=== PATIENT | female | born 1945 | race Caucasian/White ===

== ENCOUNTER → 2018-08-12 14:13 | Outpatient (CLI) | payer MEDICARE, OTHER, SELFPAY ==
--- NOTE | 2018-08-12 | DI.MG.S_ITS ---
BILATERAL DIGITAL SCREENING MAMMOGRAM 3D/2D WITH CAD POST LUMPECTOMY: 08/12/2018 Comparison is made to exams dated: 07/27/2017 mammogram, 06/26/2016 mammogram, and 04/01/2014 mammogram - [facility]. There are scattered fibroglandular elements in both breasts. Current study was also evaluated with a Computer Aided Detection (CAD) system. No significant masses, calcifications, or other findings are seen in either breast. There has been no significant interval change. IMPRESSION: NEGATIVE There is no mammographic evidence of malignancy. A 1 year screening mammogram is recommended. This exam was interpreted at Station ID: [id number]. NOTE: For mammograms, a report in lay terms will be sent to the patient. Approximately 15% of breast malignancies will not be visualized mammographically. In the management of a palpable breast mass, a negative mammogram must not discourage biopsy of a clinically suspicious lesion. Electronically Signed By: Rico bullard/kaitlyn:08/12/2018 17:37:02 letter sent: Normal Exam ACR BI-RADS Category 1: Negative 3341F
== END ==
PROVIDERS: PCP Family Medicine; Visit Provider Family Medicine
DX: Z12.31 Encounter for screening mammogram for malignant neoplasm of breast (principal)
CPT/HCPCS: 77063; 77067

== ENCOUNTER 2019-06-13 08:44 | Emergency (ER) | payer MEDICARE, OTHER, SELFPAY ==
[2019-06-13 08:59] VITALS: BP 132/78; PULSE 78; RESP 18; TEMP 36.3; O2SAT 100; BMI 30.5
--- NOTE | 2019-06-13 10:19 | ED.EAR ---
HPI - Ear Problem General Chief complaint: Ear Stated complaint: pain on right side of head Time Seen by Provider: 06/13/19 10:19 Source: patient Mode of arrival: Family Vehicle Limitations: no limitations History of Present Illness HPI Narrative: This is a 74-year-old female comes emergency department with complaint of pain in her right ear that's been intermittent since April. She states sometimes OB longer break but sometimes she'll have a but have 5 episodes during the day. She states rather intense, she states she has had trigeminal neuralgia in the past but this is much different. She states not as intense and it's only localized to deep inside the ear. She states her episode of trigeminal neuralgia was about 30 years ago. Patient has not had fevers. She has not had any drainage. She is able to pop her ears, she hasn't had any hearing changes, no muffled voice, no nasal congestion, no sinus pressure. Patient hasn't had any swelling of the face neck or ear. She states she hasn't had any outer facial pain. She denies any visual changes. No dizziness. She does not have temporal pain. No chest pain or shortness of breath. No lightheadedness or passing out. No nausea, no vomiting. Has a history significant for prior gastrointestinal tumor and burps frequently so she get regular EGD. Patient has seen the walk-in clinic, her primary care, ENT without any changes. We did discuss ENT told her to try a soft diet as well as ibuprofen and I asked if they had told her she had TMJ which she states they did not. She also had an abscessed tooth extracted last week which also has not altered her symptoms. Related Data Home Medications Medication Instructions Recorded Confirmed CHOLECALCIFEROL (VITAMIN D3) 400 iu PO Q DAY #0 07/07/11 04/28/19 (Vitamin D) Previous Rx's Medication Instructions Recorded CALCIUM CARBONATE (#CALCIUM) 600 mg PO BID #180 10/22/12 Disabled Parking Permit dev #1 03/01/16 omeprazole 20 mg tablet,delayed 20 mg PO DAILY #90 tab 01/08/19 release tolterodine 4 mg capsule,extended 4 mg PO DAILY PRN #30 cap 01/08/19 release 24 hr fluticasone propionate 1 spray NASAL DAILY #15.8 ml 06/13/19 Allergies Allergy/AdvReac Type Severity Reaction Status Date / Time No Known Allergies Allergy Uncoded 06/13/19 09:03 Review of Systems Review of Systems ROS Unobtainable: All systems reviewed & are unremarkable except as noted in HPI and below Patient History Medical History Chicken pox (Resolved ~1949) Hearing loss (Chronic) Mumps (Resolved ~1949) Osteopenia (Chronic) Surgical History Anesthesia (Resolved) Status post hysterectomy (Resolved 1990) Family History Brother Age: 73 Diabetes mellitus Father Heart disease Grandfather Cancer Grandmother Heart disease Mother Heart disease Grandmother Heart disease Sister Age: 68 Lung cancer Grandfather No problems noted. Social History Smoking Status: Never smoker Smoking Status: Never smoker alcohol intake frequency: a few times a month Substance Use Type: does not use Exam Narrative Exam Narrative: GEN: well nourished, well appearing female, alert and oriented x 3, patient appears to be in mild distress. HEENT: Atraumatic, pupils are equal round reactive to light, extraocular movements are intact, nares are clear, TMs are clear with no fluid, slightly traction on the right, there's a small white area of scar but TM is intact. No pain with movement or palpation of the pinna. No tenderness over the temporal region on either side. Throat is clear without any exudates, erythema, tonsillar enlargement or uvular deviation. No cervical lymphadenopathy or submandibular lymphadenopathy. No muffled or hoarse voice. HEART: Regular rate and rhythm without murmur, clicks, rubs. LUNGS:Lungs clear to auscultation, no wheezes, rales, crackles, chest moves symmetrically ABD:bowel sounds normal, soft, non-tender, no guarding, rebound, rigidity, no masses noted, no hepatosplenomegaly MSCL: Non-tender, no muscle atrophy, full range of motion, normal gait NEURO:CN 2-12 intact, sensation normal. SKIN: no rash, no erythmea, Initial Vital Signs Initial Vital Signs: Vital Signs Temperature 97.4 F L 06/13/19 08:59 Pulse Rate 78 06/13/19 08:59 Respiratory Rate 18 06/13/19 08:59 Blood Pressure 132/78 06/13/19 08:59 Pulse Oximetry 100 06/13/19 08:59 Course Orders Ordered: ED Orders 06/13/19 10:55 CT head/brain wo con Stat Vital Signs Vital signs: Vital Signs - 8 hr 06/13/19 11:50 Pulse Rate 73 Respiratory Rate 18 Blood Pressure 140/83 Pulse Oximetry 95 Medical Decision Making Imaging Data CT scan - head: Radiologist's Impression: [address] [address] [address] Scan Report Signed Patient: Minda Cruz [facility]#: [id number] : 4Acct:[id number] Age/Sex: 74 / FDate of Service: 06/13/19 Loc: ED Accession Number: [id number] Procedure: CT head/brain wo con Ordering Provider: Claudia Dow D.O. PROCEDURE: CT HEAD/BRAIN WO CON INDICATIONS: right ear pain/garza, intermittent, no changes TECHNIQUE: Noncontrast 4.5 mm thick angled axial sections acquired from the foramen magnum to the vertex, with coronal and sagittal reformats 1 mm thick imaging was obtained through the internal auditory canals with sagittal and coronal reconstructions.. For radiation dose reduction, the following was used: automated exposure control, adjustment of mA and/or kV according to patient size. COMPARISON: None. FINDINGS: Image quality: Excellent. CSF spaces: Basal cisterns are patent. No extra-axial fluid collections. Ventricles are normal in size and shape. Brain: No midline shift. No intracranial masses or hemorrhage. Aponte-white matter interface is normal. Skull and face: Calvarium and visualized facial bones are intact, without suspicious lesions. Sinuses: Visualized sinuses and mastoids are clear. No evidence of cholesteatoma. No mastoid opacification. No evidence of otitis media. Moderate left TMJ degenerative change. Middle ear ossicles appear intact. IMPRESSION: 1. Left TMJ degenerative arthritis. 2. No evidence of acute stroke, hemorrhage, or mass. 3. Otherwise unremarkable head CT and unremarkable thin cut imaging through the internal auditory canals. Dictated by: Jericho Verma M.D. on 06/13/2019 at 11:04 Approved by: Jeircho Verma M.D. on 06/13/2019 at 11:07 [facility] Narrative Medical decision making narrative: Patient has left TMJ changes but her complaint is for right ear pain. Discussed with patient we can try Flonase doesn't sound like she has tried this to see if there's any eustachian tube dysfunction that might be helpful. We discussed possibly having trigeminal neuralgia on the differential although she states this is not anything as strong as that. Discharge Plan Departure Patient Disposition: Home Clinical Impression: Ear pain, right Discharge Date/Time: 06/13/19 11:52 Instructions: DI for Ear Pain-Adult Activity Restrictions/Additional Instructions: Follow up with Dr. Benitez at your appointment. Continue home medications as prescribed. I would recommend continuing a soft diet as per ENT. Use flonase one spray to both nostrils daily x 2 weeks. [facility] [place]. Return to ER for fevers greater 100.4 F, rapidly worsening pain, lightheadedness, dizziness, vision changes, ataxia or altered gait, persistent vomiting, new chest pain shortness of breath, severe headaches, new swelling of the skin or face or neck or other new or concerning changes Prescriptions: New fluticasone propionate 50 mcg/actuation spray,suspension 1 spray NASAL DAILY Qty: 15.8 RF: 0 No Action CHOLECALCIFEROL (VITAMIN D3) (Vitamin D) 400 iu PO Q DAY Qty: 0 RF: 0 CALCIUM CARBONATE (#CALCIUM) 600 mg PO BID Qty: 180 RF: 3 Disabled Parking Permit Qty: 1 RF: 0 tolterodine [Detrol LA] 4 mg capsule,extended release 24hr 4 mg PO DAILY PRN (Reason: Urgency) Qty: 30 RF: 5 omeprazole 20 mg tablet,delayed release (DR/EC) 20 mg PO DAILY Qty: 90 RF: 3 Referrals: Bam Benitez MD [Primary Care Provider] -
--- NOTE | 2019-06-13 10:55 | DI.CT.S_ITS ---
PROCEDURE: CT HEAD/BRAIN WO CON INDICATIONS: right ear pain/garza, intermittent, no changes TECHNIQUE: Noncontrast 4.5 mm thick angled axial sections acquired from the foramen magnum to the vertex, with coronal and sagittal reformats 1 mm thick imaging was obtained through the internal auditory canals with sagittal and coronal reconstructions.. For radiation dose reduction, the following was used: automated exposure control, adjustment of mA and/or kV according to patient size. COMPARISON: None. FINDINGS: Image quality: Excellent. CSF spaces: Basal cisterns are patent. No extra-axial fluid collections. Ventricles are normal in size and shape. Brain: No midline shift. No intracranial masses or hemorrhage. Aponte-white matter interface is normal. Skull and face: Calvarium and visualized facial bones are intact, without suspicious lesions. Sinuses: Visualized sinuses and mastoids are clear. No evidence of cholesteatoma. No mastoid opacification. No evidence of otitis media. Moderate left TMJ degenerative change. Middle ear ossicles appear intact. IMPRESSION: 1. Left TMJ degenerative arthritis. 2. No evidence of acute stroke, hemorrhage, or mass. 3. Otherwise unremarkable head CT and unremarkable thin cut imaging through the internal auditory canals. Dictated by: Jericho Verma M.D. on 06/13/2019 at 11:04 Approved by: Jericho Verma M.D. on 06/13/2019 at 11:07
[2019-06-13 11:50] VITALS: BP 140/83; PULSE 73; RESP 18; O2SAT 95
== END 2019-06-13 11:52 | disposition home or self-care (01) ==
PROVIDERS: Emergency Provider Emergency Medicine; PCP Family Medicine
DX: H92.01 Otalgia, right ear (principal); R51 Headache
CPT/HCPCS: 70450; 99281; 99284

== ENCOUNTER → 2019-11-12 13:35 | Outpatient (CLI) | payer MEDICARE, OTHER, SELFPAY ==
--- NOTE | 2019-11-12 | DI.ECHO.S_ITS ---
[facility] +---------+ : : [address] : : : : [id number] : : : : Phone: [phone]+ Echocardiogram Report + + :Name: JUAN SOLANO Study Date: 11/12/2019 Height: 67 in : :[facility] Weight: 189 lb : : Gender: Female BSA: 2.0 m2 : :: 1945 Age: 74 yrs BP: 124/72 mmHg: :Reason For Study: Chest Pain : :Ordering Physician: Dr. Kuhn : :Emmanuel Performed By: Venus Espinoza : :Referring: BAHMAN ELAINE : + + Interpretation Summary 1) Normal left ventricular thickness, size, wall motion, and systolic function (EF 60-65%). 2) Normal right ventricular size and function. 3) No significant valvular abnormalities. 4) No prior Echo available for comparison. Procedure: A two-dimensional transthoracic echocardiogram with color flow and Doppler was performed. The study quality was technically difficult. There is no prior echocardiogram noted for this patient. The patient was in normal sinus rhythm during the exam. The heart rate ranged between 70-80 bpm during the study. Left Ventricle: The left ventricle is normal in size and wall thickness. The ejection fraction is estimated to be 60-65%. Left ventricular global longitudinal strain average is -20.4%. Diastolic parameters suggest probable normal left ventricular diastolic function and normal filling pressures. Right Ventricle: The right ventricle is normal in size and function. Atria: Both atria are normal in size. There is no Doppler evidence for an interatrial shunt. Mitral Valve: The mitral valve is normal in structure and function. There is trace mitral regurgitation. Aortic Valve: The aortic valve is grossly normal. The aortic valve is trileaflet. The aortic valve opens well. There is no aortic valve stenosis. No aortic regurgitation is present. Tricuspid Valve: The tricuspid valve is normal in structure and function. There is a trace or physiologic amount of tricuspid regurgitation. Pulmonary artery pressures cannot be estimated because of the lack of a measurable TR jet velocity but the IVC suggests a CVP of around 3 mmHg. Pulmonic Valve: The pulmonic valve is not well seen, but is grossly normal. There is mild pulmonic regurgitation. Great Vessels: The aortic root is normal size. The ascending aorta is mildly enlarged. The IVC is of normal diameter and collapses greater than 50% with a sniff. This suggests a low right atrial pressure of 3 mm Hg. Pericardium/ Pleura There is no pericardial effusion. There is no pleural effusion. MMode/2D Measurements & Calculations LVIDd: 4.0 cm LVOT diam: 2.1 cm LVIDs: 2.6 cm Ao root diam: 2.9 cm FS: 33.5 % asc Aorta Diam: 3.4 cm EPSS: 0.75 cm Ao Arch Diam (Prox Trans): 2.7 cm IVSd: 1.0 cm LVPWd: 0.93 cm LV de jesus. diameter/BSA (cm/m^2): 2.0 LV sys. diameter/BSA (cm/m^2): 1.3 LA A2 area: 17.8 cm2 RA long axis: 4.8 cm LA A4 area: 16.9 cm2 RA area: 14.5 cm2 LA length (vol): 5.1 cm RA vol: 36.9 ml LA vol: 49.9 ml RA : 18.7 ml/m2 LA vol index: 25.3 ml/m2 IVC diam: 1.6 cm RVD1 (basal): 2.7 cm TAPSE: 2.0 cm Doppler Measurements & Calculations Ao V2 max: 108.5 cm/sec LVOT Max Joshua: 91.7 cm/sec Ao V2 mean: 80.4 cm/sec LV V1 max P.4 mmHg Ao max P.7 mmHg LV V1 VTI: 21.5 cm Ao mean P.9 mmHg XENIA(I,D): 2.7 cm2 Ao V2 VTI: 27.4 cm XENIA(V,D): 2.9 cm2 sev ratio: 0.78 XENIA indexed to BSA (cm^2/m^2): 1.4 MV E max joshua: 68.2 cm/sec PA V2 max: 76.2 cm/sec MV A max joshua: 76.4 cm/sec PA V2 mean: 46.8 cm/sec MV E/A: 0.89 PA mean P.1 mmHg Med Peak E' Joshua: 7.4 cm/sec PA pr(Accel): 15.6 mmHg E/E' med: 9.2 Lat Peak E' Joshua: 9.4 cm/sec E/E' lat: 7.2 E/e' average: 8.2 MV dec time: 0.21 sec SV(LVOT): 73.6 ml Reading Physician:05:09 PM
--- NOTE | 2019-11-12 14:43 | PM.TREADMILL ---
Cardiac Stress Test Report Referral & Results Date Patient Seen: 11/12/19 Time Patient Seen: 14:30 Requesting provider: Bam Benitez Indication: chest discomfort Rest ECG: normal sinus rhythm Procedure Note: Today following both written and verbal informed consent the patient was exercised according to a standard protocol patient went for a total of 4 minutes 13 seconds achieving a maximum heart rate of 129 maximum systolic blood pressure of 158. This is approximately 7.0 METs. Exercise was terminated at this point because of fatigue. Patient was also given Cardiolite through a previously started Hep-Lock IV by the nuclear fuel processing technician approximately 1 minute prior to the cessation of exercise. Normal hemodynamic response to exercise. Normal exercise capacity ( WHITNEY 0% on the active scale). No signs or symptoms of angina. No rhythm changes. No ST deviations. Baseline artifact made exercise EKG difficult to interpret, but immediate post exercise EKG looks normal. Impression: Low probability for ischemia. Will await perfusion imaging. Please note: Actual ECG tracings can be found in the PACS system.
--- NOTE | 2019-11-13 17:24 | DI.NM.S_ITS ---
DATE OF SERVICE: 11/12/2019 PROCEDURE PERFORMED: Exercise treadmill stress and rest myocardial perfusion imaging with gating to assess ejection fraction and regional wall motion. ORDERING PROVIDER: Dr. Bam Benitez INDICATIONS: The patient is a 74-year-old female with chest discomfort. EXERCISE CARDIAC STRESS: The patient was able to exercise for a total 4 minutes 13 seconds on a standard protocol, suggesting average exercise capacity with a WHITNEY of 0%. She had a normal heart rate and blood pressure response, achieving a maximumheart rate of 129 bpm (89% of her predicted maximum). She had no chest discomfort or other anginal symptoms. Her resting ECG is normal and there are no apparent ST-segment shifts, although there is significant motion artifact during exercise, but the immediate post-stress ECGs appear normal and unchanged from the resting ECGs. At 3 minutes 10 seconds of exercise, at a heart rate of 122 bpm, 24.6 millicuries of technetium-99m Myoview was injected and the patient was imaged 15 minutes later using a gated SPECT acquisition protocol. The patient returned the following day and was reinjected with an additional 26.1 millicuries of technetium-99m Myoview and was imaged 30 minutes later, again using a gated SPECT acquisition protocol. FINDINGS: 1. Raw Data: There is fairly good myocardial tracer uptake with mild breast shadows noted. Lung/heart ratio is normal at 0.23 with a normal TID ratio of 0.80. 2. Quantitated gated SPECT: Post-stress ejection fraction is estimated at 78% without any focal wall motion abnormality. Resting ejection fraction is 73% with a normal resting end-diastolic volume of 77 mL 3. Myocardial perfusion imaging: Post-stress supine images show a normal myocardial perfusion pattern, supported by normal perfusion imaging in the prone position. The resting images show an identical perfusion pattern without any areas of improvement. CONCLUSIONS: 1. Normal myocardial perfusion study. 2. No evidence for myocardial ischemia or previous myocardial infarction. 3. Normal left ventricular systolic function without any regional wall motion abnormality. 4. Average exercise capacity without angina or ECG evidence of ischemia. Minda Cruz - DIANE/joe/marielena doc#: [id number]/job#: [id number] dd: 11/13/2019 12:41:00 dt: 11/13/2019 16:58:00 DICTATING MD/COPIES TO: Arden Saglado MD; Bam Benitez MD COPIES MNE: HUAN;
== END ==
PROVIDERS: PCP Family Medicine; Referring Provider Family Medicine; Visit Provider Family Medicine
DX: I37.1 Nonrheumatic pulmonary valve insufficiency (principal); I77.89 Other specified disorders of arteries and arterioles; R07.89 Other chest pain
CPT/HCPCS: 78452; 93016; 93017; 93018; 93306; A9502

== ENCOUNTER → 2020-01-19 09:09 | Outpatient (CLI) | payer MEDICARE, OTHER, SELFPAY ==
--- NOTE | 2020-01-19 | DI.MRI.S_ITS ---
PROCEDURE: MR HEAD/BRAIN WO/W CON INDICATIONS: Trigeminal neuralgia TECHNIQUE: Noncontrast sagittal T1 spin echo, axial T2 fast spin echo, axial FLAIR, axial gradient echo, axial diffusion and ADC through the brain. Axial/sagittal/coronal 3-D CISS, thin-slice axial T1 spin echo with fat saturation through the skull base. After the administration of contrast, axial and coronal thin-slice T1 spin echo with fat saturation through the skull base, axial T1 spin echo with fat saturation through the brain. COMPARISON: None. FINDINGS: Image quality: Excellent. Trigeminal nerves: Normal in size, and no evidence of extrinsic compression or intrinsic abnormal enhancement is found involving the cranial nerves. CSF spaces: Ventricles are normal in size and shape. No extra-axial fluid collections. Basal cisterns are patent. Brain: No intracranial bleeds or mass effects. No abnormal intracranial enhancement. Diffusion weighted images show no acute ischemic insults. Aponte-white matter interface is intact. Brainstem is normal. Normal intravascular flow voids are present. Skull and face: Calvarial marrow signal is normal. Orbits appear normal. Sinuses: Sinuses and mastoids appear clear. IMPRESSION: Normal examination, source of trigeminal neuralgia symptoms is not seen. There is no sign of inflammation of the cranial nerves, or extrinsic mass effect. Dictated by: Domenico Aldana M.D. on 01/19/2020 at 11:19 Approved by: Domenico Aldana M.D. on 01/19/2020 at 11:21
== END ==
PROVIDERS: PCP Family Medicine; Referring Provider Internal Medicine; Visit Provider Internal Medicine
DX: G50.0 Trigeminal neuralgia (principal)
CPT/HCPCS: 70553; A9579

== ENCOUNTER → 2020-01-20 10:08 | Outpatient (CLI) | payer MEDICARE, OTHER, SELFPAY ==
--- NOTE | 2020-01-20 | DI.MG.S_ITS ---
BILATERAL DIGITAL SCREENING MAMMOGRAM 3D/2D WITH CAD POST LUMPECTOMY: 01/20/2020 CLINICAL: Routine screening. Personal history of right breast cancer. Comparison is made to exams dated: 08/12/2018 mammogram, 07/27/2017 mammogram, and 06/26/2016 mammogram - [facility]. There are scattered fibroglandular elements in both breasts. Current study was also evaluated with a Computer Aided Detection (CAD) system. No significant masses, calcifications, or other findings are seen in either breast. There has been no significant interval change. IMPRESSION: NEGATIVE There is no mammographic evidence of malignancy. A 1 year screening mammogram is recommended. This exam was interpreted at Station ID: [id number]. NOTE: For mammograms, a report in lay terms will be sent to the patient. Approximately 15% of breast malignancies will not be visualized mammographically. In the management of a palpable breast mass, a negative mammogram must not discourage biopsy of a clinically suspicious lesion. Electronically Signed By: Petr Ham M.D., jr/kaitlyn:01/20/2020 10:39:52 letter sent: Normal Exam ACR BI-RADS Category 1: Negative 3341F
== END ==
PROVIDERS: PCP Family Medicine; Referring Provider Family Medicine; Visit Provider Family Medicine
DX: Z12.31 Encounter for screening mammogram for malignant neoplasm of breast (principal); Z85.3 Personal history of malignant neoplasm of breast
CPT/HCPCS: 77063; 77067

== ENCOUNTER → 2020-02-05 15:40 | Outpatient (CLI) | payer MEDICARE, OTHER, SELFPAY ==
--- NOTE | 2020-02-05 15:44 | DI.RAD.S_ITS ---
PROCEDURE: XR HIP W PEL IF DONE LT 2V INDICATIONS: fall TECHNIQUE: AP pelvis with lateral view(s) of the left hip(s). COMPARISON: [facility], CR, [id number] W PEL IF PERFORMED, 02/25/2016, 18:05. [facility], CR, [id number] W PEL IF PERFORMED, 02/24/2016, 8:07. FINDINGS: Bones: No fractures or dislocations. Pelvic ring appears intact. No suspicious bony lesions. Soft tissues: The visualized bowel gas pattern is normal. No suspicious soft tissue calcifications. IMPRESSION: Prior fracture fixation right hip, by cannulated pins. No acute trauma to the left hip or left hemipelvis found. Dictated by: Domenico Aldana M.D. on 02/05/2020 at 16:44 Approved by: Domenico Aldana M.D. on 02/05/2020 at 16:45
--- NOTE | 2020-02-05 15:44 | DI.RAD.S_ITS ---
PROCEDURE: XR RIBS LT MIN 3V W CXR1V INDICATIONS: fall TECHNIQUE: 2 views of the left ribs were acquired, along with a single view chest. COMPARISON: None. FINDINGS: Surgical changes and devices: None. Bones and chest wall: No fractures or dislocations. No suspicious bony lesions. Overlying soft tissues appear unremarkable. Lungs and pleura: No pleural effusions or pneumothorax. Lungs appear clear. Mediastinum: Mediastinal contours appear normal. Heart size is normal. IMPRESSION: No pneumothorax found, no rib fracture identified. Please note that a nondisplaced acute rib fracture may not be accurately detected initially but delayed plain films can improve visualization with callus formation, obtained several days after trauma. Dictated by: Domenico Aldana M.D. on 02/05/2020 at 16:36 Approved by: Domenico Aldana M.D. on 02/05/2020 at 16:43
== END ==
PROVIDERS: PCP Family Medicine; Referring Provider Nurse Practitioner Family; Visit Provider Nurse Practitioner Family
DX: M25.552 Pain in left hip (principal); R07.81 Pleurodynia
CPT/HCPCS: 71101; 73502

== ENCOUNTER → 2020-02-19 15:49 | Outpatient (CLI) | payer MEDICARE, OTHER, SELFPAY ==
--- NOTE | 2020-02-19 15:51 | DI.MRI.S_ITS ---
PROCEDURE: MR PELVIS WO CON INDICATIONS: Left buttock pain TECHNIQUE: Noncontrast coronal and axial T1 spin echo and STIR through the bony pelvis. COMPARISON: [facility], CR, XR HIP W PEL IF DONE LT 2V, 02/05/2020, 15:37. FINDINGS: Image quality: Suboptimal due to hardware artifact from right hip postsurgical changes. Bones and joints: Low signal intensity fracture line seen within the anterior column of the left acetabulum . There is extensive associated marrow edema. There is also marrow edema present within the left inferior pubic ramus, suspicious for nondisplaced fracture although less well visualized. Possible subtle fracture line seen on image 37/7. Adjacent edema present within the left hip abductor muscle compartment in keeping with acute or subacute strain. Sacroiliac joints are unremarkable in signal intensity. There is lower lumbar spondylosis and facet arthropathy. No pathologic hip joint effusion. No evidence of osteonecrosis. Tendons and ligaments: The gluteus medius and minimus tendons appear intact, without associated muscle atrophy. Proximal iliotibial band intact. Iliopsoas tendon intact. Origin of the hamstring tendon intact. The straight and reflected heads of the rectus femoris muscle origin appear intact Ligamentum teres appears intact where visualized. Labrum: Labrum appears intact in the absence of intra-articular contrast. The alpha angle of the femur is within normal limits at less than 55 degrees. Soft tissues: Visualized muscles demonstrate normal bulk and internal signal. Quadratus femoris muscle normal. Proximal sciatic neurovascular bundle appears normal adjacent to the hamstring tendons. No free pelvic fluid. Bladder normal. Genitourinary structures and bowel loops appear normal where visualized. IMPRESSION: Nondisplaced fractures of the anterior column of left acetabulum, and left inferior pubic ramus. Strain of the left hip adductor muscles Findings and recommendations were personally telephoned and discussed with Dr. Benitez's triage nurse (Joselyn) at 1006 hours 02/20/20. Dictated by: Griffin Perry M.D. on 02/20/2020 at 9:22 Approved by: Griffin Perry M.D. on 02/20/2020 at 10:08
== END ==
PROVIDERS: PCP Family Medicine; Referring Provider Family Medicine; Visit Provider Family Medicine
DX: M25.552 Pain in left hip (principal); S32.435A Nondisplaced fracture of anterior column [iliopubic] of left acetabulum, initial encounter for closed fracture; S32.592A Other specified fracture of left pubis, initial encounter for closed fracture; S76.012A Strain of muscle, fascia and tendon of left hip, initial encounter
CPT/HCPCS: 72195

== ENCOUNTER → 2020-03-24 08:22 | Outpatient (CLI) | payer MEDICARE, OTHER, SELFPAY ==
[2020-03-24 09:48] LABS: Add Manual Diff / Slide Review NO; Basophils Absolute Auto 0 /uL (0-100); Basophils Percent Auto 0.4 % (0-2); Eosinophils Absolute Auto 100 /uL (0-450); Eosinophils Percent Auto 1.9 % (2-4); Hemoglobin 13.8 g/dL (12.0-16.0); Lymphocytes Absolute Auto 1400 /uL (1100-4500); Lymphocytes Percent Auto 22.6 % (25-40); Mean Corpuscular HGB Conc 32.9 % (30-36); Mean Corpuscular Hemoglobin 30.6 PG (26-34); Monocytes Absolute Auto 500 /uL (0-900); Monocytes Percent Auto 7.3 % (3-14); Neutrophils Absolute Auto 4200 /uL (1500-7000); Neutrophils Percent Auto 67.8 % (50-75); Platelet Count 265 X10^3/uL (150-400); Red Blood Cell Count 4.52 X10^6/uL (4.0-5.2); Red Cell Distribution Width 13.7 % (11.6-14.8); White Blood Cell Count 6.3 X10^3/uL (4.5-11.0)
[2020-03-24 10:16] LABS: Alanine Aminotransferase 16 IU/L (<35); Albumin Globulin Ratio 1.4 (1.0-2.8); Alkaline Phosphatase 77 U/L (38-126); Aspartate Aminotransferase 24 IU/L (14-36); BUN Creatinine Ratio 27.5 (6-22); Bilirubin Total 0.7 mg/dL (0.2-1.3); Blood Urea Nitrogen 22 mg/dL (7-17); Calcium 8.9 mg/dL (8.4-10.2); Carbon Dioxide 31 mmol/L (22-32); Chloride 105 mmol/L (98-107); Cholesterol 145 mg/dL (140-199); Estimated Glomerular Filt Rate > 60.0 mL/min (>60); Globulin 2.8 g/dL (1.7-4.1); Glucose 101 mg/dL (80-110); HDL Cholesterol 61 mg/dL (40-60); HEMOLYSIS < 15 (0-50); LDL Cholesterol Calculated 66 mg/dL (<100); Potassium 4.1 mmol/L (3.4-5.1); Sodium 141 mmol/L (137-145); Total Protein 6.8 g/dL (6.3-8.2); Triglycerides 89 mg/dL (35-150)
[2020-03-24 10:45] LABS: Thyroid Stimulating Hormone 0.921 uIU/mL (0.47-4.68)
== END ==
PROVIDERS: PCP Family Medicine; Referring Provider Family Medicine; Visit Provider Family Medicine
DX: K21.00 Gastro-esophageal reflux disease with esophagitis, without bleeding (principal); E78.5 Hyperlipidemia, unspecified
CPT/HCPCS: 36415; 80053; 80061; 84443; 85025

== ENCOUNTER → 2020-08-19 10:58 | Outpatient (CLI) | payer MEDICARE, OTHER, SELFPAY ==
[2020-08-19 11:27] LABS: COVID19 -Nasal RAPID Negative (Negative)
== END ==
PROVIDERS: PCP Family Medicine; Visit Provider Specialist
DX: Z20.822 Contact with and (suspected) exposure to COVID-19 (principal)
CPT/HCPCS: 87635; 99213; C9803

== ENCOUNTER 2020-08-20 09:28 | Day surgery (SDC) | payer MEDICARE, OTHER, SELFPAY ==
[2020-08-20] VITALS (9 sets, daily range): BP systolic 96–127; BP diastolic 60–78; PULSE 63–77; RESP 10–16; TEMP 36–36.9; O2SAT 92–99; BMI 30.5
--- NOTE | 2020-08-20 | PATH_ITS ---
[facility] Accession Number: [id number] . 01 Material submitted: . PART A: gastrointestinal site - PROXIMAL STOMACH BIOPSY PART B: esophagus, E-G Junction - GE JUNCTION BIOPSY . 01 Clinical history: . SDC A: 4 SMALL STOMACH POLYP . 01 Diagnosis: A. Proximal Stomach, Polyps, Biopsies: Fragments of fundic gland polyp with mild reactive atypia and fragments of gastric hyperplastic polyp. No evidence of Helicobacter on H/E stain. Negative for intestinal metaplasia. Negative for dysplasia or malignancy. . B. Gastroesophageal Junction, Biopsy: Squamocolumnar junctional mucosa with mild chronic inflammation. Negative for specialized intestinal metaplasia on alcian blue stain. Negative for dysplasia or malignancy. [facility] 08/26/2020 1457 Local . 01 Comment: A. As part of routine quality assurance auditor, Dr. Steve has reviewed part A of this case and agrees with the diagnosis of fundic gland polyps with reactive atypia and fragments of hyperplastic polyp. . 01 Electronically signed: . Breezy Aguero MD, PhD, Pathologist NPI- [id number] . 01 Gross description: . Part A: PROXIMAL STOMACH BIOPSY: Received in formalin are 5 fragment(s) of meyers, soft tissue measuring 0.4 x 0.2 x 0.2 cm to 0.3 x 0.2 x 0.2 cm submitted entirely in 1 cassette(s) Part B: GE JUNCTION BIOPSY: Received in formalin are 4 fragment(s) of meyers, soft tissue measuring 0.4 x 0.3 x 0.1 cm to 0.2 x 0.2 x 0.1 cm submitted entirely in 1 cassette(s) /QBJ 08/21/2020 0902 Local . 01 Microscopic: . B. An AB/PAS stain is performed to evaluate for specialized intestinal metaplasia, and is negative for goblet cells. A control stain shows appropriate reactivity. . 01 Pathologist provided ICD-10: K31.7, K20.90 . 01 CPT . 106440, 269823, 388114 Performed at: 01 [facility] [address] [place] [address] [address] [facility], [place], [place] [id number] MD Rico Steve MD Phone: [phone]
[2020-08-20] MEDS: LACTATED RINGERS 1,000 ML 200 ML IV (10:15)
--- NOTE | 2020-08-20 11:44 | P.HP_ITS ---
History of Present Illness History of Present Illness Date Patient Seen: 08/19/20 Time Patient Seen: 11:45 [place] [facility] [place]: Patient seen yesterday in the office. Dictation not yet typed. She is here for surveillance. 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 Patient History Medical History Chicken pox (~1950) Hearing loss Left hip pain Mumps (~1950) Osteopenia Rib pain on left side Surgical History Anesthesia History of hip surgery Status post hysterectomy (1990) Family & Social History Family History Brother Age: 74 Diabetes mellitus Father Heart disease Grandfather Cancer Grandmother Heart disease Mother Heart disease Grandmother Heart disease Sister Age: 69 Lung cancer Grandfather No problems noted. Social History: household members spouse Tobacco & Substance use: Smoking Status Never smoker alcohol intake current alcohol intake frequency holiday/special occasion Substance Use Type does not use Meds Home Medications and Allergies Home Medications Medication Instructions Recorded Confirmed Type Disabled Parking Permit dev #1 03/01/16 08/19/20 Rx omeprazole 20 mg capsule,delayed 20 mg PO DAILY #90 cap 12/23/19 08/20/20 Rx release Allergies Allergy/AdvReac Type Severity Reaction Status Date / Time carbamazepine AdvReac Mild Dizziness Verified 08/19/20 10:20 Review of Systems Review of Systems ROS: Yes All systems reviewed with the patient and are negative except as otherwise documented Exam Vital Signs (past 8 hours): - 08/20/20 09:59 Temperature 97.8 F Pulse Rate 77 Respiratory Rate 13 Blood Pressure 127/74 Pulse Oximetry 99 Oxygen Delivery Method Room Air Oxygen Flow Rate 0 Narrative Exam Narrative: Pleasant cooperative patient no apparent distress. Lungs are clear to auscultation. No rales or rhonchi. Heart regular rate and rhythm no murmur gallop. Abdomen is soft nontender without mass. No obvious hernias. Patient is alert and oriented x3. Assessment & Plan Assessment & Plan narrative: Patient here for a surveillance EGD. I have discussed the procedure with her including risks of bleeding perforation. She appears to understand wishes to proceed.
--- NOTE | 2020-08-20 11:48 | PM.PREOP ---
Pre-operative Note COVID-19 COVID-19 status: Negative Result date/Date tested (Pos, Neg/Pending): 08/19/20 Interval Note History & Physical reviewed/Exam performed by Physician: Yes Changes to H&P: No ASA Class (for procedural sedation): I
[2020-08-20] MEDS: MIDAZOLAM 5 MG/5 ML VIAL IV (11:56)
[2020-08-20] MEDS: fentaNYL 250 MCG/5 ML INJ IV (11:56)
[2020-08-20] MEDS: LIDOCAINE 4% SOLN 50 ML 20 ML TOP (12:00)
--- NOTE | 2020-08-20 12:10 | P.OP.ENDO_ITS ---
Operative Date/Time/Diagnoses Date of procedure: 08/20/20 Time of procedure: 12:10 Pre-op diagnosis: History of gastric gist tumor Post-op diagnosis: same (Small gastric polyps which were biopsied. Small hiatal hernia. 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 She was placed in left lateral decubitus position and underwent IV sedation directed by the surgeon consisting of fentanyl and Versed. A bite block was inserted and the scope was advanced through it into the esophagus. The esophagus was unremarkable. GE junction was noted at 35 cm from the incisors. The stomach insufflated well. The mucosa was normal in color and appearance. There were some small polyps noted. The pyloric channel was patent. The duodenum was unremarkable to the 4th part. The scope was brought back into the stomach and retroflexed. The proximal stomach was remarkable for a hiatal hernia. There was 1 area in the cardia where there was inflammation. Biopsies were taken of the polyps that were seen. These were all small and probably gastric fundic polyps. . The scope was straightened and brought out through the esophagus again. The GE junction was somewhat irregular and suggestive of possible Shelley's esophagus. Biopsies were taken in this region. No other lesions were seen. The scope was removed and the patient tolerated the pr ocedure well. Scope withdrawal time: Not applicable Sedation minutes: 10 Findings: hiatal hernia (Small hiatal hernia) and polyp (Small and probably benign.) Specimen(s): other (Polyps and biopsies with the esophagus and stomach joint.) Complications: none Post-procedure Recommendations: EGD in 1 year Follow up: as needed Disposition: PACU
== END 2020-08-20 13:00 | disposition home or self-care (01) ==
PROVIDERS: PCP Family Medicine; Referring Provider Specialist; Visit Provider Specialist
PROC: 0DJ08ZZ Inspection of Upper Intestinal Tract, Via Natural or Artificial Opening Endoscopic (ICD-10-PCS; CPT 43235; principal; 2020-08-20 10:45)
DX: Z85.028 Personal history of other malignant neoplasm of stomach (principal); K44.9 Diaphragmatic hernia without obstruction or gangrene; K31.7 Polyp of stomach and duodenum; K20.90 Esophagitis, unspecified without bleeding
CPT/HCPCS: 43239; J2250; J3010

== ENCOUNTER → 2020-09-08 07:48 | Outpatient (CLI) | payer MEDICARE, OTHER, SELFPAY ==
[2020-09-08 09:23] LABS: Add Manual Diff / Slide Review NO; Basophils Absolute Auto 100 /uL (0-100); Eosinophils Absolute Auto 100 /uL (0-450); Eosinophils Percent Auto 1.2 % (2-4); Hematocrit 41.4 % (36-46); Hemoglobin 13.7 g/dL (12.0-16.0); Lymphocytes Absolute Auto 800 /uL (1100-4500); Lymphocytes Percent Auto 9.4 % (25-40); Mean Corpuscular Hemoglobin 30.4 PG (26-34); Monocytes Absolute Auto 500 /uL (0-900); Monocytes Percent Auto 6.3 % (3-14); Neutrophils Absolute Auto 6900 /uL (1500-7000); Neutrophils Percent Auto 82.1 % (50-75); Platelet Count 240 X10^3/uL (150-400); Red Blood Cell Count 4.49 X10^6/uL (4.0-5.2); Red Cell Distribution Width 13.8 % (11.6-14.8); White Blood Cell Count 8.4 X10^3/uL (4.5-11.0)
[2020-09-08 09:42] LABS: Alanine Aminotransferase 15 IU/L (<35); Albumin 4.4 g/dL (3.5-5.0); Alkaline Phosphatase 73 U/L (38-126); Aspartate Aminotransferase 22 IU/L (14-36); Bilirubin Total 0.8 mg/dL (0.2-1.3); Blood Urea Nitrogen 17 mg/dL (7-17); Calcium 9.5 mg/dL (8.4-10.2); Carbon Dioxide 27 mmol/L (22-32); Chloride 105 mmol/L (98-107); Estimated Glomerular Filt Rate > 60.0 mL/min (>60); Globulin 2.2 g/dL (1.7-4.1); Glucose 104 mg/dL (80-110); HEMOLYSIS < 15 (0-50); Potassium 4.8 mmol/L (3.4-5.1); Sodium 138 mmol/L (137-145); Total Protein 6.6 g/dL (6.3-8.2)
[2020-09-08 10:11] LABS: TSH w/ Reflex to FT4 0.64 uIU/mL (0.47-4.68)
[2020-09-08 10:27] LABS: Vitamin B12 289 pg/mL (239-931)
== END ==
PROVIDERS: PCP Internal Medicine; Referring Provider Internal Medicine; Visit Provider Internal Medicine
DX: R53.83 Other fatigue (principal)
CPT/HCPCS: 36415; 80053; 82607; 84443; 85025

== ENCOUNTER 2021-01-19 14:30 | Outpatient (RCR) | payer MEDICARE, OTHER, SELFPAY ==
--- NOTE | 2020-10-05 13:40 | PT.OIE ---
Current Diagnoses Bilateral primary osteoarthritis of knee (10/05/20) Pain in right knee (10/05/20) Pain in left knee (10/05/20) Difficulty in walking, not elsewhere classified (10/05/20) Weakness (10/05/20) History of falling (10/05/20) Past Medical History (Last Reviewed 08/20/20 @ 17:25 by Bayron Templeton MD) Chicken pox (~1950) Hearing loss Left hip pain Mumps (~1950) Osteopenia Rib pain on left side Past Surgical History (Last Reviewed 08/20/20 @ 17:25 by Bayron Templeton MD) Anesthesia History of hip surgery Status post hysterectomy (1990) Visit Care Team Role Provider Type Any Zazueta MD Attending Provider Physician Primary Care Provider Referring Provider Specialty: Internal Medicine Address: [address] [place] [address], [facility] Email: [email or web address] Physical Therapy Initial Evaluation PT-OP-A Visit Information Start: 10/04/20 14:44 Freq: Status: Active Protocol: Document 10/05/20 13:45 SAK (Rec: 10/05/20 14:24 SAK [id number]) Out-Patient Physical Therapy Visit Information Visit Information Visit Type Initial Evaluation Visit Start Time 13:45 Visit Stop Time 14:45 Total Visit Minutes 60 Visit Number 1 PT-OP-B Current Condition Start: 10/04/20 14:44 Freq: Status: Active Protocol: Document 10/05/20 13:45 SAK (Rec: 10/05/20 14:24 SAK [id number]) Current Condition History of Current Condition Onset Date 2 years Current Complaints bilateral knee pain History of Current Condition progressively worsening knee pain, has had 2 injections left knee most recently 2 months ago, one right . No use of heat or ice. Is going to start doing aquatic exercise; hasn't done since before pandemic. Hasn't been doing any exercises at home. Doesn't use assistive device stating I figure once you start that its all over. Wears knee brace at times right. Occasionally one of her knees goes out, has fallen 2x while walking on slope with soft dirt. 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 Prior Treatments and Tests x-ray: moderate arthritis Future Testing and Treatments Planned No scheduled follow-up with Dr Lorraine Mcpherson. Treatment Goals Patient/Caregiver Goals more confidence in walking, no falls, safe walking in the comunity. Prior Functional Status Baseline Function- ADL's Independent Baseline Function- Mobility Independent Baseline Function- Gait independent no device Baseline Function- Recreation/Hobbies could get down to the floor, or in or out of the bathtub, transfer sit to and from stand without use of hands Current Functional Impairments (Reported) Functional Limitations- Other can't get down to the floor or get up, unable to get down into bathtub or out , can't transfer sit to stand without use of hands PT-OP-C Subjective Start: 10/04/20 14:44 Freq: Status: Active Protocol: Document 10/05/20 13:45 SAK (Rec: 10/06/20 13:38 [facility] [id number]) OP-PT Pain Assessment Location bilateral knees Pain Location Details lateral joint line Intensity 7 Description Pressure,Tender,Throbbing,With Movement Frequency Frequent Pain Aggravating Factors Standing,Walking Pain Alleviating Factors Inactivity,Rest Pain Behaviors Pain Behaviors Facial Grimacing,Guarding, Wincing PT-OP-D Balance Start: 10/04/20 14:44 Freq: Status: Active Protocol: Document 10/05/20 13:45 SAK (Rec: 10/06/20 13:38 SAK [id number]) OP-PT Balance Assessment Sitting Balance Static Sitting Balance Ability Normal Dynamic Sitting Balance Ability Normal Tinetti Balance Assessment Sitting Balance Sitting Balance Steady, safe Arising from Chair Ability to Arise Able, uses arms to help Attempts to Arise Arises on 1st attempt Standing Balance Immediate Standing Balance Steady with support Standing Balance Steady, wide stance Nudged Response Begins to fall Standing with Eyes Closed Unsteady Turning Step Pattern Turning 360 Degrees Discontinuous steps Stability Turning 360 Degrees Unsteady, grabs/staggers Sitting Down Sitting Down Uses arms or unsteady Gait and Step Initiation of Gait Hesitancy, mult. attempts Right Foot Step Length Does not pass stance ft. Right Foot Step Height Does not clear floor Left Foot Step Length Does not pass stance foot Left Foot Step Height Does not clear floor Step Description Step Symmetry Step length appears equal Step Continuity Steps appear continuous Gait Description Path Description Marked deviation Trunk Description Marked sway or uses aide Walking Stance Heels apart Scoring and Interpretation Tinetti Composite Score (points) 9 Barragan Fall Scale Copyright Permission PT-OP-E Functional Tests Start: 10/04/20 14:44 Freq: Status: Active Protocol: Document 10/05/20 13:45 SAK (Rec: 10/06/20 13:38 SAK [id number]) Functional Tests Dynamic Gait Index (DGI) Score 7 Five Times Sit to Stand Test Score 27 Comments uses hands Timed Up and Go (TUG) Score 23 Tinetti Balance and Gait Assessment Composite Score 9 Single Leg Squat Test Score unable PT-OP-G Mobility & Gait Start: 10/04/20 14:44 Freq: Status: Active Protocol: Document 10/05/20 13:45 SAK (Rec: 10/06/20 13:38 SAK [id number]) OP Mobility Evaluation Transfers Sit to Stand requires use of UE's Floor Transfers patient reports very difficult , didn't attempt today Functional Movements Lifting and Carrying unstead Squats unable Running Assessment unable OP Gait Assessment Gait Gait Assistance Required: Independent Distance (Feet) 75 Assistive Devices Assistive Device None Orthotic/Prosthetic Devices or Brace: No Gait Deviations General Gait Pattern Antalgic,Decreased Stride Length,Decreased Feet Clearance,Lateral Trunk Lean, Wide Based Gait Factors Limiting Gait Function Factors Limiting Gait Function Pain Stair Climbing Evaluation Evaluation Level of Assist On Stairs Independent Devices Stair Climbing Assistive Devices Left Railing,Right Railing Technique/Endurance Stair Climbing Technique Step to Step PT-OP-H Neuro Start: 10/04/20 14:44 Freq: Status: Active Protocol: Document 10/05/20 13:45 SAK (Rec: 10/06/20 13:38 [facility] [id number]) Sensation Evaluation Gross Sensation Gross Sensation WNL PT-OP-J Posture/Palpation/Skin Start: 10/04/20 14:44 Freq: Status: Active Protocol: Document 10/05/20 13:45 SAK (Rec: 10/06/20 13:38 SAK [id number]) Posture Evaluation Position Standing Head/C-Spine Posture Forward Head T-Spine Posture Increased Kyphosis Shoulder Posture (L) Rounded,(R) Rounded Scapula Posture (L) Protracted,(R) Protracted Arm Posture (L) Internally Rotated,(R) Internally Rotated Pelvis Posture Anteriorly Tilted Hip Posture (L) Externally Rotated,(R) Externally Rotated Knee Posture (L) Genu Valgus,(R) Genu Valgus Ankle/Foot Posture (L) Forefoot Eversion,(R) Forefoot Eversion Palpation Assessment Location bilatral knees Palpation Location medial to patella Palpation Findings Edema bilateral knees Palpation Location lateral joint line Palpation Findings Tenderness PT-OP-K Range of Motion Start: 10/04/20 14:44 Freq: Status: Active Protocol: Document 10/05/20 13:45 SAK (Rec: 10/06/20 13:38 [facility] [id number]) Hip Goniometric Range of Motion Hip mounika Hip ROM WFL Yes Knee Goniometric Range of Motion Knee mounika Knee ROM WFL Yes Comments with significant genu valgus in extension Ankle and Foot Goniometric Range of Motion Ankle and Foot mounika Ankle/Foot ROM WFL Yes PT-OP-M Strength Start: 10/04/20 14:44 Freq: Status: Active Protocol: Document 10/05/20 13:45 SAK (Rec: 10/06/20 13:38 [facility] [id number]) Hip Strength Hip Manual Muscle Testing mounika Flexion (L2) 4 Good Extension (S1) 3- Fair- Abduction 3- Fair- Adduction 3+ Fair+ External Rotation 3+ Fair+ Internal Rotation 4- Good- Knee Strength Knee Manual Muscle Testing mounika Flexion (S2) 4- Good- Extension (L3) 4- Good- Comments pain with extension and flexion Ankle/Foot Strength Ankle and Foot Manual Muscle Testing mounika Dorsiflexion (L4) 4 Good Plantarflexion (S1) 4 Good PT-OP-Q Treatments Start: 10/04/20 14:44 Freq: Status: Active Protocol: Document 10/05/20 13:45 [facility] (Rec: 10/06/20 13:38 [facility] [id number]) Manual Therapy Treatment Taping right knee Treatment Focus pain relief Type of Tape Kinesio Tape Comments 2 Y strips: one base tibial tuberosity around patella to distal thigh 50% stretch 1 I strip lateral joint line 50-75% stretch Self-Care/Home Management Treatment Education Patient Education Home Exercise Program PT-OP-R Modalities Start: 10/04/20 14:44 Freq: Status: Active Protocol: Document 10/05/20 13:45 SAK (Rec: 10/06/20 13:38 [facility] [id number]) Hot Pack/Cold Pack Treatment Hot Pack Location bilateral knees Patient Position Supine Patient Tolerance Good Comments pillow under knees PT-OP-T Assessment and Plan Start: 10/04/20 14:44 Freq: Status: Active Protocol: Document 10/05/20 13:45 YARELIS (Rec: 10/06/20 13:38 [facility] [id number]) Physical Therapy Assessment Rehab Potential Rehabilitation Potential Good Evaluation Complexity Number of Personal Factors/Comorbidities 1-2 Number of Body Systems Impaired 3 Clinical Presentation at Evaluation Evolving Impairments Impairments Balance,Gait,Strength Goals Four Impairment patient with significant lateral sway and antalgic gait , no assistive devic Antique Clock Repairer Goal (LTG) Patient able to ambulate with least restrictive assistive device with minimal lateral sway or limp LTG Duration 01/04/21 Three Impairment Timed Up and Go test 25 sec Short Term Goal (STG) Improve TUG test to no greater than 18 sec STG Duration 11/09/20 Assisted Goal (LTG) Improve TUG test to no greater than 12 sec LTG Duration 01/04/21 Two Impairment weakness mounika LE's with 5x sit to stand time 27 sec with use of hands Short Term Goal (STG) 5 x sit to captain fishing vessel less than 20 sec with use of hands as functional measure of improved LE strength, with patient independent and compliant with HEP STG Duration 11/09/26 Antique Clock Repairer Goal (LTG) 5x sit to captain fishing vessel less than 15 sec without use of hands as functional measure of improved strength LTG Duration 01/04/21 One Impairment unsteady gait: Tinetti gait and balance assessment 03/08 ( hi fall risk) Short Term Goal (STG) improve Tinetti score to at least 17/28 as measure of decreased fall risk STG Duration 11/09/26 Antique Clock Repairer Goal (LTG) Improve Tinetti score to at least 24/28 as measure of decreased fall risk LTG Duration 01/04/21 Assessment Summary Assessment Patient presents with function -limiting LE weakness, gait and balance dysfunction. She is weak throughout her LE's and core, has moderate genu valgus which patient reports with patient reporting her doctor told her it wouldn't be helped with surgery. She would benefit from physical therapy to help her improve her strength, gait, and balance to improve her functional mobility and safety and allow her to return to prior level of function. Additionally patient plans to start aquatic exercise soon; she used to attend aquatic exercise classes but since pandemic hasn't been able to do this. Physical Therapy Plan Frequency and Duration Frequency of Treatment 2x/Week Duration of Treatment 12 weeks Plan of Care Start Date 10/05/20 Plan of Care End Date 01/04/21 Therapeutic Interventions Therapeutic Interventions Balance Training,Gait Training ,Home Exercise Program,Patient /Caregiver Education,Self-Care /Home Management,Taping, Therapeutic Activities, Therapeutic Exercises Modalities Cold Pack/Ice Massage,Electric Stimulation,Hot Packs, Infrared Therapy,Iontophoresis ,Ultrasound Next Visit Focus/Plan Next Note Type Treatment Note Next Visit Plan Review HEP, gait training with cane, walker, balance exercises with updating of HEP .
--- NOTE | 2020-10-05 13:41 | PT.OPPOC ---
Physical, Occupational & Speech Therapy At [facility] Current Diagnoses Bilateral primary osteoarthritis of knee (10/05/20) Pain in right knee (10/05/20) Pain in left knee (10/05/20) Difficulty in walking, not elsewhere classified (10/05/20) Weakness (10/05/20) History of falling (10/05/20) Visit Care Team Role Provider Type Any Zazueta MD Attending Provider Physician Primary Care Provider Referring Provider Specialty: Internal Medicine Address: [address] [place] [address] Email: [email or web address] Less[place] Plan Of Care PT-OP-T Assessment and Plan Start: 10/04/20 14:44 Freq: Status: Active Protocol: Document 10/05/20 13:45 SAK (Rec: 10/06/20 13:38 SAK [id number]) Physical Therapy Assessment Rehab Potential Rehabilitation Potential Good Evaluation Complexity Number of Personal Factors/Comorbidities 1-2 Number of Body Systems Impaired 3 Clinical Presentation at Evaluation Evolving Impairments Impairments Balance,Gait,Strength Goals Four Impairment patient with significant lateral sway and antalgic gait , no assistive devic Nursing Home Goal (LTG) Patient able to ambulate with least restrictive assistive device with minimal lateral sway or limp LTG Duration 01/04/21 Three Impairment Timed Up and Go test 25 sec Short Term Goal (STG) Improve TUG test to no greater than 18 sec STG Duration 11/09/20 Dealer Sales Manager Goal (LTG) Improve TUG test to no greater than 12 sec LTG Duration 01/04/21 Two Impairment weakness mounika LE's with 5x sit to stand time 27 sec with use of hands Short Term Goal (STG) 5 x sit to fiber product cutting machine operator less than 20 sec with use of hands as functional measure of improved LE strength, with patient independent and compliant with HEP STG Duration 11/09/26 Nursing Home Goal (LTG) 5x sit to fiber product cutting machine operator less than 15 sec without use of hands as functional measure of improved strength LTG Duration 01/04/21 One Impairment unsteady gait: Tinetti gait and balance assessment 03/08 ( hi fall risk) Short Term Goal (STG) improve Tinetti score to at least 17/28 as measure of decreased fall risk STG Duration 11/09/26 Dealer Sales Manager Goal (LTG) Improve Tinetti score to at least 24/28 as measure of decreased fall risk LTG Duration 01/04/21 Assessment Summary Assessment Patient presents with function -limiting LE weakness, gait and balance dysfunction. She is weak throughout her LE's and core, has moderate genu valgus which patient reports with patient reporting her doctor told her it wouldn't be helped with surgery. She would benefit from physical therapy to help her improve her strength, gait, and balance to improve her functional mobility and safety and allow her to return to prior level of function. Additionally patient plans to start aquatic exercise soon; she used to attend aquatic exercise classes but since pandemic hasn't been able to do this. Physical Therapy Plan Frequency and Duration Frequency of Treatment 2x/Week Duration of Treatment 12 weeks Plan of Care Start Date 10/05/20 Plan of Care End Date 01/04/21 Therapeutic Interventions Therapeutic Interventions Balance Training,Gait Training ,Home Exercise Program,Patient /Caregiver Education,Self-Care /Home Management,Taping, Therapeutic Activities, Therapeutic Exercises Modalities Cold Pack/Ice Massage,Electric Stimulation,Hot Packs, Infrared Therapy,Iontophoresis ,Ultrasound Next Visit Focus/Plan Next Note Type Treatment Note Next Visit Plan Review HEP, gait training with cane, walker, balance exercises with updating of HEP . Plan of Care Dates Plan of Care Start Date 10/05/20 Plan of Care End Date 01/04/21 Electronically Signed by: Azalia Calles, PT 10/06/20 [id number] Please Sign and Return: I have reviewed this Plan of Care and certify that the skilled therapy services above are required to meet the patient?s needs. Physician Signature Date Printed Name and Credentials Clinical Instructor Signature Printed Name and Credentials
--- NOTE | 2020-10-14 14:27 | PT.OTN ---
Current Diagnoses Bilateral primary osteoarthritis of knee (10/14/20) Pain in right knee (10/14/20) Pain in left knee (10/14/20) Difficulty in walking, not elsewhere classified (10/14/20) Weakness (10/14/20) History of falling (10/14/20) Physical Therapy Treatment Note PT-OP-A Visit Information Start: 10/04/20 14:44 Freq: Status: Active Protocol: Document 10/14/20 13:45 SAK (Rec: 10/14/20 14:27 SAK [id number]) Out-Patient Physical Therapy Visit Information Visit Information Visit Type Treatment Note Visit Start Time 13:45 Visit Stop Time 14:45 Total Visit Minutes 60 Visit Number 3 PT-OP-B Current Condition Start: 10/04/20 14:44 Freq: Status: Active Protocol: Document 10/05/20 13:45 SAK (Rec: 10/05/20 14:24 SAK [id number]) Current Condition History of Current Condition Onset Date 2 years Current Complaints bilateral knee pain History of Current Condition progressively worsening knee pain, has had 2 injections left knee most recently 2 months ago, one right . No use of heat or ice. Is going to start doing aquatic exercise; hasn't done since before pandemic. Hasn't been doing any exercises at home. Doesn't use assistive device stating I figure once you start that its all over. Wears knee brace at times right. Occasionally one of her knees goes out, has fallen 2x while walking on slope with soft dirt. 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 Prior Treatments and Tests x-ray: moderate arthritis Future Testing and Treatments Planned No scheduled follow-up with Dr Lorraine Mcpherson. Treatment Goals Patient/Caregiver Goals more confidence in walking, no falls, safe walking in the comunity. Prior Functional Status Baseline Function- ADL's Independent Baseline Function- Mobility Independent Baseline Function- Gait independent no device Baseline Function- Recreation/Hobbies could get down to the floor, or in or out of the bathtub, transfer sit to and from stand without use of hands Current Functional Impairments (Reported) Functional Limitations- Other can't get down to the floor or get up, unable to get down into bathtub or out , can't transfer sit to stand without use of hands PT-OP-C Subjective Start: 10/04/20 14:44 Freq: Status: Active Protocol: Document 10/14/20 13:45 SAK (Rec: 10/14/20 14:27 [facility] [id number]) OP-PT Subjective Patient Comments Patient Comments No new c/o, brought trekking poles to be assessed, adjusted . PT-OP-D Balance Start: 10/04/20 14:44 Freq: Status: Active Protocol: Document 10/05/20 13:45 SAK (Rec: 10/06/20 13:38 [facility] [id number]) OP-PT Balance Assessment Sitting Balance Static Sitting Balance Ability Normal Dynamic Sitting Balance Ability Normal Tinetti Balance Assessment Sitting Balance Sitting Balance Steady, safe Arising from Chair Ability to Arise Able, uses arms to help Attempts to Arise Arises on 1st attempt Standing Balance Immediate Standing Balance Steady with support Standing Balance Steady, wide stance Nudged Response Begins to fall Standing with Eyes Closed Unsteady Turning Step Pattern Turning 360 Degrees Discontinuous steps Stability Turning 360 Degrees Unsteady, grabs/staggers Sitting Down Sitting Down Uses arms or unsteady Gait and Step Initiation of Gait Hesitancy, mult. attempts Right Foot Step Length Does not pass stance ft. Right Foot Step Height Does not clear floor Left Foot Step Length Does not pass stance foot Left Foot Step Height Does not clear floor Step Description Step Symmetry Step length appears equal Step Continuity Steps appear continuous Gait Description Path Description Marked deviation Trunk Description Marked sway or uses aide Walking Stance Heels apart Scoring and Interpretation Tinetti Composite Score (points) 9 Barragan Fall Scale Copyright Permission PT-OP-E Functional Tests Start: 10/04/20 14:44 Freq: Status: Active Protocol: Document 10/05/20 13:45 [facility] (Rec: 10/06/20 13:38 [facility] [id number]) Functional Tests Dynamic Gait Index (DGI) Score 7 Five Times Sit to Stand Test Score 27 Comments uses hands Timed Up and Go (TUG) Score 23 Tinetti Balance and Gait Assessment Composite Score 9 Single Leg Squat Test Score unable PT-OP-G Mobility & Gait Start: 10/04/20 14:44 Freq: Status: Active Protocol: Document 10/05/20 13:45 SAK (Rec: 10/06/20 13:38 [facility] [id number]) OP Mobility Evaluation Transfers Sit to Stand requires use of UE's Floor Transfers patient reports very difficult , didn't attempt today Functional Movements Lifting and Carrying unstead Squats unable Running Assessment unable OP Gait Assessment Gait Gait Assistance Required: Independent Distance (Feet) 75 Assistive Devices Assistive Device None Orthotic/Prosthetic Devices or Brace: No Gait Deviations General Gait Pattern Antalgic,Decreased Stride Length,Decreased Feet Clearance,Lateral Trunk Lean, Wide Based Gait Factors Limiting Gait Function Factors Limiting Gait Function Pain Stair Climbing Evaluation Evaluation Level of Assist On Stairs Independent Devices Stair Climbing Assistive Devices Left Railing,Right Railing Technique/Endurance Stair Climbing Technique Step to Step PT-OP-H Neuro Start: 10/04/20 14:44 Freq: Status: Active Protocol: Document 10/05/20 13:45 SAK (Rec: 10/06/20 13:38 SAK [id number]) Sensation Evaluation Gross Sensation Gross Sensation WNL PT-OP-J Posture/Palpation/Skin Start: 10/04/20 14:44 Freq: Status: Active Protocol: Document 10/05/20 13:45 SAK (Rec: 10/06/20 13:38 SAK [id number]) Posture Evaluation Position Standing Head/C-Spine Posture Forward Head T-Spine Posture Increased Kyphosis Shoulder Posture (L) Rounded,(R) Rounded Scapula Posture (L) Protracted,(R) Protracted Arm Posture (L) Internally Rotated,(R) Internally Rotated Pelvis Posture Anteriorly Tilted Hip Posture (L) Externally Rotated,(R) Externally Rotated Knee Posture (L) Genu Valgus,(R) Genu Valgus Ankle/Foot Posture (L) Forefoot Eversion,(R) Forefoot Eversion Palpation Assessment Location bilatral knees Palpation Location medial to patella Palpation Findings Edema bilateral knees Palpation Location lateral joint line Palpation Findings Tenderness PT-OP-K Range of Motion Start: 10/04/20 14:44 Freq: Status: Active Protocol: Document 10/05/20 13:45 SAK (Rec: 10/06/20 13:38 SAK [id number]) Hip Goniometric Range of Motion Hip mounika Hip ROM WFL Yes Knee Goniometric Range of Motion Knee mounika Knee ROM WFL Yes Comments with significant genu valgus in extension Ankle and Foot Goniometric Range of Motion Ankle and Foot mounika Ankle/Foot ROM WFL Yes PT-OP-M Strength Start: 10/04/20 14:44 Freq: Status: Active Protocol: Document 10/05/20 13:45 [facility] (Rec: 10/06/20 13:38 [facility] [id number]) Hip Strength Hip Manual Muscle Testing mounika Flexion (L2) 4 Good Extension (S1) 3- Fair- Abduction 3- Fair- Adduction 3+ Fair+ External Rotation 3+ Fair+ Internal Rotation 4- Good- Knee Strength Knee Manual Muscle Testing mounika Flexion (S2) 4- Good- Extension (L3) 4- Good- Comments pain with extension and flexion Ankle/Foot Strength Ankle and Foot Manual Muscle Testing mounika Dorsiflexion (L4) 4 Good Plantarflexion (S1) 4 Good PT-OP-Q Treatments Start: 10/04/20 14:44 Freq: Status: Active Protocol: Document 10/14/20 13:45 [facility] (Rec: 10/14/20 14:27 [facility] [id number]) Cardio Equipment Recumbent Stepper (Sci-Fit) Duration (Minutes) 10 Resistance 1-1.5 Seat Position 12 Other cues for neutral alignment Gym Equipment Shuttle Recovery Unilateral Squats Details emphasis on neutral LE alignment Resistance 25 Shuttle Recovery Platform Stable Reps/Time 10x2 Bilateral Squats Details emphasis on neutral LE alignment Resistance 50 Shuttle Recovery Platform Stable Reps/Time 10x2 Therapeutic Exercises Sitting Exercises sit to stand Reps/Minutes 10x Comments 2 pillows in chair, UE support on bar Standing Exercises toe raises Reps/Minutes 10x heel raises Reps/Minutes 10x Gait Training Gait Activity level with Welocalizeing ShelfFlip Device Used [place] [place] Distance/Duration 50'x3 Treatment Focus correct use, sequencing, upright posture Neuro Re-Education Treatment Balance Activities tandem stand Reps/Duration 2' ea tiltboard Details fwd/bck, side balance foam stand Details EO, EC Equipment blue foam Reps/Duration 5' PT-OP-R Modalities Start: 10/04/20 14:44 Freq: Status: Active Protocol: Document 10/14/20 13:45 [facility] (Rec: 10/14/20 14:27 [facility] [id number]) Hot Pack/Cold Pack Treatment Hot Pack Location bilateral knees Patient Position Supine Patient Tolerance Good Comments pillow under knees PT-OP-T Assessment and Plan Start: 10/04/20 14:44 Freq: Status: Active Protocol: Document 10/14/20 13:45 SAK (Rec: 10/14/20 14:27 [facility] [id number]) Physical Therapy Assessment Goals Four Impairment patient with significant lateral sway and antalgic gait , no assistive devic Correction Goal (LTG) Patient able to ambulate with least restrictive assistive device with minimal lateral sway or limp LTG Duration 01/04/21 Three Impairment Timed Up and Go test 25 sec Short Term Goal (STG) Improve TUG test to no greater than 18 sec STG Duration 11/09/20 Correction Goal (LTG) Improve TUG test to no greater than 12 sec LTG Duration 01/04/21 Two Impairment weakness mounika LE's with 5x sit to stand time 27 sec with use of hands Short Term Goal (STG) 5 x sit to real estate investment analyst less than 20 sec with use of hands as functional measure of improved LE strength, with patient independent and compliant with HEP STG Duration 11/09/26 Correction Goal (LTG) 5x sit to real estate investment analyst less than 15 sec without use of hands as functional measure of improved strength LTG Duration 01/04/21 One Impairment unsteady gait: Tinetti gait and balance assessment 03/08 ( hi fall risk) Short Term Goal (STG) improve Tinetti score to at least 17/28 as measure of decreased fall risk STG Duration 11/09/26 Saxophone Player Goal (LTG) Improve Tinetti score to at least 24/28 as measure of decreased fall risk LTG Duration 01/04/21 Physical Therapy Plan Frequency and Duration Frequency of Treatment 2x/Week Duration of Treatment 12 weeks Plan of Care Start Date 10/05/20 Plan of Care End Date 01/04/21 Therapeutic Interventions Therapeutic Interventions Balance Training,Gait Training ,Home Exercise Program,Patient /Caregiver Education,Self-Care /Home Management,Taping, Therapeutic Activities, Therapeutic Exercises Modalities Cold Pack/Ice Massage,Electric Stimulation,Hot Packs, Infrared Therapy,Iontophoresis ,Ultrasound Next Visit Focus/Plan Next Note Type Treatment Note Next Visit Plan Eval response to today's session, add balance ex to HEP (written), progress ther ex as toleated.
--- NOTE | 2020-10-19 15:46 | PT.OTN ---
Current Diagnoses Bilateral primary osteoarthritis of knee (10/19/20) Pain in right knee (10/19/20) Pain in left knee (10/19/20) Difficulty in walking, not elsewhere classified (10/19/20) Weakness (10/19/20) History of falling (10/19/20) Physical Therapy Treatment Note PT-OP-A Visit Information Start: 10/04/20 14:44 Freq: Status: Active Protocol: Document 10/19/20 13:47 SAK (Rec: 10/19/20 14:30 SAK [id number]) Out-Patient Physical Therapy Visit Information Visit Information Visit Type Treatment Note Visit Start Time 13:45 Visit Stop Time 14:45 Total Visit Minutes 60 Visit Number 4 PT-OP-B Current Condition Start: 10/04/20 14:44 Freq: Status: Active Protocol: Document 10/05/20 13:45 SAK (Rec: 10/05/20 14:24 SAK [id number]) Current Condition History of Current Condition Onset Date 2 years Current Complaints bilateral knee pain History of Current Condition progressively worsening knee pain, has had 2 injections left knee most recently 2 months ago, one right . No use of heat or ice. Is going to start doing aquatic exercise; hasn't done since before pandemic. Hasn't been doing any exercises at home. Doesn't use assistive device stating I figure once you start that its all over. Wears knee brace at times right. Occasionally one of her knees goes out, has fallen 2x while walking on slope with soft dirt. 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 Prior Treatments and Tests x-ray: moderate arthritis Future Testing and Treatments Planned No scheduled follow-up with Dr Lorraine Mcpherson. Treatment Goals Patient/Caregiver Goals more confidence in walking, no falls, safe walking in the comunity. Prior Functional Status Baseline Function- ADL's Independent Baseline Function- Mobility Independent Baseline Function- Gait independent no device Baseline Function- Recreation/Hobbies could get down to the floor, or in or out of the bathtub, transfer sit to and from stand without use of hands Current Functional Impairments (Reported) Functional Limitations- Other can't get down to the floor or get up, unable to get down into bathtub or out , can't transfer sit to stand without use of hands PT-OP-C Subjective Start: 10/04/20 14:44 Freq: Status: Active Protocol: Document 10/19/20 13:47 SAK (Rec: 10/19/20 14:30 SAK [id number]) OP-PT Subjective Patient Comments Patient Comments Brought neoprene knee sleeve as recommended to try on right LE. Hasn't put it on yet. Compliant to HEP. PT-OP-D Balance Start: 10/04/20 14:44 Freq: Status: Active Protocol: Document 10/05/20 13:45 SAK (Rec: 10/06/20 13:38 [facility] [id number]) OP-PT Balance Assessment Sitting Balance Static Sitting Balance Ability Normal Dynamic Sitting Balance Ability Normal Tinetti Balance Assessment Sitting Balance Sitting Balance Steady, safe Arising from Chair Ability to Arise Able, uses arms to help Attempts to Arise Arises on 1st attempt Standing Balance Immediate Standing Balance Steady with support Standing Balance Steady, wide stance Nudged Response Begins to fall Standing with Eyes Closed Unsteady Turning Step Pattern Turning 360 Degrees Discontinuous steps Stability Turning 360 Degrees Unsteady, grabs/staggers Sitting Down Sitting Down Uses arms or unsteady Gait and Step Initiation of Gait Hesitancy, mult. attempts Right Foot Step Length Does not pass stance ft. Right Foot Step Height Does not clear floor Left Foot Step Length Does not pass stance foot Left Foot Step Height Does not clear floor Step Description Step Symmetry Step length appears equal Step Continuity Steps appear continuous Gait Description Path Description Marked deviation Trunk Description Marked sway or uses aide Walking Stance Heels apart Scoring and Interpretation Tinetti Composite Score (points) 9 Barragan Fall Scale Copyright Permission PT-OP-E Functional Tests Start: 10/04/20 14:44 Freq: Status: Active Protocol: Document 10/05/20 13:45 [facility] (Rec: 10/06/20 13:38 [facility] [id number]) Functional Tests Dynamic Gait Index (DGI) Score 7 Five Times Sit to Stand Test Score 27 Comments uses hands Timed Up and Go (TUG) Score 23 Tinetti Balance and Gait Assessment Composite Score 9 Single Leg Squat Test Score unable PT-OP-G Mobility & Gait Start: 10/04/20 14:44 Freq: Status: Active Protocol: Document 10/05/20 13:45 SAK (Rec: 10/06/20 13:38 SAK [id number]) OP Mobility Evaluation Transfers Sit to Stand requires use of UE's Floor Transfers patient reports very difficult , didn't attempt today Functional Movements Lifting and Carrying unstead Squats unable Running Assessment unable OP Gait Assessment Gait Gait Assistance Required: Independent Distance (Feet) 75 Assistive Devices Assistive Device None Orthotic/Prosthetic Devices or Brace: No Gait Deviations General Gait Pattern Antalgic,Decreased Stride Length,Decreased Feet Clearance,Lateral Trunk Lean, Wide Based Gait Factors Limiting Gait Function Factors Limiting Gait Function Pain Stair Climbing Evaluation Evaluation Level of Assist On Stairs Independent Devices Stair Climbing Assistive Devices Left Railing,Right Railing Technique/Endurance Stair Climbing Technique Step to Step PT-OP-H Neuro Start: 10/04/20 14:44 Freq: Status: Active Protocol: Document 10/05/20 13:45 SAK (Rec: 10/06/20 13:38 [facility] [id number]) Sensation Evaluation Gross Sensation Gross Sensation WNL PT-OP-J Posture/Palpation/Skin Start: 10/04/20 14:44 Freq: Status: Active Protocol: Document 10/05/20 13:45 SAK (Rec: 10/06/20 13:38 [facility] [id number]) Posture Evaluation Position Standing Head/C-Spine Posture Forward Head T-Spine Posture Increased Kyphosis Shoulder Posture (L) Rounded,(R) Rounded Scapula Posture (L) Protracted,(R) Protracted Arm Posture (L) Internally Rotated,(R) Internally Rotated Pelvis Posture Anteriorly Tilted Hip Posture (L) Externally Rotated,(R) Externally Rotated Knee Posture (L) Genu Valgus,(R) Genu Valgus Ankle/Foot Posture (L) Forefoot Eversion,(R) Forefoot Eversion Palpation Assessment Location bilatral knees Palpation Location medial to patella Palpation Findings Edema bilateral knees Palpation Location lateral joint line Palpation Findings Tenderness PT-OP-K Range of Motion Start: 10/04/20 14:44 Freq: Status: Active Protocol: Document 10/05/20 13:45 SAK (Rec: 10/06/20 13:38 [facility] [id number]) Hip Goniometric Range of Motion Hip mounika Hip ROM WFL Yes Knee Goniometric Range of Motion Knee mounika Knee ROM WFL Yes Comments with significant genu valgus in extension Ankle and Foot Goniometric Range of Motion Ankle and Foot mounika Ankle/Foot ROM WFL Yes PT-OP-M Strength Start: 10/04/20 14:44 Freq: Status: Active Protocol: Document 10/05/20 13:45 SAK (Rec: 10/06/20 13:38 SAK [id number]) Hip Strength Hip Manual Muscle Testing mounika Flexion (L2) 4 Good Extension (S1) 3- Fair- Abduction 3- Fair- Adduction 3+ Fair+ External Rotation 3+ Fair+ Internal Rotation 4- Good- Knee Strength Knee Manual Muscle Testing mounika Flexion (S2) 4- Good- Extension (L3) 4- Good- Comments pain with extension and flexion Ankle/Foot Strength Ankle and Foot Manual Muscle Testing mounika Dorsiflexion (L4) 4 Good Plantarflexion (S1) 4 Good PT-OP-Q Treatments Start: 10/04/20 14:44 Freq: Status: Active Protocol: Document 10/19/20 13:47 SAK (Rec: 10/19/20 14:30 SAK [id number]) Cardio Equipment Recumbent Stepper (Sci-Fit) Duration (Minutes) 10 Resistance 1.5 Seat Position 12 Other cues for neutral alignment, 1. 0 MILE Gym Equipment Shuttle Recovery Unilateral Squats Details emphasis on neutral LE alignment Resistance 25 Shuttle Recovery Platform Stable Reps/Time 10x2 Bilateral Squats Details emphasis on neutral LE alignment Resistance 50 Shuttle Recovery Platform Stable Reps/Time 10x2 Sport Cord green Exercise Details fwd, side Cord/Resistance green Reps/Duration 5x ea Comments cues for postural alignment, neutral LE's Therapeutic Exercises Sitting Exercises sit to stand Equipment Used chair Reps/Minutes 4x Comments cues for neutral LE's, alignment Standing Exercises sidestepping Reps/Minutes 2 min Comments mounika UE suuuport toe raises Reps/Minutes 10x Neuro Re-Education Treatment Balance Activities corner stand Details EC Surface firm Equipment chair in front Reps/Duration 30 x 2 Comments min to mod UE support mounika tandem stand Surface firm Equipment corner behind, chair in front Reps/Duration 30 x 2 Comments cues for soft knee tiltboard Details fwd/bck, side balance Comments min to mod UE support mounika foam stand Details EO, EC Equipment blue foam Reps/Duration 5' Self-Care/Home Management Treatment Education Patient Education Home Exercise Program PT-OP-R Modalities Start: 10/04/20 14:44 Freq: Status: Active Protocol: Document 10/19/20 13:47 SAK (Rec: 10/19/20 14:30 SAK [id number]) Hot Pack/Cold Pack Treatment Hot Pack Location bilateral knees Patient Position Supine Patient Tolerance Good Comments pillow under knees PT-OP-T Assessment and Plan Start: 10/04/20 14:44 Freq: Status: Active Protocol: Document 10/19/20 13:47 YARELIS (Rec: 10/19/20 14:30 SAK [id number]) Physical Therapy Assessment Goals Four Impairment patient with significant lateral sway and antalgic gait , no assistive devic Detention Goal (LTG) Patient able to ambulate with least restrictive assistive device with minimal lateral sway or limp LTG Duration 01/04/21 Three Impairment Timed Up and Go test 25 sec Short Term Goal (STG) Improve TUG test to no greater than 18 sec STG Duration 11/09/20 Manager Mechanical Goal (LTG) Improve TUG test to no greater than 12 sec LTG Duration 01/04/21 Two Impairment weakness mounika LE's with 5x sit to stand time 27 sec with use of hands Short Term Goal (STG) 5 x sit to clinical associate less than 20 sec with use of hands as functional measure of improved LE strength, with patient independent and compliant with HEP STG Duration 11/09/26 Detention Goal (LTG) 5x sit to clinical associate less than 15 sec without use of hands as functional measure of improved strength LTG Duration 01/04/21 One Impairment unsteady gait: Tinetti gait and balance assessment 03/08 ( hi fall risk) Short Term Goal (STG) improve Tinetti score to at least 17/28 as measure of decreased fall risk STG Duration 11/09/26 Manager Mechanical Goal (LTG) Improve Tinetti score to at least 24/28 as measure of decreased fall risk LTG Duration 01/04/21 Assessment Summary Assessment Complian to HEP, needs frequent cues for upright posture, neutral LE alignment, and cues to keep knees apart as possible with sit to stand; this is difficult due to severity of genu valgus. fatigued but denied increase in pain with treatment. Added tandem stand and corner stand with EC to HEP with written handouts. Physical Therapy Plan Frequency and Duration Frequency of Treatment 2x/Week Duration of Treatment 12 weeks Plan of Care Start Date 10/05/20 Plan of Care End Date 01/04/21 Therapeutic Interventions Therapeutic Interventions Balance Training,Gait Training ,Home Exercise Program,Patient /Caregiver Education,Self-Care /Home Management,Taping, Therapeutic Activities, Therapeutic Exercises Modalities Cold Pack/Ice Massage,Electric Stimulation,Hot Packs, Infrared Therapy,Iontophoresis ,Ultrasound
--- NOTE | 2020-10-26 16:47 | PT.OTN ---
Current Diagnoses Bilateral primary osteoarthritis of knee (10/26/20) Pain in right knee (10/26/20) Pain in left knee (10/26/20) Difficulty in walking, not elsewhere classified (10/26/20) Weakness (10/26/20) History of falling (10/26/20) Physical Therapy Treatment Note PT-OP-A Visit Information Start: 10/04/20 14:44 Freq: Status: Active Protocol: Document 10/26/20 13:59 SAK (Rec: 10/26/20 14:30 SAK [id number]) Out-Patient Physical Therapy Visit Information Visit Information Visit Type Treatment Note Visit Start Time 13:45 Visit Stop Time 14:45 Total Visit Minutes 60 Visit Number 5 PT-OP-B Current Condition Start: 10/04/20 14:44 Freq: Status: Active Protocol: Document 10/05/20 13:45 SAK (Rec: 10/05/20 14:24 SAK [id number]) Current Condition History of Current Condition Onset Date 2 years Current Complaints bilateral knee pain History of Current Condition progressively worsening knee pain, has had 2 injections left knee most recently 2 months ago, one right . No use of heat or ice. Is going to start doing aquatic exercise; hasn't done since before pandemic. Hasn't been doing any exercises at home. Doesn't use assistive device stating I figure once you start that its all over. Wears knee brace at times right. Occasionally one of her knees goes out, has fallen 2x while walking on slope with soft dirt. 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 Prior Treatments and Tests x-ray: moderate arthritis Future Testing and Treatments Planned No scheduled follow-up with Dr Lorraine Mcpherson. Treatment Goals Patient/Caregiver Goals more confidence in walking, no falls, safe walking in the comunity. Prior Functional Status Baseline Function- ADL's Independent Baseline Function- Mobility Independent Baseline Function- Gait independent no device Baseline Function- Recreation/Hobbies could get down to the floor, or in or out of the bathtub, transfer sit to and from stand without use of hands Current Functional Impairments (Reported) Functional Limitations- Other can't get down to the floor or get up, unable to get down into bathtub or out , can't transfer sit to stand without use of hands PT-OP-C Subjective Start: 10/04/20 14:44 Freq: Status: Active Protocol: Document 10/26/20 13:59 SAK (Rec: 10/26/20 14:30 SAK [id number]) OP-PT Subjective Patient Comments Patient Comments C/o pain right lateral hip with that exercise with the plastic bag (supine hip abduction). States my pain has been worse with these exercises. Hasn't done exercises for a few days due to having company and losing track of the handouts; as we talked she stated she thinks she knows where handouts are PT-OP-D Balance Start: 10/04/20 14:44 Freq: Status: Active Protocol: Document 10/05/20 13:45 SAK (Rec: 10/06/20 13:38 SAK [id number]) OP-PT Balance Assessment Sitting Balance Static Sitting Balance Ability Normal Dynamic Sitting Balance Ability Normal Tinetti Balance Assessment Sitting Balance Sitting Balance Steady, safe Arising from Chair Ability to Arise Able, uses arms to help Attempts to Arise Arises on 1st attempt Standing Balance Immediate Standing Balance Steady with support Standing Balance Steady, wide stance Nudged Response Begins to fall Standing with Eyes Closed Unsteady Turning Step Pattern Turning 360 Degrees Discontinuous steps Stability Turning 360 Degrees Unsteady, grabs/staggers Sitting Down Sitting Down Uses arms or unsteady Gait and Step Initiation of Gait Hesitancy, mult. attempts Right Foot Step Length Does not pass stance ft. Right Foot Step Height Does not clear floor Left Foot Step Length Does not pass stance foot Left Foot Step Height Does not clear floor Step Description Step Symmetry Step length appears equal Step Continuity Steps appear continuous Gait Description Path Description Marked deviation Trunk Description Marked sway or uses aide Walking Stance Heels apart Scoring and Interpretation Tinetti Composite Score (points) 9 Barragan Fall Scale Copyright Permission PT-OP-E Functional Tests Start: 10/04/20 14:44 Freq: Status: Active Protocol: Document 10/05/20 13:45 SAK (Rec: 10/06/20 13:38 SAK [id number]) Functional Tests Dynamic Gait Index (DGI) Score 7 Five Times Sit to Stand Test Score 27 Comments uses hands Timed Up and Go (TUG) Score 23 Tinetti Balance and Gait Assessment Composite Score 9 Single Leg Squat Test Score unable PT-OP-G Mobility & Gait Start: 10/04/20 14:44 Freq: Status: Active Protocol: Document 10/05/20 13:45 SAK (Rec: 04/28/21 13:38 [facility] [id number]) OP Mobility Evaluation Transfers Sit to Stand requires use of UE's Floor Transfers patient reports very difficult , didn't attempt today Functional Movements Lifting and Carrying unstead Squats unable Running Assessment unable OP Gait Assessment Gait Gait Assistance Required: Independent Distance (Feet) 75 Assistive Devices Assistive Device None Orthotic/Prosthetic Devices or Brace: No Gait Deviations General Gait Pattern Antalgic,Decreased Stride Length,Decreased Feet Clearance,Lateral Trunk Lean, Wide Based Gait Factors Limiting Gait Function Factors Limiting Gait Function Pain Stair Climbing Evaluation Evaluation Level of Assist On Stairs Independent Devices Stair Climbing Assistive Devices Left Railing,Right Railing Technique/Endurance Stair Climbing Technique Step to Step PT-OP-H Neuro Start: 10/04/20 14:44 Freq: Status: Active Protocol: Document 10/05/20 13:45 [facility] (Rec: 10/06/20 13:38 [facility] [id number]) Sensation Evaluation Gross Sensation Gross Sensation WNL PT-OP-J Posture/Palpation/Skin Start: 10/04/20 14:44 Freq: Status: Active Protocol: Document 10/05/20 13:45 [facility] (Rec: 10/06/20 13:38 [facility] [id number]) Posture Evaluation Position Standing Head/C-Spine Posture Forward Head T-Spine Posture Increased Kyphosis Shoulder Posture (L) Rounded,(R) Rounded Scapula Posture (L) Protracted,(R) Protracted Arm Posture (L) Internally Rotated,(R) Internally Rotated Pelvis Posture Anteriorly Tilted Hip Posture (L) Externally Rotated,(R) Externally Rotated Knee Posture (L) Genu Valgus,(R) Genu Valgus Ankle/Foot Posture (L) Forefoot Eversion,(R) Forefoot Eversion Palpation Assessment Location bilatral knees Palpation Location medial to patella Palpation Findings Edema bilateral knees Palpation Location lateral joint line Palpation Findings Tenderness PT-OP-K Range of Motion Start: 10/04/20 14:44 Freq: Status: Active Protocol: Document 10/05/20 13:45 [facility] (Rec: 10/06/20 13:38 [facility] [id number]) Hip Goniometric Range of Motion Hip mounika Hip ROM WFL Yes Knee Goniometric Range of Motion Knee mounika Knee ROM WFL Yes Comments with significant genu valgus in extension Ankle and Foot Goniometric Range of Motion Ankle and Foot mounika Ankle/Foot ROM WFL Yes PT-OP-M Strength Start: 10/04/20 14:44 Freq: Status: Active Protocol: Document 10/05/20 13:45 [facility] (Rec: 10/06/20 13:38 [facility] [id number]) Hip Strength Hip Manual Muscle Testing mounika Flexion (L2) 4 Good Extension (S1) 3- Fair- Abduction 3- Fair- Adduction 3+ Fair+ External Rotation 3+ Fair+ Internal Rotation 4- Good- Knee Strength Knee Manual Muscle Testing mounika Flexion (S2) 4- Good- Extension (L3) 4- Good- Comments pain with extension and flexion Ankle/Foot Strength Ankle and Foot Manual Muscle Testing mounika Dorsiflexion (L4) 4 Good Plantarflexion (S1) 4 Good PT-OP-Q Treatments Start: 10/04/20 14:44 Freq: Status: Active Protocol: Document 10/26/20 13:59 SAK (Rec: 10/26/20 14:30 [facility] [id number]) Cardio Equipment Recumbent Stepper (Sci-Fit) Duration (Minutes) 10 Resistance 1.5 Seat Position 12 Other cues for neutral alignment, 0. 9 MILE Therapeutic Exercises Supine Exercises SAQ Reps/Minutes 10x Comments added to HEP hip abduction Comments removed from HEP hip ab/ER Equipment Used L2 TB Reps/Minutes 10x ball squeeze Reps/Minutes 10x Sitting Exercises knee flexion Resistance L2 TB Reps/Minutes 10x sit to stand Equipment Used chair Reps/Minutes 4x Comments cues for neutral LE's, alignment Manual Therapy Treatment Taping right knee Treatment Focus pain relief Type of Tape Kinesio Tape Comments I strip space correction (75% stretch) lateral joint line left knee. Neuro Re-Education Treatment Balance Activities tiltboard Details fwd/bck, side balance, EO and EC Comments min to mod UE support mounika foam stand Details EO, EC Equipment blue foam Reps/Duration 5' Comments foam pads: parallel and stride position Self-Care/Home Management Treatment Education Patient Education Home Exercise Program,Pain Management Other Education Kinesiotape may stay on up to 5 days; if irritating skin or causing increase in symptoms may remove PT-OP-R Modalities Start: 10/04/20 14:44 Freq: Status: Active Protocol: Document 10/26/20 13:59 [facility] (Rec: 10/26/20 14:30 [facility] [id number]) Hot Pack/Cold Pack Treatment Hot Pack Location bilateral knees Patient Position Supine Patient Tolerance Good Comments 2 pillows under knees, patient reports decrease in pain PT-OP-T Assessment and Plan Start: 10/04/20 14:44 Freq: Status: Active Protocol: Document 10/26/20 13:59 [facility] (Rec: 10/26/20 14:30 [facility] [id number]) Physical Therapy Assessment Goals Four Impairment patient with significant lateral sway and antalgic gait , no assistive devic Electric Track Switch Maintainer Goal (LTG) Patient able to ambulate with least restrictive assistive device with minimal lateral sway or limp LTG Duration 01/04/21 Three Impairment Timed Up and Go test 25 sec Short Term Goal (STG) Improve TUG test to no greater than 18 sec STG Duration 11/09/20 Penitentiary Goal (LTG) Improve TUG test to no greater than 12 sec LTG Duration 01/04/21 Two Impairment weakness mounika LE's with 5x sit to stand time 27 sec with use of hands Short Term Goal (STG) 5 x sit to environmental monitoring specialist less than 20 sec with use of hands as functional measure of improved LE strength, with patient independent and compliant with HEP STG Duration 11/09/26 Penitentiary Goal (LTG) 5x sit to environmental monitoring specialist less than 15 sec without use of hands as functional measure of improved strength LTG Duration 01/04/21 One Impairment unsteady gait: Tinetti gait and balance assessment 03/08 ( hi fall risk) Short Term Goal (STG) improve Tinetti score to at least 17/28 as measure of decreased fall risk STG Duration 11/09/26 Penitentiary Goal (LTG) Improve Tinetti score to at least 24/28 as measure of decreased fall risk LTG Duration 01/04/21 Assessment Summary Assessment Patient reported less knee pain left after application of kinesiotape. Patient instructed to discontinue doing hip abduction supine , continue with hip ab/ER with theraband. Physical Therapy Plan Frequency and Duration Frequency of Treatment 2x/Week Duration of Treatment 12 weeks Plan of Care Start Date 10/05/20 Plan of Care End Date 01/04/21 Therapeutic Interventions Therapeutic Interventions Balance Training,Gait Training ,Home Exercise Program,Patient /Caregiver Education,Self-Care /Home Management,Taping, Therapeutic Activities, Therapeutic Exercises Modalities Cold Pack/Ice Massage,Electric Stimulation,Hot Packs, Infrared Therapy,Iontophoresis ,Ultrasound Next Visit Focus/Plan Next Note Type Treatment Note Next Visit Plan Patient to bring HEP handouts for review, eliminate hip abduction supine or sidelying for now, though in PT may do with assist. Continue LE strengthening, gait and balance training. Progress HEP for LE strengthening as tolerated, functional, closed chain as able.
--- NOTE | 2020-10-28 15:56 | PT.OTN ---
Current Diagnoses Bilateral primary osteoarthritis of knee (10/28/20) Pain in right knee (10/28/20) Pain in left knee (10/28/20) Difficulty in walking, not elsewhere classified (10/28/20) Weakness (10/28/20) History of falling (10/28/20) Physical Therapy Treatment Note PT-OP-A Visit Information Start: 10/04/20 14:44 Freq: Status: Active Protocol: Document 10/28/20 13:54 [facility] (Rec: 10/28/20 15:55 [facility] [id number]) Out-Patient Physical Therapy Visit Information Visit Information Visit Type Treatment Note Visit Start Time 13:52 Visit Stop Time 14:45 Total Visit Minutes 53 Visit Number 6 Number of SLITTING MACHINE FEEDER Visits 0 PT-OP-B Current Condition Start: 10/04/20 14:44 Freq: Status: Active Protocol: Document 10/05/20 13:45 [facility] (Rec: 10/05/20 14:24 [facility] [id number]) Current Condition History of Current Condition Onset Date 2 years Current Complaints bilateral knee pain History of Current Condition progressively worsening knee pain, has had 2 injections left knee most recently 2 months ago, one right . No use of heat or ice. Is going to start doing aquatic exercise; hasn't done since before pandemic. Hasn't been doing any exercises at home. Doesn't use assistive device stating I figure once you start that its all over. Wears knee brace at times right. Occasionally one of her knees goes out, has fallen 2x while walking on slope with soft dirt. 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 Prior Treatments and Tests x-ray: moderate arthritis Future Testing and Treatments Planned No scheduled follow-up with Dr Lorraine Mcpherson. Treatment Goals Patient/Caregiver Goals more confidence in walking, no falls, safe walking in the comunity. Prior Functional Status Baseline Function- ADL's Independent Baseline Function- Mobility Independent Baseline Function- Gait independent no device Baseline Function- Recreation/Hobbies could get down to the floor, or in or out of the bathtub, transfer sit to and from stand without use of hands Current Functional Impairments (Reported) Functional Limitations- Other can't get down to the floor or get up, unable to get down into bathtub or out , can't transfer sit to stand without use of hands PT-OP-C Subjective Start: 10/04/20 14:44 Freq: Status: Active Protocol: Document 10/28/20 13:54 [facility] (Rec: 10/28/20 15:55 [facility] [id number]) OP-PT Subjective Patient Comments Patient Comments Pt reports feeling good after last session. Tape did help. Notes she did the APs and knee flex/ext before standing up and that helps a ton. PT-OP-D Balance Start: 10/04/20 14:44 Freq: Status: Active Protocol: Document 10/05/20 13:45 [facility] (Rec: 10/06/20 13:38 [facility]AK [id number]) OP-PT Balance Assessment Sitting Balance Static Sitting Balance Ability Normal Dynamic Sitting Balance Ability Normal Tinetti Balance Assessment Sitting Balance Sitting Balance Steady, safe Arising from Chair Ability to Arise Able, uses arms to help Attempts to Arise Arises on 1st attempt Standing Balance Immediate Standing Balance Steady with support Standing Balance Steady, wide stance Nudged Response Begins to fall Standing with Eyes Closed Unsteady Turning Step Pattern Turning 360 Degrees Discontinuous steps Stability Turning 360 Degrees Unsteady, grabs/staggers Sitting Down Sitting Down Uses arms or unsteady Gait and Step Initiation of Gait Hesitancy, mult. attempts Right Foot Step Length Does not pass stance ft. Right Foot Step Height Does not clear floor Left Foot Step Length Does not pass stance foot Left Foot Step Height Does not clear floor Step Description Step Symmetry Step length appears equal Step Continuity Steps appear continuous Gait Description Path Description Marked deviation Trunk Description Marked sway or uses aide Walking Stance Heels apart Scoring and Interpretation Tinetti Composite Score (points) 9 Barragan Fall Scale Copyright Permission PT-OP-E Functional Tests Start: 10/04/20 14:44 Freq: Status: Active Protocol: Document 10/05/20 13:45 [facility] (Rec: 10/06/20 13:38 [facility] [id number]) Functional Tests Dynamic Gait Index (DGI) Score 7 Five Times Sit to Stand Test Score 27 Comments uses hands Timed Up and Go (TUG) Score 23 Tinetti Balance and Gait Assessment Composite Score 9 Single Leg Squat Test Score unable PT-OP-G Mobility & Gait Start: 10/04/20 14:44 Freq: Status: Active Protocol: Document 10/05/20 13:45 [facility] (Rec: 10/06/20 13:38 [facility] [id number]) OP Mobility Evaluation Transfers Sit to Stand requires use of UE's Floor Transfers patient reports very difficult , didn't attempt today Functional Movements Lifting and Carrying unstead Squats unable Running Assessment unable OP Gait Assessment Gait Gait Assistance Required: Independent Distance (Feet) 75 Assistive Devices Assistive Device None Orthotic/Prosthetic Devices or Brace: No Gait Deviations General Gait Pattern Antalgic,Decreased Stride Length,Decreased Feet Clearance,Lateral Trunk Lean, Wide Based Gait Factors Limiting Gait Function Factors Limiting Gait Function Pain Stair Climbing Evaluation Evaluation Level of Assist On Stairs Independent Devices Stair Climbing Assistive Devices Left Railing,Right Railing Technique/Endurance Stair Climbing Technique Step to Step PT-OP-H Neuro Start: 10/04/20 14:44 Freq: Status: Active Protocol: Document 10/05/20 13:45 [facility] (Rec: 10/06/20 13:38 [facility] [id number]) Sensation Evaluation Gross Sensation Gross Sensation WNL PT-OP-J Posture/Palpation/Skin Start: 10/04/20 14:44 Freq: Status: Active Protocol: Document 10/05/20 13:45 [facility] (Rec: 10/06/20 13:38 [facility] [id number]) Posture Evaluation Position Standing Head/C-Spine Posture Forward Head T-Spine Posture Increased Kyphosis Shoulder Posture (L) Rounded,(R) Rounded Scapula Posture (L) Protracted,(R) Protracted Arm Posture (L) Internally Rotated,(R) Internally Rotated Pelvis Posture Anteriorly Tilted Hip Posture (L) Externally Rotated,(R) Externally Rotated Knee Posture (L) Genu Valgus,(R) Genu Valgus Ankle/Foot Posture (L) Forefoot Eversion,(R) Forefoot Eversion Palpation Assessment Location bilatral knees Palpation Location medial to patella Palpation Findings Edema bilateral knees Palpation Location lateral joint line Palpation Findings Tenderness PT-OP-K Range of Motion Start: 10/04/20 14:44 Freq: Status: Active Protocol: Document 10/05/20 13:45 [facility] (Rec: 10/06/20 13:38 [facility] [id number]) Hip Goniometric Range of Motion Hip mounika Hip ROM WFL Yes Knee Goniometric Range of Motion Knee mounika Knee ROM WFL Yes Comments with significant genu valgus in extension Ankle and Foot Goniometric Range of Motion Ankle and Foot mounika Ankle/Foot ROM WFL Yes PT-OP-M Strength Start: 10/04/20 14:44 Freq: Status: Active Protocol: Document 10/05/20 13:45 [facility] (Rec: 10/06/20 13:38 [facility] [id number]) Hip Strength Hip Manual Muscle Testing mounika Flexion (L2) 4 Good Extension (S1) 3- Fair- Abduction 3- Fair- Adduction 3+ Fair+ External Rotation 3+ Fair+ Internal Rotation 4- Good- Knee Strength Knee Manual Muscle Testing mounika Flexion (S2) 4- Good- Extension (L3) 4- Good- Comments pain with extension and flexion Ankle/Foot Strength Ankle and Foot Manual Muscle Testing mounika Dorsiflexion (L4) 4 Good Plantarflexion (S1) 4 Good PT-OP-Q Treatments Start: 10/04/20 14:44 Freq: Status: Active Protocol: Document 10/28/20 13:54 [facility] (Rec: 10/28/20 15:55 [facility] [id number]) Cardio Equipment Recumbent Stepper (Sci-Fit) Duration (Minutes) 10 Resistance 1.5 Seat Position 12 Other cues for neutral alignment, 0. 9 MILE Therapeutic Exercises Supine Exercises stretch Side bilateral Reps/Minutes 30 sec holds SAQ Reps/Minutes 10x Comments added to HEP hip ab/ER Equipment Used L2 TB Reps/Minutes 15 Sitting Exercises knee flexion Resistance L2 TB Reps/Minutes 15 sit to stand Equipment Used chair Reps/Minutes 8x Comments cues for neutral LE's, alignment Manual Therapy Treatment Taping right knee Body Location L knee today Treatment Focus pain relief Type of Tape Kinesio Tape Comments I strip space correction (75% stretch) lateral joint line left knee. Neuro Re-Education Treatment Balance Activities tiltboard Details fwd/bck, side balance, EO Comments min to mod UE support mounika occ foam stand Details EO, EC Equipment blue foam Reps/Duration 5' Comments foam pads: parallel and stride position PT-OP-R Modalities Start: 10/04/20 14:44 Freq: Status: Active Protocol: Document 10/28/20 13:54 [facility] (Rec: 10/28/20 15:55 [facility] [id number]) Hot Pack/Cold Pack Treatment Hot Pack Location bilateral knees Patient Position Supine Treatment Duration (minutes) 15 Patient Tolerance Good Comments meyers bolster PT-OP-T Assessment and Plan Start: 10/04/20 14:44 Freq: Status: Active Protocol: Document 10/28/20 13:54 [facility] (Rec: 10/28/20 15:55 [facility] [id number]) Physical Therapy Assessment Goals Four Impairment patient with significant lateral sway and antalgic gait , no assistive devic Lacquer Spray Booth Operator Goal (LTG) Patient able to ambulate with least restrictive assistive device with minimal lateral sway or limp LTG Duration 01/04/21 Three Impairment Timed Up and Go test 25 sec Short Term Goal (STG) Improve TUG test to no greater than 18 sec STG Duration 11/09/20 Lacquer Spray Booth Operator Goal (LTG) Improve TUG test to no greater than 12 sec LTG Duration 01/04/21 Two Impairment weakness mounika LE's with 5x sit to stand time 27 sec with use of hands Short Term Goal (STG) 5 x sit to cabinet finisher less than 20 sec with use of hands as functional measure of improved LE strength, with patient independent and compliant with HEP STG Duration 11/09/26 Lacquer Spray Booth Operator Goal (LTG) 5x sit to cabinet finisher less than 15 sec without use of hands as functional measure of improved strength LTG Duration 01/04/21 One Impairment unsteady gait: Tinetti gait and balance assessment 03/08 ( hi fall risk) Short Term Goal (STG) improve Tinetti score to at least 17/28 as measure of decreased fall risk STG Duration 11/09/26 Correction Goal (LTG) Improve Tinetti score to at least 24/28 as measure of decreased fall risk LTG Duration 01/04/21 Assessment Summary Assessment Pt did well with exercises today with very min cueing needed. she did well with balancing but is signficnatly challenged by EC activities. Physical Therapy Plan Frequency and Duration Frequency of Treatment 2x/Week Duration of Treatment 12 weeks Plan of Care Start Date 10/05/20 Plan of Care End Date 01/04/21 Next Visit Focus/Plan Next Note Type Treatment Note Next Visit Plan cont to progress strength & balance and improved gait
--- NOTE | 2020-11-02 17:00 | PT.OTN ---
Current Diagnoses Bilateral primary osteoarthritis of knee (11/02/20) Pain in right knee (11/02/20) Pain in left knee (11/02/20) Difficulty in walking, not elsewhere classified (11/02/20) Weakness (11/02/20) History of falling (11/02/20) Physical Therapy Treatment Note PT-OP-A Visit Information Start: 10/04/20 14:44 Freq: Status: Active Protocol: Document 11/02/20 14:47 [facility] (Rec: 11/02/20 15:18 [facility] [id number]) Out-Patient Physical Therapy Visit Information Visit Information Visit Type Treatment Note Visit Start Time 14:30 Visit Stop Time 15:26 Total Visit Minutes 56 Visit Number 7 Number of INSULATION PROFESSIONAL Visits 0 PT-OP-B Current Condition Start: 10/04/20 14:44 Freq: Status: Active Protocol: Document 10/05/20 13:45 [facility] (Rec: 10/05/20 14:24 SAK [id number]) Current Condition History of Current Condition Onset Date 2 years Current Complaints bilateral knee pain History of Current Condition progressively worsening knee pain, has had 2 injections left knee most recently 2 months ago, one right . No use of heat or ice. Is going to start doing aquatic exercise; hasn't done since before pandemic. Hasn't been doing any exercises at home. Doesn't use assistive device stating I figure once you start that its all over. Wears knee brace at times right. Occasionally one of her knees goes out, has fallen 2x while walking on slope with soft dirt. 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 Prior Treatments and Tests x-ray: moderate arthritis Future Testing and Treatments Planned No scheduled follow-up with Dr Lorraine Mcpherson. Treatment Goals Patient/Caregiver Goals more confidence in walking, no falls, safe walking in the comunity. Prior Functional Status Baseline Function- ADL's Independent Baseline Function- Mobility Independent Baseline Function- Gait independent no device Baseline Function- Recreation/Hobbies could get down to the floor, or in or out of the bathtub, transfer sit to and from stand without use of hands Current Functional Impairments (Reported) Functional Limitations- Other can't get down to the floor or get up, unable to get down into bathtub or out , can't transfer sit to stand without use of hands PT-OP-C Subjective Start: 10/04/20 14:44 Freq: Status: Active Protocol: Document 11/02/20 14:47 [facility] (Rec: 11/02/20 15:18 [facility] [id number]) OP-PT Subjective Patient Comments Patient Comments Tape helps and doing the ankle pumps and knee range of motion before standing up. Wants to get better faster. PT-OP-D Balance Start: 10/04/20 14:44 Freq: Status: Active Protocol: Document 10/05/20 13:45 [facility] (Rec: 10/06/20 13:38 [facility] [id number]) OP-PT Balance Assessment Sitting Balance Static Sitting Balance Ability Normal Dynamic Sitting Balance Ability Normal Tinetti Balance Assessment Sitting Balance Sitting Balance Steady, safe Arising from Chair Ability to Arise Able, uses arms to help Attempts to Arise Arises on 1st attempt Standing Balance Immediate Standing Balance Steady with support Standing Balance Steady, wide stance Nudged Response Begins to fall Standing with Eyes Closed Unsteady Turning Step Pattern Turning 360 Degrees Discontinuous steps Stability Turning 360 Degrees Unsteady, grabs/staggers Sitting Down Sitting Down Uses arms or unsteady Gait and Step Initiation of Gait Hesitancy, mult. attempts Right Foot Step Length Does not pass stance ft. Right Foot Step Height Does not clear floor Left Foot Step Length Does not pass stance foot Left Foot Step Height Does not clear floor Step Description Step Symmetry Step length appears equal Step Continuity Steps appear continuous Gait Description Path Description Marked deviation Trunk Description Marked sway or uses aide Walking Stance Heels apart Scoring and Interpretation Tinetti Composite Score (points) 9 Barragan Fall Scale Copyright Permission PT-OP-E Functional Tests Start: 10/04/20 14:44 Freq: Status: Active Protocol: Document 10/05/20 13:45 [facility] (Rec: 10/06/20 13:38 [facility] [id number]) Functional Tests Dynamic Gait Index (DGI) Score 7 Five Times Sit to Stand Test Score 27 Comments uses hands Timed Up and Go (TUG) Score 23 Tinetti Balance and Gait Assessment Composite Score 9 Single Leg Squat Test Score unable PT-OP-G Mobility & Gait Start: 10/04/20 14:44 Freq: Status: Active Protocol: Document 10/05/20 13:45 [facility] (Rec: 10/06/20 13:38 [facility] [id number]) OP Mobility Evaluation Transfers Sit to Stand requires use of UE's Floor Transfers patient reports very difficult , didn't attempt today Functional Movements Lifting and Carrying unstead Squats unable Running Assessment unable OP Gait Assessment Gait Gait Assistance Required: Independent Distance (Feet) 75 Assistive Devices Assistive Device None Orthotic/Prosthetic Devices or Brace: No Gait Deviations General Gait Pattern Antalgic,Decreased Stride Length,Decreased Feet Clearance,Lateral Trunk Lean, Wide Based Gait Factors Limiting Gait Function Factors Limiting Gait Function Pain Stair Climbing Evaluation Evaluation Level of Assist On Stairs Independent Devices Stair Climbing Assistive Devices Left Railing,Right Railing Technique/Endurance Stair Climbing Technique Step to Step PT-OP-H Neuro Start: 10/04/20 14:44 Freq: Status: Active Protocol: Document 10/05/20 13:45 [facility] (Rec: 10/06/20 13:38 [facility] [id number]) Sensation Evaluation Gross Sensation Gross Sensation WNL PT-OP-J Posture/Palpation/Skin Start: 10/04/20 14:44 Freq: Status: Active Protocol: Document 10/05/20 13:45 [facility] (Rec: 10/06/20 13:38 [facility] [id number]) Posture Evaluation Position Standing Head/C-Spine Posture Forward Head T-Spine Posture Increased Kyphosis Shoulder Posture (L) Rounded,(R) Rounded Scapula Posture (L) Protracted,(R) Protracted Arm Posture (L) Internally Rotated,(R) Internally Rotated Pelvis Posture Anteriorly Tilted Hip Posture (L) Externally Rotated,(R) Externally Rotated Knee Posture (L) Genu Valgus,(R) Genu Valgus Ankle/Foot Posture (L) Forefoot Eversion,(R) Forefoot Eversion Palpation Assessment Location bilatral knees Palpation Location medial to patella Palpation Findings Edema bilateral knees Palpation Location lateral joint line Palpation Findings Tenderness PT-OP-K Range of Motion Start: 10/04/20 14:44 Freq: Status: Active Protocol: Document 10/05/20 13:45 [facility] (Rec: 10/06/20 13:38 [facility] [id number]) Hip Goniometric Range of Motion Hip mounika Hip ROM WFL Yes Knee Goniometric Range of Motion Knee mounika Knee ROM WFL Yes Comments with significant genu valgus in extension Ankle and Foot Goniometric Range of Motion Ankle and Foot mounika Ankle/Foot ROM WFL Yes PT-OP-M Strength Start: 10/04/20 14:44 Freq: Status: Active Protocol: Document 10/05/20 13:45 [facility] (Rec: 10/06/20 13:38 [facility] [id number]) Hip Strength Hip Manual Muscle Testing mounika Flexion (L2) 4 Good Extension (S1) 3- Fair- Abduction 3- Fair- Adduction 3+ Fair+ External Rotation 3+ Fair+ Internal Rotation 4- Good- Knee Strength Knee Manual Muscle Testing mounika Flexion (S2) 4- Good- Extension (L3) 4- Good- Comments pain with extension and flexion Ankle/Foot Strength Ankle and Foot Manual Muscle Testing mounika Dorsiflexion (L4) 4 Good Plantarflexion (S1) 4 Good PT-OP-Q Treatments Start: 10/04/20 14:44 Freq: Status: Active Protocol: Document 11/02/20 14:47 [facility] (Rec: 11/02/20 15:18 [facility] [id number]) Cardio Equipment Recumbent Stepper (Sci-Fit) Duration (Minutes) 10 Resistance 1.5-1.7 Seat Position 12 Other cues for neutral alignment, 0. 9 MILE Therapeutic Exercises Supine Exercises bridge Reps/Minutes 10x SAQ Resistance 1# Reps/Minutes 10x hip ab/ER Equipment Used L2 TB Reps/Minutes 15 Sitting Exercises sit to stand Sitting Exercise Name gradually lowering table toward chair height Equipment Used hi-lo table Reps/Minutes 10x Comments cues for neutral LE's, alignment, muscle activation sequencing Manual Therapy Treatment Taping right knee Body Location L knee today Treatment Focus pain relief Type of Tape Kinesio Tape Comments I strip space correction (75% stretch) lateral joint line left knee. Neuro Re-Education Treatment Balance Activities tiltboard Details fwd/bck, side balance, EO Comments min to mod UE support mounika occ foam stand Details EO, EC Equipment blue foam Reps/Duration 5' Comments foam pads: parallel and stride position PT-OP-R Modalities Start: 10/04/20 14:44 Freq: Status: Active Protocol: Document 10/28/20 13:54 [facility] (Rec: 10/28/20 15:55 [facility] [id number]) Hot Pack/Cold Pack Treatment Hot Pack Location bilateral knees Patient Position Supine Treatment Duration (minutes) 15 Patient Tolerance Good Comments luigi alvarado PT-OP-T Assessment and Plan Start: 10/04/20 14:44 Freq: Status: Active Protocol: Document 11/02/20 14:47 [facility] (Rec: 11/02/20 15:18 [facility] [id number]) Physical Therapy Assessment Goals Four Impairment patient with significant lateral sway and antalgic gait , no assistive devic Suture Winder Hand Goal (LTG) Patient able to ambulate with least restrictive assistive device with minimal lateral sway or limp LTG Duration 01/04/21 Three Impairment Timed Up and Go test 25 sec Short Term Goal (STG) Improve TUG test to no greater than 18 sec STG Duration 11/09/20 Suture Winder Hand Goal (LTG) Improve TUG test to no greater than 12 sec LTG Duration 01/04/21 Two Impairment weakness mounika LE's with 5x sit to stand time 27 sec with use of hands Short Term Goal (STG) 5 x sit to business solutions architect less than 20 sec with use of hands as functional measure of improved LE strength, with patient independent and compliant with HEP STG Duration 11/09/26 Suture Winder Hand Goal (LTG) 5x sit to business solutions architect less than 15 sec without use of hands as functional measure of improved strength LTG Duration 01/04/21 One Impairment unsteady gait: Tinetti gait and balance assessment 03/08 ( hi fall risk) Short Term Goal (STG) improve Tinetti score to at least 17/28 as measure of decreased fall risk STG Duration 11/09/26 Half-Way Goal (LTG) Improve Tinetti score to at least 24/28 as measure of decreased fall risk LTG Duration 01/04/21 Assessment Summary Assessment Patient able to transfer sit to stand without UE use until 20 inch height, then requires UE assist; demonstrated good understanding of how she can use cushion or pillow to change height of surface to practice this at home. Trekking poles continue to be best option for gait at this time. Physical Therapy Plan Frequency and Duration Frequency of Treatment 2x/Week Duration of Treatment 12 weeks Plan of Care Start Date 10/05/20 Plan of Care End Date 01/04/21 Next Visit Focus/Plan Next Note Type Treatment Note Next Visit Plan Continue progressive ther ex, gait and balance training. Try shuttle balance machine next session.
--- NOTE | 2020-11-18 15:14 | PT.OTN ---
Current Diagnoses Bilateral primary osteoarthritis of knee (11/18/20) Pain in right knee (11/18/20) Pain in left knee (11/18/20) Difficulty in walking, not elsewhere classified (11/18/20) Weakness (11/18/20) History of falling (11/18/20) Physical Therapy Treatment Note PT-OP-A Visit Information Start: 10/04/20 14:44 Freq: Status: Active Protocol: Document 11/18/20 14:27 SAK (Rec: 11/18/20 15:12 SAK [id number]) Out-Patient Physical Therapy Visit Information Visit Information Visit Type Treatment Note Visit Start Time 14:30 Visit Stop Time 15:26 Total Visit Minutes 56 Visit Number 8 Number of DAY HABILITATION SUPERVISOR Visits 0 PT-OP-B Current Condition Start: 10/04/20 14:44 Freq: Status: Active Protocol: Document 10/05/20 13:45 SAK (Rec: 10/05/20 14:24 SAK [id number]) Current Condition History of Current Condition Onset Date 2 years Current Complaints bilateral knee pain History of Current Condition progressively worsening knee pain, has had 2 injections left knee most recently 2 months ago, one right . No use of heat or ice. Is going to start doing aquatic exercise; hasn't done since before pandemic. Hasn't been doing any exercises at home. Doesn't use assistive device stating I figure once you start that its all over. Wears knee brace at times right. Occasionally one of her knees goes out, has fallen 2x while walking on slope with soft dirt. 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 Prior Treatments and Tests x-ray: moderate arthritis Future Testing and Treatments Planned No scheduled follow-up with Dr Lorraine Mcpherson. Treatment Goals Patient/Caregiver Goals more confidence in walking, no falls, safe walking in the comunity. Prior Functional Status Baseline Function- ADL's Independent Baseline Function- Mobility Independent Baseline Function- Gait independent no device Baseline Function- Recreation/Hobbies could get down to the floor, or in or out of the bathtub, transfer sit to and from stand without use of hands Current Functional Impairments (Reported) Functional Limitations- Other can't get down to the floor or get up, unable to get down into bathtub or out , can't transfer sit to stand without use of hands PT-OP-C Subjective Start: 10/04/20 14:44 Freq: Status: Active Protocol: Document 11/18/20 14:27 SAK (Rec: 11/18/20 15:12 [facility] [id number]) OP-PT Subjective Patient Comments Patient Comments Easier time getting up off bed now; sit to stand x 10 without you, previously couldn 't do 1x, feeling stronger. Doing all her exercises. Agreeable to try Shuttle balance. PT-OP-D Balance Start: 10/04/20 14:44 Freq: Status: Active Protocol: Document 10/05/20 13:45 SAK (Rec: 10/06/20 13:38 [facility] [id number]) OP-PT Balance Assessment Sitting Balance Static Sitting Balance Ability Normal Dynamic Sitting Balance Ability Normal Tinetti Balance Assessment Sitting Balance Sitting Balance Steady, safe Arising from Chair Ability to Arise Able, uses arms to help Attempts to Arise Arises on 1st attempt Standing Balance Immediate Standing Balance Steady with support Standing Balance Steady, wide stance Nudged Response Begins to fall Standing with Eyes Closed Unsteady Turning Step Pattern Turning 360 Degrees Discontinuous steps Stability Turning 360 Degrees Unsteady, grabs/staggers Sitting Down Sitting Down Uses arms or unsteady Gait and Step Initiation of Gait Hesitancy, mult. attempts Right Foot Step Length Does not pass stance ft. Right Foot Step Height Does not clear floor Left Foot Step Length Does not pass stance foot Left Foot Step Height Does not clear floor Step Description Step Symmetry Step length appears equal Step Continuity Steps appear continuous Gait Description Path Description Marked deviation Trunk Description Marked sway or uses aide Walking Stance Heels apart Scoring and Interpretation Tinetti Composite Score (points) 9 Barragan Fall Scale Copyright Permission PT-OP-E Functional Tests Start: 10/04/20 14:44 Freq: Status: Active Protocol: Document 10/05/20 13:45 [facility] (Rec: 10/06/20 13:38 [facility] [id number]) Functional Tests Dynamic Gait Index (DGI) Score 7 Five Times Sit to Stand Test Score 27 Comments uses hands Timed Up and Go (TUG) Score 23 Tinetti Balance and Gait Assessment Composite Score 9 Single Leg Squat Test Score unable PT-OP-G Mobility & Gait Start: 10/04/20 14:44 Freq: Status: Active Protocol: Document 10/05/20 13:45 SAK (Rec: 10/06/20 13:38 [facility] [id number]) OP Mobility Evaluation Transfers Sit to Stand requires use of UE's Floor Transfers patient reports very difficult , didn't attempt today Functional Movements Lifting and Carrying unstead Squats unable Running Assessment unable OP Gait Assessment Gait Gait Assistance Required: Independent Distance (Feet) 75 Assistive Devices Assistive Device None Orthotic/Prosthetic Devices or Brace: No Gait Deviations General Gait Pattern Antalgic,Decreased Stride Length,Decreased Feet Clearance,Lateral Trunk Lean, Wide Based Gait Factors Limiting Gait Function Factors Limiting Gait Function Pain Stair Climbing Evaluation Evaluation Level of Assist On Stairs Independent Devices Stair Climbing Assistive Devices Left Railing,Right Railing Technique/Endurance Stair Climbing Technique Step to Step PT-OP-H Neuro Start: 10/04/20 14:44 Freq: Status: Active Protocol: Document 10/05/20 13:45 [facility] (Rec: 10/06/20 13:38 [facility] [id number]) Sensation Evaluation Gross Sensation Gross Sensation WNL PT-OP-J Posture/Palpation/Skin Start: 10/04/20 14:44 Freq: Status: Active Protocol: Document 10/05/20 13:45 [facility] (Rec: 10/06/20 13:38 [facility] [id number]) Posture Evaluation Position Standing Head/C-Spine Posture Forward Head T-Spine Posture Increased Kyphosis Shoulder Posture (L) Rounded,(R) Rounded Scapula Posture (L) Protracted,(R) Protracted Arm Posture (L) Internally Rotated,(R) Internally Rotated Pelvis Posture Anteriorly Tilted Hip Posture (L) Externally Rotated,(R) Externally Rotated Knee Posture (L) Genu Valgus,(R) Genu Valgus Ankle/Foot Posture (L) Forefoot Eversion,(R) Forefoot Eversion Palpation Assessment Location bilatral knees Palpation Location medial to patella Palpation Findings Edema bilateral knees Palpation Location lateral joint line Palpation Findings Tenderness PT-OP-K Range of Motion Start: 10/04/20 14:44 Freq: Status: Active Protocol: Document 10/05/20 13:45 [facility] (Rec: 10/06/20 13:38 [facility] [id number]) Hip Goniometric Range of Motion Hip mounika Hip ROM WFL Yes Knee Goniometric Range of Motion Knee mounika Knee ROM WFL Yes Comments with significant genu valgus in extension Ankle and Foot Goniometric Range of Motion Ankle and Foot mounika Ankle/Foot ROM WFL Yes PT-OP-M Strength Start: 10/04/20 14:44 Freq: Status: Active Protocol: Document 10/05/20 13:45 [facility] (Rec: 10/06/20 13:38 [facility] [id number]) Hip Strength Hip Manual Muscle Testing mounika Flexion (L2) 4 Good Extension (S1) 3- Fair- Abduction 3- Fair- Adduction 3+ Fair+ External Rotation 3+ Fair+ Internal Rotation 4- Good- Knee Strength Knee Manual Muscle Testing mounika Flexion (S2) 4- Good- Extension (L3) 4- Good- Comments pain with extension and flexion Ankle/Foot Strength Ankle and Foot Manual Muscle Testing mounika Dorsiflexion (L4) 4 Good Plantarflexion (S1) 4 Good PT-OP-Q Treatments Start: 10/04/20 14:44 Freq: Status: Active Protocol: Document 11/18/20 14:27 [facility] (Rec: 11/18/20 15:12 [facility] [id number]) Cardio Equipment Recumbent Stepper (Sci-Fit) Duration (Minutes) 10 Resistance 1.5-1.7 Seat Position 12 Other cues for neutral alignment, 0. 9 MILE Gym Equipment Shuttle Recovery Unilateral Squats Details emphasis on neutral LE alignment Resistance 25 Shuttle Recovery Platform Stable Reps/Time 10x2 Bilateral Squats Details emphasis on neutral LE alignment Resistance 50 Shuttle Recovery Platform Stable Reps/Time 10x2 Shuttle Balance chains red Details bal and weight shift Reps/Duration 5 min Therapeutic Exercises Supine Exercises bridge Reps/Minutes 10x SAQ Resistance 1# Reps/Minutes 10x hip ab/ER Equipment Used L2 TB Reps/Minutes 15 Sitting Exercises knee flexion Resistance L2 TB Reps/Minutes 10x2 sit to stand Sitting Exercise Name gradually lowering table toward chair height Equipment Used hi-lo table Reps/Minutes 10x Comments cues for neutral LE's, alignment, muscle activation sequencing Standing Exercises marching Reps/Minutes 2 min Comments single UE support sidestepping Reps/Minutes 2 min Comments min UE support Manual Therapy Treatment Taping right knee Body Location L knee today Treatment Focus pain relief Type of Tape Kinesio Tape Comments I strip space correction (75% stretch) lateral joint line left knee. Neuro Re-Education Treatment Balance Activities tiltboard Details fwd/bck, side balance, EO Comments min to mod UE support mounika occ foam stand Details EO, EC Equipment blue foam Reps/Duration 5' Comments foam pads: parallel and stride position PT-OP-R Modalities Start: 10/04/20 14:44 Freq: Status: Active Protocol: Document 11/18/20 14:27 SAK (Rec: 11/18/20 15:14 SAK [id number]) Hot Pack/Cold Pack Treatment Hot Pack Location bilateral knees Patient Position Supine Treatment Duration (minutes) 15 Patient Tolerance Good Comments luigi alvarado PT-OP-T Assessment and Plan Start: 10/04/20 14:44 Freq: Status: Active Protocol: Document 11/18/20 14:27 [facility] (Rec: 11/18/20 15:12 [facility] [id number]) Physical Therapy Assessment Goals Four Impairment patient with significant lateral sway and antalgic gait , no assistive devic Halfway Goal (LTG) Patient able to ambulate with least restrictive assistive device with minimal lateral sway or limp LTG Duration 01/04/21 Three Impairment Timed Up and Go test 25 sec Short Term Goal (STG) Improve TUG test to no greater than 18 sec STG Duration 11/09/20 Halfway Goal (LTG) Improve TUG test to no greater than 12 sec LTG Duration 01/04/21 Two Impairment weakness mounika LE's with 5x sit to stand time 27 sec with use of hands Short Term Goal (STG) 5 x sit to lens finisher less than 20 sec with use of hands as functional measure of improved LE strength, with patient independent and compliant with HEP STG Duration 11/09/26 Oral Communication Instructor Goal (LTG) 5x sit to lens finisher less than 15 sec without use of hands as functional measure of improved strength LTG Duration 01/04/21 One Impairment unsteady gait: Tinetti gait and balance assessment 03/08 ( hi fall risk) Short Term Goal (STG) improve Tinetti score to at least 17/28 as measure of decreased fall risk STG Duration 11/09/26 Halfway Goal (LTG) Improve Tinetti score to at least 24/28 as measure of decreased fall risk LTG Duration 01/04/21 Progress Towards Goals Progress Towards Goals Progressing Toward Goals Assessment Summary Assessment Improving functional strength and gait. Genu varum causes patient difficulty with balance at times per her report though denies recent fall. Compliant to HEP. Physical Therapy Plan Frequency and Duration Frequency of Treatment 2x/Week Duration of Treatment 12 weeks Plan of Care Start Date 10/05/20 Plan of Care End Date 01/04/21 Next Visit Focus/Plan Next Note Type Treatment Note Next Visit Plan Progress strengthening, balance, and gait as tolerated .
--- NOTE | 2020-11-22 16:52 | PT.OTN ---
Current Diagnoses Bilateral primary osteoarthritis of knee (11/22/20) Pain in right knee (11/22/20) Pain in left knee (11/22/20) Difficulty in walking, not elsewhere classified (11/22/20) Weakness (11/22/20) History of falling (11/22/20) Physical Therapy Treatment Note PT-OP-A Visit Information Start: 10/04/20 14:44 Freq: Status: Active Protocol: Document 11/22/20 14:38 SAK (Rec: 11/22/20 15:17 SAK [id number]) Out-Patient Physical Therapy Visit Information Visit Information Visit Type Treatment Note Visit Start Time 14:30 Visit Stop Time 15:26 Total Visit Minutes 56 Visit Number 9 Number of PLATINUMSMITH Visits 0 PT-OP-B Current Condition Start: 10/04/20 14:44 Freq: Status: Active Protocol: Document 10/05/20 13:45 SAK (Rec: 10/05/20 14:24 SAK [id number]) Current Condition History of Current Condition Onset Date 2 years Current Complaints bilateral knee pain History of Current Condition progressively worsening knee pain, has had 2 injections left knee most recently 2 months ago, one right . No use of heat or ice. Is going to start doing aquatic exercise; hasn't done since before pandemic. Hasn't been doing any exercises at home. Doesn't use assistive device stating I figure once you start that its all over. Wears knee brace at times right. Occasionally one of her knees goes out, has fallen 2x while walking on slope with soft dirt. 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 Prior Treatments and Tests x-ray: moderate arthritis Future Testing and Treatments Planned No scheduled follow-up with Dr Lorraine Mcpherson. Treatment Goals Patient/Caregiver Goals more confidence in walking, no falls, safe walking in the comunity. Prior Functional Status Baseline Function- ADL's Independent Baseline Function- Mobility Independent Baseline Function- Gait independent no device Baseline Function- Recreation/Hobbies could get down to the floor, or in or out of the bathtub, transfer sit to and from stand without use of hands Current Functional Impairments (Reported) Functional Limitations- Other can't get down to the floor or get up, unable to get down into bathtub or out , can't transfer sit to stand without use of hands PT-OP-C Subjective Start: 10/04/20 14:44 Freq: Status: Active Protocol: Document 11/22/20 14:38 [facility] (Rec: 11/22/20 15:17 [facility] [id number]) OP-PT Subjective Patient Comments Patient Comments Brought CD of x-rays for PT to view. Pain unchanged, feels some stronger. PT-OP-D Balance Start: 10/04/20 14:44 Freq: Status: Active Protocol: Document 10/05/20 13:45 [facility] (Rec: 10/06/20 13:38 [facility] [id number]) OP-PT Balance Assessment Sitting Balance Static Sitting Balance Ability Normal Dynamic Sitting Balance Ability Normal Tinetti Balance Assessment Sitting Balance Sitting Balance Steady, safe Arising from Chair Ability to Arise Able, uses arms to help Attempts to Arise Arises on 1st attempt Standing Balance Immediate Standing Balance Steady with support Standing Balance Steady, wide stance Nudged Response Begins to fall Standing with Eyes Closed Unsteady Turning Step Pattern Turning 360 Degrees Discontinuous steps Stability Turning 360 Degrees Unsteady, grabs/staggers Sitting Down Sitting Down Uses arms or unsteady Gait and Step Initiation of Gait Hesitancy, mult. attempts Right Foot Step Length Does not pass stance ft. Right Foot Step Height Does not clear floor Left Foot Step Length Does not pass stance foot Left Foot Step Height Does not clear floor Step Description Step Symmetry Step length appears equal Step Continuity Steps appear continuous Gait Description Path Description Marked deviation Trunk Description Marked sway or uses aide Walking Stance Heels apart Scoring and Interpretation Tinetti Composite Score (points) 9 Barragan Fall Scale Copyright Permission PT-OP-E Functional Tests Start: 10/04/20 14:44 Freq: Status: Active Protocol: Document 10/05/20 13:45 [facility] (Rec: 10/06/20 13:38 [facility] [id number]) Functional Tests Dynamic Gait Index (DGI) Score 7 Five Times Sit to Stand Test Score 27 Comments uses hands Timed Up and Go (TUG) Score 23 Tinetti Balance and Gait Assessment Composite Score 9 Single Leg Squat Test Score unable PT-OP-G Mobility & Gait Start: 10/04/20 14:44 Freq: Status: Active Protocol: Document 10/05/20 13:45 SAK (Rec: 10/06/20 13:38 [facility] [id number]) OP Mobility Evaluation Transfers Sit to Stand requires use of UE's Floor Transfers patient reports very difficult , didn't attempt today Functional Movements Lifting and Carrying unstead Squats unable Running Assessment unable OP Gait Assessment Gait Gait Assistance Required: Independent Distance (Feet) 75 Assistive Devices Assistive Device None Orthotic/Prosthetic Devices or Brace: No Gait Deviations General Gait Pattern Antalgic,Decreased Stride Length,Decreased Feet Clearance,Lateral Trunk Lean, Wide Based Gait Factors Limiting Gait Function Factors Limiting Gait Function Pain Stair Climbing Evaluation Evaluation Level of Assist On Stairs Independent Devices Stair Climbing Assistive Devices Left Railing,Right Railing Technique/Endurance Stair Climbing Technique Step to Step PT-OP-H Neuro Start: 10/04/20 14:44 Freq: Status: Active Protocol: Document 10/05/20 13:45 SAK (Rec: 10/06/20 13:38 SAK [id number]) Sensation Evaluation Gross Sensation Gross Sensation WNL PT-OP-J Posture/Palpation/Skin Start: 10/04/20 14:44 Freq: Status: Active Protocol: Document 10/05/20 13:45 SAK (Rec: 10/06/20 13:38 SAK [id number]) Posture Evaluation Position Standing Head/C-Spine Posture Forward Head T-Spine Posture Increased Kyphosis Shoulder Posture (L) Rounded,(R) Rounded Scapula Posture (L) Protracted,(R) Protracted Arm Posture (L) Internally Rotated,(R) Internally Rotated Pelvis Posture Anteriorly Tilted Hip Posture (L) Externally Rotated,(R) Externally Rotated Knee Posture (L) Genu Valgus,(R) Genu Valgus Ankle/Foot Posture (L) Forefoot Eversion,(R) Forefoot Eversion Palpation Assessment Location bilatral knees Palpation Location medial to patella Palpation Findings Edema bilateral knees Palpation Location lateral joint line Palpation Findings Tenderness PT-OP-K Range of Motion Start: 10/04/20 14:44 Freq: Status: Active Protocol: Document 10/05/20 13:45 SAK (Rec: 10/06/20 13:38 SAK [id number]) Hip Goniometric Range of Motion Hip mounika Hip ROM WFL Yes Knee Goniometric Range of Motion Knee mounika Knee ROM WFL Yes Comments with significant genu valgus in extension Ankle and Foot Goniometric Range of Motion Ankle and Foot mounika Ankle/Foot ROM WFL Yes PT-OP-M Strength Start: 10/04/20 14:44 Freq: Status: Active Protocol: Document 10/05/20 13:45 [facility] (Rec: 10/06/20 13:38 [facility] [id number]) Hip Strength Hip Manual Muscle Testing mounika Flexion (L2) 4 Good Extension (S1) 3- Fair- Abduction 3- Fair- Adduction 3+ Fair+ External Rotation 3+ Fair+ Internal Rotation 4- Good- Knee Strength Knee Manual Muscle Testing mounika Flexion (S2) 4- Good- Extension (L3) 4- Good- Comments pain with extension and flexion Ankle/Foot Strength Ankle and Foot Manual Muscle Testing mounika Dorsiflexion (L4) 4 Good Plantarflexion (S1) 4 Good PT-OP-Q Treatments Start: 10/04/20 14:44 Freq: Status: Active Protocol: Document 11/22/20 14:38 [facility] (Rec: 11/22/20 15:17 [facility] [id number]) Cardio Equipment Recumbent Stepper (Sci-Fit) Duration (Minutes) 5 Resistance 2.0 Seat Position 12 Other cues for neutral alignment, Bicycle (Upright) Duration (Minutes) 3 Resistance 3 Seat Position 3 Gym Equipment Shuttle Recovery Unilateral Squats Details emphasis on neutral LE alignment Resistance 25 Shuttle Recovery Platform Stable Reps/Time 10x2 Bilateral Squats Details emphasis on neutral LE alignment, L2 TB around distal femurs Resistance 50 Shuttle Recovery Platform Stable Reps/Time 10x2 Therapeutic Exercises Sidelying Exercises clamshell Reps/Minutes 10x hip add Reps/Minutes 10x hip abduction Reps/Minutes 10x mounika Comments mod PT asssist Sitting Exercises knee flexion Resistance L2 TB Reps/Minutes 10x2 Gait Training Gait Activity level with [employer] Device Used [employer] Distance/Duration 50'x3 Treatment Focus upright posture Manual Therapy Treatment Soft Tissue Mobilization IT band Mobilization Type Myofascial Release Intensity/Depth Moderate Body Position Supine Self-Care/Home Management Treatment Education Patient Education Home Exercise Program Other Education updated written HEP PT-OP-R Modalities Start: 10/04/20 14:44 Freq: Status: Active Protocol: Document 11/22/20 14:38 [facility] (Rec: 11/22/20 16:52 [facility] [id number]) Hot Pack/Cold Pack Treatment Hot Pack Location bilateral knees Patient Position Supine Treatment Duration (minutes) 15 Patient Tolerance Good Comments luigi alvarado PT-OP-T Assessment and Plan Start: 10/04/20 14:44 Freq: Status: Active Protocol: Document 11/22/20 14:38 [facility] (Rec: 11/22/20 15:17 [facility] [id number]) Physical Therapy Assessment Goals Four Impairment patient with significant lateral sway and antalgic gait , no assistive devic [employer] Goal (LTG) Patient able to ambulate with least restrictive assistive device with minimal lateral sway or limp LTG Duration 01/04/21 Three Impairment Timed Up and Go test 25 sec Short Term Goal (STG) Improve TUG test to no greater than 18 sec STG Duration 11/09/20 Mcfp Goal (LTG) Improve TUG test to no greater than 12 sec LTG Duration 01/04/21 Two Impairment weakness mounika LE's with 5x sit to stand time 27 sec with use of hands Short Term Goal (STG) 5 x sit to rocket engine component mechanic less than 20 sec with use of hands as functional measure of improved LE strength, with patient independent and compliant with HEP STG Duration 11/09/26 Mcfp Goal (LTG) 5x sit to rocket engine component mechanic less than 15 sec without use of hands as functional measure of improved strength LTG Duration 01/04/21 One Impairment unsteady gait: Tinetti gait and balance assessment 03/08 ( hi fall risk) Short Term Goal (STG) improve Tinetti score to at least 17/28 as measure of decreased fall risk STG Duration 11/09/26 Mcfp Goal (LTG) Improve Tinetti score to at least 24/28 as measure of decreased fall risk LTG Duration 01/04/21 Assessment Summary Assessment Patient pain persists, patient may pursue second opinion as she reports her doctor said surgery would not be helpful for her arthritis in her knees . Still unable to perform hip abduction against gravity without assistance. Using trekking poles for support with gait. Physical Therapy Plan Frequency and Duration Frequency of Treatment 2x/Week Duration of Treatment 12 weeks Plan of Care Start Date 10/05/20 Plan of Care End Date 01/04/21 Therapeutic Interventions Therapeutic Interventions Balance Training,Gait Training ,Home Exercise Program,Patient /Caregiver Education,Self-Care /Home Management,Taping, Therapeutic Activities, Therapeutic Exercises Modalities Cold Pack/Ice Massage,Electric Stimulation,Hot Packs, Infrared Therapy,Iontophoresis ,Ultrasound Next Visit Focus/Plan Next Note Type Progress Note Next Visit Plan reassess functional tests, LE strength, continue PT for gait , balance, and strengthening per POC.
--- NOTE | 2020-11-24 16:39 | PT.OTN ---
Current Diagnoses Bilateral primary osteoarthritis of knee (11/24/20) Pain in right knee (11/24/20) Pain in left knee (11/24/20) Difficulty in walking, not elsewhere classified (11/24/20) Weakness (11/24/20) History of falling (11/24/20) Physical Therapy Treatment Note PT-OP-A Visit Information Start: 10/04/20 14:44 Freq: Status: Active Protocol: Document 11/24/20 14:29 SAK (Rec: 11/24/20 15:23 SAK [id number]) Out-Patient Physical Therapy Visit Information Visit Information Visit Type Treatment Note Visit Start Time 14:30 Visit Stop Time 15:26 Total Visit Minutes 56 Visit Number 10 Number of HVAC COMMERCIAL SALESPERSON Visits 0 PT-OP-B Current Condition Start: 10/04/20 14:44 Freq: Status: Active Protocol: Document 10/05/20 13:45 SAK (Rec: 10/05/20 14:24 SAK [id number]) Current Condition History of Current Condition Onset Date 2 years Current Complaints bilateral knee pain History of Current Condition progressively worsening knee pain, has had 2 injections left knee most recently 2 months ago, one right . No use of heat or ice. Is going to start doing aquatic exercise; hasn't done since before pandemic. Hasn't been doing any exercises at home. Doesn't use assistive device stating I figure once you start that its all over. Wears knee brace at times right. Occasionally one of her knees goes out, has fallen 2x while walking on slope with soft dirt. 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 Prior Treatments and Tests x-ray: moderate arthritis Future Testing and Treatments Planned No scheduled follow-up with Dr Lorraine Mcpherson. Treatment Goals Patient/Caregiver Goals more confidence in walking, no falls, safe walking in the comunity. Prior Functional Status Baseline Function- ADL's Independent Baseline Function- Mobility Independent Baseline Function- Gait independent no device Baseline Function- Recreation/Hobbies could get down to the floor, or in or out of the bathtub, transfer sit to and from stand without use of hands Current Functional Impairments (Reported) Functional Limitations- Other can't get down to the floor or get up, unable to get down into bathtub or out , can't transfer sit to stand without use of hands PT-OP-C Subjective Start: 10/04/20 14:44 Freq: Status: Active Protocol: Document 11/24/20 14:29 SAK (Rec: 11/24/20 15:23 SAK [id number]) OP-PT Subjective Patient Comments Patient Comments Going to see Dr. Dugan for a second opinion about her knees. Pain no better, sometimes in middle of the night or when going from sitting to standing is very painful. Today is last scheduled appointment in PT, will wait until after sees Dr. Dugan before we discharge from PT. Thinks balance a little better. PT-OP-D Balance Start: 10/04/20 14:44 Freq: Status: Active Protocol: Document 10/05/20 13:45 SAK (Rec: 10/06/20 13:38 SAK [id number]) OP-PT Balance Assessment Sitting Balance Static Sitting Balance Ability Normal Dynamic Sitting Balance Ability Normal Tinetti Balance Assessment Sitting Balance Sitting Balance Steady, safe Arising from Chair Ability to Arise Able, uses arms to help Attempts to Arise Arises on 1st attempt Standing Balance Immediate Standing Balance Steady with support Standing Balance Steady, wide stance Nudged Response Begins to fall Standing with Eyes Closed Unsteady Turning Step Pattern Turning 360 Degrees Discontinuous steps Stability Turning 360 Degrees Unsteady, grabs/staggers Sitting Down Sitting Down Uses arms or unsteady Gait and Step Initiation of Gait Hesitancy, mult. attempts Right Foot Step Length Does not pass stance ft. Right Foot Step Height Does not clear floor Left Foot Step Length Does not pass stance foot Left Foot Step Height Does not clear floor Step Description Step Symmetry Step length appears equal Step Continuity Steps appear continuous Gait Description Path Description Marked deviation Trunk Description Marked sway or uses aide Walking Stance Heels apart Scoring and Interpretation Tinetti Composite Score (points) 9 Barragan Fall Scale Copyright Permission PT-OP-E Functional Tests Start: 10/04/20 14:44 Freq: Status: Active Protocol: Document 10/05/20 13:45 SAK (Rec: 10/06/20 13:38 SAK [id number]) Functional Tests Dynamic Gait Index (DGI) Score 7 Five Times Sit to Stand Test Score 27 Comments uses hands Timed Up and Go (TUG) Score 23 Tinetti Balance and Gait Assessment Composite Score 9 Single Leg Squat Test Score unable PT-OP-G Mobility & Gait Start: 10/04/20 14:44 Freq: Status: Active Protocol: Document 10/05/20 13:45 [facility] (Rec: 10/06/20 13:38 [facility] [id number]) OP Mobility Evaluation Transfers Sit to Stand requires use of UE's Floor Transfers patient reports very difficult , didn't attempt today Functional Movements Lifting and Carrying unstead Squats unable Running Assessment unable OP Gait Assessment Gait Gait Assistance Required: Independent Distance (Feet) 75 Assistive Devices Assistive Device None Orthotic/Prosthetic Devices or Brace: No Gait Deviations General Gait Pattern Antalgic,Decreased Stride Length,Decreased Feet Clearance,Lateral Trunk Lean, Wide Based Gait Factors Limiting Gait Function Factors Limiting Gait Function Pain Stair Climbing Evaluation Evaluation Level of Assist On Stairs Independent Devices Stair Climbing Assistive Devices Left Railing,Right Railing Technique/Endurance Stair Climbing Technique Step to Step PT-OP-H Neuro Start: 10/04/20 14:44 Freq: Status: Active Protocol: Document 10/05/20 13:45 [facility] (Rec: 10/06/20 13:38 [facility] [id number]) Sensation Evaluation Gross Sensation Gross Sensation WNL PT-OP-J Posture/Palpation/Skin Start: 10/04/20 14:44 Freq: Status: Active Protocol: Document 10/05/20 13:45 [facility] (Rec: 10/06/20 13:38 [facility] [id number]) Posture Evaluation Position Standing Head/C-Spine Posture Forward Head T-Spine Posture Increased Kyphosis Shoulder Posture (L) Rounded,(R) Rounded Scapula Posture (L) Protracted,(R) Protracted Arm Posture (L) Internally Rotated,(R) Internally Rotated Pelvis Posture Anteriorly Tilted Hip Posture (L) Externally Rotated,(R) Externally Rotated Knee Posture (L) Genu Valgus,(R) Genu Valgus Ankle/Foot Posture (L) Forefoot Eversion,(R) Forefoot Eversion Palpation Assessment Location bilatral knees Palpation Location medial to patella Palpation Findings Edema bilateral knees Palpation Location lateral joint line Palpation Findings Tenderness PT-OP-K Range of Motion Start: 10/04/20 14:44 Freq: Status: Active Protocol: Document 10/05/20 13:45 SAK (Rec: 10/06/20 13:38 [facility] [id number]) Hip Goniometric Range of Motion Hip mounika Hip ROM WFL Yes Knee Goniometric Range of Motion Knee mounika Knee ROM WFL Yes Comments with significant genu valgus in extension Ankle and Foot Goniometric Range of Motion Ankle and Foot mounika Ankle/Foot ROM WFL Yes PT-OP-M Strength Start: 10/04/20 14:44 Freq: Status: Active Protocol: Document 10/05/20 13:45 [facility] (Rec: 10/06/20 13:38 [facility] [id number]) Hip Strength Hip Manual Muscle Testing mounika Flexion (L2) 4 Good Extension (S1) 3- Fair- Abduction 3- Fair- Adduction 3+ Fair+ External Rotation 3+ Fair+ Internal Rotation 4- Good- Knee Strength Knee Manual Muscle Testing mounika Flexion (S2) 4- Good- Extension (L3) 4- Good- Comments pain with extension and flexion Ankle/Foot Strength Ankle and Foot Manual Muscle Testing mounika Dorsiflexion (L4) 4 Good Plantarflexion (S1) 4 Good PT-OP-Q Treatments Start: 10/04/20 14:44 Freq: Status: Active Protocol: Document 11/24/20 14:29 [facility] (Rec: 11/24/20 15:23 [facility] [id number]) Cardio Equipment Recumbent Stepper (Sci-Fit) Duration (Minutes) 5 Resistance 2.0 Seat Position 12 Other cues for neutral alignment, Gym Equipment Shuttle Recovery Unilateral Squats Details emphasis on neutral LE alignment Resistance 25 Shuttle Recovery Platform Stable Reps/Time 10x2 Bilateral Squats Details emphasis on neutral LE alignment, L2 TB around distal femurs Resistance 50 Shuttle Recovery Platform Stable Reps/Time 10x2 Therapeutic Exercises Sitting Exercises knee flexion Resistance L2 TB Reps/Minutes 10x2 sit to stand Sitting Exercise Name gradually lowering table toward chair height Equipment Used hi-lo table Reps/Minutes 10x Comments cues for neutral LE's, alignment, muscle activation sequencing Standing Exercises sidestepping Resistance yellow TB Reps/Minutes 2 min Comments min UE support Neuro Re-Education Treatment Balance Activities hurdles Details step overs foam stand Details EO, EC, head turns Equipment blue foam Reps/Duration 5' Comments foam pads: parallel and stride position PT-OP-R Modalities Start: 10/04/20 14:44 Freq: Status: Active Protocol: Document 11/22/20 14:38 [facility] (Rec: 11/22/20 16:52 [facility] [id number]) Hot Pack/Cold Pack Treatment Hot Pack Location bilateral knees Patient Position Supine Treatment Duration (minutes) 15 Patient Tolerance Good Comments meyers bolster PT-OP-T Assessment and Plan Start: 10/04/20 14:44 Freq: Status: Active Protocol: Document 11/24/20 14:29 [facility]ARELIS (Rec: 11/24/20 15:23 SAK [id number]) Physical Therapy Assessment Goals Four Impairment patient with significant lateral sway and antalgic gait , no assistive devic Drawing Checker Goal (LTG) Patient able to ambulate with least restrictive assistive device with minimal lateral sway or limp 11/24/20: goal progress, patient ambulating with trekking poles mounika, mild limp LTG Duration 01/04/21 Three Impairment Timed Up and Go test 25 sec Short Term Goal (STG) Improve TUG test to no greater than 18 sec 11/24/20: improved at 20 sec STG Duration 11/09/20 Drawing Checker Goal (LTG) Improve TUG test to no greater than 12 sec LTG Duration 01/04/21 Two Impairment weakness mounika LE's with 5x sit to stand time 27 sec with use of hands Short Term Goal (STG) 5 x sit to criminal legal assistant less than 20 sec with use of hands as functional measure of improved LE strength, with patient independent and compliant with HEP 11/24/20: not reassessed this date. STG Duration 11/09/26 Fdc Goal (LTG) 5x sit to criminal legal assistant less than 15 sec without use of hands as functional measure of improved strength LTG Duration 01/04/21 One Impairment unsteady gait: Tinetti gait and balance assessment 03/08 ( hi fall risk) Short Term Goal (STG) improve Tinetti score to at least 17/28 as measure of decreased fall risk 11/25/20: Tinetti improved to 14/28 STG Duration 11/09/26 Fdc Goal (LTG) Improve Tinetti score to at least 24/28 as measure of decreased fall risk LTG Duration 01/04/21 Assessment Summary Assessment some improvement in strength, balance, and function, patient now ambulating on leve surfaces with trekking poles, independent with HEP. Pain persists and limits her activity level and tolerance. She has most dificulty with sit to stand and stand to sit (plops due to pain and weakness), and she c/o almost falling a few times due to her knees rubbing together and getting in the way of eachother. Sleep interrupted due to sleep. Physical Therapy Plan Frequency and Duration Frequency of Treatment 2x/Week Duration of Treatment 12 weeks Plan of Care Start Date 10/05/20 Plan of Care End Date 01/04/21 Therapeutic Interventions Therapeutic Interventions Balance Training,Gait Training ,Home Exercise Program,Patient /Caregiver Education,Self-Care /Home Management,Taping, Therapeutic Activities, Therapeutic Exercises Modalities Cold Pack/Ice Massage,Electric Stimulation,Hot Packs, Infrared Therapy,Iontophoresis ,Ultrasound Next Visit Focus/Plan Next Note Type Progress Note Next Visit Plan Hold PT until patient sees Dr. Dugan
--- NOTE | 2021-01-19 16:45 | PT.OTRE ---
Current Diagnoses Bilateral primary osteoarthritis of knee (01/19/21) Pain in right knee (01/19/21) Pain in left knee (01/19/21) Difficulty in walking, not elsewhere classified (01/19/21) Weakness (01/19/21) History of falling (01/19/21) Past Medical History (Last Reviewed 08/20/20 @ 17:25 by Bayron Templeton MD) Chicken pox (~1950) Hearing loss History of hip surgery Left hip pain Mumps (~1950) Osteopenia Rib pain on left side Surgical History (Last Reviewed 08/20/20 @ 17:25 by Bayron Templeton MD) Anesthesia History of hip surgery Status post hysterectomy (1990) Visit Care Team Role Provider Type Any Zazueta MD Attending Provider Physician Primary Care Provider Referring Provider Specialty: Internal Medicine Address: [address] [place] [address], [facility] Email: [email or web address] Physical Therapy Re-Evaluation PT-OP-A Visit Information Start: 10/04/20 14:44 Freq: Status: Active Protocol: Document 01/19/21 14:30 SAK (Rec: 01/19/21 15:17 SAK [id number]) Out-Patient Physical Therapy Visit Information Visit Information Visit Type Treatment Note Visit Start Time 14:30 Visit Stop Time 15:14 Total Visit Minutes 44 Visit Number 11 Number of EMERGENCY WORKER Visits 0 PT-OP-B Current Condition Start: 10/04/20 14:44 Freq: Status: Active Protocol: Document 10/05/20 13:45 SAK (Rec: 10/05/20 14:24 SAK [id number]) Current Condition History of Current Condition Onset Date 2 years Current Complaints bilateral knee pain History of Current Condition progressively worsening knee pain, has had 2 injections left knee most recently 2 months ago, one right . No use of heat or ice. Is going to start doing aquatic exercise; hasn't done since before pandemic. Hasn't been doing any exercises at home. Doesn't use assistive device stating I figure once you start that its all over. Wears knee brace at times right. Occasionally one of her knees goes out, has fallen 2x while walking on slope with soft dirt. 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 Prior Treatments and Tests x-ray: moderate arthritis Future Testing and Treatments Planned No scheduled follow-up with Dr Lorraine Mcpherson. Treatment Goals Patient/Caregiver Goals more confidence in walking, no falls, safe walking in the comunity. Prior Functional Status Baseline Function- ADL's Independent Baseline Function- Mobility Independent Baseline Function- Gait independent no device Baseline Function- Recreation/Hobbies could get down to the floor, or in or out of the bathtub, transfer sit to and from stand without use of hands Current Functional Impairments (Reported) Functional Limitations- Other can't get down to the floor or get up, unable to get down into bathtub or out , can't transfer sit to stand without use of hands PT-OP-C Subjective Start: 10/04/20 14:44 Freq: Status: Active Protocol: Document 01/19/21 14:30 [facility] (Rec: 01/19/21 15:17 [facility] [id number]) OP-PT Subjective Patient Comments Patient Comments Saw Dr. Dugan who recommended total knee surgery but he apparently doesn't do TKA anymore. Pain has worsened, wakes her up at night. Needs walker to use at night going to the bathroom on the middle of the night. Has been faithful with therapeutic exercises. Has appointment with Dr. Menjivar 01/25/21 to consult regarding TKA. Continues to use walking sticks for walking during the day , but after prolonged sitting pain increases and it is hard to walk for about 6 steps. Stairs very difficult. Wants to review exercises today, but then probably no more PT until after surgery. PT-OP-D Balance Start: 10/04/20 14:44 Freq: Status: Active Protocol: Document 10/05/20 13:45 [facility] (Rec: 10/06/20 13:38 [facility] [id number]) OP-PT Balance Assessment Sitting Balance Static Sitting Balance Ability Normal Dynamic Sitting Balance Ability Normal Tinetti Balance Assessment Sitting Balance Sitting Balance Steady, safe Arising from Chair Ability to Arise Able, uses arms to help Attempts to Arise Arises on 1st attempt Standing Balance Immediate Standing Balance Steady with support Standing Balance Steady, wide stance Nudged Response Begins to fall Standing with Eyes Closed Unsteady Turning Step Pattern Turning 360 Degrees Discontinuous steps Stability Turning 360 Degrees Unsteady, grabs/staggers Sitting Down Sitting Down Uses arms or unsteady Gait and Step Initiation of Gait Hesitancy, mult. attempts Right Foot Step Length Does not pass stance ft. Right Foot Step Height Does not clear floor Left Foot Step Length Does not pass stance foot Left Foot Step Height Does not clear floor Step Description Step Symmetry Step length appears equal Step Continuity Steps appear continuous Gait Description Path Description Marked deviation Trunk Description Marked sway or uses aide Walking Stance Heels apart Scoring and Interpretation Tinetti Composite Score (points) 9 Barragan Fall Scale Copyright Permission Yung JM, Yung RM, Bryan SJ. Development of a scale to identify the fall- prone patient. Can J Aging 1989;8;366-7. Jennifer Barragan (2009). Preventing patient falls. (2nd ed). [place]: Chance. PT-OP-E Functional Tests Start: 10/04/20 14:44 Freq: Status: Active Protocol: Document 10/05/20 13:45 SAK (Rec: 10/06/20 13:38 SAK [id number]) Functional Tests Dynamic Gait Index (DGI) Score 7 Five Times Sit to Stand Test Score 27 Comments uses hands Timed Up and Go (TUG) Score 23 Tinetti Balance and Gait Assessment Composite Score 9 Single Leg Squat Test Score unable PT-OP-G Mobility & Gait Start: 10/04/20 14:44 Freq: Status: Active Protocol: Document 10/05/20 13:45 SAK (Rec: 10/06/20 13:38 SAK [id number]) OP Mobility Evaluation Transfers Sit to Stand requires use of UE's Floor Transfers patient reports very difficult , didn't attempt today Functional Movements Lifting and Carrying unstead Squats unable Running Assessment unable OP Gait Assessment Gait Gait Assistance Required: Independent Distance (Feet) 75 Assistive Devices Assistive Device None Orthotic/Prosthetic Devices or Brace: No Gait Deviations General Gait Pattern Antalgic,Decreased Stride Length,Decreased Feet Clearance,Lateral Trunk Lean, Wide Based Gait Factors Limiting Gait Function Factors Limiting Gait Function Pain Stair Climbing Evaluation Evaluation Level of Assist On Stairs Independent Devices Stair Climbing Assistive Devices Left Railing,Right Railing Technique/Endurance Stair Climbing Technique Step to Step PT-OP-H Neuro Start: 10/04/20 14:44 Freq: Status: Active Protocol: Document 10/05/20 13:45 SAK (Rec: 10/06/20 13:38 SAK [id number]) Sensation Evaluation Gross Sensation Gross Sensation WNL PT-OP-J Posture/Palpation/Skin Start: 10/04/20 14:44 Freq: Status: Active Protocol: Document 10/05/20 13:45 [facility] (Rec: 10/06/20 13:38 [facility] [id number]) Posture Evaluation Position Standing Head/C-Spine Posture Forward Head T-Spine Posture Increased Kyphosis Shoulder Posture (L) Rounded,(R) Rounded Scapula Posture (L) Protracted,(R) Protracted Arm Posture (L) Internally Rotated,(R) Internally Rotated Pelvis Posture Anteriorly Tilted Hip Posture (L) Externally Rotated,(R) Externally Rotated Knee Posture (L) Genu Valgus,(R) Genu Valgus Ankle/Foot Posture (L) Forefoot Eversion,(R) Forefoot Eversion Palpation Assessment Location bilatral knees Palpation Location medial to patella Palpation Findings Edema bilateral knees Palpation Location lateral joint line Palpation Findings Tenderness PT-OP-K Range of Motion Start: 10/04/20 14:44 Freq: Status: Active Protocol: Document 10/05/20 13:45 [facility] (Rec: 10/06/20 13:38 [facility] [id number]) Hip Goniometric Range of Motion Hip Measured in Degrees mounika Hip ROM WFL Yes Knee Goniometric Range of Motion Knee Measured in Degrees mounika Knee ROM WFL Yes Comments with significant genu valgus in extension Ankle and Foot Goniometric Range of Motion Ankle and Foot Measured in Degrees mounika Ankle/Foot ROM WFL Yes PT-OP-M Strength Start: 10/04/20 14:44 Freq: Status: Active Protocol: Document 10/05/20 13:45 [facility] (Rec: 10/06/20 13:38 [facility] [id number]) Hip Strength Hip Manual Muscle Testing mounika Flexion (L2) 4 Good Extension (S1) 3- Fair- Abduction 3- Fair- Adduction 3+ Fair+ External Rotation 3+ Fair+ Internal Rotation 4- Good- Knee Strength Knee Manual Muscle Testing mounika Flexion (S2) 4- Good- Extension (L3) 4- Good- Comments pain with extension and flexion Ankle/Foot Strength Ankle and Foot Manual Muscle Testing mounika Dorsiflexion (L4) 4 Good Plantarflexion (S1) 4 Good PT-OP-Q Treatments Start: 10/04/20 14:44 Freq: Status: Active Protocol: Document 01/19/21 14:30 [facility] (Rec: 01/19/21 15:17 [facility] [id number]) Cardio Equipment Recumbent Stepper (Sci-Fit) Duration (Minutes) 5 Resistance 2.0 Seat Position 12 Other cues for neutral alignment, Therapeutic Exercises Supine Exercises bridge Reps/Minutes 10x SLR Reps/Minutes 10x Sidelying Exercises hip add Reps/Minutes 10x hip abduction Reps/Minutes 10x mounika Comments mod PT asssist Sitting Exercises knee flexion Resistance L2 TB Reps/Minutes 10x2 sit to stand Sitting Exercise Name gradually lowering table toward chair height Equipment Used hi-lo table Reps/Minutes 10x Comments cues for neutral LE's, alignment, muscle activation sequencing Standing Exercises sidestepping Resistance yellow TB Reps/Minutes 2 min Comments min UE support Therapeutic Activity Therapeutic Activity functional testing Reps/Minutes 8 min PT-OP-R Modalities Start: 10/04/20 14:44 Freq: Status: Active Protocol: Document 01/19/21 14:30 [facility] (Rec: 01/19/21 15:17 [facility] [id number]) Hot Pack/Cold Pack Treatment Hot Pack Location bilateral knees Patient Position Supine Treatment Duration (minutes) 15 Patient Tolerance Good Comments luigi alvarado PT-OP-T Assessment and Plan Start: 10/04/20 14:44 Freq: Status: Active Protocol: Document 01/19/21 14:30 [facility] (Rec: 01/19/21 15:17 [facility] [id number]) Physical Therapy Assessment Goals Four Impairment patient with significant lateral sway and antalgic gait , no assistive devic Senior Care Goal (LTG) Patient able to ambulate with least restrictive assistive device with minimal lateral sway or limp 11/24/20: goal progress, patient ambulating with trekking poles mounika, mild limp 01/19/21: goal met. Patient ambulating with trekking poles during day, walker at night. LTG Duration 01/04/21 Three Impairment Timed Up and Go test 25 sec Short Term Goal (STG) Improve TUG test to no greater than 18 sec 11/24/20: improved at 20 sec STG Duration 11/09/20 Senior Care Goal (LTG) Improve TUG test to no greater than 12 sec 01/19/21: improved to 14 sec, painful LTG Duration 01/19/21 Two Impairment weakness mounika LE's with 5x sit to stand time 27 sec with use of hands Short Term Goal (STG) 5 x sit to plumbing engineering draftsperson less than 20 sec with use of hands as functional measure of improved LE strength, with patient independent and compliant with HEP 11/24/20: not reassessed this date. STG Duration 11/09/26 Senior Care Goal (LTG) 5x sit to plumbing engineering draftsperson less than 15 sec without use of hands as functional measure of improved strength 01/19/21: 30 sec, more painful, goal not met LTG Duration 01/19/21 One Impairment unsteady gait: Tinetti gait and balance assessment 03/08 ( hi fall risk) Short Term Goal (STG) improve Tinetti score to at least 17/28 as measure of decreased fall risk 11/25/20: Tinetti improved to 14/01/19/21: goal met STG Duration 11/09/26 Senior Java Programmer Analyst Goal (LTG) Improve Tinetti score to at least 24/28 as measure of decreased fall risk 01/19/21: Tinetti score improved to 17/28 LTG Duration 01/19/21 Assessment Summary Assessment Patient TUG score improved, though 5x sit to stand score worse. REports pain has worsened and is anticipating TKA. After further review and cues today for improved performance patient demonstrates independence in HEP and plans to continue until she receives TKA, then do rehab at that time. No further PT needs at this time. This certification is for today's visit only, cancelled last scheduled appointment due to no need. Physical Therapy Plan Frequency and Duration Frequency of Treatment 1 visit Duration of Treatment 1 day Plan of Care Start Date 01/19/21 Plan of Care End Date 01/20/21 Therapeutic Interventions Therapeutic Interventions Balance Training,Gait Training ,Home Exercise Program,Patient /Caregiver Education,Self-Care /Home Management,Taping, Therapeutic Activities, Therapeutic Exercises Modalities Cold Pack/Ice Massage,Electric Stimulation,Hot Packs, Infrared Therapy,Iontophoresis ,Ultrasound Discharge Physical Therapy Discharge Comments Some goals met, but pain persists. Patient to continue with HEP and schedule TKA. Will require PT again after TKA.
--- NOTE | 2021-01-19 16:45 | PT.OPPOC ---
Physical, Occupational & Speech Therapy At [facility] Current Diagnoses Bilateral primary osteoarthritis of knee (01/19/21) Pain in right knee (01/19/21) Pain in left knee (01/19/21) Difficulty in walking, not elsewhere classified (01/19/21) Weakness (01/19/21) History of falling (01/19/21) Visit Care Team Role Provider Type Any Zazueta MD Attending Provider Physician Primary Care Provider Referring Provider Specialty: Internal Medicine Address: [address] [place] [address] Email: [email or web address] Plan Of Care PT-OP-T Assessment and Plan Start: 10/04/20 14:44 Freq: Status: Active Protocol: Document 01/19/21 14:30 SAK (Rec: 01/19/21 15:17 SAK [id number]) Physical Therapy Assessment Goals Four Impairment patient with significant lateral sway and antalgic gait , no assistive devic Circle Beveler Goal (LTG) Patient able to ambulate with least restrictive assistive device with minimal lateral sway or limp 11/24/20: goal progress, patient ambulating with trekking poles mounika, mild limp 01/19/21: goal met. Patient ambulating with trekking poles during day, walker at night. LTG Duration 01/04/21 Three Impairment Timed Up and Go test 25 sec Short Term Goal (STG) Improve TUG test to no greater than 18 sec 11/24/20: improved at 20 sec STG Duration 11/09/20 Circle Beveler Goal (LTG) Improve TUG test to no greater than 12 sec 01/19/21: improved to 14 sec, painful LTG Duration 01/19/21 Two Impairment weakness mounika LE's with 5x sit to stand time 27 sec with use of hands Short Term Goal (STG) 5 x sit to perch machine inspector less than 20 sec with use of hands as functional measure of improved LE strength, with patient independent and compliant with HEP 11/24/20: not reassessed this date. STG Duration 11/09/26 Halfway Goal (LTG) 5x sit to perch machine inspector less than 15 sec without use of hands as functional measure of improved strength 01/19/21: 30 sec, more painful, goal not met LTG Duration 01/19/21 One Impairment unsteady gait: Tinetti gait and balance assessment 03/08 ( hi fall risk) Short Term Goal (STG) improve Tinetti score to at least 17/28 as measure of decreased fall risk 11/25/20: Tinetti improved to 14/28 01/19/21: goal met STG Duration 11/09/26 Circle Beveler Goal (LTG) Improve Tinetti score to at least 24/28 as measure of decreased fall risk 01/19/21: Tinetti score improved to 17/28 LTG Duration 01/19/21 Assessment Summary Assessment Patient TUG score improved, though 5x sit to stand score worse. REports pain has worsened and is anticipating TKA. After further review and cues today for improved performance patient demonstrates independence in HEP and plans to continue until she receives TKA, then do rehab at that time. No further PT needs at this time. This certification is for today's visit only, cancelled last scheduled appointment due to no need. Physical Therapy Plan Frequency and Duration Frequency of Treatment 1 visit Duration of Treatment 1 day Plan of Care Start Date 01/19/21 Plan of Care End Date 01/20/21 Therapeutic Interventions Therapeutic Interventions Balance Training,Gait Training ,Home Exercise Program,Patient /Caregiver Education,Self-Care /Home Management,Taping, Therapeutic Activities, Therapeutic Exercises Modalities Cold Pack/Ice Massage,Electric Stimulation,Hot Packs, Infrared Therapy,Iontophoresis ,Ultrasound Discharge Physical Therapy Discharge Comments Some goals met, but pain persists. Patient to continue with HEP and schedule TKA. Will require PT again after TKA. Plan of Care Dates Plan of Care Start Date 01/19/21 Plan of Care End Date 01/20/21 Electronically Signed by: Azalia Calles, PT 01/19/21 [id number] Please Sign and Return: I have reviewed this Plan of Care and certify that the skilled therapy services above are required to meet the patient?s needs. Physician Signature Date Printed Name and Credentials Clinical Instructor Signature Printed Name and Credentials
--- NOTE | 2021-01-25 10:25 | PT.OPDS ---
Current Diagnoses Bilateral primary osteoarthritis of knee (01/19/21) Pain in right knee (01/19/21) Pain in left knee (01/19/21) Difficulty in walking, not elsewhere classified (01/19/21) Weakness (01/19/21) History of falling (01/19/21) Visit Care Team Role Provider Type Any Zazueta MD Attending Provider Physician Primary Care Provider Referring Provider Specialty: Internal Medicine Address: [address] [place] [address], [facility] Email: [email or web address] Visit Number Visit Number [id number] Discharge Summary PT-OP-B Current Condition Start: 10/04/20 14:44 Freq: Status: Active Protocol: Document 10/05/20 13:45 SAK (Rec: 10/05/20 14:24 SAK [id number]) Current Condition History of Current Condition Onset Date 2 years Current Complaints bilateral knee pain History of Current Condition progressively worsening knee pain, has had 2 injections left knee most recently 2 months ago, one right . No use of heat or ice. Is going to start doing aquatic exercise; hasn't done since before pandemic. Hasn't been doing any exercises at home. Doesn't use assistive device stating I figure once you start that its all over. Wears knee brace at times right. Occasionally one of her knees goes out, has fallen 2x while walking on slope with soft dirt. 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 Prior Treatments and Tests x-ray: moderate arthritis Future Testing and Treatments Planned No scheduled follow-up with Dr Lorraine Mcpherson. Treatment Goals Patient/Caregiver Goals more confidence in walking, no falls, safe walking in the comunity. Prior Functional Status Baseline Function- ADL's Independent Baseline Function- Mobility Independent Baseline Function- Gait independent no device Baseline Function- Recreation/Hobbies could get down to the floor, or in or out of the bathtub, transfer sit to and from stand without use of hands Current Functional Impairments (Reported) Functional Limitations- Other can't get down to the floor or get up, unable to get down into bathtub or out , can't transfer sit to stand without use of hands PT-OP-C Subjective Start: 10/04/20 14:44 Freq: Status: Active Protocol: Document 01/19/21 14:30 SAK (Rec: 01/19/21 15:17 SAK [id number]) OP-PT Subjective Patient Comments Patient Comments Saw Dr. Dugan who recommended total knee surgery but he apparently doesn't do TKA anymore. Pain has worsened, wakes her up at night. Needs walker to use at night going to the bathroom on the middle of the night. Has been faithful with therapeutic exercises. Has appointment with Dr. Menjivar 01/25/21 to consult regarding TKA. Continues to use walking sticks for walking during the day , but after prolonged sitting pain increases and it is hard to walk for about 6 steps. Stairs very difficult. Wants to review exercises today, but then probably no more PT until after surgery. PT-OP-D Balance Start: 10/04/20 14:44 Freq: Status: Active Protocol: Document 10/05/20 13:45 SAK (Rec: 10/06/20 13:38 SAK [id number]) OP-PT Balance Assessment Sitting Balance Static Sitting Balance Ability Normal Dynamic Sitting Balance Ability Normal Tinetti Balance Assessment Sitting Balance Sitting Balance Steady, safe Arising from Chair Ability to Arise Able, uses arms to help Attempts to Arise Arises on 1st attempt Standing Balance Immediate Standing Balance Steady with support Standing Balance Steady, wide stance Nudged Response Begins to fall Standing with Eyes Closed Unsteady Turning Step Pattern Turning 360 Degrees Discontinuous steps Stability Turning 360 Degrees Unsteady, grabs/staggers Sitting Down Sitting Down Uses arms or unsteady Gait and Step Initiation of Gait Hesitancy, mult. attempts Right Foot Step Length Does not pass stance ft. Right Foot Step Height Does not clear floor Left Foot Step Length Does not pass stance foot Left Foot Step Height Does not clear floor Step Description Step Symmetry Step length appears equal Step Continuity Steps appear continuous Gait Description Path Description Marked deviation Trunk Description Marked sway or uses aide Walking Stance Heels apart Scoring and Interpretation Tinetti Composite Score (points) 9 Barragan Fall Scale Copyright Permission PT-OP-E Functional Tests Start: 10/04/20 14:44 Freq: Status: Active Protocol: Document 10/05/20 13:45 SAK (Rec: 10/06/20 13:38 SAK [id number]) Functional Tests Dynamic Gait Index (DGI) Score 7 Five Times Sit to Stand Test Score 27 Comments uses hands Timed Up and Go (TUG) Score 23 Tinetti Balance and Gait Assessment Composite Score 9 Single Leg Squat Test Score unable PT-OP-G Mobility & Gait Start: 10/04/20 14:44 Freq: Status: Active Protocol: Document 10/05/20 13:45 SAK (Rec: 10/06/20 13:38 [facility] [id number]) OP Mobility Evaluation Transfers Sit to Stand requires use of UE's Floor Transfers patient reports very difficult , didn't attempt today Functional Movements Lifting and Carrying unstead Squats unable Running Assessment unable OP Gait Assessment Gait Gait Assistance Required: Independent Distance (Feet) 75 Assistive Devices Assistive Device None Orthotic/Prosthetic Devices or Brace: No Gait Deviations General Gait Pattern Antalgic,Decreased Stride Length,Decreased Feet Clearance,Lateral Trunk Lean, Wide Based Gait Factors Limiting Gait Function Factors Limiting Gait Function Pain Stair Climbing Evaluation Evaluation Level of Assist On Stairs Independent Devices Stair Climbing Assistive Devices Left Railing,Right Railing Technique/Endurance Stair Climbing Technique Step to Step PT-OP-H Neuro Start: 10/04/20 14:44 Freq: Status: Active Protocol: Document 10/05/20 13:45 SAK (Rec: 10/06/20 13:38 [facility] [id number]) Sensation Evaluation Gross Sensation Gross Sensation WNL PT-OP-J Posture/Palpation/Skin Start: 10/04/20 14:44 Freq: Status: Active Protocol: Document 10/05/20 13:45 SAK (Rec: 10/06/20 13:38 [facility] [id number]) Posture Evaluation Position Standing Head/C-Spine Posture Forward Head T-Spine Posture Increased Kyphosis Shoulder Posture (L) Rounded,(R) Rounded Scapula Posture (L) Protracted,(R) Protracted Arm Posture (L) Internally Rotated,(R) Internally Rotated Pelvis Posture Anteriorly Tilted Hip Posture (L) Externally Rotated,(R) Externally Rotated Knee Posture (L) Genu Valgus,(R) Genu Valgus Ankle/Foot Posture (L) Forefoot Eversion,(R) Forefoot Eversion Palpation Assessment Location bilatral knees Palpation Location medial to patella Palpation Findings Edema bilateral knees Palpation Location lateral joint line Palpation Findings Tenderness PT-OP-K Range of Motion Start: 10/04/20 14:44 Freq: Status: Active Protocol: Document 10/05/20 13:45 SAK (Rec: 10/06/20 13:38 [facility] [id number]) Hip Goniometric Range of Motion Hip mounika Hip ROM WFL Yes Knee Goniometric Range of Motion Knee mounika Knee ROM WFL Yes Comments with significant genu valgus in extension Ankle and Foot Goniometric Range of Motion Ankle and Foot mounika Ankle/Foot ROM WFL Yes PT-OP-M Strength Start: 10/04/20 14:44 Freq: Status: Active Protocol: Document 10/05/20 13:45 [facility] (Rec: 10/06/20 13:38 [facility] [id number]) Hip Strength Hip Manual Muscle Testing mounika Flexion (L2) 4 Good Extension (S1) 3- Fair- Abduction 3- Fair- Adduction 3+ Fair+ External Rotation 3+ Fair+ Internal Rotation 4- Good- Knee Strength Knee Manual Muscle Testing mounika Flexion (S2) 4- Good- Extension (L3) 4- Good- Comments pain with extension and flexion Ankle/Foot Strength Ankle and Foot Manual Muscle Testing mounika Dorsiflexion (L4) 4 Good Plantarflexion (S1) 4 Good PT-OP-T Assessment and Plan Start: 10/04/20 14:44 Freq: Status: Active Protocol: Document 01/19/21 14:30 [facility] (Rec: 01/19/21 15:17 [facility] [id number]) Physical Therapy Assessment Goals Four Impairment patient with significant lateral sway and antalgic gait , no assistive devic Skilled Nursing Goal (LTG) Patient able to ambulate with least restrictive assistive device with minimal lateral sway or limp 11/24/20: goal progress, patient ambulating with trekking poles mounika, mild limp 01/19/21: goal met. Patient ambulating with trekking poles during day, walker at night. LTG Duration 01/04/21 Three Impairment Timed Up and Go test 25 sec Short Term Goal (STG) Improve TUG test to no greater than 18 sec 11/24/20: improved at 20 sec STG Duration 11/09/20 Skilled Nursing Goal (LTG) Improve TUG test to no greater than 12 sec 01/19/21: improved to 14 sec, painful LTG Duration 01/19/21 Two Impairment weakness mounika LE's with 5x sit to stand time 27 sec with use of hands Short Term Goal (STG) 5 x sit to maint mechanic less than 20 sec with use of hands as functional measure of improved LE strength, with patient independent and compliant with HEP 11/24/20: not reassessed this date. STG Duration 11/09/26 [employer] Goal (LTG) 5x sit to maint mechanic less than 15 sec without use of hands as functional measure of improved strength 01/19/21: 30 sec, more painful, goal not met LTG Duration 01/19/21 One Impairment unsteady gait: Tinetti gait and balance assessment 03/08 ( hi fall risk) Short Term Goal (STG) improve Tinetti score to at least 17/28 as measure of decreased fall risk 11/25/20: Tinetti improved to 1401/19/21: goal met STG Duration 11/09/26 [employer] Goal (LTG) Improve Tinetti score to at least 24/28 as measure of decreased fall risk 01/19/21: Tinetti score improved to 17/28 LTG Duration 01/19/21 Assessment Summary Assessment Patient TUG score improved, though 5x sit to stand score worse. REports pain has worsened and is anticipating TKA. After further review and cues today for improved performance patient demonstrates independence in HEP and plans to continue until she receives TKA, then do rehab at that time. No further PT needs at this time. This certification is for today's visit only, cancelled last scheduled appointment due to no need. Physical Therapy Plan Frequency and Duration Frequency of Treatment 1 visit Duration of Treatment 1 day Plan of Care Start Date 01/19/21 Plan of Care End Date 01/20/21 Therapeutic Interventions Therapeutic Interventions Balance Training,Gait Training ,Home Exercise Program,Patient /Caregiver Education,Self-Care /Home Management,Taping, Therapeutic Activities, Therapeutic Exercises Modalities Cold Pack/Ice Massage,Electric Stimulation,Hot Packs, Infrared Therapy,Iontophoresis ,Ultrasound Discharge Physical Therapy Discharge Comments Some goals met, but pain persists. Patient to continue with HEP and schedule TKA. Will require PT again after TKA.
== END 2021-03-29 08:58 ==
LOC: PHYS 14:30
PROVIDERS: PCP Internal Medicine; Referring Provider Internal Medicine; Visit Provider Internal Medicine
DX: M17.0 Bilateral primary osteoarthritis of knee (principal); Z91.81 History of falling; R26.2 Difficulty in walking, not elsewhere classified; R53.1 Weakness; M25.561 Pain in right knee; M25.562 Pain in left knee
CPT/HCPCS: 97010; 97110; 97112; 97140; 97162; 97530; 97535

== ENCOUNTER → 2021-02-16 16:40 | Outpatient (CLI) | payer MEDICARE, OTHER, SELFPAY ==
--- NOTE | 2021-02-16 16:43 | DI.MG.S_ITS ---
BILATERAL DIGITAL SCREENING MAMMOGRAM 3D/2D WITH CAD: 02/16/2021 CLINICAL: Routine screening. Family history of breast cancer. Comparison is made to exams dated: 01/20/2020 mammogram, 08/12/2018 mammogram, and 07/27/2017 mammogram - [facility]. There are scattered fibroglandular elements in both breasts. Current study was also evaluated with a Computer Aided Detection (CAD) system. No significant masses, calcifications, or other findings are seen in either breast. There has been no significant interval change. IMPRESSION: NEGATIVE There is no mammographic evidence of malignancy. A 1 year screening mammogram is recommended. This exam was interpreted at Station ID: [id number]. NOTE: For mammograms, a report in lay terms will be sent to the patient. Approximately 15% of breast malignancies will not be visualized mammographically. In the management of a palpable breast mass, a negative mammogram must not discourage biopsy of a clinically suspicious lesion. Electronically Signed By: Rico bullard/kaitlyn:02/17/2021 07:57:54 letter sent: Normal Exam ACR BI-RADS Category 1: Negative [id number]
== END ==
PROVIDERS: PCP Internal Medicine; Referring Provider Internal Medicine; Visit Provider Internal Medicine
DX: Z12.31 Encounter for screening mammogram for malignant neoplasm of breast (principal); Z80.3 Family history of malignant neoplasm of breast
CPT/HCPCS: 77063; 77067

== ENCOUNTER → 2021-04-09 09:39 | Outpatient (CLI) | payer MEDICARE, OTHER, SELFPAY ==
[2021-04-09 10:36] LABS: Add Manual Diff / Slide Review NO; Basophils Absolute Auto 0 /uL (0-100); Basophils Percent Auto 0.3 % (0-2); Eosinophils Absolute Auto 100 /uL (0-450); Eosinophils Percent Auto 0.6 % (2-4); Hemoglobin 13.5 g/dL (12.0-16.0); Lymphocytes Absolute Auto 1400 /uL (1100-4500); Lymphocytes Percent Auto 10.8 % (25-40); Mean Corpuscular HGB Conc 32.8 % (30-36); Mean Corpuscular Hemoglobin 30.4 PG (26-34); Mean Corpuscular Volume 92.6 fL (80-100); Monocytes Absolute Auto 1000 /uL (0-900); Neutrophils Absolute Auto 10200 /uL (1500-7000); Neutrophils Percent Auto 80.3 % (50-75); Platelet Count 256 X10^3/uL (150-400); Red Blood Cell Count 4.43 X10^6/uL (4.0-5.2); Red Cell Distribution Width 14.3 % (11.6-14.8); White Blood Cell Count 12.7 X10^3/uL (4.5-11.0)
[2021-04-09 10:40] LABS: Hemoglobin A1C% w Est Avg Glu 5.8 % (4.0-6.0)
[2021-04-09 10:55] LABS: BUN Creatinine Ratio 31.5 (6-22); Blood Urea Nitrogen 23 mg/dL (7-17); Calcium 9.4 mg/dL (8.4-10.2); Carbon Dioxide 22 mmol/L (22-32); Chloride 106 mmol/L (98-107); Estimated Glomerular Filt Rate > 60.0 mL/min (>60); Glucose 147 mg/dL (80-110); HEMOLYSIS 32 (0-50); Potassium 4.3 mmol/L (3.4-5.1); Sodium 138 mmol/L (137-145)
== END ==
PROVIDERS: Family Provider Internal Medicine; PCP Internal Medicine; Referring Provider Orthopaedic Surgery; Visit Provider Orthopaedic Surgery
DX: Z01.818 Encounter for other preprocedural examination (principal); R73.9 Hyperglycemia, unspecified; Z01.812 Encounter for preprocedural laboratory examination
CPT/HCPCS: 36415; 80048; 83036; 85025; 93005

== ENCOUNTER → 2021-04-19 12:26 | Outpatient (CLI) | payer MEDICARE, OTHER, SELFPAY | PROVIDERS: Family Provider Internal Medicine; PCP Internal Medicine; Referring Provider Internal Medicine; Visit Provider Internal Medicine | DX: M81.0 Age-related osteoporosis without current pathological fracture (principal); M85.89 Other specified disorders of bone density and structure, multiple sites | CPT/HCPCS: 77080 ==

== ENCOUNTER → 2021-05-01 11:25 | Outpatient (CLI) | payer MEDICARE, OTHER, SELFPAY ==
[2021-05-01 16:11] LABS: COVID19 -Nasal RAPID Negative (Negative)
== END ==
PROVIDERS: Family Provider Internal Medicine; PCP Internal Medicine; Referring Provider Physician Assistant; Visit Provider Physician Assistant
DX: Z20.822 Contact with and (suspected) exposure to COVID-19 (principal)
CPT/HCPCS: 87635

== ENCOUNTER 2021-05-03 10:17 | Observation (INO) | payer MEDICARE, OTHER, SELFPAY ==
[2021-04-25 09:32] VITALS: BMI 31.1
[2021-05-02] VITALS (14 sets, daily range): BP systolic 101–151; BP diastolic 58–84; PULSE 72–104; RESP 12–93; TEMP 36.1–37.2; O2SAT 14–98; BMI 30.5
[2021-05-02] MEDS: CELECOXIB 200 MG CAPSULE PO (11:14)
[2021-05-02] MEDS: ACETAMINOPHEN 325 MG TABLET 975 MG PO (11:14)
[2021-05-02] MEDS: PREGABALIN 75 MG CAPSULE PO (11:14)
[2021-05-02] MEDS: LACTATED RINGERS 1,000 ML 42 ML IV ×2 (11:15→14:17)
--- NOTE | 2021-05-02 12:03 | PM.PREOP ---
Pre-operative Note COVID-19 COVID-19 status: Negative Result date/Date tested (Pos, Neg/Pending): 05/01/21 Interval Note History & Physical reviewed/Exam performed by Physician: Yes Changes to H&P: No
--- NOTE | 2021-05-02 12:15 | DI.RAD.S_ITS ---
PROCEDURE: XR KNEE RT 1TO2V INDICATIONS: postop prosthesis placement TECHNIQUE: 2 views of the knee were acquired. COMPARISON: None. FINDINGS: Bones: Expected post operative alignment of right total knee arthroplasty. Hardware appears intact. Soft tissues: Postsurgical sequela IMPRESSION: Expected post operative alignment Dictated by: Griffin Perry M.D. on 05/02/2021 at 16:47 Approved by: Griffin Perry M.D. on 05/02/2021 at 16:48
--- NOTE | 2021-05-02 13:02 | SUR.OPER ---
Supine on padded OR bed. Pillow under head, arms secured on padded armboards <90 degree abduction. Safety belt across torso. Non-operative leg secured with tape over blanket over lower leg. Operative leg secured in [employer] positioner.
--- NOTE | 2021-05-02 13:03 | P.OP_ITS ---
Operative Date/Time/Diagnoses Date of procedure: 05/02/21 Time of procedure: 14:59 Pre-op diagnosis: Right knee osteoarthritis Post-op diagnosis: same Procedure & Clinicians Procedure: Right total knee replacement Same procedure as scheduled: Yes Indications: The patient has had progressively worsening right knee pain with radiographic changes consistent with arthritis. Non-operative management has failed and the patient has requested total knee replacement. The risks, benefits and alternatives to surgery were discussed with the patient prior to proceeding. Risks discussed included, but were not limited to, failure to relieve pain, stiffness, infection, nerve damage, deep venous thrombosis, pulmonary embolism, stroke, coma, heart attack, permanent paralysis and , as well as the potential need for eventual revision of the prosthetic. Surgeon: Isacc Figueroa [employer] Advisor: Kofi Pimentel Click Yes if Unassisted: No Anesthesia Type: General, Spinal and Local Operative Notes Findings: Severe tricompartmental osteoarthritis, worst in the lateral compartment. Closure Type: primary Specimen(s): none sent Prosthetic devices, grafts, tissues, transplants, or devices: Implants used in this procedure were manufactured by the [employer] and [employer] and included the BCS II Journey total knee replacement with a size 6 cobalt chromium femoral component, size 5 right non porous tibial base plate, a 10 mm cross-linked polyethylene tibial insert and a 35 mm oval Kaylee II patella. Applied: implant(s) Estimated Blood Loss (mL): 25 Blood products transfused: none Tourniquet time (min): 47 Procedure in detail: The patient was seen in the pre-operative area, where the patient identified the right knee as the operative site and this was marked with my initials. The patient received pre-operative antibiotics, and was taken to the operating room and placed on the operative table in the supine position. After satisfactory anesthesia, a daytime babysitter out was performed. The right leg was encircled with a tourniquet about the proximal thigh, and the leg was prepared from the toes to the tourniquet with ChloroPrep in the usual fashion and draped through sterile drapes. The leg was elevated and exsanguinated with Eschmark bandage and the tourniquet inflated to 250 mmHg pressure. The knee was approached through an approximately 18 cm incision centered over the patella and carried into the knee through a medial parapatellar arthrotomy. The anterior osteophytes and soft tissues were removed. The rotational landmarks of [place]'s line and the transepicondylar axis were marked on the femur with electrocautery, and intramedullary guide holes for the femur and tibia were created. The distal femoral cut was made in 6 degrees of valgus using the intramedullary guide at the primary cut setting. The proximal tibial cut was then made using the intramedullary guide, taking 7 mm of bone off the less involved medial side. The extension gap was checked and the rotation of the femoral component confirmed with the gap balancing system. The anterior, posterior and chamfer cuts were then made. The posterior osteophytes and soft tissues were then removed. The posterior capsule was injected with part of a mixture of 60 ml 0.25% Marcaine mixed with 20 ml Exparel and 4 mg of morphine for post-operative pain control. The remainder of this mixture was injected into the capsule and subcutaneous tissues during cement curing. The tibia was prepared with the rotation set by an extra medullary guide. Trial tibial and femoral components were then placed and the intercondylar notch cut through the femoral trial. Range of motion was 0-135 degrees, with good stability throughout the range. The patella was then cut to accommodate the patellar prosthetic. There was no need for a lateral release. The trials were then removed, and the femoral hole plugged with a bone plug. The bone was prepared with pulsatile lavage, and dried with a sponge. Cement was applied and the final prosthetics placed. Excess cement was removed during and after cement curing. After confirming there was no extruded cement posteriorly, the final tibial insert was placed. The knee was copiously irrigated and the tourniquet deflated. Hemostasis was obtained. The capsule was closed with interrupted # 2 polyester suture. The subcutaneous layer was closed with 3-0 Vicryl, and the skin with a running 3-0 V-Lock suture and Dermabond. An Aquacel Ag dressing was applied and the patient was taken to recovery having tolerated the procedure well. Complications: none Post-operative Condition: stable Disposition: PACU Plan for aftercare: The patient will be maintained on a standard total knee replacement protocol with weight bearing as tolerated. The patient will receive aspirin and sequential compression devices for DVT prophylaxis. The patient will be discharged home when safe for the home environment.
[2021-05-02] MEDS: CEFAZOLIN 1 GM VIAL 2 GM IV (13:17)
[2021-05-02] MEDS: TRANEXAMIC ACID 1,000 MG in SODIUM CHLORIDE 0.9% 100 ML 200 ML IV ×2 (13:18→14:15)
--- NOTE | 2021-05-02 13:37 | PM.PROC.1 ---
Procedures Date/Time Date of procedure: 05/02/21 Time of procedure: 13:06 Nerve Block Time out performed: Yes Local anesthetic used: bupivacaine 0.25% Location of anesthetic used: RIGHT Amount of anesthesia used (mL): 20 Nerve blocks: femoral (adductor canal) Procedure successful: Yes Patient tolerated procedure: well and no complications Complications: none Additional comments: Adductor canal nerve block performed for post-op pain control at surgeon request. Patient was positioned with IV, O2, monitors and rescue meds available. Prepped and timeout performed. Target identified with continuous ultrasound guidance. 20mL of bupivicaine 0.25% was injected perineurally with intermittent aspiration and injection. No blood, no paresthesias, no acute complications. Ultrasound pic attained.
[2021-05-02] MEDS: BUPIVACAINE 0.25% (PF) 60 ML, EPINEPHrine 0.3 MG INJ (13:41)
[2021-05-02] MEDS: MORPHINE 4 MG/ML INJ INJ (13:41)
[2021-05-02] MEDS: BUPIVACAINE LIPOSOME 266 MG/20 ML VIAL INJ (13:41)
[2021-05-02] MEDS: HYDROMORPHONE 2 MG INJ IV ×3 (14:47→15:02)
[2021-05-02] MEDS: OXYCODONE IR 5 MG TABLET PO (15:34)
--- NOTE | 2021-05-02 16:08 | SUR.PHASEI ---
1605 hrs: Pt transported in stable condition to Room 222. Bedside report to KALLI Jonas.
[2021-05-02] MEDS: LACTATED RINGERS 1,000 ML 100 ML IV (16:37)
[2021-05-02] MEDS: ACETAMINOPHEN 325 MG TABLET 650 MG PO ×2 (16:39→20:55)
[2021-05-02] MEDS: ASPIRIN EC 81 MG TABLET PO (20:55)
[2021-05-02] MEDS: DOCUSATE 100 MG CAPSULE PO (20:55)
--- NOTE | 2021-05-03 00:28 | PC.NURSE ---
Patient is alert and oriented. Breath sounds CTA with RA sat of 93%. HRR. Denied nausea but did have some reflux which resolved with saltines. BT present but denied passing flatus as yet. Voided at shift change using bedpan; no dysuria. Aquacel dressing to right knee covered with david wrap is CDI. CMS intact except unable to lift leg off bed. Does have some tingling in left great toe; unknown significance. Able to move self in bed. Gait not assessed this shift. Is wearing bilateral calf SCD's. Denied pain and declined scheduled Ibuprofen due to symptoms of GERD. Fall risk score is moderate and bed alarm is activated.
[2021-05-03 00:34] VITALS: BP 102/51; PULSE 67; RESP 17; TEMP 36.8; O2SAT 95
[2021-05-03] MEDS: LACTATED RINGERS 1,000 ML 100 ML IV ×2 (02:09→11:52)
[2021-05-03 04:00] VITALS: BP 103/50; PULSE 61; RESP 19; TEMP 36.2; O2SAT 100
[2021-05-03] MEDS: PANTOPRAZOLE DR 40 MG TABLET PO (05:56)
[2021-05-03] MEDS: ACETAMINOPHEN 325 MG TABLET 650 MG PO ×3 (07:00→21:41)
[2021-05-03 07:30] LABS: Hematocrit 33.5 % (36-46)
[2021-05-03 08:00] VITALS: BP 109/52; PULSE 71; RESP 18; TEMP 36.9; O2SAT 97
[2021-05-03] MEDS: DOCUSATE 100 MG CAPSULE PO ×2 (09:01→21:40)
[2021-05-03] MEDS: MELOXICAM 7.5 MG TABLET PO (09:01)
[2021-05-03] MEDS: ASPIRIN EC 81 MG TABLET PO ×2 (09:01→21:32)
[2021-05-03] MEDS: OXYCODONE IR 10 MG TABLET PO ×3 (09:04→21:31)
--- NOTE | 2021-05-03 10:34 | PT.IIE ---
Current Diagnoses Unilateral primary osteoarthritis, right knee (05/02/21) Surgery Performed Operation Date: 05/02/21 12:15 Actual Procedures p Total Knee Arthroplasty(Right) - Isacc Figueroa MD Surgical History (Last Updated 04/25/21 @ 10:19 by Diandra Arias, RN) Anesthesia Status post hysterectomy (1990) Medical History (Last Updated 04/25/21 @ 10:20 by Diandra Arias, RN) Chicken pox (~1950) Hearing loss Left hip pain Mumps (~1950) BIA (obstructive sleep apnea) Osteopenia Popliteal artery embolism, right Rib pain on left side Stomach cancer Physical Therapy Inpatient Evaluation/Re-Eval M1 PT/OT-IP Prior Functional Status Start: 05/03/21 08:30 Freq: NEEDED Status: Active Protocol: Document 05/03/21 09:55 (Rec: 05/03/21 09:31 [id number]) Medical Review Prior Functional Status Medical History Reviewed Yes Diet/Fluid Consistency Regular Communication no limitations Mobility and Gait pt stated she was doing household distance walking only with a 3 wheeled walker. She is mostly homebound d/t COVID. She does use [employer] poles for community walking. Activities of Daily Living and IADL's IND for ADLs and IADLs. Able to drive and grocery shop. She also assists providing some care for her who is cognitively declining. Social History Household Members spouse Living Arrangements House Number of Floors (Floors) Two Floors Number of Stairs To Enter/Railing? no LYNN have access to kitchen, bathroom and [facility] Home Environment High Toilet,Walk in Shower Home Equipment Four Wheel Walker,Straight Cane,Bedside Commode,Tub Transfer Bench,Grab Bars Near Toilet,Grab Bars In Shower Employment Status Retired Additional Social History Comment pt lives with her who has limited cognition as she stated. She will have her daughter and son in law to provide care at home until , then granddtr from to sunday. M2 PT-IP Current Condition Start: 05/03/21 08:30 Freq: NEEDED Status: Active Protocol: Document 05/03/21 09:55 (Rec: 05/03/21 10:34 [email or web address]) Physical Therapy Current Condition Current Condition Evaluation Date 05/03/21 Treatment Diagnosis R TKA, difficulty in walking Onset Date 05/02/21 M3 PT-IP Subjective Start: 05/03/21 08:30 Freq: NEEDED Status: Active Protocol: Document 05/03/21 09:55 (Rec: 05/03/21 10:34 [email or web address]) Subjective Physical Therapy Visit Type Type Initial Evaluation Visit Start Time 09:50 Visit Stop Time 10:15 Total Visit Minutes 25 Number of ASSEMBLER FLEXIBLE LEADS Visits 0 Physical Therapy Visit Comments Patient Comments it hurts a lot Therapy Pain Assessment Pain When Pain Assessed During Mobility Pain Present Pain Present Pain Reported Location Right Knee Intensity 4 Scale Used Numeric (0 - 10) Description Acute Pain Behaviors Facial Grimacing Pain Management Techniques Apply Cold,Timing of Activity with Medications M4 PT-IP Mobility and Gait Start: 05/03/21 08:30 Freq: NEEDED Status: Active Protocol: Document 05/03/21 09:55 (Rec: 05/03/21 10:34 [email or web address]) PT-Bed Mobility Assessment Supine to Sit Supine to Sit Contact Guard Assistance,Head of Bed Elevated,Bedrails Scooting Scooting to Edge of Bed Contact Guard Assistance PT-Transfer Assessment Sit to and From Stand Sit to and from Stand Minimal Assistance,1 Person Assistance,Use of Upper Extremities Equipment Transfer Assistive Device Gait Belt,Front Wheeled Walker Orthotic/Prosthetic Devices or Brace: No Transfers Transfer Destination Bed,Chair Transfer Technique Stand Step Pivot Transfer Ability Level of Assist Minimal Assistance,1 Person Assistance,Use of Upper Extremities Comments Mobility Comments Pt was up in bed upon PT arrival. She received oxycontin 30 mins ago prior to this session. Pain at 4/10 at rest. She initially got to L EOB by getting up from elevated HOB and use of L bed rail. She approx took 2 mins to complete supine to sit slowly. She also used gait belt to assist lifting her R leg to EOB. Pt then completed heel slide x10 but with significant pain. She then stood up with stagger stance and FWW min A x 1. She was wobbly while standing by bedside d/t WB pain on R knee. Instructed 3 point step to pattern to walk to the sink counter. She needed mod A with WC follow d/t her knee weakness, along with a towel on the floor to assist her propelling her RLE. She walked approx 8 feet and requested to sit down with stagger stance position. Wheeled her back to bedside and call light placed within reach. Ice was provided as well. Pt reports pain 4/10. Instructed her to perform TKE, heel slide and ankle pump Gait Assessment Gait Gait Assistance Required: Moderate Assistance,1 Person Assist Distance (Feet) 8 Able to Maintain Weight Bearing Status Yes During Gait Assistive Devices Assistive Device Gait Belt,Front Wheeled Walker Orthotic/Prosthetic Devices or Brace: No Gait Deviations General Gait Pattern Antalgic,Decreased Stride Length,Decreased Feet Clearance,Flexed Trunk,Lateral Trunk Lean,Step-to Gait Factors Limiting Gait Function Factors Limiting Gait Function Decreased Activity Tolerance, Decreased Strength,Limited Range of Motion,Pain,Poor Balance,Poor Safety Awareness Comments Gait Comments see mobility comments. Pt's R knee showed poor strength in WB position Stair Climbing Assessment Comments Stair Climbing Comments unable PT-Balance Assessment Sitting Balance and Reactions Static Sitting Balance Ability Good Dynamic Sitting Balance Ability Good Standing Balance and Reactions Static Standing Balance Ability Poor Dynamic Standing Balance Ability Poor Device Used fWW M5 PT-IP Objective Assessments Start: 05/03/21 08:30 Freq: NEEDED Status: Active Protocol: Document 05/03/21 09:55 (Rec: 05/03/21 10:34 [email or web address]) Orientation Orientation/Cognition Level of Alertness Alert Orientation Name,Age,Birthday,Month,Date, Year,Day of Week,Place, Situation Language Function Ability No Deficits Noted Safety Awareness Understands Safety Issues Memory Description No Deficits Noted Gross Range of Motion Upper Extremity ROM Assessment Within Functional Limits Lower Extremity ROM Assessment Right Impaired Impairments 10-60 degrees AROM Strength Upper Extremity Strength Assessment Within Functional Limits Lower Extremity Strength Assessment Right Impaired Hip 4/5 Knee 3-/5 Coordination Assessment Gross Coordination Gross Coordination WNL Sensation Assessment Sensation Gross Sensation WNL M6 PT-IP Treatment Start: 05/03/21 08:30 Freq: NEEDED Status: Active Protocol: Document 05/03/21 09:55 (Rec: 05/03/21 10:34 [email or web address]) Physical Therapy Treatment Exercises Exercises Ankle Pumps,Gluteal Sets,Quad Sets,Heel Slides Education Education Provided Precautions,Weight Bearing Status,Post-Op Packet,Safety M7 PT-IP Assessment and Plan Start: 05/03/21 08:30 Freq: NEEDED Status: Active Protocol: Document 05/03/21 09:55 (Rec: 05/03/21 10:34 [email or web address]) PT Summary Assessment and Plan Potential Rehabilitation Potential Good Status of Condition at Evaluation Evolving Summary Impairments Pain,ROM,Strength,Balance,Bed Mobility,Transfers,Gait, Activity Tolerance Assessment Summary Minda is a 76yo female s/p POD1 R TKA. PLOF= used 3 wheeled walker at home and hiking sticks for community walking. She lives with her who is cognitively declined. Upon assessment, pt is far from baseline at this point d/t significant pain in WB position. Her R knee was very weak during transfers and ambulation with FWW and needed min to mod A. pt is not ready to be DC home safely at this point d/t her very limited mobility even though she has her family set up to provide care. Will continue to monitor her progress Goals Bed Mobility Goal Standby Assistance Transfer Goal Standby Assistance,Front Wheeled Walker Gait Goal Standby Assistance,Front Wheel Walker Gait Distance 50 Other Goals BSC/ chair transfer Days to Meet Goals 5 Frequency of Treatment Frequency Of Treatment Twice a Day Treatment Plan Physical Therapy Treatment Plan Bed Mobility Training,Transfer Training,Gait Training, Therapeutic Exercise,Balance Retraining,Post Op Education, Discharge Planning,Hot or Cold Pack,Neuromuscular Re-ed, Manual Therapy Other Recommendations and Next Treatment mobility as [place] Focus tarnsfer Weight Bearing Status Weight Bearing Status Weight Bear as Tolerated Recommendations To Nursing Amount of Assist Needed 2 Person Assist Discharge Recommendations PT Discharge Recommendations Home with Assistance, Outpatient PT Transportation Needs at Discharge Private Vehicle
[2021-05-03 12:00] VITALS: BP 104/55; PULSE 72; RESP 18; TEMP 36.3; O2SAT 98
--- NOTE | 2021-05-03 14:04 | PT.IPTN ---
Current Diagnoses Unilateral primary osteoarthritis, right knee (05/03/21) Surgery Performed Operation Date: 05/02/21 12:15 Actual Procedures p Total Knee Arthroplasty(Right) - Isacc Figueroa MD Physical Therapy Treatment Note M2 PT-IP Current Condition Start: 05/03/21 08:30 Freq: NEEDED Status: Active Protocol: Document 05/03/21 09:55 HH (Rec: 05/03/21 10:34 HH [email or web address]) Physical Therapy Current Condition Current Condition Evaluation Date 05/03/21 Treatment Diagnosis R TKA, difficulty in walking Onset Date 05/02/21 M3 PT-IP Subjective Start: 05/03/21 08:30 Freq: NEEDED Status: Active Protocol: Document 05/03/21 13:47 KS (Rec: 05/03/21 14:46 KS [id number]) Subjective Physical Therapy Visit Type Type Treatment Note Visit Start Time 13:47 Visit Stop Time 14:04 Total Visit Minutes 17 Number of RUFFLER Visits 1 Physical Therapy Visit Comments Patient Comments Pt agreeable to therapy and wanting to use BSC. M4 PT-IP Mobility and Gait Start: 05/03/21 08:30 Freq: NEEDED Status: Active Protocol: Document 05/03/21 13:47 KS (Rec: 05/03/21 14:46 KS [id number]) PT-Bed Mobility Assessment Sit to Supine Sit to Supine Contact Guard Assistance,1 Person Assistance Scooting Scooting to Edge of Bed Contact Guard Assistance PT-Transfer Assessment Sit to and From Stand Sit to and from Stand Minimal Assistance,1 Person Assistance,Use of Upper Extremities Equipment Transfer Assistive Device Gait Belt,Front Wheeled Walker Orthotic/Prosthetic Devices or Brace: No Transfers Transfer Destination Bed,Bedside Commode Transfer Technique Pt ambulated w/ FWW Transfer Ability Level of Assist Minimal Assistance,1 Person Assistance,Use of Upper Extremities Comments Mobility Comments Pt in chair upon arrival from therapy and requesting to use BSC. CGa for scooting to EOB, Min A for sit<>Stand w/ FWW and CGA for stand step pivot to BSC. After voiding, pt ambulated ~6 ft to bed and sit <> sup CGA w/ use of gait belt to self asssit RLE into bed. Pt then performed 1x10 ankle pumps, quad sets, and glute sets and 1x5 heel slides. Encouraged pt to perform exs in bed. Gait Assessment Gait Gait Assistance Required: Contact Guard Assist,1 Person Assist Distance (Feet) 6 Able to Maintain Weight Bearing Status Yes During Gait Assistive Devices Assistive Device Gait Belt,Front Wheeled Walker Orthotic/Prosthetic Devices or Brace: No Gait Deviations General Gait Pattern Antalgic,Decreased Stride Length,Decreased Feet Clearance,Flexed Trunk,Lateral Trunk Lean,Step-to Gait Factors Limiting Gait Function Factors Limiting Gait Function Decreased Activity Tolerance, Decreased Strength,Limited Range of Motion,Pain,Poor Balance,Poor Safety Awareness Comments Gait Comments Only tolerated ~6ft ambulation to bed w/ FWW CGA due to pain . Stair Climbing Assessment Comments Stair Climbing Comments Not assessed. PT-Balance Assessment Sitting Balance and Reactions Static Sitting Balance Ability Good Dynamic Sitting Balance Ability Good Standing Balance and Reactions Static Standing Balance Ability Poor Dynamic Standing Balance Ability Poor Device Used fWW M5 PT-IP Objective Assessments Start: 05/03/21 08:30 Freq: NEEDED Status: Active Protocol: Document 05/03/21 09:55 HH (Rec: 05/03/21 10:34 HH [email or web address]) Orientation Orientation/Cognition Level of Alertness Alert Orientation Name,Age,Birthday,Month,Date, Year,Day of Week,Place, Situation Language Function Ability No Deficits Noted Safety Awareness Understands Safety Issues Memory Description No Deficits Noted Gross Range of Motion Upper Extremity ROM Assessment Within Functional Limits Lower Extremity ROM Assessment Right Impaired Impairments 10-60 degrees AROM Strength Upper Extremity Strength Assessment Within Functional Limits Lower Extremity Strength Assessment Right Impaired Hip 4/5 Knee 3-/5 Coordination Assessment Gross Coordination Gross Coordination WNL Sensation Assessment Sensation Gross Sensation WNL M6 PT-IP Treatment Start: 05/03/21 08:30 Freq: NEEDED Status: Active Protocol: Document 05/03/21 13:47 KS (Rec: 05/03/21 14:46 KS [id number]) Physical Therapy Treatment Exercises Exercises Ankle Pumps,Gluteal Sets,Quad Sets,Heel Slides Education Education Provided Precautions,Weight Bearing Status,Post-Op Packet,Safety M7 PT-IP Assessment and Plan Start: 05/03/21 08:30 Freq: NEEDED Status: Active Protocol: Document 05/03/21 13:47 KS (Rec: 05/03/21 14:46 KS [id number]) PT Summary Assessment and Plan Potential Rehabilitation Potential Good Status of Condition at Evaluation Evolving Summary Impairments Pain,ROM,Strength,Balance,Bed Mobility,Transfers,Gait, Activity Tolerance Assessment Summary Pt required CGA to Min A throughout treatment today. Min A and cues for sit<>stand w/ FWW. Only able to tolerate `6 ft ambulation from BSC to bed due to high reported pain. CGA for sit<>sup and able to use gaitbelt to self assist RLE into bed. Good tolerance for LE exercises however verbalized increased pain during heel slides. Pt far from baseline and would benefit from continued skilled therapy to improve functional mobility and tolerance for activity. Goals Bed Mobility Goal Standby Assistance Transfer Goal Standby Assistance,Front Wheeled Walker Gait Goal Standby Assistance,Front Wheel Walker Gait Distance 50 Other Goals BSC/ chair transfer Days to Meet Goals 5 Frequency of Treatment Frequency Of Treatment Twice a Day Treatment Plan Physical Therapy Treatment Plan Bed Mobility Training,Transfer Training,Gait Training, Therapeutic Exercise,Balance Retraining,Post Op Education, Discharge Planning,Hot or Cold Pack,Neuromuscular Re-ed, Manual Therapy Other Recommendations and Next Treatment mobility as [place] Focus tarnsfer Weight Bearing Status Weight Bearing Status Weight Bear as Tolerated Recommendations To Nursing Amount of Assist Needed 2 Person Assist Discharge Recommendations PT Discharge Recommendations Home with Assistance, Outpatient PT Transportation Needs at Discharge Private Vehicle
--- NOTE | 2021-05-03 16:05 | CM.DANOTE ---
DCP Assessment: patient is a 76 yr old female who was admitted following R TKA. patient struggled with PT and pain today. CM met with patient at the bedside and explained role. Patient was alert and oriented x4 during CM visit. Patient currently lives in [place] in a two story home with her Jalen. 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 Patient states she is independent at baseline with all ADLs and Drives. Patient stated her daughter and son-in-law are here until Sunday morning and her granddaughter will be here until sunday to help the patient at DC. Patient has a walker at home, elevated toilet seat and wants to go home at DC Patient has a two story home but stated she doesn't need to go upstairs since her kitchen , bedrooms and bathroom are all on the main floor. PT and OT stated she is 2 person assist with ambulation and is a home with assistance. I: medicare and P: DC home with family when medically stable- no identified DC planning needs identified at this time. CM department will continue to follow to assist with any new DC planning needs that may arise. Any Santos RN Case Mangvida. Discharge Planning/Care Management CM Discharge Assessment Start: 05/03/21 15:57 Freq: Status: Active Protocol: Document 05/03/21 15:57 (Rec: 05/03/21 16:05 [id number]) Discharge Planning Assessment Assigned Publication Specialist Any Santos RN Case Mangvida Advance Directives? Yes Advance Directives on File No History Provided By Patient,Medical Record Prior Living Arrangements House Household Members spouse Comment Lives with spouse but he is declining cognitively - patients daughter and son- in- law here until sunday and granddaughter here until sunday to help at DC Type of transporation used prior to Drives own vehicle admit Independent with ADL's Yes Is patient alert and oriented? Yes Caregiver for Another Yes: Helps her DME Already Rented / Owned Elevated Toilet Seat,FWW / Walker,Cane Patient/Family Preference OP PT Therapy Barriers to Discharge No Discharge Plan Home Transportation Arrangement Patients daughter will provide transportation at DC Referrals Initiated None needed Whiteboard Updated in Patient Room with Yes name and ext. # of Publication Specialist Review Status In Process Next Review Type Continued Stay Review Pre-Anesthesia Assessment Start: 04/25/21 09:32 Freq: Status: Complete Protocol: Document 04/25/21 09:32 CAB (Rec: 04/25/21 10:42 CAB [id number]) Pre-Anesthesia Assessment Preferred Name Minda Patient Information Reviewed Via Phone Assessment Assessment Completed With Patient Diagnostic Results BMP/CMP,CBC,EKG Comment Labs/EKG @ 04/09/21, COVID screen @ [facility] 05/01/21 Primary Care Provider Any Zazueta Seen Specialist in Last 12 Months Yes Specialist Seen General surgeon,Chemical Production Machine Operator, Oncologist,Orthopedist Primary Language Hungarian Preferred Language Hungarian Principal Associate Required No Height 170.18 cm Weight 90.265 kg Body Mass Index (BMI) 31.1 Hearing Ability Hard of Hearing,Use of Hearing Aid Visual Assist Magnifying Glass Dentition Type Teeth, Natural Present,Dental Implants Barriers to Learning None Hx Anesthesia Reactions No: BIA-untreated Hx Family Anesthesia Reaction No Hx Malignant Hyperthermia No Hx Blood Transfusions No Hx Blood Transfusion Reaction No Anesthesia Review Requested No 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 No Does patient have RENNER/SOB No Hx Sleep Apnea Yes CPAP/BIPAP use prescribed not used Currently Taking a Beta Scott No Hx Chest Pain Yes Hx SOB No Hx Syncope or Dizziness No Anti-Coagulant Therapy No Has a College [employer] Education Dean No Cardiac Testing No Hx Pacemaker/ICD No Pacemaker Rep Required? No Cardiac Clearance Received Not Applicable Diet Type At Home Regular dysphagia No Gastrointestinal Symptoms Reflux Urinary Catheter Present No Hx Urinary Self Catheterization No Diabetes No Patient No Lactating No Hx Drug Resistant Organism No Presence of External or Internal Medical Yes: titanium to right hip Devices Have you had any close contact with No someone diagnosed with COVID-19? Received a COVID vaccine? Yes Received all doses? 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 Are you currently considering suicide? No: I'm not thinking about anything until June Do you have a plan to hurt yourself or No Plan others? If Yes, Provider Notified No Do You Have Any Spiritual Beliefs That No May Affect Your HC Choices? Do You Have Any Cultural Practices That No May Affect Your HC Choices? Comment Mateo Who Can We Speak to About Patient's Care Family, friends Identifying Code for Release of Patient Declines to issue Information Health Care Proxy/Next of Kin Alessia Roldan (good friend) Health Care Proxy Emergency Contact Name Sherlyn (neighbor) Emergency Contact Advance Directives? Yes Power of Casing Crew Pusher Yes Power of Casing Crew Pusher Name Jalen Cruz Power of Casing Crew Pusher PAC Instructions Durable medical equipment, Medications to take/avoid, Nasal antibiotic,No ETOH/ petroleum product on skin DOS, NPO,Post-op transportation,Pre -surgical wash,Sturdy shoes/ comfortable clothes,Do not bring valuables and remove jewelry
[2021-05-03 16:10] VITALS: BP 112/64; PULSE 99; RESP 20; TEMP 37.1; O2SAT 95
[2021-05-03 20:00] VITALS: BP 138/52; PULSE 83; RESP 17; TEMP 37.7; O2SAT 98
[2021-05-04 01:46] VITALS: BP 151/67; PULSE 109; RESP 16; TEMP 36.5; O2SAT 96
[2021-05-04] MEDS: OXYCODONE IR 10 MG TABLET PO ×2 (03:45→09:28)
[2021-05-04] MEDS: PANTOPRAZOLE DR 40 MG TABLET PO (05:23)
[2021-05-04 05:35] VITALS: BP 137/58; PULSE 85; RESP 16; TEMP 36.9; O2SAT 99
--- NOTE | 2021-05-04 07:21 | P.DS_ITS ---
History of Present Illness History of Present Illness Date Patient Seen: 05/04/21 Time Patient Seen: 07:21 Chief complaint: Right Total Knee Arthroplasty Narrative: The history and physical is contained in the chart previously completed note. Please refer to that note for this information. Discharge Providers Provider Date of admission: 05/03/21 10:17 Discharge Date: 05/04/21 Primary care physician: Any Zazueta MD Consults: 05/02/21 15:56 Consult to Discharge Planning Routine Comment: Consult to Physical Therapy Evaluate & Treat Comment: Physician Instructions: postop TKA protocol Discharge provider: Isacc Figueroa MD Summary Hospital Course Discharge Diagnosis: 1. Right knee osteoarthritis 2. Post hemorrhagic anemia Hospital Course: The patient was admitted to the hospital and taken directly to the operating room on May 02, 2021 where she underwent a right total knee replacement without complications. She had a mild post hemorrhagic anemia that did not require specific treatment. Initial plans were made for discharge on postoperative day 1 but she did not make sufficient progress with physical therapy to allow this. Pain control as appearing to be better on postoperative day 2 and she desires to go home today. Status at Discharge Cognitive/behavioral status at discharge: at baseline, oriented Functional status at discharge: uses cane/walker Overall status at discharge: patient is progressing back to baseline Time Spent with Patient Time spent: Less than 30 minutes Exam Vital Signs (past 8 hours): - 05/04/21 01:46 05/04/21 05:35 Temperature 97.7 F 98.4 F Pulse Rate 109 H 85 Respiratory Rate 16 16 Blood Pressure 151/67 H 137/58 L Pulse Oximetry 96 99 Oxygen Delivery Method Room Air Oxygen Flow Rate 0 Narrative Exam Narrative: Right knee wound is dressed with no drainage on the bandage. Calf is soft. Light touch and motion are intact in the right lower extremity. Objective Labs Result Diagrams: 05/03/21 06:53 Labs: Laboratory Results - last 24 hr 05/03/21 06:53 Hgb 11.0 L Hct 33.5 L PFSH Medical History (Updated 04/25/21 @ 10:20 by Diandra Arias RN) Chicken pox (~1950) Hearing loss Left hip pain Mumps (~1950) BIA (obstructive sleep apnea) Osteopenia Popliteal artery embolism, right Rib pain on left side Stomach cancer Surgical History (Updated 04/25/21 @ 10:19 by Diandra Arias RN) Anesthesia History of hip surgery History of surgery Status post hysterectomy (1990) Family History Brother Age: 74 Diabetes mellitus Father Heart disease Grandfather Cancer Grandmother Heart disease Mother Heart disease Grandmother Heart disease Sister Age: 69 Lung cancer Grandfather No problems noted. Social History marital status: household members: spouse occupational status: previously employed Smoking Status: Never smoker alcohol intake: current substance use type: does not use Discharge Assessment & Plan Assessment and Plan Assessment: Stable postoperative day 2 status post right total knee replacement. She appears to be improving and is anxious to go home today. She has a mild post hemorrhagic anemia. Plan of Treatment: Physical therapy this morning. Discharge today if safe and appropriate. Follow-up in my office in 2 weeks. Discharge prescriptions have been provided for oxycodone, and meloxicam. She has been instructed in the use of aspirin for DVT prophylaxis. Discharge Plan Discharge Plan Patient Disposition: Home Discharge orders & Medications Prescriptions: New acetaminophen 500 mg capsule 500 mg PO Q4H MDD Max 3000 mg per day PRN (Reason: fever or pain) Qty: 90 0RF aspirin 81 mg Tablet,Delayed Release (Dr/Ec) 81 mg PO BID 42 Days Qty: 84 0RF Rx Instructions: Prevent blood clots docusate sodium 100 mg Capsule 100 mg PO BID PRN (Reason: Constipation from narcotic pain meds) Qty: 20 0RF meloxicam [Mobic] 7.5 mg Tablet 7.5 mg PO DAILY PRN (Reason: With breakfast for pain/inflammation) Qty: 45 0RF oxycodone 5 mg Tablet 5 mg PO Q3HR PRN (Reason: Pain, Moderate (4-6)) Qty: 42 0RF Continued Disabled Parking Permit Qty: 1 0RF omeprazole 20 mg capsule,delayed release(DR/EC) 40 mg PO DAILY 0RF Discontinued acetaminophen [Acetaminophen Extra Strength] 500 mg Tablet 1,000 mg PO QD-BID PRN (Reason: pain) 0RF ibuprofen 200 mg Tablet 200 - 400 mg PO DAILY PRN (Reason: Pain) 0RF Follow up/Referrals: Isacc Figueroa MD [Physician] - (10-14 days for postoperative visit) Any Zazueta MD [Primary Care Provider] - Diet/Activity/Treatments Diet: Diet as Tolerated and Regular Other treatments: Medications: -Aspirin 81mg twice daily x6 weeks to prevent blood clots. -OTC Tylenol 500 mg 1 tablet every 4 hours as needed for pain/fever. Max 6 tablets per day. -meloxicam 7.5 mg 1 tablet daily with breakfast as needed for pain/inflammation. -Oxycodone 5 mg take 1 tablet every 4 hours as needed for moderate-severe pain (narcotic pain medication). -As needed medications: -Ducolax and /or MiraLax as needed for constipation from narcotic pain medications. -Pepcid AC as needed for stomach upset (usually from aspirin or ibuprofen). Dressing/Wound care: -Remove the Sandoval wrap 48 hours after surgery. -Keep Aquacell dressing in place until postoperative follow-up office visit. -Okay to shower. Keep wound out of direct water stream. No soaking or submerging until all the scabs fall off (approximately 6 weeks). -Please call the office if dressing becomes wet, soiled, or saturated. Activities: -Weight-bearing as tolerated. Use front wheeled walker, and progress to cane w hen safe. -Continue with home exercises as directed by your physical therapist. -Elevate ?toes above the nose if you have significant swelling in your lower leg. (A wedge pillow is easiest.) -Ice your incision as needed for pain/inflammation/swelling. Protect your skin with a folded pillowcase. Follow-up: -Follow-up with your surgeon or PA in the office in 10-14 days after surgery. -Follow-up with your surgeon 6 weeks postoperatively. Call the office if you have chest pain, shortness of breath, significant swelling that will not resolve with elevating, fever over 101?, significantly worsening pain. [facility]: [phone] Skin/Wound/Dressing Care Report to your healthcare provider any signs of infection, such as:: chills, fever, night sweats, unusual drainage and unusual redness Visit Report/Discharge Packet Instructions: DI for Knee Replacement Stand Alone Forms: Surgery Discharge Discharge Data Primary Care Provider: Any Zazueta Attending Provider: Isacc Figueroa
[2021-05-04 07:30] VITALS: BP 169/78; PULSE 105; RESP 18; TEMP 37.1; O2SAT 98
[2021-05-04] MEDS: DOCUSATE 100 MG CAPSULE PO (09:27)
[2021-05-04] MEDS: ACETAMINOPHEN 325 MG TABLET 650 MG PO (09:29)
[2021-05-04] MEDS: ASPIRIN EC 81 MG TABLET PO (09:29)
[2021-05-04] MEDS: MELOXICAM 7.5 MG TABLET PO (09:33)
--- NOTE | 2021-05-04 10:37 | PC.NURSE ---
Addendum entered by Minna Torre R.N. 05/04/21 13:03: Pt D/C instructions given & HL discontinued intact. Pt escorted via w/c by staff to waiting vehicle D/C in stable post op course. Original Note: Pt states she is going home today if she can fire her daughter Pt appears agitated at this time. Lungs clear, Spo2 96% RA Sandoval/aquacell Dsg to right knee CDI Med for discomfort around 0900 w/good relief. Satisfactory post op course/
--- NOTE | 2021-05-04 10:43 | PT.IPTN ---
Current Diagnoses Unilateral primary osteoarthritis, right knee (05/03/21) Surgery Performed Operation Date: 05/02/21 12:15 Actual Procedures p Total Knee Arthroplasty(Right) - Isacc Figueroa MD Physical Therapy Treatment Note M2 PT-IP Current Condition Start: 05/03/21 08:30 Freq: NEEDED Status: Discharge Protocol: Document 05/04/21 10:05 SP (Rec: 05/04/21 18:49 SP [id number]) Physical Therapy Current Condition Current Condition Evaluation Date 05/03/21 Treatment Diagnosis R TKA, difficulty in walking Onset Date 05/02/21 M3 PT-IP Subjective Start: 05/03/21 08:30 Freq: NEEDED Status: Discharge Protocol: Document 05/04/21 10:05 SP (Rec: 05/04/21 18:49 SP [id number]) Subjective Physical Therapy Visit Type Type Treatment Note Visit Start Time 10:05 Visit Stop Time 10:43 Total Visit Minutes 38 Notes and friend arrived in room shortly after REMELT WORKER started tx. assisted pt with sit<> stand as low Min> CGA with cuing how to help her, pt stated has dementia but able to support with 1 step directioning. Number of REMELT WORKER Visits 2 Physical Therapy Visit Comments Patient Comments Pt agreeable to therapy and wanting to use BSC. Therapy Pain Assessment Pain When Pain Assessed During Mobility Pain Present Pain Present Pain Reported Location Right Knee Intensity 3 Scale Used Numeric (0 - 10) Description With Movement Pain Behaviors Facial Grimacing Pain Management Techniques Apply Cold,Distraction,Re- positioning,Timing of Activity with Medications M4 PT-IP Mobility and Gait Start: 05/03/21 08:30 Freq: NEEDED Status: Discharge Protocol: Document 05/04/21 10:05 SP (Rec: 05/04/21 18:49 SP [id number]) PT-Bed Mobility Assessment Supine to Sit Supine to Sit Standby Assistance,Head of Bed Elevated,Bedrails Scooting Scooting to Edge of Bed Standby Assistance PT-Transfer Assessment Sit to and From Stand Sit to and from Stand Contact Guard Assistance, Minimal Assistance,1 Person Assistance,Use of Upper Extremities Equipment Transfer Assistive Device Gait Belt,Front Wheeled Walker Orthotic/Prosthetic Devices or Brace: No Transfers Transfer Destination Bed,Bedside Commode Transfer Technique Pt ambulated w/ FWW Transfer Ability Level of Assist Contact Guard Assistance,1 Person Assistance,Use of Upper Extremities Comments Mobility Comments Pt inclined in bed when arrived. Reviewed post op ex R knee: AP, quad set, heel slide w/ strap on foot placed self with instruction. Elevated supine>sit sBA with UE support to RLE as needed. Pt states has an adjustable bed at home. Pt donned gait belt for with good demonstration, Sit>stand initially Min A improved to CGA on 2nd trial from EOB. Pt ambulated around room, cues for quad facilitation and heel toe with improvement in extension, moderate BUE WB on fWW, stable balance. Pt reported got little lightheaded during gait but no signification decrease in BP noted. Pt complete 2 laps around room approx 60 ft improved receiprocal stepping and increase WB onto RLE. Pt returned to chair, with good FWW positioning and HP on chair arms, CGA sit provided by . REMELT WORKER suggested short distances in gait for safety but hourly for circulation. Pt had all needs in reach and friend in room when left. REMELT WORKER notified nurse lightheadedness during gait. Gait Assessment Gait Gait Assistance Required: Contact Guard Assist,1 Person Assist Distance (Feet) 60 Able to Maintain Weight Bearing Status Yes During Gait Assistive Devices Assistive Device Gait Belt,Front Wheeled Walker Orthotic/Prosthetic Devices or Brace: No Gait Deviations General Gait Pattern Antalgic,Decreased Stride Length,Decreased Feet Clearance,Lateral Trunk Lean, Step-to Gait Factors Limiting Gait Function Factors Limiting Gait Function Decreased Activity Tolerance, Decreased Strength,Limited Range of Motion,Pain Comments Gait Comments see mobility comments Stair Climbing Assessment Comments Stair Climbing Comments no stairs at home to assess. PT-Balance Assessment Sitting Balance and Reactions Static Sitting Balance Ability Good Dynamic Sitting Balance Ability Good Standing Balance and Reactions Static Standing Balance Ability Good Dynamic Standing Balance Ability Fair Device Used fWW M5 PT-IP Objective Assessments Start: 05/03/21 08:30 Freq: NEEDED Status: Discharge Protocol: Document 05/03/21 09:55 HH (Rec: 05/03/21 10:34 HH [id number]) Orientation Orientation/Cognition Level of Alertness Alert Orientation Name,Age,Birthday,Month,Date, Year,Day of Week,Place, Situation Language Function Ability No Deficits Noted Safety Awareness Understands Safety Issues Memory Description No Deficits Noted Gross Range of Motion Upper Extremity ROM Assessment Within Functional Limits Lower Extremity ROM Assessment Right Impaired Impairments 10-60 degrees AROM Strength Upper Extremity Strength Assessment Within Functional Limits Lower Extremity Strength Assessment Right Impaired Hip 4/5 Knee 3-/5 Coordination Assessment Gross Coordination Gross Coordination WNL Sensation Assessment Sensation Gross Sensation WNL M6 PT-IP Treatment Start: 05/03/21 08:30 Freq: NEEDED Status: Discharge Protocol: Document 05/04/21 10:05 SP (Rec: 05/04/21 18:49 SP [id number]) Physical Therapy Treatment Exercises Exercises Ankle Pumps,Gluteal Sets,Quad Sets,Heel Slides,Seated Knee Flexion/Extension Knee ROM Measurement 3- 70 deg R knee AAROM using strap on foot Education Education Provided Precautions,Weight Bearing Status,Post-Op Packet,Safety M7 PT-IP Assessment and Plan Start: 05/03/21 08:30 Freq: NEEDED Status: Discharge Protocol: Document 05/04/21 10:05 SP (Rec: 05/04/21 18:49 SP [id number]) PT Summary Assessment and Plan Potential Rehabilitation Potential Good Status of Condition at Evaluation Evolving Summary Impairments Pain,ROM,Strength,Balance,Bed Mobility,Transfers,Gait, Activity Tolerance Progress Towards Goals Progressing Toward Goals,Slow Progress due to Activity Tolerance Assessment Summary SBA bed mob, Min> CGA sit> stand>sit CGA. Gait CGA using FWW. Pt is ok to return home with and family to assist her as needed. Pt is slow moving, tires quickly, recommending HHPT to improve strength and functional independence. Goals Bed Mobility Goal Standby Assistance Transfer Goal Standby Assistance,Front Wheeled Walker Gait Goal Standby Assistance,Front Wheel Walker Gait Distance 50 Other Goals BSC/ chair transfer Days to Meet Goals 5 Frequency of Treatment Frequency Of Treatment Twice a Day Treatment Plan Physical Therapy Treatment Plan Bed Mobility Training,Transfer Training,Gait Training, Therapeutic Exercise,Balance Retraining,Post Op Education, Discharge Planning,Hot or Cold Pack,Neuromuscular Re-ed, Manual Therapy Other Recommendations and Next Treatment ROM, LE ex, gait further Focus distance w/ FWW. Weight Bearing Status Weight Bearing Status Weight Bear as Tolerated Recommendations To Nursing Amount of Assist Needed 1 Person Assist Discharge Recommendations PT Discharge Recommendations Home with Assistance,Home Health Transportation Needs at Discharge Private Vehicle
--- NOTE | 2021-05-04 11:30 | CM.DPC ---
DCP Cont: Patient is supposed to discharge home today. P.T. just worked with patient and stated, she would benefit with home health, it will be hard for her to get out to outpatient due to her mobility. Patient is interested in home health. Met with patient in the room, friend and spouse are in the room. Confirmed with patient she wants home with home health, no preferences upon agencies. [place] is on calendar, between them and , they can't see patients until Sun or Sunday. Updated patient. Updated Nahomy at [facility] about referral. Faxed over face sheet, face to sheet, orders, H&P, DC summary, and P.T. notes to [facility]. Nurse, K[place], is updated. Patient's friend is transporting patient. Ordered nursing, P.T, and O.T. P: Patient is discharging home with [facility]. Sasha Gabriel RN/Cert Pharmacy Tech
== END 2021-05-04 12:20 | disposition home or self-care (01) ==
LOC: OR 10:54 → AC 10:54
PROVIDERS: Admitting Provider Orthopaedic Surgery; Family Provider Internal Medicine; PCP Internal Medicine; Referring Provider Orthopaedic Surgery; Visit Provider Orthopaedic Surgery
PROC: 0SRC0JZ Replacement of Right Knee Joint with Synthetic Substitute, Open Approach (ICD-10-PCS; CPT 27447; principal; 2021-05-02 12:15)
DX: M17.11 Unilateral primary osteoarthritis, right knee (principal); G47.33 Obstructive sleep apnea (adult) (pediatric); K21.9 Gastro-esophageal reflux disease without esophagitis; Z86.718 Personal history of other venous thrombosis and embolism; Z79.01 Long term (current) use of anticoagulants
CPT/HCPCS: 27447; 36415; 73560; 85014; 85018; 97110; 97116; 97161; 97530; C1776; G0378; C9290; J0171; J0690; J1100; J1170; J2270; J2405; J2704; J3010

== ENCOUNTER 2021-09-01 09:45 | Outpatient (RCR) | payer MEDICARE, OTHER, SELFPAY ==
[2021-05-02 16:17] VITALS: BMI 30.5
--- NOTE | 2021-06-29 14:24 | PT.OIE ---
Current Diagnoses Unilateral primary osteoarthritis, right knee (06/29/21) Presence of right artificial knee joint (06/29/21) Past Medical History (Last Updated 04/25/21 @ 10:20 by Diandra Arias RN) Chicken pox (~1950) Hearing loss History of hip surgery History of surgery Left hip pain Mumps (~1950) BIA (obstructive sleep apnea) Osteopenia Popliteal artery embolism, right Rib pain on left side Stomach cancer Past Surgical History (Last Updated 04/25/21 @ 10:19 by Diandra Arias RN) Anesthesia History of hip surgery History of surgery Status post hysterectomy (1990) Visit Care Team Role Provider Type Any Zazueat MD Family Provider Physician Primary Care Provider Specialty: Internal Medicine Address: [address] [place] [address], [id number] Email: [email or web address] Figueroa MD Attending Provider Physician Referring Provider Specialty: Orthopedic Surgery Address: [address] [place] [address], [id number] Email: [email or web address] Physical Therapy Initial Evaluation PT-OP-A Visit Information Start: 06/29/21 08:37 Freq: Status: Active Protocol: Document 06/29/21 09:01 [facility] (Rec: 06/29/21 09:44 [facility] [id number]) Out-Patient Physical Therapy Visit Information Visit Information Visit Type Initial Evaluation Visit Start Time 09:01 Visit Stop Time 09:58 Total Visit Minutes 57 Visit Number 1 Evaluation Information Evaluation Date 06/29/21 PT-OP-B Current Condition Start: 06/29/21 08:37 Freq: Status: Active Protocol: Document 06/29/21 09:01 [facility] (Rec: 06/29/21 09:44 [facility]AK [id number]) Current Condition History of Current Condition Onset Date 05/02/21 Current Complaints Pain, limited ROM and strength right knee, History of Current Condition Right TKA 05/02/21, just finished Home Health PT can't remember max ROM. If doesn't get ROM where doctor wants it by 07/25/21 will do surgery to remove scar tissue. Using exercise bike 1-2x/day, does HEP 1-2x/day. Using 4WW, hasn 't tried cane yet. Was using trekking poles prior to surgery. Prior Treatments and Tests Injections in knees Treatment Goals Patient/Caregiver Goals return to more active and pain -free lifestyle Prior Functional Status Baseline Function- ADL's Modified Independent Baseline Function- Mobility Modified Independent Baseline Function- Gait used trekking poles outside, furniture surfed indoors primarily Current Functional Impairments (Reported) Functional Limitations- ADL's assist with donning and doffing socks Functional Limitations- Mobility/Gait uses 4WW for gait support PT-OP-C Subjective Start: 06/29/21 08:37 Freq: Status: Active Protocol: Document 06/29/21 09:01 [facility] (Rec: 06/30/21 14:22 [facility] [id number]) Patient Questionnaires Lower Extremity Functional Scale LEFS Score 29 OP-PT Pain Assessment Pain Assessment Grid Paper Pain Assessment Grid Completed Yes Location Right Knee Pain Location Details 1 PT-OP-D Balance Start: 06/29/21 08:37 Freq: Status: Active Protocol: Document 06/29/21 09:01 [facility] (Rec: 06/30/21 14:22 [facility] [id number]) OP-PT Balance Assessment Sitting Balance Static Sitting Balance Ability Normal Dynamic Sitting Balance Ability Normal Barragan Fall Scale Copyright Permission PT-OP-F Manual Assessment Start: 06/29/21 08:37 Freq: Status: Active Protocol: Document 06/29/21 09:01 [facility] (Rec: 06/30/21 14:22 [facility] [id number]) Manual Assessments Soft Tissue Assessment Soft Tissue Mobility Assessment good incisional healing evident, palpabe tightness left distal quads and scar PT-OP-G Mobility & Gait Start: 06/29/21 08:37 Freq: Status: Active Protocol: Document 06/29/21 09:01 [facility] (Rec: 06/30/21 14:22 [facility] [id number]) OP Gait Assessment Gait Gait Assistance Required: Independent Distance (Feet) 100 Assistive Devices Assistive Device 4 Wheeled Walker Gait Deviations General Gait Pattern Antalgic Factors Limiting Gait Function Factors Limiting Gait Function Limited Range of Motion Stair Climbing Evaluation Evaluation Level of Assist On Stairs Standby Assistance Devices Stair Climbing Assistive Devices Left Railing,Right Railing Technique/Endurance Stair Climbing Technique Step to Step PT-OP-H Neuro Start: 06/29/21 08:37 Freq: Status: Active Protocol: Document 06/29/21 09:01 [facility] (Rec: 06/30/21 14:22 [facility] [id number]) Sensation Evaluation Gross Sensation Gross Sensation Left LE Impaired PT-OP-J Posture/Palpation/Skin Start: 06/29/21 08:37 Freq: Status: Active Protocol: Document 06/29/21 09:01 [facility] (Rec: 06/30/21 14:22 [facility] [id number]) Posture Evaluation Position Standing Knee Posture (L) Excess Flexion Palpation Assessment Location left knee Palpation Findings Edema,Soft Tissue Tightness Palpation Details well-healed TKA incision, decreased mobility especially mid and distal scar left knee Skin Assessment Incisional Assessment Incision Appearance/Comments well-healed PT-OP-K Range of Motion Start: 06/29/21 08:37 Freq: Status: Active Protocol: Document 06/29/21 09:01 [facility] (Rec: 06/30/21 14:22 [facility] [id number]) Knee Goniometric Range of Motion Knee Left Patient Position Sitting Flexion Active (degrees) 94 Flexion Passive (degrees) 100 Extension Active (degrees) 14 Extension Passive (degrees) 10 Right Patient Position Sitting Flexion Active (degrees) 124 Extension Active (degrees) 0 Knee ROM Limitations Knee ROM Limitations Soft Tissue Tightness,Pain, Swelling PT-OP-M Strength Start: 06/29/21 08:37 Freq: Status: Active Protocol: Document 06/29/21 09:01 [facility] (Rec: 06/30/21 14:22 [facility] [id number]) Knee Strength Knee Manual Muscle Testing Left Flexion (S2) 3- Fair- Extension (L3) 3- Fair- Right Flexion (S2) 4+ Good+ Extension (L3) 4+ Good+ PT-OP-Q Treatments Start: 06/29/21 08:37 Freq: Status: Active Protocol: Document 06/29/21 09:01 [facility] (Rec: 06/30/21 14:22 [facility] [id number]) Cardio Equipment Recumbent Bicycle Duration (Minutes) 5 Seat Position 7 Therapeutic Exercises Supine Exercises gravity assisted knee flex Side left Reps/Minutes 3x10 SAQ Side bilateral Reps/Minutes 10x Comments comparing sides quad set Side bilateral Reps/Minutes 10x Sitting Exercises LAQ Side bilateral Reps/Minutes 10x Comments comparing sides Standing Exercises stair lunge Side left Reps/Minutes 8x Gait Training Gait Activity 1 Description level Device Used 4WW Level of Assistance SBA, cues Surface firm carpet, linoleum Distance/Duration 100' Treatment Focus relaxed knee, heelstrike Manual Therapy Treatment Soft Tissue Mobilization scar mobilization Body Location surgical scar Mobilization Type Myofascial Release Intensity/Depth Moderate Body Position Hooklying Comments 3 min Self-Care/Home Management Treatment Education Patient Education Home Exercise Program,Pain Management Other Education Importance of doing whole TKA ex program and performing more than 1x/day not just focusing on flexion, but importance of achieving full extension. Educated in importance of scar mobilization, instucted to use vitamin E oil on scar. Encouraged to take pain medication prior to PT. PT-OP-R Modalities Start: 06/29/21 08:37 Freq: Status: Active Protocol: Document 06/29/21 09:01 [facility] (Rec: 06/30/21 14:22 [facility] [id number]) Electric Stimulation Electric Stimulation Interferential Current (IFC) Body Location left knee Duration (Minutes) 10 Intensity 12 Target/Sweep Sweep Patient Position Hooklying Combined With Heat/Cold Cold Pack PT-OP-T Assessment and Plan Start: 06/29/21 08:37 Freq: Status: Active Protocol: Document 06/29/21 09:01 [facility] (Rec: 06/30/21 14:22 [facility] [id number]) Physical Therapy Assessment Rehab Potential Rehabilitation Potential Good Evaluation Complexity Number of Personal Factors/Comorbidities 1-2 Number of Body Systems Impaired 3 Clinical Presentation at Evaluation Evolving Impairments Impairments Edema,Gait,ROM,Soft Tissue Mobility,Strength Goals Three Impairment activity intolerance Impairment Lower extremity functional scale score 29% Short Term Goal (STG) Improve LEFS to at least 42% STG Duration 07/30/21 Truckload Owner Operator Goal (LTG) Improve LEFS to at least 60% as measure of improved function left LE LTG Duration 08/27/21 Two Impairment gait dysfunction Impairment patient uses 4WW for gait with antalgic pattern, step-to on stairs Truckload Owner Operator Goal (LTG) Patient will be able to ambulate with least restrictive device without limp and ascend and descend standar heigh stairs with alternating pattern without difficulty. LTG Duration 08/27/21 One Impairment ROM and strength deficits left knee Impairment AROM 14-94 PROM 10-100 Short Term Goal (STG) Patient to perform full HEP program 2-3x/wk independently STG Duration 07/30/21 Truckload Owner Operator Goal (LTG) Patient to demonstrate AROM left knee 0-120, and strength left knee at least 4/5 LTG Duration 08/27/21 Assessment Summary Assessment Patient presents s/p left TKA 05/02/21. Finished Home Health PT Sunday, herre to continue rehab with outpatient PT. Patient reports only doing 2 exercises at home with focus on knee flexion, has been riding recumbant ex bike a little as well. She presents with deficits in left knee ROM and strength and it was stressed to her that she needs to perform entire HEP program 2-3x/day and is lacking full knee extension so needs focus on both flexion and extension. Besides HEP review, scar mobilization provided and encouraged patient to obtain vitamin E oil to massage into scar. She demonstrated good understanding of above and agreed with POC. Treatment ended with IFES with ice pack to her left knee. Physical Therapy Plan Frequency and Duration Frequency of Treatment 2x/Week Duration of Treatment 8 weeks Plan of Care Start Date 06/29/21 Plan of Care End Date 08/27/21 Therapeutic Interventions Therapeutic Interventions Aquatic Therapy,Home Exercise Program,Manual Therapy, Neuromuscular Re-education, Patient/Caregiver Education, Self-Care/Home Management,Soft Tissue Mobilization, Therapeutic Activities, Therapeutic Exercises Modalities Cold Pack/Ice Massage,Electric Stimulation Next Visit Focus/Plan Next Note Type Treatment Note Next Visit Plan Start with ex bike for ROM, continue progression of TKA ex program, scar mobilization, gait training. Add supine gravity assisted knee flexion to HEP if tolerated.
--- NOTE | 2021-06-29 14:24 | PT.OPPOC ---
Physical, Occupational & Speech Therapy At [facility] Current Diagnoses Unilateral primary osteoarthritis, right knee (06/29/21) Presence of right artificial knee joint (06/29/21) Visit Care Team Role Provider Type Any Zazueta MD Family Provider Physician Primary Care Provider Specialty: Internal Medicine Address: [address] [place] [address], [address] Email: [email or web address] Isacc Figueroa MD Attending Provider Physician Referring Provider Specialty: Orthopedic Surgery Address: [address] [place] [address], [address] Email: [email or web address] Plan Of Care PT-OP-T Assessment and Plan Start: 06/29/21 08:37 Freq: Status: Active Protocol: Document 06/29/21 09:01 [facility] (Rec: 06/30/21 14:22 [facility] [id number]) Physical Therapy Assessment Rehab Potential Rehabilitation Potential Good Evaluation Complexity Number of Personal Factors/Comorbidities 1-2 Number of Body Systems Impaired 3 Clinical Presentation at Evaluation Evolving Impairments Impairments Edema,Gait,ROM,Soft Tissue Mobility,Strength Goals Three Impairment activity intolerance Impairment Lower extremity functional scale score 29% Short Term Goal (STG) Improve LEFS to at least 42% STG Duration 07/30/21 Home Health Clinical Supervisor Goal (LTG) Improve LEFS to at least 60% as measure of improved function left LE LTG Duration 08/27/21 Two Impairment gait dysfunction Impairment patient uses 4WW for gait with antalgic pattern, step-to on stairs [facility] Goal (LTG) Patient will be able to ambulate with least restrictive device without limp and ascend and descend standar heigh stairs with alternating pattern without difficulty. LTG Duration 08/27/21 One Impairment ROM and strength deficits left knee Impairment AROM 14-94 PROM 10-100 Short Term Goal (STG) Patient to perform full HEP program 2-3x/wk independently STG Duration 07/30/21 Home Health Clinical Supervisor Goal (LTG) Patient to demonstrate AROM left knee 0-120, and strength left knee at least 4/5 LTG Duration 08/27/21 Assessment Summary Assessment Patient presents s/p left TKA 05/02/21. Finished Home Health PT Sunday, herre to continue rehab with outpatient PT. Patient reports only doing 2 exercises at home with focus on knee flexion, has been riding recumbant ex bike a little as well. She presents with deficits in left knee ROM and strength and it was stressed to her that she needs to perform entire HEP program 2-3x/day and is lacking full knee extension so needs focus on both flexion and extension. Besides HEP review, scar mobilization provided and encouraged patient to obtain vitamin E oil to massage into scar. She demonstrated good understanding of above and agreed with POC. Treatment ended with IFES with ice pack to her left knee. Physical Therapy Plan Frequency and Duration Frequency of Treatment 2x/Week Duration of Treatment 8 weeks Plan of Care Start Date 06/29/21 Plan of Care End Date 08/27/21 Therapeutic Interventions Therapeutic Interventions Aquatic Therapy,Home Exercise Program,Manual Therapy, Neuromuscular Re-education, Patient/Caregiver Education, Self-Care/Home Management,Soft Tissue Mobilization, Therapeutic Activities, Therapeutic Exercises Modalities Cold Pack/Ice Massage,Electric Stimulation Next Visit Focus/Plan Next Note Type Treatment Note Next Visit Plan Start with ex bike for ROM, continue progression of TKA ex program, scar mobilization, gait training. Add supine gravity assisted knee flexion to HEP if tolerated. Plan of Care Dates Plan of Care Start Date 06/29/21 Plan of Care End Date 08/27/21 Electronically Signed by: Azalia Calles, PT 06/30/21 1524 Please Sign and Return: I have reviewed this Plan of Care and certify that the skilled therapy services above are required to meet the patient?s needs. Physician Signature Date Printed Name and Credentials Clinical Instructor Signature Printed Name and Credentials
--- NOTE | 2021-07-01 09:52 | PT.OTN ---
Current Diagnoses Unilateral primary osteoarthritis, right knee (07/01/21) Presence of right artificial knee joint (07/01/21) Physical Therapy Treatment Note PT-OP-A Visit Information Start: 06/29/21 08:37 Freq: Status: Active Protocol: Document 07/01/21 08:52 MA (Rec: 07/01/21 09:48 MA [id number]) Out-Patient Physical Therapy Visit Information Visit Information Visit Type Treatment Note Visit Start Time 08:53 Visit Stop Time 09:47 Total Visit Minutes 54 Visit Number 2 Number of CENTRIFUGAL SPINNER Visits 1 PT-OP-B Current Condition Start: 06/29/21 08:37 Freq: Status: Active Protocol: Document 06/29/21 09:01 [facility] (Rec: 06/29/21 09:44 [facility] [id number]) Current Condition History of Current Condition Onset Date 05/02/21 Current Complaints Pain, limited ROM and strength right knee, History of Current Condition Right TKA 05/02/21, just finished Home Health PT can't remember max ROM. If doesn't get ROM where doctor wants it by 07/25/21 will do surgery to remove scar tissue. Using exercise bike 1-2x/day, does HEP 1-2x/day. Using 4WW, hasn 't tried cane yet. Was using trekking poles prior to surgery. Prior Treatments and Tests Injections in knees Treatment Goals Patient/Caregiver Goals return to more active and pain -free lifestyle Prior Functional Status Baseline Function- ADL's Modified Independent Baseline Function- Mobility Modified Independent Baseline Function- Gait used trekking poles outside, furniture surfed indoors primarily Current Functional Impairments (Reported) Functional Limitations- ADL's assist with donning and doffing socks Functional Limitations- Mobility/Gait uses 4WW for gait support PT-OP-C Subjective Start: 06/29/21 08:37 Freq: Status: Active Protocol: Document 07/01/21 08:52 MA (Rec: 07/01/21 09:48 MA [id number]) OP-PT Subjective Patient Comments Patient Comments Pt states that home health never taught her to straighten her leg and she was very pleased by Azalia on Sunday and how kind she was when she called on Sunday night to check on her. PT-OP-D Balance Start: 06/29/21 08:37 Freq: Status: Active Protocol: Document 06/29/21 09:01 [facility] (Rec: 06/30/21 14:22 [facility] [id number]) OP-PT Balance Assessment Sitting Balance Static Sitting Balance Ability Normal Dynamic Sitting Balance Ability Normal Barragan Fall Scale Copyright Permission PT-OP-F Manual Assessment Start: 06/29/21 08:37 Freq: Status: Active Protocol: Document 06/29/21 09:01 [facility] (Rec: 06/30/21 14:22 [facility] [id number]) Manual Assessments Soft Tissue Assessment Soft Tissue Mobility Assessment good incisional healing evident, palpabe tightness left distal quads and scar PT-OP-G Mobility & Gait Start: 06/29/21 08:37 Freq: Status: Active Protocol: Document 06/29/21 09:01 [facility] (Rec: 06/30/21 14:22 [facility] [id number]) OP Gait Assessment Gait Gait Assistance Required: Independent Distance (Feet) 100 Assistive Devices Assistive Device 4 Wheeled Walker Gait Deviations General Gait Pattern Antalgic Factors Limiting Gait Function Factors Limiting Gait Function Limited Range of Motion Stair Climbing Evaluation Evaluation Level of Assist On Stairs Standby Assistance Devices Stair Climbing Assistive Devices Left Railing,Right Railing Technique/Endurance Stair Climbing Technique Step to Step PT-OP-H Neuro Start: 06/29/21 08:37 Freq: Status: Active Protocol: Document 06/29/21 09:01 [facility] (Rec: 06/30/21 14:22 [facility] [id number]) Sensation Evaluation Gross Sensation Gross Sensation Left LE Impaired PT-OP-J Posture/Palpation/Skin Start: 06/29/21 08:37 Freq: Status: Active Protocol: Document 06/29/21 09:01 [facility] (Rec: 06/30/21 14:22 [facility] [id number]) Posture Evaluation Position Standing Knee Posture (L) Excess Flexion Palpation Assessment Location left knee Palpation Findings Edema,Soft Tissue Tightness Palpation Details well-healed TKA incision, decreased mobility especially mid and distal scar left knee Skin Assessment Incisional Assessment Incision Appearance/Comments well-healed PT-OP-K Range of Motion Start: 06/29/21 08:37 Freq: Status: Active Protocol: Document 06/29/21 09:01 [facility] (Rec: 06/30/21 14:22 [facility] [id number]) Knee Goniometric Range of Motion Knee Left Patient Position Sitting Flexion Active (degrees) 94 Flexion Passive (degrees) 100 Extension Active (degrees) 14 Extension Passive (degrees) 10 Right Patient Position Sitting Flexion Active (degrees) 124 Extension Active (degrees) 0 Knee ROM Limitations Knee ROM Limitations Soft Tissue Tightness,Pain, Swelling PT-OP-M Strength Start: 06/29/21 08:37 Freq: Status: Active Protocol: Document 06/29/21 09:01 [facility] (Rec: 06/30/21 14:22 [facility] [id number]) Knee Strength Knee Manual Muscle Testing Left Flexion (S2) 3- Fair- Extension (L3) 3- Fair- Right Flexion (S2) 4+ Good+ Extension (L3) 4+ Good+ PT-OP-Q Treatments Start: 06/29/21 08:37 Freq: Status: Active Protocol: Document 07/01/21 08:52 MA (Rec: 07/01/21 09:48 MA [id number]) Cardio Equipment Recumbent Bicycle Duration (Minutes) 5 Seat Position 6 Therapeutic Exercises Supine Exercises SAQ Side bilateral Reps/Minutes 10x Comments comparing sides quad set Side bilateral Reps/Minutes 10x Gait Training Gait Activity 1 Description level Device Used 4WW Level of Assistance SBA, cues Surface firm carpet, linoleum Distance/Duration 100' Treatment Focus relaxed knee, heelstrike, raised walker Comments Raised walker ~2 for proper height Manual Therapy Treatment Soft Tissue Mobilization STM Body Location R Distal quad, HS Mobilization Type Myofascial Release,Sustained Pressure,Trigger Point Release Intensity/Depth Moderate Body Position Hooklying Comments pt tolerates superficial to moderate pressure scar mobilization Body Location surgical scar Mobilization Type Myofascial Release Intensity/Depth Moderate Body Position Hooklying Comments 3 min PT-OP-R Modalities Start: 06/29/21 08:37 Freq: Status: Active Protocol: Document 07/01/21 08:52 MA (Rec: 07/01/21 09:48 MA [id number]) Electric Stimulation Electric Stimulation Interferential Current (IFC) Body Location left knee Duration (Minutes) 10 Intensity 12 Target/Sweep Sweep Patient Position Hooklying Combined With Heat/Cold Cold Pack PT-OP-T Assessment and Plan Start: 06/29/21 08:37 Freq: Status: Active Protocol: Document 07/01/21 08:52 MA (Rec: 07/01/21 09:48 MA [id number]) Physical Therapy Assessment Goals Three Impairment activity intolerance Impairment Lower extremity functional scale score 29% Short Term Goal (STG) Improve LEFS to at least 42% STG Duration 07/30/21 Fpc Goal (LTG) Improve LEFS to at least 60% as measure of improved function left LE LTG Duration 08/27/21 Two Impairment gait dysfunction Impairment patient uses 4WW for gait with antalgic pattern, step-to on stairs Binding Dyer Goal (LTG) Patient will be able to ambulate with least restrictive device without limp and ascend and descend standar heigh stairs with alternating pattern without difficulty. LTG Duration 08/27/21 One Impairment ROM and strength deficits left knee Impairment AROM 14-94 PROM 10-100 Short Term Goal (STG) Patient to perform full HEP program 2-3x/wk independently STG Duration 07/30/21 Binding Dyer Goal (LTG) Patient to demonstrate AROM left knee 0-120, and strength left knee at least 4/5 LTG Duration 08/27/21 Assessment Summary Assessment Pt's knee AROM is 8-96 degrees , PROM 7-102 degrees. When she arrives, CENTRIFUGAL SPINNER notices walker height is not properly adjusted for pt's height. Adjusted walker and worked on heel strike during gait with pt stating that the height feels much better after adjustment. Pt has been having pain around superior knee mostly along medial HS and lateral quad. PT was initially able to tolerate only superficial pressure but was able to move to moderate pressure after a few minutes. Allowed pt to use belt during SAQ due to pt pulling on her pants to help bend knee. Encouraged pt to bend as far as tolerated to help improve knee flexion. Added in self- STM along scar and quads, as well as gravity assisted knee flexion to HEP. Physical Therapy Plan Frequency and Duration Frequency of Treatment 2x/Week Duration of Treatment 8 weeks Plan of Care Start Date 06/29/21 Plan of Care End Date 08/27/21 Therapeutic Interventions Therapeutic Interventions Aquatic Therapy,Home Exercise Program,Manual Therapy, Neuromuscular Re-education, Patient/Caregiver Education, Self-Care/Home Management,Soft Tissue Mobilization, Therapeutic Activities, Therapeutic Exercises Modalities Cold Pack/Ice Massage,Electric Stimulation Next Visit Focus/Plan Next Note Type Treatment Note Next Visit Plan Start with ex bike for ROM, continue progression of TKA ex program, scar mobilization, gait training.
--- NOTE | 2021-07-04 09:01 | PT.OTN ---
Current Diagnoses Unilateral primary osteoarthritis, right knee (07/04/21) Presence of right artificial knee joint (07/04/21) Physical Therapy Treatment Note PT-OP-A Visit Information Start: 06/29/21 08:37 Freq: Status: Active Protocol: Document 07/04/21 08:14 SAK (Rec: 07/04/21 09:01 SAK [id number]) Out-Patient Physical Therapy Visit Information Visit Information Visit Type Treatment Note Visit Start Time 08:15 Visit Stop Time 09:11 Total Visit Minutes 56 Visit Number 3 Number of MANAGER PROPOSAL Visits 0 PT-OP-B Current Condition Start: 06/29/21 08:37 Freq: Status: Active Protocol: Document 06/29/21 09:01 SAK (Rec: 06/29/21 09:44 SAK [id number]) Current Condition History of Current Condition Onset Date 05/02/21 Current Complaints Pain, limited ROM and strength right knee, History of Current Condition Right TKA 05/02/21, just finished Home Health PT can't remember max ROM. If doesn't get ROM where doctor wants it by 07/25/21 will do surgery to remove scar tissue. Using exercise bike 1-2x/day, does HEP 1-2x/day. Using 4WW, hasn 't tried cane yet. Was using trekking poles prior to surgery. Prior Treatments and Tests Injections in knees Treatment Goals Patient/Caregiver Goals return to more active and pain -free lifestyle Prior Functional Status Baseline Function- ADL's Modified Independent Baseline Function- Mobility Modified Independent Baseline Function- Gait used trekking poles outside, furniture surfed indoors primarily Current Functional Impairments (Reported) Functional Limitations- ADL's assist with donning and doffing socks Functional Limitations- Mobility/Gait uses 4WW for gait support PT-OP-C Subjective Start: 06/29/21 08:37 Freq: Status: Active Protocol: Document 07/04/21 08:14 SAK (Rec: 07/04/21 09:01 SAK [id number]) OP-PT Subjective Patient Comments Patient Comments States she is very sore as she did a lot of exercises at home over the weekend. REalized she was doing one of her exercises wrong. Took pain medication at 5:30 this am. PT-OP-D Balance Start: 06/29/21 08:37 Freq: Status: Active Protocol: Document 06/29/21 09:01 SAK (Rec: 06/30/21 14:22 [facility] [id number]) OP-PT Balance Assessment Sitting Balance Static Sitting Balance Ability Normal Dynamic Sitting Balance Ability Normal Barragan Fall Scale Copyright Permission PT-OP-F Manual Assessment Start: 06/29/21 08:37 Freq: Status: Active Protocol: Document 06/29/21 09:01 [facility] (Rec: 06/30/21 14:22 [facility] [id number]) Manual Assessments Soft Tissue Assessment Soft Tissue Mobility Assessment good incisional healing evident, palpabe tightness left distal quads and scar PT-OP-G Mobility & Gait Start: 06/29/21 08:37 Freq: Status: Active Protocol: Document 06/29/21 09:01 [facility] (Rec: 06/30/21 14:22 [facility] [id number]) OP Gait Assessment Gait Gait Assistance Required: Independent Distance (Feet) 100 Assistive Devices Assistive Device 4 Wheeled Walker Gait Deviations General Gait Pattern Antalgic Factors Limiting Gait Function Factors Limiting Gait Function Limited Range of Motion Stair Climbing Evaluation Evaluation Level of Assist On Stairs Standby Assistance Devices Stair Climbing Assistive Devices Left Railing,Right Railing Technique/Endurance Stair Climbing Technique Step to Step PT-OP-H Neuro Start: 06/29/21 08:37 Freq: Status: Active Protocol: Document 06/29/21 09:01 [facility] (Rec: 06/30/21 14:22 [facility] [id number]) Sensation Evaluation Gross Sensation Gross Sensation Left LE Impaired PT-OP-J Posture/Palpation/Skin Start: 06/29/21 08:37 Freq: Status: Active Protocol: Document 06/29/21 09:01 [facility] (Rec: 06/30/21 14:22 [facility] [id number]) Posture Evaluation Position Standing Knee Posture (L) Excess Flexion Palpation Assessment Location left knee Palpation Findings Edema,Soft Tissue Tightness Palpation Details well-healed TKA incision, decreased mobility especially mid and distal scar left knee Skin Assessment Incisional Assessment Incision Appearance/Comments well-healed PT-OP-K Range of Motion Start: 06/29/21 08:37 Freq: Status: Active Protocol: Document 06/29/21 09:01 [facility] (Rec: 06/30/21 14:22 [facility] [id number]) Knee Goniometric Range of Motion Knee Left Patient Position Sitting Flexion Active (degrees) 94 Flexion Passive (degrees) 100 Extension Active (degrees) 14 Extension Passive (degrees) 10 Right Patient Position Sitting Flexion Active (degrees) 124 Extension Active (degrees) 0 Knee ROM Limitations Knee ROM Limitations Soft Tissue Tightness,Pain, Swelling PT-OP-M Strength Start: 06/29/21 08:37 Freq: Status: Active Protocol: Document 06/29/21 09:01 [facility] (Rec: 06/30/21 14:22 [facility] [id number]) Knee Strength Knee Manual Muscle Testing Left Flexion (S2) 3- Fair- Extension (L3) 3- Fair- Right Flexion (S2) 4+ Good+ Extension (L3) 4+ Good+ PT-OP-Q Treatments Start: 06/29/21 08:37 Freq: Status: Active Protocol: Document 07/04/21 08:14 [facility] (Rec: 07/04/21 09:01 [facility] [id number]) Cardio Equipment Recumbent Bicycle Duration (Minutes) 5 Seat Position 6 Gym Equipment Shuttle Recovery Unilateral Squats Details emphasis on neutral LE alignment Resistance 25 Shuttle Recovery Platform Stable Reps/Time 10x2 Bilateral Squats Details emphasis on neutral LE alignment, L2 TB around distal femurs Resistance 50 Shuttle Recovery Platform Stable Reps/Time 10x2 Therapeutic Exercises Supine Exercises gravity assisted knee flex Side right Reps/Minutes 3x10 SAQ Side bilateral Reps/Minutes 10x Comments comparing sides quad set Side bilateral Reps/Minutes 10x Comments heel on stool Standing Exercises HC stretch Equipment Used TOM Reps/Minutes 2x30 stair lunge Side left Reps/Minutes 8x Manual Therapy Treatment Soft Tissue Mobilization STM Body Location R Distal quad, HS Mobilization Type Myofascial Release,Sustained Pressure,Trigger Point Release Intensity/Depth Moderate Body Position Hooklying Comments pt tolerates superficial to moderate pressure scar mobilization Body Location surgical scar Mobilization Type Instrument Assisted,Myofascial Release Intensity/Depth Moderate Body Position Hooklying Comments 6 min suction tool PT-OP-R Modalities Start: 06/29/21 08:37 Freq: Status: Active Protocol: Document 07/04/21 08:14 [facility] (Rec: 07/04/21 09:01 [facility] [id number]) Electric Stimulation Electric Stimulation Interferential Current (IFC) Body Location right knee Duration (Minutes) 10 Intensity 12 Target/Sweep Sweep Patient Position Hooklying Combined With Heat/Cold Cold Pack PT-OP-T Assessment and Plan Start: 06/29/21 08:37 Freq: Status: Active Protocol: Document 07/04/21 08:14 [facility] (Rec: 07/04/21 09:01 [facility] [id number]) Physical Therapy Assessment Goals Three Impairment activity intolerance Impairment Lower extremity functional scale score 29% Short Term Goal (STG) Improve LEFS to at least 42% STG Duration 07/30/21 Ocean Lifeguard Specialist Goal (LTG) Improve LEFS to at least 60% as measure of improved function left LE LTG Duration 08/27/21 Two Impairment gait dysfunction Impairment patient uses 4WW for gait with antalgic pattern, step-to on stairs Ocean Lifeguard Specialist Goal (LTG) Patient will be able to ambulate with least restrictive device without limp and ascend and descend standar heigh stairs with alternating pattern without difficulty. LTG Duration 08/27/21 One Impairment ROM and strength deficits left knee Impairment AROM 14-94 PROM 10-100 Short Term Goal (STG) Patient to perform full HEP program 2-3x/wk independently STG Duration 07/30/21 Ocean Lifeguard Specialist Goal (LTG) Patient to demonstrate AROM left knee 0-120, and strength left knee at least 4/5 LTG Duration 08/27/21 Physical Therapy Plan Frequency and Duration Frequency of Treatment 2x/Week Duration of Treatment 8 weeks Plan of Care Start Date 06/29/21 Plan of Care End Date 08/27/21 Next Visit Focus/Plan Next Note Type Treatment Note Next Visit Plan Continue TKA rehab.
--- NOTE | 2021-07-06 17:24 | PT.OTN ---
Current Diagnoses Unilateral primary osteoarthritis, right knee (07/06/21) Presence of right artificial knee joint (07/06/21) Physical Therapy Treatment Note PT-OP-A Visit Information Start: 06/29/21 08:37 Freq: Status: Active Protocol: Document 07/06/21 08:18 SAK (Rec: 07/06/21 09:00 SAK [id number]) Out-Patient Physical Therapy Visit Information Visit Information Visit Type Treatment Note Visit Start Time 08:15 Visit Stop Time 09:11 Total Visit Minutes 56 Visit Number 4 Number of FLOUR INSPECTOR Visits 0 PT-OP-B Current Condition Start: 06/29/21 08:37 Freq: Status: Active Protocol: Document 06/29/21 09:01 SAK (Rec: 06/29/21 09:44 SAK [id number]) Current Condition History of Current Condition Onset Date 05/02/21 Current Complaints Pain, limited ROM and strength right knee, History of Current Condition Right TKA 05/02/21, just finished Home Health PT can't remember max ROM. If doesn't get ROM where doctor wants it by 07/25/21 will do surgery to remove scar tissue. Using exercise bike 1-2x/day, does HEP 1-2x/day. Using 4WW, hasn 't tried cane yet. Was using trekking poles prior to surgery. Prior Treatments and Tests Injections in knees Treatment Goals Patient/Caregiver Goals return to more active and pain -free lifestyle Prior Functional Status Baseline Function- ADL's Modified Independent Baseline Function- Mobility Modified Independent Baseline Function- Gait used trekking poles outside, furniture surfed indoors primarily Current Functional Impairments (Reported) Functional Limitations- ADL's assist with donning and doffing socks Functional Limitations- Mobility/Gait uses 4WW for gait support PT-OP-C Subjective Start: 06/29/21 08:37 Freq: Status: Active Protocol: Document 07/06/21 08:18 SAK (Rec: 07/06/21 09:00 SAK [id number]) OP-PT Subjective Patient Comments Patient Comments Had infusion yesterday for bone development. Very fatigued today, almost cancelled PT. States 62 days since her surgery, feeling discouraged. PT-OP-D Balance Start: 06/29/21 08:37 Freq: Status: Active Protocol: Document 06/29/21 09:01 SAK (Rec: 06/30/21 14:22 [facility] [id number]) OP-PT Balance Assessment Sitting Balance Static Sitting Balance Ability Normal Dynamic Sitting Balance Ability Normal Barragan Fall Scale Copyright Permission PT-OP-F Manual Assessment Start: 06/29/21 08:37 Freq: Status: Active Protocol: Document 06/29/21 09:01 [facility] (Rec: 06/30/21 14:22 [facility] [id number]) Manual Assessments Soft Tissue Assessment Soft Tissue Mobility Assessment good incisional healing evident, palpabe tightness left distal quads and scar PT-OP-G Mobility & Gait Start: 06/29/21 08:37 Freq: Status: Active Protocol: Document 06/29/21 09:01 [facility] (Rec: 06/30/21 14:22 [facility] [id number]) OP Gait Assessment Gait Gait Assistance Required: Independent Distance (Feet) 100 Assistive Devices Assistive Device 4 Wheeled Walker Gait Deviations General Gait Pattern Antalgic Factors Limiting Gait Function Factors Limiting Gait Function Limited Range of Motion Stair Climbing Evaluation Evaluation Level of Assist On Stairs Standby Assistance Devices Stair Climbing Assistive Devices Left Railing,Right Railing Technique/Endurance Stair Climbing Technique Step to Step PT-OP-H Neuro Start: 06/29/21 08:37 Freq: Status: Active Protocol: Document 06/29/21 09:01 [facility] (Rec: 06/30/21 14:22 [facility] [id number]) Sensation Evaluation Gross Sensation Gross Sensation Left LE Impaired PT-OP-J Posture/Palpation/Skin Start: 06/29/21 08:37 Freq: Status: Active Protocol: Document 06/29/21 09:01 [facility] (Rec: 06/30/21 14:22 [facility] [id number]) Posture Evaluation Position Standing Knee Posture (L) Excess Flexion Palpation Assessment Location left knee Palpation Findings Edema,Soft Tissue Tightness Palpation Details well-healed TKA incision, decreased mobility especially mid and distal scar left knee Skin Assessment Incisional Assessment Incision Appearance/Comments well-healed PT-OP-K Range of Motion Start: 06/29/21 08:37 Freq: Status: Active Protocol: Document 06/29/21 09:01 [facility] (Rec: 06/30/21 14:22 [facility] [id number]) Knee Goniometric Range of Motion Knee Left Patient Position Sitting Flexion Active (degrees) 94 Flexion Passive (degrees) 100 Extension Active (degrees) 14 Extension Passive (degrees) 10 Right Patient Position Sitting Flexion Active (degrees) 124 Extension Active (degrees) 0 Knee ROM Limitations Knee ROM Limitations Soft Tissue Tightness,Pain, Swelling PT-OP-M Strength Start: 06/29/21 08:37 Freq: Status: Active Protocol: Document 06/29/21 09:01 [facility] (Rec: 06/30/21 14:22 [facility] [id number]) Knee Strength Knee Manual Muscle Testing Left Flexion (S2) 3- Fair- Extension (L3) 3- Fair- Right Flexion (S2) 4+ Good+ Extension (L3) 4+ Good+ PT-OP-Q Treatments Start: 06/29/21 08:37 Freq: Status: Active Protocol: Document 07/06/21 08:18 [facility] (Rec: 07/06/21 09:00 [facility] [id number]) Cardio Equipment Recumbent Bicycle Duration (Minutes) 7 Seat Position 7 to 6 Gym Equipment Shuttle Recovery Unilateral Squats Details emphasis on neutral LE alignment Resistance 25 Shuttle Recovery Platform Stable Reps/Time 10x2 Bilateral Squats Details emphasis on neutral LE alignment, L2 TB around distal femurs Resistance 50 Shuttle Recovery Platform Stable Reps/Time 10x2 Therapeutic Exercises Supine Exercises gravity assisted knee flex Side right Equipment Used pillow case Reps/Minutes 3x10 Comments on shuttle leg press SAQ Side bilateral Reps/Minutes 10x Comments comparing sides quad set Side bilateral Reps/Minutes 10x Comments heel on 1/2 roll Sitting Exercises LAQ Side bilateral Reps/Minutes 10x Comments comparing sides Standing Exercises HC stretch Equipment Used TOM Reps/Minutes 2x30 stair lunge Side left Reps/Minutes 8x Gait Training Gait Activity parallel bars Description left UE only in prep for cane trial Level of Assistance SBA, cues Distance/Duration 3 laps parallel bars Treatment Focus increased weight shift to right, upright posture. Manual Therapy Treatment Soft Tissue Mobilization STM Body Location R Distal quad, HS Mobilization Type Myofascial Release,Sustained Pressure,Trigger Point Release Intensity/Depth Moderate Body Position Hooklying Comments pt tolerates superficial to moderate pressure scar mobilization Body Location surgical scar Mobilization Type Instrument Assisted,Myofascial Release Intensity/Depth Moderate Body Position Hooklying Comments 6 min suction tool Self-Care/Home Management Treatment Education Patient Education Home Exercise Program,Pain Management PT-OP-R Modalities Start: 06/29/21 08:37 Freq: Status: Active Protocol: Document 07/06/21 08:18 [facility] (Rec: 07/06/21 09:00 [facility] [id number]) Electric Stimulation Electric Stimulation Interferential Current (IFC) Body Location right knee Duration (Minutes) 10 Intensity 12 Target/Sweep Sweep Patient Position Hooklying Combined With Heat/Cold Cold Pack PT-OP-T Assessment and Plan Start: 06/29/21 08:37 Freq: Status: Active Protocol: Document 07/06/21 08:18 [facility] (Rec: 07/06/21 09:00 [facility] [id number]) Physical Therapy Assessment Goals Three Impairment activity intolerance Impairment Lower extremity functional scale score 29% Short Term Goal (STG) Improve LEFS to at least 42% STG Duration 07/30/21 Casting House Worker Goal (LTG) Improve LEFS to at least 60% as measure of improved function right LE LTG Duration 08/27/21 Two Impairment gait dysfunction Impairment patient uses 4WW for gait with antalgic pattern, step-to on stairs Alf Goal (LTG) Patient will be able to ambulate with least restrictive device without limp and ascend and descend standar heigh stairs with alternating pattern without difficulty. LTG Duration 08/27/21 One Impairment ROM and strength deficits right knee Impairment AROM 14-94 PROM 10-100 Short Term Goal (STG) Patient to perform full HEP program 2-3x/wk independently STG Duration 07/30/21 Casting House Worker Goal (LTG) Patient to demonstrate AROM right knee 0-120, and strength right knee at least 4/5 LTG Duration 08/27/21 Assessment Summary Assessment Patient continues to progress with right knee ROM and functional strength though was very fatigued today after infusion treatment yesterday. AROM 6-100, PROM 5-118. Physical Therapy Plan Frequency and Duration Frequency of Treatment 2x/Week Duration of Treatment 8 weeks Plan of Care Start Date 06/29/21 Plan of Care End Date 08/27/21 Therapeutic Interventions Therapeutic Interventions Aquatic Therapy,Home Exercise Program,Manual Therapy, Neuromuscular Re-education, Patient/Caregiver Education, Self-Care/Home Management,Soft Tissue Mobilization, Therapeutic Activities, Therapeutic Exercises Modalities Cold Pack/Ice Massage,Electric Stimulation Next Visit Focus/Plan Next Note Type Treatment Note Next Visit Plan Gait training with cane as able, possible prep in parallel bars as done today. Continue TKA rehab.
--- NOTE | 2021-07-11 14:33 | PT.OTN ---
Current Diagnoses Unilateral primary osteoarthritis, right knee (07/11/21) Presence of right artificial knee joint (07/11/21) Physical Therapy Treatment Note PT-OP-A Visit Information Start: 06/29/21 08:37 Freq: Status: Active Protocol: Document 07/11/21 13:50 SP (Rec: 07/11/21 14:58 SP [id number]) Out-Patient Physical Therapy Visit Information Visit Information Visit Type Treatment Note Visit Start Time 13:50 Visit Stop Time 14:33 Total Visit Minutes 43 Visit Number 5 Number of ROOF SLATER Visits 1 Evaluation Information Evaluation Date 06/29/21 PT-OP-B Current Condition Start: 06/29/21 08:37 Freq: Status: Active Protocol: Document 06/29/21 09:01 SAK (Rec: 06/29/21 09:44 SAK [id number]) Current Condition History of Current Condition Onset Date 05/02/21 Current Complaints Pain, limited ROM and strength right knee, History of Current Condition Right TKA 05/02/21, just finished Home Health PT can't remember max ROM. If doesn't get ROM where doctor wants it by 07/25/21 will do surgery to remove scar tissue. Using exercise bike 1-2x/day, does HEP 1-2x/day. Using 4WW, hasn 't tried cane yet. Was using trekking poles prior to surgery. Prior Treatments and Tests Injections in knees Treatment Goals Patient/Caregiver Goals return to more active and pain -free lifestyle Prior Functional Status Baseline Function- ADL's Modified Independent Baseline Function- Mobility Modified Independent Baseline Function- Gait used trekking poles outside, furniture surfed indoors primarily Current Functional Impairments (Reported) Functional Limitations- ADL's assist with donning and doffing socks Functional Limitations- Mobility/Gait uses 4WW for gait support PT-OP-C Subjective Start: 06/29/21 08:37 Freq: Status: Active Protocol: Document 07/11/21 13:50 SP (Rec: 07/11/21 14:58 SP [id number]) OP-PT Subjective Patient Comments Patient Comments Pt stated wants to assess gait without 4WW but has trek poles used before surgery. She states only 1 more appt scheduled and see Dr tomorrow for follow up and if need more appts will ask for approval to continue PT. PT-OP-D Balance Start: 06/29/21 08:37 Freq: Status: Active Protocol: Document 06/29/21 09:01 [facility] (Rec: 06/30/21 14:22 [facility] [id number]) OP-PT Balance Assessment Sitting Balance Static Sitting Balance Ability Normal Dynamic Sitting Balance Ability Normal Barragan Fall Scale Copyright Permission PT-OP-F Manual Assessment Start: 06/29/21 08:37 Freq: Status: Active Protocol: Document 06/29/21 09:01 [facility] (Rec: 06/30/21 14:22 [facility] [id number]) Manual Assessments Soft Tissue Assessment Soft Tissue Mobility Assessment good incisional healing evident, palpabe tightness left distal quads and scar PT-OP-G Mobility & Gait Start: 06/29/21 08:37 Freq: Status: Active Protocol: Document 06/29/21 09:01 [facility] (Rec: 06/30/21 14:22 [facility] [id number]) OP Gait Assessment Gait Gait Assistance Required: Independent Distance (Feet) 100 Assistive Devices Assistive Device 4 Wheeled Walker Gait Deviations General Gait Pattern Antalgic Factors Limiting Gait Function Factors Limiting Gait Function Limited Range of Motion Stair Climbing Evaluation Evaluation Level of Assist On Stairs Standby Assistance Devices Stair Climbing Assistive Devices Left Railing,Right Railing Technique/Endurance Stair Climbing Technique Step to Step PT-OP-H Neuro Start: 06/29/21 08:37 Freq: Status: Active Protocol: Document 06/29/21 09:01 [facility] (Rec: 06/30/21 14:22 [facility] [id number]) Sensation Evaluation Gross Sensation Gross Sensation Left LE Impaired PT-OP-J Posture/Palpation/Skin Start: 06/29/21 08:37 Freq: Status: Active Protocol: Document 06/29/21 09:01 [facility] (Rec: 06/30/21 14:22 [facility] [id number]) Posture Evaluation Position Standing Knee Posture (L) Excess Flexion Palpation Assessment Location left knee Palpation Findings Edema,Soft Tissue Tightness Palpation Details well-healed TKA incision, decreased mobility especially mid and distal scar left knee Skin Assessment Incisional Assessment Incision Appearance/Comments well-healed PT-OP-K Range of Motion Start: 06/29/21 08:37 Freq: Status: Active Protocol: Document 07/11/21 13:50 SP (Rec: 07/11/21 14:58 SP [id number]) Knee Goniometric Range of Motion Knee Right Knee ROM WFL No Flexion Active (degrees) 120 Flexion Passive (degrees) 122 Extension Active (degrees) 3 Comments relaxed 5 deg extension, 3 deg during quad set ankle over 1/ 2 roller. PT-OP-M Strength Start: 06/29/21 08:37 Freq: Status: Active Protocol: Document 06/29/21 09:01 SAK (Rec: 06/30/21 14:22 SAK [id number]) Knee Strength Knee Manual Muscle Testing Left Flexion (S2) 3- Fair- Extension (L3) 3- Fair- Right Flexion (S2) 4+ Good+ Extension (L3) 4+ Good+ PT-OP-Q Treatments Start: 06/29/21 08:37 Freq: Status: Active Protocol: Document 07/11/21 13:50 SP (Rec: 07/11/21 14:58 SP [id number]) Therapeutic Exercises Supine Exercises gravity assisted knee flex Supine Exercise Name on table today- reviewed Side right Equipment Used pillow case, strap Reps/Minutes 3x10 Comments ed self use of strap 120- 122deg SAQ Supine Exercise Name reviewed HEP Side bilateral Reps/Minutes 10x 5 sec holds Comments comparing sides quad set Supine Exercise Name reviewed HEP Side bilateral Equipment Used heel on 1/2 roll Reps/Minutes 10x 5 sec hold Comments no pain- 3 deg extension Sitting Exercises knee extension hang Sitting Exercise Name discussed not performed quad set Side right Reps/Minutes 5 x 5s hold Comments verbalized understanding. HS curl Sitting Exercise Name added to HEP Side right Resistance TB #1 Equipment Used 2 chairs Reps/Minutes x10 reps Comments ed loop under 1 chair, sit on, she sit in another- good effort LAQ Side bilateral Reps/Minutes 10x Comments comparing sides Gait Training Gait Activity parallel bars Description left UE glide hallway rail, prep for cane trial Device Used hallway rail Level of Assistance SBA, cues Surface firm Distance/Duration 20 ft x2 laps Treatment Focus increased weight shift to right, upright posture. Comments cued level shld/ pelvis, cued wt shift into R. Pt tends to SB during gait. level with trekking poles Device Used trekking poles Level of Assistance distant SBA Surface firm Distance/Duration 170 ft lap around clinic Treatment Focus 2>4 pt gait, foot clearance and sequencing for safety wean off 4WW Comments good upright posture no SB noted. ROOF SLATER suggested use of trek poles in home short distances ok, stable. 4WW for longer distances. PT-OP-R Modalities Start: 06/29/21 08:37 Freq: Status: Active Protocol: Document 07/06/21 08:18 SAK (Rec: 07/06/21 09:00 SAK [id number]) Electric Stimulation Electric Stimulation Interferential Current (IFC) Body Location right knee Duration (Minutes) 10 Intensity 12 Target/Sweep Sweep Patient Position Hooklying Combined With Heat/Cold Cold Pack PT-OP-T Assessment and Plan Start: 06/29/21 08:37 Freq: Status: Active Protocol: Document 07/11/21 13:50 SP (Rec: 07/11/21 14:58 SP [id number]) Physical Therapy Assessment Goals Three Impairment activity intolerance Impairment Lower extremity functional scale score 29% Short Term Goal (STG) Improve LEFS to at least 42% STG Duration 07/30/21 Industrial Methods Consultant Goal (LTG) Improve LEFS to at least 60% as measure of improved function right LE LTG Duration 08/27/21 Two Impairment gait dysfunction Impairment patient uses 4WW for gait with antalgic pattern, step-to on stairs Shelter Goal (LTG) Patient will be able to ambulate with least restrictive device without limp and ascend and descend standar heigh stairs with alternating pattern without difficulty. LTG Duration 08/27/21 One Impairment ROM and strength deficits right knee Impairment AROM 14-94 PROM 10-100 Short Term Goal (STG) Patient to perform full HEP program 2-3x/wk independently STG Duration 07/30/21 Industrial Methods Consultant Goal (LTG) Patient to demonstrate AROM right knee 0-120, and strength right knee at least 4/5 LTG Duration 08/27/21 Assessment Summary Assessment AROM 5-120, AAROM 3-122 deg R knee. Pt making progress in ROM. Improved postural alignment during 4 pt gait using trek poles this tx around clinic, no SB noted. Pt unable to walk further than 4 ft before requires need to UE for support during hallway gait assessment. Pt making gains, recommend continue therapy for progress ROM and strengthening toward personal goal of walking without AD. Physical Therapy Plan Frequency and Duration Frequency of Treatment 2x/Week Duration of Treatment 8 weeks Plan of Care Start Date 06/29/21 Plan of Care End Date 03/19/22 Therapeutic Interventions Therapeutic Interventions Aquatic Therapy,Home Exercise Program,Manual Therapy, Neuromuscular Re-education, Patient/Caregiver Education, Self-Care/Home Management,Soft Tissue Mobilization, Therapeutic Activities, Therapeutic Exercises Modalities Cold Pack/Ice Massage,Electric Stimulation Next Visit Focus/Plan Next Note Type Treatment Note Next Visit Plan Reassess gait with trek poles then use of SPC. Recheck HS curls TB seated, supine hip abd. POC: Gait training with cane as able, possible prep in parallel bars as done today. Continue TKA rehab.
--- NOTE | 2021-07-15 09:10 | PT.OTN ---
Current Diagnoses Unilateral primary osteoarthritis, right knee (07/15/21) Presence of right artificial knee joint (07/15/21) Physical Therapy Treatment Note PT-OP-A Visit Information Start: 06/29/21 08:37 Freq: Status: Active Protocol: Document 07/15/21 08:12 SP (Rec: 07/15/21 09:04 SP [id number]) Out-Patient Physical Therapy Visit Information Visit Information Visit Type Treatment Note Visit Start Time 08:12 Visit Stop Time 09:10 Total Visit Minutes 58 Visit Number 6 Number of CORPORATE STRATEGY ASSOCIATE Visits 2 Evaluation Information Evaluation Date 06/29/21 PT-OP-B Current Condition Start: 06/29/21 08:37 Freq: Status: Active Protocol: Document 06/29/21 09:01 SAK (Rec: 06/29/21 09:44 SAK [id number]) Current Condition History of Current Condition Onset Date 05/02/21 Current Complaints Pain, limited ROM and strength right knee, History of Current Condition Right TKA 05/02/21, just finished Home Health PT can't remember max ROM. If doesn't get ROM where doctor wants it by 07/25/21 will do surgery to remove scar tissue. Using exercise bike 1-2x/day, does HEP 1-2x/day. Using 4WW, hasn 't tried cane yet. Was using trekking poles prior to surgery. Prior Treatments and Tests Injections in knees Treatment Goals Patient/Caregiver Goals return to more active and pain -free lifestyle Prior Functional Status Baseline Function- ADL's Modified Independent Baseline Function- Mobility Modified Independent Baseline Function- Gait used trekking poles outside, furniture surfed indoors primarily Current Functional Impairments (Reported) Functional Limitations- ADL's assist with donning and doffing socks Functional Limitations- Mobility/Gait uses 4WW for gait support PT-OP-C Subjective Start: 06/29/21 08:37 Freq: Status: Active Protocol: Document 07/15/21 08:12 SP (Rec: 07/15/21 09:04 SP [id number]) OP-PT Subjective Patient Comments Patient Comments Pt stated stated has been just using 4WW for contact balance , forgot about using trek poles for gait in home suggested last tx, and trying to walk without anything in house with compression sock on RLE and knee sleeve on L knee . She states wears a knee brace at night to help pull knee straight, makes knee sore but found helpful. Does once in a while gets strike of pain at medial R knee that is reminder still not back to normal. Pt reports see her physican for follow up next Wed. PT-OP-D Balance Start: 06/29/21 08:37 Freq: Status: Active Protocol: Document 06/29/21 09:01 [facility] (Rec: 06/30/21 14:22 [facility] [id number]) OP-PT Balance Assessment Sitting Balance Static Sitting Balance Ability Normal Dynamic Sitting Balance Ability Normal Barragan Fall Scale Copyright Permission PT-OP-F Manual Assessment Start: 06/29/21 08:37 Freq: Status: Active Protocol: Document 06/29/21 09:01 [facility] (Rec: 06/30/21 14:22 [facility] [id number]) Manual Assessments Soft Tissue Assessment Soft Tissue Mobility Assessment good incisional healing evident, palpabe tightness left distal quads and scar PT-OP-G Mobility & Gait Start: 06/29/21 08:37 Freq: Status: Active Protocol: Document 06/29/21 09:01 [facility] (Rec: 06/30/21 14:22 [facility] [id number]) OP Gait Assessment Gait Gait Assistance Required: Independent Distance (Feet) 100 Assistive Devices Assistive Device 4 Wheeled Walker Gait Deviations General Gait Pattern Antalgic Factors Limiting Gait Function Factors Limiting Gait Function Limited Range of Motion Stair Climbing Evaluation Evaluation Level of Assist On Stairs Standby Assistance Devices Stair Climbing Assistive Devices Left Railing,Right Railing Technique/Endurance Stair Climbing Technique Step to Step PT-OP-H Neuro Start: 06/29/21 08:37 Freq: Status: Active Protocol: Document 06/29/21 09:01 [facility] (Rec: 06/30/21 14:22 [facility] [id number]) Sensation Evaluation Gross Sensation Gross Sensation Left LE Impaired PT-OP-J Posture/Palpation/Skin Start: 06/29/21 08:37 Freq: Status: Active Protocol: Document 06/29/21 09:01 [facility] (Rec: 06/30/21 14:22 [facility] [id number]) Posture Evaluation Position Standing Knee Posture (L) Excess Flexion Palpation Assessment Location left knee Palpation Findings Edema,Soft Tissue Tightness Palpation Details well-healed TKA incision, decreased mobility especially mid and distal scar left knee Skin Assessment Incisional Assessment Incision Appearance/Comments well-healed PT-OP-K Range of Motion Start: 06/29/21 08:37 Freq: Status: Active Protocol: Document 07/15/21 08:12 SP (Rec: 07/15/21 09:04 SP [id number]) Knee Goniometric Range of Motion Knee Right Knee ROM WFL No Flexion Active (degrees) 118 Flexion Passive (degrees) 124 Extension Active (degrees) 3 Comments relaxed 5 deg extension, 3 deg during quad set ankle over 1/ 2 roller, 124 deg AAROM PT-OP-M Strength Start: 06/29/21 08:37 Freq: Status: Active Protocol: Document 06/29/21 09:01 SAK (Rec: 06/30/21 14:22 SAK [id number]) Knee Strength Knee Manual Muscle Testing Left Flexion (S2) 3- Fair- Extension (L3) 3- Fair- Right Flexion (S2) 4+ Good+ Extension (L3) 4+ Good+ PT-OP-Q Treatments Start: 06/29/21 08:37 Freq: Status: Active Protocol: Document 07/15/21 08:12 SP (Rec: 07/15/21 09:04 SP [id number]) Cardio Equipment Recumbent Bicycle Duration (Minutes) 7 Resistance 3 Seat Position 6>5 Gym Equipment Shuttle Recovery Unilateral Squats Details emphasis on neutral LE alignment see insole Resistance 25 Shuttle Recovery Platform Stable Reps/Time 10x2 alternate LEs Bilateral Squats Details cued knees with toes see insole of shoes- good self corrections Resistance 50 Shuttle Recovery Platform Stable Reps/Time 10x2 w/ Y TB loop around knees , painfree Therapeutic Exercises Supine Exercises gravity assisted knee flex Supine Exercise Name on table today- reviewed Side right Equipment Used pillow case, strap Reps/Minutes 3x10 Comments ed self use of strap 122deg, 124 deg AAROM SAQ Supine Exercise Name reviewed HEP Side bilateral Reps/Minutes 10 x10 sec holds Comments comparing sides Standing Exercises stair lunge Side bilateral Reps/Minutes [id number] Gait Training Gait Activity stairs Description receiprocal LE patterning Device Used B HR Level of Assistance SBA Distance/Duration 4 stairs x2 sets Treatment Focus concentric/ eccentric knee flexion Comments heavy on BUE but ableto complete, painfree but states R knee weak. gait SPC Description 3pt gait Device Used SPC Level of Assistance CGA Surface firm Distance/Duration 49 ft Treatment Focus sequencing SPC 2>3pt gait, normal stride, L knee flexion with foot clear Comments cued tall posture, trunk alignment, difficult 2 pt gait , demonstrated safe 3pt gait. cued quad facilitation during heelstrike into midstance for knee stability on L, smaller stride for improved core and hip abd fac. level with trekking poles Device Used trekking poles Level of Assistance distant SBA Surface firm Distance/Duration 96 ft black table, around gym equipment (limited on time) Treatment Focus 2>4 pt gait, foot clearance and sequencing for safety wean off 4WW Comments good upright posture no SB noted. CORPORATE STRATEGY ASSOCIATE reviewed suggested use of trek poles in home short distances ok, stable. 4WW for longer distances. PT-OP-R Modalities Start: 06/29/21 08:37 Freq: Status: Active Protocol: Document 07/15/21 08:12 SP (Rec: 07/15/21 09:04 SP [id number]) Electric Stimulation Electric Stimulation Interferential Current (IFC) Body Location right knee Duration (Minutes) 10 Intensity 12 Target/Sweep Sweep Patient Position Hooklying Combined With Heat/Cold Cold Pack Comments good response, cold always helps, no pain when leaving. PT-OP-T Assessment and Plan Start: 06/29/21 08:37 Freq: Status: Active Protocol: Document 07/15/21 08:12 SP (Rec: 07/15/21 09:04 SP [id number]) Physical Therapy Assessment Goals Three Impairment activity intolerance Impairment Lower extremity functional scale score 29% Short Term Goal (STG) Improve LEFS to at least 42% STG Duration 07/30/21 Repair Service Dispatcher Goal (LTG) Improve LEFS to at least 60% as measure of improved function right LE LTG Duration 08/27/21 Two Impairment gait dysfunction Impairment patient uses 4WW for gait with antalgic pattern, step-to on stairs Intermediate Goal (LTG) Patient will be able to ambulate with least restrictive device without limp and ascend and descend standar heigh stairs with alternating pattern without difficulty. LTG Duration 08/27/21 One Impairment ROM and strength deficits right knee Impairment AROM 14-94 PROM 10-100 Short Term Goal (STG) Patient to perform full HEP program 2-3x/wk independently STG Duration 07/30/21 Intermediate Goal (LTG) Patient to demonstrate AROM right knee 0-120, and strength right knee at least 4/5 LTG Duration 08/27/21 Assessment Summary Assessment Pt nervous of use SPC at this time that R knee not stable, improves confidence short distance w/ cues quad facilitation and shorter stride. Pt good stability gait with trek poles, encouraged to use at home during short distances. Pt able to ascend/ descend 8 stairs receiprocal gait with heavy BUE WB on B HR cues for slow descend, stable . She states get nervous descending facing stairs, CORPORATE STRATEGY ASSOCIATE stated can go backward til stronger, will continue towork on in PT for strength and confidence. Pt requested stim and CP end tx for knee comfort and swelling control. Physical Therapy Plan Frequency and Duration Frequency of Treatment 2x/Week Duration of Treatment 8 weeks Plan of Care Start Date 06/29/21 Plan of Care End Date 08/27/21 Therapeutic Interventions Therapeutic Interventions Aquatic Therapy,Home Exercise Program,Manual Therapy, Neuromuscular Re-education, Patient/Caregiver Education, Self-Care/Home Management,Soft Tissue Mobilization, Therapeutic Activities, Therapeutic Exercises Modalities Cold Pack/Ice Massage,Electric Stimulation Next Visit Focus/Plan Next Note Type Treatment Note Next Visit Plan SPC. Recheck HS curls TB seated, supine hip abd. Gait w / SPC, stair mgt. POC: Gait training with cane Continue TKA rehab.
--- NOTE | 2021-07-18 13:20 | PT-OP ANOTE ---
Minda Cruz NS her 1300 appt today due to misunderstanding of time 1300 meant 4pm but educated her when called 1300 is 1pm. BULLET LUBRICATING MACHINE OPERATOR offered 1430 opening today and gladly accepted. It was discussed when called that may be a no show fee. She understood but told her will speak with TAYLOR.
--- NOTE | 2021-07-18 15:18 | PT.OTN ---
Current Diagnoses Unilateral primary osteoarthritis, right knee (07/18/21) Presence of right artificial knee joint (07/18/21) Physical Therapy Treatment Note PT-OP-A Visit Information Start: 06/29/21 08:37 Freq: Status: Active Protocol: Document 07/18/21 14:32 SP (Rec: 07/18/21 15:50 SP [id number]) Out-Patient Physical Therapy Visit Information Visit Information Visit Type Treatment Note Visit Note arrives with pt. Assists with resisted HS curl exercise seated on opposite facing chair. Visit Start Time 14:32 Visit Stop Time 15:18 Total Visit Minutes 46 Visit Number 7 Number of HEALTH AND SAFETY TECH Visits 3 Evaluation Information Evaluation Date 06/29/21 PT-OP-B Current Condition Start: 06/29/21 08:37 Freq: Status: Active Protocol: Document 06/29/21 09:01 SAK (Rec: 06/29/21 09:44 SAK [id number]) Current Condition History of Current Condition Onset Date 05/02/21 Current Complaints Pain, limited ROM and strength right knee, History of Current Condition Right TKA 05/02/21, just finished Home Health PT can't remember max ROM. If doesn't get ROM where doctor wants it by 07/25/21 will do surgery to remove scar tissue. Using exercise bike 1-2x/day, does HEP 1-2x/day. Using 4WW, hasn 't tried cane yet. Was using trekking poles prior to surgery. Prior Treatments and Tests Injections in knees Treatment Goals Patient/Caregiver Goals return to more active and pain -free lifestyle Prior Functional Status Baseline Function- ADL's Modified Independent Baseline Function- Mobility Modified Independent Baseline Function- Gait used trekking poles outside, furniture surfed indoors primarily Current Functional Impairments (Reported) Functional Limitations- ADL's assist with donning and doffing socks Functional Limitations- Mobility/Gait uses 4WW for gait support PT-OP-C Subjective Start: 06/29/21 08:37 Freq: Status: Active Protocol: Document 07/18/21 14:32 SP (Rec: 07/18/21 15:50 SP [id number]) OP-PT Subjective Patient Comments Patient Comments Pt reports misunderstood time for 1300 today, thought meant 4pm so missed 1 appt. Pt reports has been walking around house without AD contacting furniture to get better at her gait and stronger so not rely on 4WW, tried her SPC but states not safe, very unstable. Pt states has a follow up next week with orthopedic and discuss if having surgery to take out scar tissue. PT-OP-D Balance Start: 06/29/21 08:37 Freq: Status: Active Protocol: Document 06/29/21 09:01 [facility] (Rec: 06/30/21 14:22 [facility] [id number]) OP-PT Balance Assessment Sitting Balance Static Sitting Balance Ability Normal Dynamic Sitting Balance Ability Normal Barragan Fall Scale Copyright Permission PT-OP-F Manual Assessment Start: 06/29/21 08:37 Freq: Status: Active Protocol: Document 06/29/21 09:01 [facility] (Rec: 06/30/21 14:22 [facility] [id number]) Manual Assessments Soft Tissue Assessment Soft Tissue Mobility Assessment good incisional healing evident, palpabe tightness left distal quads and scar PT-OP-G Mobility & Gait Start: 06/29/21 08:37 Freq: Status: Active Protocol: Document 06/29/21 09:01 [facility] (Rec: 06/30/21 14:22 [facility] [id number]) OP Gait Assessment Gait Gait Assistance Required: Independent Distance (Feet) 100 Assistive Devices Assistive Device 4 Wheeled Walker Gait Deviations General Gait Pattern Antalgic Factors Limiting Gait Function Factors Limiting Gait Function Limited Range of Motion Stair Climbing Evaluation Evaluation Level of Assist On Stairs Standby Assistance Devices Stair Climbing Assistive Devices Left Railing,Right Railing Technique/Endurance Stair Climbing Technique Step to Step PT-OP-H Neuro Start: 06/29/21 08:37 Freq: Status: Active Protocol: Document 06/29/21 09:01 [facility] (Rec: 06/30/21 14:22 [facility] [id number]) Sensation Evaluation Gross Sensation Gross Sensation Left LE Impaired PT-OP-J Posture/Palpation/Skin Start: 06/29/21 08:37 Freq: Status: Active Protocol: Document 06/29/21 09:01 [facility] (Rec: 06/30/21 14:22 [facility] [id number]) Posture Evaluation Position Standing Knee Posture (L) Excess Flexion Palpation Assessment Location left knee Palpation Findings Edema,Soft Tissue Tightness Palpation Details well-healed TKA incision, decreased mobility especially mid and distal scar left knee Skin Assessment Incisional Assessment Incision Appearance/Comments well-healed PT-OP-K Range of Motion Start: 06/29/21 08:37 Freq: Status: Active Protocol: Document 07/15/21 08:12 SP (Rec: 07/15/21 09:04 SP [id number]) Knee Goniometric Range of Motion Knee Right Knee ROM WFL No Flexion Active (degrees) 118 Flexion Passive (degrees) 124 Extension Active (degrees) 3 Comments relaxed 5 deg extension, 3 deg during quad set ankle over 1/ 2 roller, 124 deg AAROM PT-OP-M Strength Start: 06/29/21 08:37 Freq: Status: Active Protocol: Document 06/29/21 09:01 SAK (Rec: 06/30/21 14:22 SAK [id number]) Knee Strength Knee Manual Muscle Testing Left Flexion (S2) 3- Fair- Extension (L3) 3- Fair- Right Flexion (S2) 4+ Good+ Extension (L3) 4+ Good+ PT-OP-Q Treatments Start: 06/29/21 08:37 Freq: Status: Active Protocol: Document 07/18/21 14:32 SP (Rec: 07/18/21 15:50 SP [id number]) Cardio Equipment Recumbent Bicycle Duration (Minutes) 7 Resistance 3 Seat Position 6>5 Therapeutic Exercises Sitting Exercises HS curl Sitting Exercise Name REviewed HEP Side bilateral Resistance TB #1 Equipment Used 2 chairs, anchors band under his chair, pt puts loop on her LE Reps/Minutes 2 x10 reps Comments ed loop under 1 chair, sit on, she sit in another- good effort LAQ Side bilateral Resistance AROM 2 x10, #2 leg wt x10 Equipment Used cushioned chair near lockers. Reps/Minutes 2 sec hold each rep Comments good quad facilitation Standing Exercises lateral stepping Standing Exercise Name reviewed HEP Side bilateral Resistance AROM, assessed YTB unable to perform Equipment Used 1 UE contact rail Reps/Minutes 3x 20 ft laps Comments cued tall posture, no side bend, 1 UE contact, trailing LE foot clear Gait Training Gait Activity stairs Description receiprocal LE patterning Device Used B HR Level of Assistance SBA Distance/Duration 4 stairs x2 sets Treatment Focus concentric/ eccentric knee flexion Comments heavy on BUE but able to complete receiprocal gait patterning, painfree but states R knee weak. gait SPC Description 3pt gait Device Used SPC Level of Assistance CGA Surface firm Distance/Duration 20 ft Treatment Focus sequencing SPC 2>3pt gait, normal stride, L knee flexion with foot clear Comments antalgic cued tall posture, trunk alignment, difficult 2 pt gait, demonstrated safe 3pt gait. cued quad facilitation during heelstrike into midstance for knee stability on L, smaller stride for improved core and hip abd fac. level with trekking poles Device Used trekking poles Level of Assistance distant SBA Surface firm Distance/Duration 340 ft (2 laps around clinic) Treatment Focus 4 pt> 2pt gait, foot clearance and sequencing for safety wean off 4WW Comments good upright posture 3/4 distance this tx. HEALTH AND SAFETY TECH reviewed suggested use of trek poles in home short distances, more stable and better quality gait than furniture walking. Continue 4WW for longer distances at this time. PT-OP-R Modalities Start: 06/29/21 08:37 Freq: Status: Active Protocol: Document 07/15/21 08:12 SP (Rec: 07/15/21 09:04 SP [id number]) Electric Stimulation Electric Stimulation Interferential Current (IFC) Body Location right knee Duration (Minutes) 10 Intensity 12 Target/Sweep Sweep Patient Position Hooklying Combined With Heat/Cold Cold Pack Comments good response, cold always helps, no pain when leaving. PT-OP-T Assessment and Plan Start: 06/29/21 08:37 Freq: Status: Active Protocol: Document 07/18/21 14:32 SP (Rec: 07/18/21 15:50 SP [id number]) Physical Therapy Assessment Goals Three Impairment activity intolerance Impairment Lower extremity functional scale score 29% Short Term Goal (STG) Improve LEFS to at least 42% STG Duration 07/30/21 Museum Director Goal (LTG) Improve LEFS to at least 60% as measure of improved function right LE LTG Duration 08/27/21 Two Impairment gait dysfunction Impairment patient uses 4WW for gait with antalgic pattern, step-to on stairs Chcf Goal (LTG) Patient will be able to ambulate with least restrictive device without limp and ascend and descend standar heigh stairs with alternating pattern without difficulty. 07/18/21: pt able to complete 340 ft (2laps around clinic w/ B trek poles), noted little forward posture antalgic gait last 50 ft. Pt able ascend/ descend 8 stairs heavy BUE on B HR receiprocal patterning, discomfort eccentric knee flexion on L>RLE. LTG Duration 08/27/21 One Impairment ROM and strength deficits right knee Impairment AROM 14-94 PROM 10-100 Short Term Goal (STG) Patient to perform full HEP program 2-3x/wk independently STG Duration 07/30/21 Museum Director Goal (LTG) Patient to demonstrate AROM right knee 0-120, and strength right knee at least 4/5 07/15/21: progerssing 3-118 R knee AROM, PROM 124. LTG Duration 08/27/21 Progress Towards Goals Progress Towards Goals Progressing Toward Goals Progress Comments Pt able walk 340 ft w/ B trekpoles Assessment Summary Assessment Pt improved distance gait w/ B trek poles this tx 340 ft, little forward posture and antalgic lateral wt shift last 80 ft. Pt improves understanding HEP and how set up for carryover at home. Initiated seated resisted unilateral R hip abd to increase hip abd strengthening . Pt reported did experience hip flexor recruitment but was ok. Physical Therapy Plan Frequency and Duration Frequency of Treatment 2x/Week Duration of Treatment 8 weeks Plan of Care Start Date 06/29/21 Plan of Care End Date 08/27/21 Therapeutic Interventions Therapeutic Interventions Aquatic Therapy,Home Exercise Program,Manual Therapy, Neuromuscular Re-education, Patient/Caregiver Education, Self-Care/Home Management,Soft Tissue Mobilization, Therapeutic Activities, Therapeutic Exercises Modalities Cold Pack/Ice Massage,Electric Stimulation Next Visit Focus/Plan Next Note Type Treatment Note Next Visit Plan Recheck: HEP: seated LAQ, resisted HS curls TB, hip abd and supine hip abd. Shuttle recovery. Progress Gait w/ B trek poles for endurance, add head turns, stand wt shift foam pad increase SLS WB hip abd stabilization. POC: Gait training with cane. Continue TKA rehab.
--- NOTE | 2021-07-20 16:55 | PT.OTN ---
Current Diagnoses Unilateral primary osteoarthritis, right knee (07/20/21) Presence of right artificial knee joint (07/20/21) Physical Therapy Treatment Note PT-OP-A Visit Information Start: 06/29/21 08:37 Freq: Status: Active Protocol: Document 07/20/21 09:08 [facility] (Rec: 07/20/21 09:55 [facility] [id number]) Out-Patient Physical Therapy Visit Information Visit Information Visit Type Treatment Note Visit Start Time 09:05 Visit Stop Time 10:00 Total Visit Minutes 55 Visit Number 8 Number of TOOL CLERK Visits 0 Evaluation Information Evaluation Date 06/29/21 PT-OP-B Current Condition Start: 06/29/21 08:37 Freq: Status: Active Protocol: Document 06/29/21 09:01 SAK (Rec: 06/29/21 09:44 SAK [id number]) Current Condition History of Current Condition Onset Date 05/02/21 Current Complaints Pain, limited ROM and strength right knee, History of Current Condition Right TKA 05/02/21, just finished Home Health PT can't remember max ROM. If doesn't get ROM where doctor wants it by 07/25/21 will do surgery to remove scar tissue. Using exercise bike 1-2x/day, does HEP 1-2x/day. Using 4WW, hasn 't tried cane yet. Was using trekking poles prior to surgery. Prior Treatments and Tests Injections in knees Treatment Goals Patient/Caregiver Goals return to more active and pain -free lifestyle Prior Functional Status Baseline Function- ADL's Modified Independent Baseline Function- Mobility Modified Independent Baseline Function- Gait used trekking poles outside, furniture surfed indoors primarily Current Functional Impairments (Reported) Functional Limitations- ADL's assist with donning and doffing socks Functional Limitations- Mobility/Gait uses 4WW for gait support PT-OP-C Subjective Start: 06/29/21 08:37 Freq: Status: Active Protocol: Document 07/20/21 09:08 SAK (Rec: 07/20/21 09:55 [facility] [id number]) OP-PT Subjective Patient Comments Patient Comments Reports she sees doctor next week. Put the walker in the garage, graduated to trekking poles, doesn't feel comfortable without use of cane or poles. Feels comfortable with new exercises ; able to help as shown last session Patient Reported Progress Improving PT-OP-D Balance Start: 06/29/21 08:37 Freq: Status: Active Protocol: Document 06/29/21 09:01 [facility] (Rec: 06/30/21 14:22 [facility] [id number]) OP-PT Balance Assessment Sitting Balance Static Sitting Balance Ability Normal Dynamic Sitting Balance Ability Normal Barragan Fall Scale Copyright Permission PT-OP-F Manual Assessment Start: 06/29/21 08:37 Freq: Status: Active Protocol: Document 06/29/21 09:01 [facility] (Rec: 06/30/21 14:22 [facility] [id number]) Manual Assessments Soft Tissue Assessment Soft Tissue Mobility Assessment good incisional healing evident, palpabe tightness left distal quads and scar PT-OP-G Mobility & Gait Start: 06/29/21 08:37 Freq: Status: Active Protocol: Document 06/29/21 09:01 [facility] (Rec: 06/30/21 14:22 [facility] [id number]) OP Gait Assessment Gait Gait Assistance Required: Independent Distance (Feet) 100 Assistive Devices Assistive Device 4 Wheeled Walker Gait Deviations General Gait Pattern Antalgic Factors Limiting Gait Function Factors Limiting Gait Function Limited Range of Motion Stair Climbing Evaluation Evaluation Level of Assist On Stairs Standby Assistance Devices Stair Climbing Assistive Devices Left Railing,Right Railing Technique/Endurance Stair Climbing Technique Step to Step PT-OP-H Neuro Start: 06/29/21 08:37 Freq: Status: Active Protocol: Document 06/29/21 09:01 [facility] (Rec: 06/30/21 14:22 [facility] [id number]) Sensation Evaluation Gross Sensation Gross Sensation Left LE Impaired PT-OP-J Posture/Palpation/Skin Start: 06/29/21 08:37 Freq: Status: Active Protocol: Document 06/29/21 09:01 [facility] (Rec: 06/30/21 14:22 [facility] [id number]) Posture Evaluation Position Standing Knee Posture (L) Excess Flexion Palpation Assessment Location left knee Palpation Findings Edema,Soft Tissue Tightness Palpation Details well-healed TKA incision, decreased mobility especially mid and distal scar left knee Skin Assessment Incisional Assessment Incision Appearance/Comments well-healed PT-OP-K Range of Motion Start: 06/29/21 08:37 Freq: Status: Active Protocol: Document 07/15/21 08:12 SP (Rec: 07/15/21 09:04 SP [id number]) Knee Goniometric Range of Motion Knee Right Knee ROM WFL No Flexion Active (degrees) 118 Flexion Passive (degrees) 124 Extension Active (degrees) 3 Comments relaxed 5 deg extension, 3 deg during quad set ankle over 1/ 2 roller, 124 deg AAROM PT-OP-M Strength Start: 06/29/21 08:37 Freq: Status: Active Protocol: Document 06/29/21 09:01 [facility] (Rec: 06/30/21 14:22 [facility] [id number]) Knee Strength Knee Manual Muscle Testing Left Flexion (S2) 3- Fair- Extension (L3) 3- Fair- Right Flexion (S2) 4+ Good+ Extension (L3) 4+ Good+ PT-OP-Q Treatments Start: 06/29/21 08:37 Freq: Status: Active Protocol: Document 07/20/21 09:08 [facility] (Rec: 07/20/21 09:55 [facility] [id number]) Cardio Equipment Recumbent Bicycle Duration (Minutes) 8 Resistance 3 Seat Position 5 Other cues for circular motion Gym Equipment Shuttle Recovery Unilateral Squats Details emphasis on neutral LE alignment see insole Resistance 25 Shuttle Recovery Platform Stable Reps/Time 10x2 alternate LEs Bilateral Squats Details cued knees with toes see insole of shoes- good self corrections Resistance 50 Shuttle Recovery Platform Stable Reps/Time 10x2 w/ Y TB loop around knees , painfree Therapeutic Exercises Supine Exercises gravity assisted knee flex Supine Exercise Name on table today Side right Equipment Used pillow case, strap Reps/Minutes 3x10 Comments ed self use of strap 122deg, 124 deg AAROM Sitting Exercises HS curl Sitting Exercise Name REviewed HEP Side bilateral Resistance TB #1 Equipment Used 2 chairs, anchors band under his chair, pt puts loop on her LE Reps/Minutes 2 x10 reps Comments ed loop under 1 chair, sit on, she sit in another- good effort LAQ Side bilateral Resistance AROM 2 x10, #2 leg wt x10 Equipment Used mat table Reps/Minutes 2 sec hold each rep Comments good quad facilitation Standing Exercises lateral stepping Standing Exercise Name reviewed HEP Side bilateral Resistance AROM, assessed YTB unable to perform Equipment Used 1 UE contact rail Reps/Minutes 3x 20 ft laps Comments cued tall posture, no side bend, 1 UE contact, trailing LE foot clear Gait Training Gait Activity stairs Description receiprocal LE patterning Device Used B HR Level of Assistance SBA Surface 6 stairs with 1 trekking pole , 1 rail. 4 stairs with 2 trekking poles Distance/Duration 4 stairs x2 sets Treatment Focus concentric/ eccentric knee flexion Comments patient uncomfortable with using trekking poles only; going to friend's house today and is going to check and see if there is an alternative entrance for her as states front stairs have no railing. gait SPC Description 2pt gait Device Used trekking poles Level of Assistance CGA Surface firm Distance/Duration 250 ft Treatment Focus sequencing trekking poles, correct use Comments cued tall posture, trunk alignment, demonstrated good 2 pt gait today. cued quad facilitation during heelstrike into midstance for knee stability on L, smaller stride for improved core and hip abd fac. Manual Therapy Treatment Soft Tissue Mobilization surgical scar Mobilization Type Instrument Assisted,Myofascial Release Comments use of small and medium suction tool to improve STM Self-Care/Home Management Treatment Education Other Education self-massage of surgical scar PT-OP-R Modalities Start: 06/29/21 08:37 Freq: Status: Active Protocol: Document 07/20/21 09:08 [facility] (Rec: 07/20/21 09:55 [facility] [id number]) Electric Stimulation Electric Stimulation Interferential Current (IFC) Body Location right knee Duration (Minutes) 10 Intensity 12 Target/Sweep Sweep Patient Position Hooklying Combined With Heat/Cold Cold Pack Comments good response, cold always helps, no pain when leaving. PT-OP-T Assessment and Plan Start: 06/29/21 08:37 Freq: Status: Active Protocol: Document 07/20/21 09:08 [facility] (Rec: 07/20/21 09:55 [facility] [id number]) Physical Therapy Assessment Goals Three Impairment activity intolerance Impairment Lower extremity functional scale score 29% Short Term Goal (STG) Improve LEFS to at least 42% STG Duration 07/30/21 Usp Goal (LTG) Improve LEFS to at least 60% as measure of improved function right LE LTG Duration 08/27/21 Two Impairment gait dysfunction Impairment patient uses 4WW for gait with antalgic pattern, step-to on stairs Case Management Coordinator Goal (LTG) Patient will be able to ambulate with least restrictive device without limp and ascend and descend standar heigh stairs with alternating pattern without difficulty. 07/18/21: pt able to complete 340 ft (2laps around clinic w/ B trek poles), noted little forward posture antalgic gait last 50 ft. Pt able ascend/ descend 8 stairs heavy BUE on B HR receiprocal patterning, discomfort eccentric knee flexion on L>RLE. LTG Duration 08/27/21 One Impairment ROM and strength deficits right knee Impairment AROM 14-94 PROM 10-100 Short Term Goal (STG) Patient to perform full HEP program 2-3x/wk independently STG Duration 07/30/21 Usp Goal (LTG) Patient to demonstrate AROM right knee 0-120, and strength right knee at least 4/5 07/15/21: progerssing 3-118 R knee AROM, PROM 124. LTG Duration 08/27/21 Progress Towards Goals Progress Towards Goals Progressing Toward Goals Assessment Summary Assessment Improving confidence with use of trekking poles, better posture with gait. Not safe doing stairs without railing on at least one side. Compliant to HEP. Continues to express concern about doctor doing surgery to remove scar tissue but she is progressing well at this time and I don't anticipate that will be necessary. Reviewed self-massage with use of vitamin E oil; patient demonstrated good understanding. Patient refused gait training with cane; states doesn't feel safe as other knee weak and painful and needs surgery as well, wants to stay with trekking poles right now. Physical Therapy Plan Frequency and Duration Frequency of Treatment 2x/Week Duration of Treatment 8 weeks Plan of Care Start Date 06/29/21 Plan of Care End Date 08/27/21 Therapeutic Interventions Therapeutic Interventions Aquatic Therapy,Home Exercise Program,Manual Therapy, Neuromuscular Re-education, Patient/Caregiver Education, Self-Care/Home Management,Soft Tissue Mobilization, Therapeutic Activities, Therapeutic Exercises Modalities Cold Pack/Ice Massage,Electric Stimulation Next Visit Focus/Plan Next Note Type Treatment Note Next Visit Plan Progress hip abduction, knee flex and ext strengthening for stability and safety with gait. Balance on tiltboard and foam. Progress gait on level and uneven ground with trekking poles with review of correct use of handles/straps for improved support.
--- NOTE | 2021-07-25 16:17 | PT.OTN ---
Current Diagnoses Unilateral primary osteoarthritis, right knee (07/25/21) Presence of right artificial knee joint (07/25/21) Physical Therapy Treatment Note PT-OP-A Visit Information Start: 06/29/21 08:37 Freq: Status: Active Protocol: Document 07/25/21 15:18 SAK (Rec: 07/25/21 16:16 SAK [id number]) Out-Patient Physical Therapy Visit Information Visit Information Visit Type Treatment Note Visit Start Time 15:15 Visit Stop Time 16:10 Total Visit Minutes 55 Visit Number 9 Number of COMMERCIAL DRIVER'S LICENSE DRIVER Visits 0 Evaluation Information Evaluation Date 06/29/21 PT-OP-B Current Condition Start: 06/29/21 08:37 Freq: Status: Active Protocol: Document 06/29/21 09:01 SAK (Rec: 06/29/21 09:44 SAK [id number]) Current Condition History of Current Condition Onset Date 05/02/21 Current Complaints Pain, limited ROM and strength right knee, History of Current Condition Right TKA 05/02/21, just finished Home Health PT can't remember max ROM. If doesn't get ROM where doctor wants it by 07/25/21 will do surgery to remove scar tissue. Using exercise bike 1-2x/day, does HEP 1-2x/day. Using 4WW, hasn 't tried cane yet. Was using trekking poles prior to surgery. Prior Treatments and Tests Injections in knees Treatment Goals Patient/Caregiver Goals return to more active and pain -free lifestyle Prior Functional Status Baseline Function- ADL's Modified Independent Baseline Function- Mobility Modified Independent Baseline Function- Gait used trekking poles outside, furniture surfed indoors primarily Current Functional Impairments (Reported) Functional Limitations- ADL's assist with donning and doffing socks Functional Limitations- Mobility/Gait uses 4WW for gait support PT-OP-C Subjective Start: 06/29/21 08:37 Freq: Status: Active Protocol: Document 07/25/21 15:18 SAK (Rec: 07/25/21 16:16 SAK [id number]) OP-PT Subjective Patient Comments Patient Comments Saw surgeon today and reports he was pleased with her progress. Follow-up with him in either 6 months or 1 year. No need for surgery to remove scar tissue. Patient Reported Progress Improving PT-OP-D Balance Start: 06/29/21 08:37 Freq: Status: Active Protocol: Document 06/29/21 09:01 [facility] (Rec: 06/30/21 14:22 [facility] [id number]) OP-PT Balance Assessment Sitting Balance Static Sitting Balance Ability Normal Dynamic Sitting Balance Ability Normal Barragan Fall Scale Copyright Permission PT-OP-F Manual Assessment Start: 06/29/21 08:37 Freq: Status: Active Protocol: Document 06/29/21 09:01 [facility] (Rec: 06/30/21 14:22 [facility] [id number]) Manual Assessments Soft Tissue Assessment Soft Tissue Mobility Assessment good incisional healing evident, palpabe tightness left distal quads and scar PT-OP-G Mobility & Gait Start: 06/29/21 08:37 Freq: Status: Active Protocol: Document 06/29/21 09:01 [facility] (Rec: 06/30/21 14:22 [facility] [id number]) OP Gait Assessment Gait Gait Assistance Required: Independent Distance (Feet) 100 Assistive Devices Assistive Device 4 Wheeled Walker Gait Deviations General Gait Pattern Antalgic Factors Limiting Gait Function Factors Limiting Gait Function Limited Range of Motion Stair Climbing Evaluation Evaluation Level of Assist On Stairs Standby Assistance Devices Stair Climbing Assistive Devices Left Railing,Right Railing Technique/Endurance Stair Climbing Technique Step to Step PT-OP-H Neuro Start: 06/29/21 08:37 Freq: Status: Active Protocol: Document 06/29/21 09:01 [facility] (Rec: 06/30/21 14:22 [facility] [id number]) Sensation Evaluation Gross Sensation Gross Sensation Left LE Impaired PT-OP-J Posture/Palpation/Skin Start: 06/29/21 08:37 Freq: Status: Active Protocol: Document 06/29/21 09:01 [facility] (Rec: 06/30/21 14:22 [facility] [id number]) Posture Evaluation Position Standing Knee Posture (L) Excess Flexion Palpation Assessment Location left knee Palpation Findings Edema,Soft Tissue Tightness Palpation Details well-healed TKA incision, decreased mobility especially mid and distal scar left knee Skin Assessment Incisional Assessment Incision Appearance/Comments well-healed PT-OP-K Range of Motion Start: 06/29/21 08:37 Freq: Status: Active Protocol: Document 07/15/21 08:12 SP (Rec: 07/15/21 09:04 SP [id number]) Knee Goniometric Range of Motion Knee Right Knee ROM WFL No Flexion Active (degrees) 118 Flexion Passive (degrees) 124 Extension Active (degrees) 3 Comments relaxed 5 deg extension, 3 deg during quad set ankle over 1/ 2 roller, 124 deg AAROM PT-OP-M Strength Start: 06/29/21 08:37 Freq: Status: Active Protocol: Document 06/29/21 09:01 [facility] (Rec: 06/30/21 14:22 [facility] [id number]) Knee Strength Knee Manual Muscle Testing Left Flexion (S2) 3- Fair- Extension (L3) 3- Fair- Right Flexion (S2) 4+ Good+ Extension (L3) 4+ Good+ PT-OP-Q Treatments Start: 06/29/21 08:37 Freq: Status: Active Protocol: Document 07/25/21 15:18 [facility] (Rec: 07/25/21 16:16 [facility] [id number]) Cardio Equipment Recumbent Bicycle Duration (Minutes) 8 Resistance 3 Seat Position 5 Other cues for circular motion Gym Equipment Shuttle Recovery Unilateral Squats Details emphasis on neutral LE alignment see insole Resistance 25 Shuttle Recovery Platform Stable Reps/Time 10x2 alternate LEs Therapeutic Exercises Supine Exercises gravity assisted knee flex Supine Exercise Name on table today Side right Equipment Used pillow case, strap Reps/Minutes 3x10 Comments ed self use of strap 122deg, 124 deg AAROM Sitting Exercises HS curl Sitting Exercise Name REviewed HEP Side bilateral Resistance TB #1 Equipment Used 2 chairs, anchors band under his chair, pt puts loop on her LE Reps/Minutes 2 x10 reps Comments ed loop under 1 chair, sit on, she sit in another- good effort LAQ Side bilateral Resistance AROM 2 x10, #2 leg wt x10 Equipment Used mat table Reps/Minutes 2 sec hold each rep Comments good quad facilitation Standing Exercises lateral stepping Standing Exercise Name reviewed HEP Side bilateral Resistance AROM Equipment Used 1 UE contact rail Reps/Minutes 3x 20 ft laps Comments cued tall posture, no side bend, 1 UE contact, trailing LE foot clear Gait Training Gait Activity stairs Description receiprocal LE patterning Device Used B HR Level of Assistance SBA Surface 6 stairs with 1 trekking pole , 1 rail. 4 stairs with 2 trekking poles Distance/Duration 4 stairs x2 sets Treatment Focus concentric/ eccentric knee flexion Comments patient uncomfortable with using trekking poles only; going to friend's house today and is going to check and see if there is an alternative entrance for her as states front stairs have no railing. parallel bars Device Used none, light use of parallel bars Level of Assistance SBA, cues Surface firm Distance/Duration 20 ft x2 laps Treatment Focus increased weight shift to right, upright posture. Comments cued no limp, decreased lateral sidebend Manual Therapy Treatment Soft Tissue Mobilization surgical scar Mobilization Type Instrument Assisted,Myofascial Release Comments use of small and medium suction tool to improve STM Neuro Re-Education Treatment Balance Activities tiltboard Details fwd/bck, side balance and weight shift, EO Comments min to mod UE support mounika occ foam stand Details EO, EC, head turns Equipment blue and green foam Reps/Duration 3 min Comments blue and green foam pads PT-OP-R Modalities Start: 06/29/21 08:37 Freq: Status: Active Protocol: Document 07/25/21 15:18 [facility] (Rec: 07/25/21 16:16 [facility] [id number]) Electric Stimulation Electric Stimulation Interferential Current (IFC) Body Location right knee Duration (Minutes) 10 Intensity 12 Target/Sweep Sweep Patient Position Hooklying Combined With Heat/Cold Cold Pack Comments good response, cold always helps, no pain when leaving. PT-OP-T Assessment and Plan Start: 06/29/21 08:37 Freq: Status: Active Protocol: Document 07/25/21 15:18 [facility] (Rec: 07/25/21 16:16 [facility] [id number]) Physical Therapy Assessment Goals Three Impairment activity intolerance Impairment Lower extremity functional scale score 29% Short Term Goal (STG) Improve LEFS to at least 42% STG Duration 07/30/21 Roll Examiner Goal (LTG) Improve LEFS to at least 60% as measure of improved function right LE LTG Duration 08/27/21 Two Impairment gait dysfunction Impairment patient uses 4WW for gait with antalgic pattern, step-to on stairs Long-Term Goal (LTG) Patient will be able to ambulate with least restrictive device without limp and ascend and descend standar heigh stairs with alternating pattern without difficulty. 07/18/21: pt able to complete 340 ft (2laps around clinic w/ B trek poles), noted little forward posture antalgic gait last 50 ft. Pt able ascend/ descend 8 stairs heavy BUE on B HR receiprocal patterning, discomfort eccentric knee flexion on L>RLE. LTG Duration 08/27/21 One Impairment ROM and strength deficits right knee Impairment AROM 14-94 PROM 10-100 Short Term Goal (STG) Patient to perform full HEP program 2-3x/wk independently STG Duration 07/30/21 Long-Term Goal (LTG) Patient to demonstrate AROM right knee 0-120, and strength right knee at least 4/5 07/15/21: progerssing 3-118 R knee AROM, PROM 124. LTG Duration 08/27/21 Progress Towards Goals Progress Towards Goals Progressing Toward Goals Assessment Summary Assessment Instructed to use trekking poles if not able to ambulate without limping or sidebending as she continues to exhibit today, better with mirror for visual feedback. No need for further surgery on right knee per physician. Scar continues to soften and patient doing self-massage. Physical Therapy Plan Frequency and Duration Frequency of Treatment 2x/Week Duration of Treatment 8 weeks Plan of Care Start Date 06/29/21 Plan of Care End Date 08/27/21 Therapeutic Interventions Therapeutic Interventions Aquatic Therapy,Home Exercise Program,Manual Therapy, Neuromuscular Re-education, Patient/Caregiver Education, Self-Care/Home Management,Soft Tissue Mobilization, Therapeutic Activities, Therapeutic Exercises Modalities Cold Pack/Ice Massage,Electric Stimulation Next Visit Focus/Plan Next Note Type Treatment Note Next Visit Plan Continue TKA rehab, assure independence and safety with HEP. Possible discharge after next visit.
--- NOTE | 2021-08-01 12:48 | PT.OTN ---
Current Diagnoses Unilateral primary osteoarthritis, right knee (08/01/21) Presence of right artificial knee joint (08/01/21) Physical Therapy Treatment Note PT-OP-A Visit Information Start: 06/29/21 08:37 Freq: Status: Active Protocol: Document 08/01/21 12:57 SP (Rec: 08/01/21 13:53 SP [id number]) Out-Patient Physical Therapy Visit Information Visit Information Visit Type Treatment Note Visit Start Time 12:57 Visit Stop Time 12:48 Total Visit Minutes 51 Visit Number 10 Number of LAG SCREWER Visits 1 Evaluation Information Evaluation Date 06/29/21 PT-OP-B Current Condition Start: 06/29/21 08:37 Freq: Status: Active Protocol: Document 06/29/21 09:01 SAK (Rec: 06/29/21 09:44 SAK [id number]) Current Condition History of Current Condition Onset Date 05/02/21 Current Complaints Pain, limited ROM and strength right knee, History of Current Condition Right TKA 05/02/21, just finished Home Health PT can't remember max ROM. If doesn't get ROM where doctor wants it by 07/25/21 will do surgery to remove scar tissue. Using exercise bike 1-2x/day, does HEP 1-2x/day. Using 4WW, hasn 't tried cane yet. Was using trekking poles prior to surgery. Prior Treatments and Tests Injections in knees Treatment Goals Patient/Caregiver Goals return to more active and pain -free lifestyle Prior Functional Status Baseline Function- ADL's Modified Independent Baseline Function- Mobility Modified Independent Baseline Function- Gait used trekking poles outside, furniture surfed indoors primarily Current Functional Impairments (Reported) Functional Limitations- ADL's assist with donning and doffing socks Functional Limitations- Mobility/Gait uses 4WW for gait support PT-OP-C Subjective Start: 06/29/21 08:37 Freq: Status: Active Protocol: Document 08/01/21 12:57 SP (Rec: 08/01/21 13:53 SP [id number]) OP-PT Subjective Patient Comments Patient Comments Pt states didn't wear her L knee brace today. Arrived with B walking sticks, using at home. Patient Reported Progress Improving PT-OP-D Balance Start: 06/29/21 08:37 Freq: Status: Active Protocol: Document 06/29/21 09:01 SAK (Rec: 06/30/21 14:[address] [facility] [id number]) OP-PT Balance Assessment Sitting Balance Static Sitting Balance Ability Normal Dynamic Sitting Balance Ability Normal Barragan Fall Scale Copyright Permission PT-OP-F Manual Assessment Start: 06/29/21 08:37 Freq: Status: Active Protocol: Document 06/29/21 09:[address] [facility] (Rec: 06/30/21 14:[address] [facility] [id number]) Manual Assessments Soft Tissue Assessment Soft Tissue Mobility Assessment good incisional healing evident, palpabe tightness left distal quads and scar PT-OP-G Mobility & Gait Start: 06/29/21 08:37 Freq: Status: Active Protocol: Document 06/29/21 09:[address] [facility] (Rec: 06/30/21 14:[address] [facility] [id number]) OP Gait Assessment Gait Gait Assistance Required: Independent Distance (Feet) 100 Assistive Devices Assistive Device 4 Wheeled Walker Gait Deviations General Gait Pattern Antalgic Factors Limiting Gait Function Factors Limiting Gait Function Limited Range of Motion Stair Climbing Evaluation Evaluation Level of Assist On Stairs Standby Assistance Devices Stair Climbing Assistive Devices Left Railing,Right Railing Technique/Endurance Stair Climbing Technique Step to Step PT-OP-H Neuro Start: 06/29/21 08:37 Freq: Status: Active Protocol: Document 06/29/21 09:[address] [facility] (Rec: 06/30/21 14:[address] [facility] [id number]) Sensation Evaluation Gross Sensation Gross Sensation Left LE Impaired PT-OP-J Posture/Palpation/Skin Start: 06/29/21 08:37 Freq: Status: Active Protocol: Document 06/29/21 09:[address] [facility] (Rec: 06/30/21 14:[address] [facility] [id number]) Posture Evaluation Position Standing Knee Posture (L) Excess Flexion Palpation Assessment Location left knee Palpation Findings Edema,Soft Tissue Tightness Palpation Details well-healed TKA incision, decreased mobility especially mid and distal scar left knee Skin Assessment Incisional Assessment Incision Appearance/Comments well-healed PT-OP-K Range of Motion Start: 06/29/21 08:37 Freq: Status: Active Protocol: Document 07/15/21 08:12 SP (Rec: 07/15/21 09:04 SP [id number]) Knee Goniometric Range of Motion Knee Right Knee ROM WFL No Flexion Active (degrees) 118 Flexion Passive (degrees) 124 Extension Active (degrees) 3 Comments relaxed 5 deg extension, 3 deg during quad set ankle over 1/ 2 roller, 124 deg AAROM PT-OP-M Strength Start: 06/29/21 08:37 Freq: Status: Active Protocol: Document 06/29/21 09:01 SAK (Rec: 06/30/21 14:22 SAK [id number]) Knee Strength Knee Manual Muscle Testing Left Flexion (S2) 3- Fair- Extension (L3) 3- Fair- Right Flexion (S2) 4+ Good+ Extension (L3) 4+ Good+ PT-OP-Q Treatments Start: 06/29/21 08:37 Freq: Status: Active Protocol: Document 08/01/21 12:57 SP (Rec: 08/01/21 13:53 SP [id number]) Cardio Equipment Recumbent Bicycle Duration (Minutes) 8 Resistance 4 Seat Position 5 Other full ROM, 202 miles Gym Equipment Shuttle Recovery Unilateral Squats Details emphasis on neutral LE alignment see insole Resistance 37# Shuttle Recovery Platform Stable Reps/Time x10 today, ran out of time for another set Therapeutic Exercises Sitting Exercises clamshell Sitting Exercise Name added to HEP Resistance R TB PT (L#3 [place] HEP) Reps/Minutes 2x10 Comments cued slow eccentric control HS curl Sitting Exercise Name REviewed HEP Side bilateral Resistance TB #1 Equipment Used 18 chair Reps/Minutes 2 x10 reps Comments good effort, states not ready for increase resistance Standing Exercises calf stretch w/TOM Side bilateral Equipment Used contact rail Reps/Minutes 5 s hold x5, x2 each LE Comments good form lateral stepping Standing Exercise Name reviewed HEP Side bilateral Resistance AROM Equipment Used 1 UE contact rail Reps/Minutes 3x 20 ft laps Comments cued tall posture, no side bend, 1 UE contact, trailing LE foot clear stair lunge Side bilateral Reps/Minutes x20 each Comments pt stated doesn't have 2 HR to told onto at home so doesn't do at home. Gait Training Gait Activity level with trekking poles Device Used B trekking poles Level of Assistance distant SBA Surface firm Distance/Duration 350 ft Treatment Focus 2pt gait, improved more consistant foot clearance Comments good upright posture this tx. LAG SCREWER reviewed suggested use of trek poles in home short distances discouraged furniture, better quality gait . Neuro Re-Education Treatment Balance Activities hurdles Details step to, step over step Comments 2 laps each w/ HR PT-OP-R Modalities Start: 06/29/21 08:37 Freq: Status: Active Protocol: Document 07/25/21 15:18 SAK (Rec: 07/25/21 16:16 SAK [id number]) Electric Stimulation Electric Stimulation Interferential Current (IFC) Body Location right knee Duration (Minutes) 10 Intensity 12 Target/Sweep Sweep Patient Position Hooklying Combined With Heat/Cold Cold Pack Comments good response, cold always helps, no pain when leaving. PT-OP-T Assessment and Plan Start: 06/29/21 08:37 Freq: Status: Active Protocol: Document 08/01/21 12:57 SP (Rec: 08/01/21 13:53 SP [id number]) Physical Therapy Assessment Goals Three Impairment activity intolerance Impairment Lower extremity functional scale score 29% Short Term Goal (STG) Improve LEFS to at least 42% STG Duration 07/30/21 Transit Mechanic Goal (LTG) Improve LEFS to at least 60% as measure of improved function right LE LTG Duration 08/27/21 Two Impairment gait dysfunction Impairment patient uses 4WW for gait with antalgic pattern, step-to on stairs [facility]iary Goal (LTG) Patient will be able to ambulate with least restrictive device without limp and ascend and descend standar heigh stairs with alternating pattern without difficulty. 07/18/21: pt able to complete 340 ft (2laps around clinic w/ B trek poles), noted little forward posture antalgic gait last 50 ft. Pt able ascend/ descend 8 stairs heavy BUE on B HR receiprocal patterning, discomfort eccentric knee flexion on L>RLE. LTG Duration 08/27/21 One Impairment ROM and strength deficits right knee Impairment AROM 14-94 PROM 10-100 Short Term Goal (STG) Patient to perform full HEP program 2-3x/wk independently STG Duration 07/30/21 Penitentiary Goal (LTG) Patient to demonstrate AROM right knee 0-120, and strength right knee at least 4/5 07/15/21: progerssing 3-118 R knee AROM, PROM 124. LTG Duration 08/27/21 Assessment Summary Assessment Pt worked hard, improved distance gait with foot clearance, was able to increase shuttle recovery BLE. Challenged with RLE stance leg during LLE forward/ side carlos manuel stepping, improved post cues knee/hip flexion, completed 3 laps each direction today. Physical Therapy Plan Frequency and Duration Frequency of Treatment 2x/Week Duration of Treatment 8 weeks Plan of Care Start Date 06/29/21 Plan of Care End Date 08/27/21 Therapeutic Interventions Therapeutic Interventions Aquatic Therapy,Home Exercise Program,Manual Therapy, Neuromuscular Re-education, Patient/Caregiver Education, Self-Care/Home Management,Soft Tissue Mobilization, Therapeutic Activities, Therapeutic Exercises Modalities Cold Pack/Ice Massage,Electric Stimulation Next Visit Focus/Plan Next Note Type Treatment Note Next Visit Plan Next tx in PT: continue carlos manuel stepping, balance, functional strength, shuttle recovery. POC: Continue TKA rehab, assure independence and safety with HEP.
--- NOTE | 2021-08-01 13:48 | PT.OTN ---
Current Diagnoses Unilateral primary osteoarthritis, right knee (08/01/21) Presence of right artificial knee joint (08/01/21) Physical Therapy Treatment Note PT-OP-A Visit Information Start: 06/29/21 08:37 Freq: Status: Active Protocol: Document 08/01/21 12:57 SP (Rec: 08/01/21 13:53 SP [id number]) Out-Patient Physical Therapy Visit Information Visit Information Visit Type Treatment Note Visit Start Time 12:57 Visit Stop Time 13:48 Total Visit Minutes 51 Visit Number 10 Number of FORENSIC ECONOMIST Visits 1 Evaluation Information Evaluation Date 06/29/21 PT-OP-B Current Condition Start: 06/29/21 08:37 Freq: Status: Active Protocol: Document 06/29/21 09:01 SAK (Rec: 06/29/21 09:44 SAK [id number]) Current Condition History of Current Condition Onset Date 05/02/21 Current Complaints Pain, limited ROM and strength right knee, History of Current Condition Right TKA 05/02/21, just finished Home Health PT can't remember max ROM. If doesn't get ROM where doctor wants it by 07/25/21 will do surgery to remove scar tissue. Using exercise bike 1-2x/day, does HEP 1-2x/day. Using 4WW, hasn 't tried cane yet. Was using trekking poles prior to surgery. Prior Treatments and Tests Injections in knees Treatment Goals Patient/Caregiver Goals return to more active and pain -free lifestyle Prior Functional Status Baseline Function- ADL's Modified Independent Baseline Function- Mobility Modified Independent Baseline Function- Gait used trekking poles outside, furniture surfed indoors primarily Current Functional Impairments (Reported) Functional Limitations- ADL's assist with donning and doffing socks Functional Limitations- Mobility/Gait uses 4WW for gait support PT-OP-C Subjective Start: 06/29/21 08:37 Freq: Status: Active Protocol: Document 08/01/21 12:57 SP (Rec: 08/01/21 13:53 SP [id number]) OP-PT Subjective Patient Comments Patient Comments Pt states didn't wear her L knee brace today. Arrived with B walking sticks, using at home. Patient Reported Progress Improving PT-OP-D Balance Start: 06/29/21 08:37 Freq: Status: Active Protocol: Document 06/29/21 09:01 SAK (Rec: 06/30/21 14:22 [facility] [id number]) OP-PT Balance Assessment Sitting Balance Static Sitting Balance Ability Normal Dynamic Sitting Balance Ability Normal Barragan Fall Scale Copyright Permission PT-OP-F Manual Assessment Start: 06/29/21 08:37 Freq: Status: Active Protocol: Document 06/29/21 09:01 [facility] (Rec: 06/30/21 14:22 [facility] [id number]) Manual Assessments Soft Tissue Assessment Soft Tissue Mobility Assessment good incisional healing evident, palpabe tightness left distal quads and scar PT-OP-G Mobility & Gait Start: 06/29/21 08:37 Freq: Status: Active Protocol: Document 06/29/21 09:01 [facility] (Rec: 06/30/21 14:22 [facility] [id number]) OP Gait Assessment Gait Gait Assistance Required: Independent Distance (Feet) 100 Assistive Devices Assistive Device 4 Wheeled Walker Gait Deviations General Gait Pattern Antalgic Factors Limiting Gait Function Factors Limiting Gait Function Limited Range of Motion Stair Climbing Evaluation Evaluation Level of Assist On Stairs Standby Assistance Devices Stair Climbing Assistive Devices Left Railing,Right Railing Technique/Endurance Stair Climbing Technique Step to Step PT-OP-H Neuro Start: 06/29/21 08:37 Freq: Status: Active Protocol: Document 06/29/21 09:01 [facility] (Rec: 06/30/21 14:22 [facility] [id number]) Sensation Evaluation Gross Sensation Gross Sensation Left LE Impaired PT-OP-J Posture/Palpation/Skin Start: 06/29/21 08:37 Freq: Status: Active Protocol: Document 06/29/21 09:01 [facility] (Rec: 06/30/21 14:22 [facility] [id number]) Posture Evaluation Position Standing Knee Posture (L) Excess Flexion Palpation Assessment Location left knee Palpation Findings Edema,Soft Tissue Tightness Palpation Details well-healed TKA incision, decreased mobility especially mid and distal scar left knee Skin Assessment Incisional Assessment Incision Appearance/Comments well-healed PT-OP-K Range of Motion Start: 06/29/21 08:37 Freq: Status: Active Protocol: Document 07/15/21 08:12 SP (Rec: 07/15/21 09:04 SP [id number]) Knee Goniometric Range of Motion Knee Right Knee ROM WFL No Flexion Active (degrees) 118 Flexion Passive (degrees) 124 Extension Active (degrees) 3 Comments relaxed 5 deg extension, 3 deg during quad set ankle over 1/ 2 roller, 124 deg AAROM PT-OP-M Strength Start: 06/29/21 08:37 Freq: Status: Active Protocol: Document 06/29/21 09:01 SAK (Rec: 06/30/21 14:22 SAK [id number]) Knee Strength Knee Manual Muscle Testing Left Flexion (S2) 3- Fair- Extension (L3) 3- Fair- Right Flexion (S2) 4+ Good+ Extension (L3) 4+ Good+ PT-OP-Q Treatments Start: 06/29/21 08:37 Freq: Status: Active Protocol: Document 08/01/21 12:57 SP (Rec: 08/01/21 13:53 SP [id number]) Cardio Equipment Recumbent Bicycle Duration (Minutes) 8 Resistance 4 Seat Position 5 Other full ROM, 202 miles Gym Equipment Shuttle Recovery Unilateral Squats Details emphasis on neutral LE alignment see insole Resistance 37# Shuttle Recovery Platform Stable Reps/Time x10 today, ran out of time for another set Therapeutic Exercises Sitting Exercises clamshell Sitting Exercise Name added to HEP Resistance R TB PT (L#3 [place] HEP) Reps/Minutes 2x10 Comments cued slow eccentric control HS curl Sitting Exercise Name REviewed HEP Side bilateral Resistance TB #1 Equipment Used 18 chair Reps/Minutes 2 x10 reps Comments good effort, states not ready for increase resistance Standing Exercises calf stretch w/TOM Side bilateral Equipment Used contact rail Reps/Minutes 5 s hold x5, x2 each LE Comments good form lateral stepping Standing Exercise Name reviewed HEP Side bilateral Resistance AROM Equipment Used 1 UE contact rail Reps/Minutes 3x 20 ft laps Comments cued tall posture, no side bend, 1 UE contact, trailing LE foot clear stair lunge Side bilateral Reps/Minutes x20 each Comments pt stated doesn't have 2 HR to told onto at home so doesn't do at home. Gait Training Gait Activity level with trekking poles Device Used B trekking poles Level of Assistance distant SBA Surface firm Distance/Duration 350 ft Treatment Focus 2pt gait, improved more consistant foot clearance Comments good upright posture this tx. FORENSIC ECONOMIST reviewed suggested use of trek poles in home short distances discouraged furniture, better quality gait . Neuro Re-Education Treatment Balance Activities hurdles Details step to, step over step Comments 2 laps each w/ HR PT-OP-R Modalities Start: 06/29/21 08:37 Freq: Status: Active Protocol: Document 07/25/21 15:18 SAK (Rec: 07/25/21 16:16 SAK [id number]) Electric Stimulation Electric Stimulation Interferential Current (IFC) Body Location right knee Duration (Minutes) 10 Intensity 12 Target/Sweep Sweep Patient Position Hooklying Combined With Heat/Cold Cold Pack Comments good response, cold always helps, no pain when leaving. PT-OP-T Assessment and Plan Start: 06/29/21 08:37 Freq: Status: Active Protocol: Document 08/01/21 12:57 SP (Rec: 08/01/21 13:53 SP [id number]) Physical Therapy Assessment Goals Three Impairment activity intolerance Impairment Lower extremity functional scale score 29% Short Term Goal (STG) Improve LEFS to at least 42% STG Duration 07/30/21 [employer] Making Machine Operator Goal (LTG) Improve LEFS to at least 60% as measure of improved function right LE LTG Duration 08/27/21 Two Impairment gait dysfunction Impairment patient uses 4WW for gait with antalgic pattern, step-to on stairs Senior Care Goal (LTG) Patient will be able to ambulate with least restrictive device without limp and ascend and descend standar heigh stairs with alternating pattern without difficulty. 07/18/21: pt able to complete 340 ft (2laps around clinic w/ B trek poles), noted little forward posture antalgic gait last 50 ft. Pt able ascend/ descend 8 stairs heavy BUE on B HR receiprocal patterning, discomfort eccentric knee flexion on L>RLE. LTG Duration 08/27/21 One Impairment ROM and strength deficits right knee Impairment AROM 14-94 PROM 10-100 Short Term Goal (STG) Patient to perform full HEP program 2-3x/wk independently STG Duration 07/30/21 Senior Care Goal (LTG) Patient to demonstrate AROM right knee 0-120, and strength right knee at least 4/5 07/15/21: progerssing 3-118 R knee AROM, PROM 124. LTG Duration 08/27/21 Assessment Summary Assessment Pt worked hard, improved distance gait with foot clearance, was able to increase shuttle recovery BLE. Challenged with RLE stance leg during LLE forward/ side carlos manuel stepping, improved post cues knee/hip flexion, completed 3 laps each direction today. Physical Therapy Plan Frequency and Duration Frequency of Treatment 2x/Week Duration of Treatment 8 weeks Plan of Care Start Date 06/29/21 Plan of Care End Date 08/27/21 Therapeutic Interventions Therapeutic Interventions Aquatic Therapy,Home Exercise Program,Manual Therapy, Neuromuscular Re-education, Patient/Caregiver Education, Self-Care/Home Management,Soft Tissue Mobilization, Therapeutic Activities, Therapeutic Exercises Modalities Cold Pack/Ice Massage,Electric Stimulation Next Visit Focus/Plan Next Note Type Treatment Note Next Visit Plan Next tx in PT: continue carlos manuel stepping, balance, functional strength, shuttle recovery. POC: Continue TKA rehab, assure independence and safety with HEP.
--- NOTE | 2021-08-05 14:40 | PT.OTN ---
Current Diagnoses Unilateral primary osteoarthritis, right knee (08/05/21) Presence of right artificial knee joint (08/05/21) Physical Therapy Treatment Note PT-OP-A Visit Information Start: 06/29/21 08:37 Freq: Status: Active Protocol: Document 08/05/21 13:56 SP (Rec: 08/05/21 14:49 SP [id number]) Out-Patient Physical Therapy Visit Information Visit Information Visit Type Treatment Note Visit Start Time 13:55 Visit Stop Time 14:40 Total Visit Minutes 45 Visit Number 11 Number of HORSE BUYER Visits 2 Evaluation Information Evaluation Date 06/29/21 PT-OP-B Current Condition Start: 06/29/21 08:37 Freq: Status: Active Protocol: Document 06/29/21 09:01 SAK (Rec: 06/29/21 09:44 SAK [id number]) Current Condition History of Current Condition Onset Date 05/02/21 Current Complaints Pain, limited ROM and strength right knee, History of Current Condition Right TKA 05/02/21, just finished Home Health PT can't remember max ROM. If doesn't get ROM where doctor wants it by 07/25/21 will do surgery to remove scar tissue. Using exercise bike 1-2x/day, does HEP 1-2x/day. Using 4WW, hasn 't tried cane yet. Was using trekking poles prior to surgery. Prior Treatments and Tests Injections in knees Treatment Goals Patient/Caregiver Goals return to more active and pain -free lifestyle Prior Functional Status Baseline Function- ADL's Modified Independent Baseline Function- Mobility Modified Independent Baseline Function- Gait used trekking poles outside, furniture surfed indoors primarily Current Functional Impairments (Reported) Functional Limitations- ADL's assist with donning and doffing socks Functional Limitations- Mobility/Gait uses 4WW for gait support PT-OP-C Subjective Start: 06/29/21 08:37 Freq: Status: Active Protocol: Document 08/05/21 13:56 SP (Rec: 08/05/21 14:49 SP [id number]) OP-PT Subjective Patient Comments Patient Comments Pt stated found B SPCs in garage and arrived using. PT-OP-D Balance Start: 06/29/21 08:37 Freq: Status: Active Protocol: Document 06/29/21 09:01 SAK (Rec: 06/30/21 14:22 SAK [id number]) OP-PT Balance Assessment Sitting Balance Static Sitting Balance Ability Normal Dynamic Sitting Balance Ability Normal Barragan Fall Scale Copyright Permission PT-OP-F Manual Assessment Start: 06/29/21 08:37 Freq: Status: Active Protocol: Document 06/29/21 09:01 [facility] (Rec: 06/30/21 14:22 [facility] [id number]) Manual Assessments Soft Tissue Assessment Soft Tissue Mobility Assessment good incisional healing evident, palpabe tightness left distal quads and scar PT-OP-G Mobility & Gait Start: 06/29/21 08:37 Freq: Status: Active Protocol: Document 06/29/21 09:01 [facility] (Rec: 06/30/21 14:22 [facility] [id number]) OP Gait Assessment Gait Gait Assistance Required: Independent Distance (Feet) 100 Assistive Devices Assistive Device 4 Wheeled Walker Gait Deviations General Gait Pattern Antalgic Factors Limiting Gait Function Factors Limiting Gait Function Limited Range of Motion Stair Climbing Evaluation Evaluation Level of Assist On Stairs Standby Assistance Devices Stair Climbing Assistive Devices Left Railing,Right Railing Technique/Endurance Stair Climbing Technique Step to Step PT-OP-H Neuro Start: 06/29/21 08:37 Freq: Status: Active Protocol: Document 06/29/21 09:01 [facility] (Rec: 06/30/21 14:22 [facility] [id number]) Sensation Evaluation Gross Sensation Gross Sensation Left LE Impaired PT-OP-J Posture/Palpation/Skin Start: 06/29/21 08:37 Freq: Status: Active Protocol: Document 06/29/21 09:01 [facility] (Rec: 06/30/21 14:22 [facility] [id number]) Posture Evaluation Position Standing Knee Posture (L) Excess Flexion Palpation Assessment Location left knee Palpation Findings Edema,Soft Tissue Tightness Palpation Details well-healed TKA incision, decreased mobility especially mid and distal scar left knee Skin Assessment Incisional Assessment Incision Appearance/Comments well-healed PT-OP-K Range of Motion Start: 06/29/21 08:37 Freq: Status: Active Protocol: Document 07/15/21 08:12 SP (Rec: 07/15/21 09:04 SP [id number]) Knee Goniometric Range of Motion Knee Right Knee ROM WFL No Flexion Active (degrees) 118 Flexion Passive (degrees) 124 Extension Active (degrees) 3 Comments relaxed 5 deg extension, 3 deg during quad set ankle over 1/ 2 roller, 124 deg AAROM PT-OP-M Strength Start: 06/29/21 08:37 Freq: Status: Active Protocol: Document 06/29/21 09:01 SAK (Rec: 06/30/21 14:22 SAK [id number]) Knee Strength Knee Manual Muscle Testing Left Flexion (S2) 3- Fair- Extension (L3) 3- Fair- Right Flexion (S2) 4+ Good+ Extension (L3) 4+ Good+ PT-OP-Q Treatments Start: 06/29/21 08:37 Freq: Status: Active Protocol: Document 08/05/21 13:56 SP (Rec: 08/05/21 14:49 SP [id number]) Cardio Equipment Recumbent Bicycle Duration (Minutes) 8 Resistance 7>>4 last min (good feedback muscle effort) Seat Position 6>5>4 last min Other full ROM, 1.87 miles, 44 RPM Therapeutic Exercises Sitting Exercises HS curl Sitting Exercise Name REviewed HEP- don/ doff band on chair leg w/ - scanned pic Side bilateral Resistance TB #2 Equipment Used 18 chair Reps/Minutes 20 reps Comments good effort with increased resistance Standing Exercises calf stretch w/TOM Side bilateral Equipment Used contact rail Reps/Minutes 30 hold Comments good form and stretch Gait Training Gait Activity gait SPC Description 2pt gait Device Used B SPCs Level of Assistance S Surface firm Distance/Duration 100 ft x2 Treatment Focus BLE equal stepping, quad fac, foot clearance and LE alignment Comments cued tall trunk alignment, 2 pt gait cued quad facilitation during heelstrike into midstance for knee stability on L, smaller stride for improved core and hip abd fac. Neuro Re-Education Treatment Balance Activities hurdles Details step to, step over step Equipment 6 hurdles Comments -step to x2 laps and step over step 1 lap before rest 2 laps -step over step: w/ SPC 1 UE x2 laps PT-OP-R Modalities Start: 06/29/21 08:37 Freq: Status: Active Protocol: Document 07/25/21 15:18 SAK (Rec: 07/25/21 16:16 [facility] [id number]) Electric Stimulation Electric Stimulation Interferential Current (IFC) Body Location right knee Duration (Minutes) 10 Intensity 12 Target/Sweep Sweep Patient Position Hooklying Combined With Heat/Cold Cold Pack Comments good response, cold always helps, no pain when leaving. PT-OP-T Assessment and Plan Start: 06/29/21 08:37 Freq: Status: Active Protocol: Document 08/05/21 13:56 SP (Rec: 08/05/21 14:49 SP [id number]) Physical Therapy Assessment Goals Three Impairment activity intolerance Impairment Lower extremity functional scale score 29% Short Term Goal (STG) Improve LEFS to at least 42% STG Duration 07/30/21 Senior Care Goal (LTG) Improve LEFS to at least 60% as measure of improved function right LE LTG Duration 08/27/21 Two Impairment gait dysfunction Impairment patient uses 4WW for gait with antalgic pattern, step-to on stairs Medicare Biller Goal (LTG) Patient will be able to ambulate with least restrictive device without limp and ascend and descend standar heigh stairs with alternating pattern without difficulty. 07/18/21: pt able to complete 340 ft (2laps around clinic w/ B trek poles), noted little forward posture antalgic gait last 50 ft. Pt able ascend/ descend 8 stairs heavy BUE on B HR receiprocal patterning, discomfort eccentric knee flexion on L>RLE. LTG Duration 08/27/21 One Impairment ROM and strength deficits right knee Impairment AROM 14-94 PROM 10-100 Short Term Goal (STG) Patient to perform full HEP program 2-3x/wk independently STG Duration 07/30/21 Medicare Biller Goal (LTG) Patient to demonstrate AROM right knee 0-120, and strength right knee at least 4/5 07/15/21: progerssing 3-118 R knee AROM, PROM 124. LTG Duration 08/27/21 Assessment Summary Assessment Extra time spent performance of resisted HS curls with in opposite chair, kevan to do, provided pic taken for home carryover. Pt worked hard carlos manuel stepping 1 UE on rail progressed use SPC, challenged SLS time RLE to allow LLE clearance, weak hip abd on R vs LLE knee/hip flexion clearance. Physical Therapy Plan Frequency and Duration Frequency of Treatment 2x/Week Duration of Treatment 8 weeks Plan of Care Start Date 06/29/21 Plan of Care End Date 08/27/21 Therapeutic Interventions Therapeutic Interventions Aquatic Therapy,Home Exercise Program,Manual Therapy, Neuromuscular Re-education, Patient/Caregiver Education, Self-Care/Home Management,Soft Tissue Mobilization, Therapeutic Activities, Therapeutic Exercises Modalities Cold Pack/Ice Massage,Electric Stimulation Next Visit Focus/Plan Next Note Type Treatment Note Next Visit Plan Next tx in PT: continue carlos manuel stepping and balance for functional strength, shuttle recovery. POC: Continue TKA rehab, assure independence and safety with HEP.
--- NOTE | 2021-08-11 15:11 | PT.OTN ---
Current Diagnoses Unilateral primary osteoarthritis, right knee (08/11/21) Presence of right artificial knee joint (08/11/21) Physical Therapy Treatment Note PT-OP-A Visit Information Start: 06/29/21 08:37 Freq: Status: Active Protocol: Document 08/11/21 14:32 SAK (Rec: 08/11/21 15:11 [facility] [id number]) Out-Patient Physical Therapy Visit Information Visit Information Visit Type Treatment Note Visit Start Time 14:30 Visit Stop Time 15:25 Total Visit Minutes 45 Visit Number 12 Number of PARCEL CONTRACTOR Visits 0 Evaluation Information Evaluation Date 06/29/21 PT-OP-B Current Condition Start: 06/29/21 08:37 Freq: Status: Active Protocol: Document 06/29/21 09:01 SAK (Rec: 06/29/21 09:44 [facility] [id number]) Current Condition History of Current Condition Onset Date 05/02/21 Current Complaints Pain, limited ROM and strength right knee, History of Current Condition Right TKA 05/02/21, just finished Home Health PT can't remember max ROM. If doesn't get ROM where doctor wants it by 07/25/21 will do surgery to remove scar tissue. Using exercise bike 1-2x/day, does HEP 1-2x/day. Using 4WW, hasn 't tried cane yet. Was using trekking poles prior to surgery. Prior Treatments and Tests Injections in knees Treatment Goals Patient/Caregiver Goals return to more active and pain -free lifestyle Prior Functional Status Baseline Function- ADL's Modified Independent Baseline Function- Mobility Modified Independent Baseline Function- Gait used trekking poles outside, furniture surfed indoors primarily Current Functional Impairments (Reported) Functional Limitations- ADL's assist with donning and doffing socks Functional Limitations- Mobility/Gait uses 4WW for gait support PT-OP-C Subjective Start: 06/29/21 08:37 Freq: Status: Active Protocol: Document 08/11/21 14:32 SAK (Rec: 08/11/21 15:11 [facility] [id number]) OP-PT Subjective Patient Comments Patient Comments Has started trying to use only 1 cane, confidence is a factor. Patient Reported Progress Improving PT-OP-D Balance Start: 06/29/21 08:37 Freq: Status: Active Protocol: Document 06/29/21 09:01 SAK (Rec: 06/30/21 14:22 [facility] [id number]) OP-PT Balance Assessment Sitting Balance Static Sitting Balance Ability Normal Dynamic Sitting Balance Ability Normal Barragan Fall Scale Copyright Permission PT-OP-F Manual Assessment Start: 06/29/21 08:37 Freq: Status: Active Protocol: Document 06/29/21 09:01 [facility] (Rec: 06/30/21 14:22 [facility] [id number]) Manual Assessments Soft Tissue Assessment Soft Tissue Mobility Assessment good incisional healing evident, palpabe tightness left distal quads and scar PT-OP-G Mobility & Gait Start: 06/29/21 08:37 Freq: Status: Active Protocol: Document 06/29/21 09:01 [facility] (Rec: 06/30/21 14:22 [facility] [id number]) OP Gait Assessment Gait Gait Assistance Required: Independent Distance (Feet) 100 Assistive Devices Assistive Device 4 Wheeled Walker Gait Deviations General Gait Pattern Antalgic Factors Limiting Gait Function Factors Limiting Gait Function Limited Range of Motion Stair Climbing Evaluation Evaluation Level of Assist On Stairs Standby Assistance Devices Stair Climbing Assistive Devices Left Railing,Right Railing Technique/Endurance Stair Climbing Technique Step to Step PT-OP-H Neuro Start: 06/29/21 08:37 Freq: Status: Active Protocol: Document 06/29/21 09:01 [facility] (Rec: 06/30/21 14:22 [facility] [id number]) Sensation Evaluation Gross Sensation Gross Sensation Left LE Impaired PT-OP-J Posture/Palpation/Skin Start: 06/29/21 08:37 Freq: Status: Active Protocol: Document 06/29/21 09:01 [facility] (Rec: 06/30/21 14:22 [facility] [id number]) Posture Evaluation Position Standing Knee Posture (L) Excess Flexion Palpation Assessment Location left knee Palpation Findings Edema,Soft Tissue Tightness Palpation Details well-healed TKA incision, decreased mobility especially mid and distal scar left knee Skin Assessment Incisional Assessment Incision Appearance/Comments well-healed PT-OP-K Range of Motion Start: 06/29/21 08:37 Freq: Status: Active Protocol: Document 07/15/21 08:12 SP (Rec: 07/15/21 09:04 SP [id number]) Knee Goniometric Range of Motion Knee Right Knee ROM WFL No Flexion Active (degrees) 118 Flexion Passive (degrees) 124 Extension Active (degrees) 3 Comments relaxed 5 deg extension, 3 deg during quad set ankle over 1/ 2 roller, 124 deg AAROM PT-OP-M Strength Start: 06/29/21 08:37 Freq: Status: Active Protocol: Document 06/29/21 09:01 [facility] (Rec: 06/30/21 14:22 [facility] [id number]) Knee Strength Knee Manual Muscle Testing Left Flexion (S2) 3- Fair- Extension (L3) 3- Fair- Right Flexion (S2) 4+ Good+ Extension (L3) 4+ Good+ PT-OP-Q Treatments Start: 06/29/21 08:37 Freq: Status: Active Protocol: Document 08/11/21 14:32 [facility] (Rec: 08/11/21 15:11 [facility] [id number]) Cardio Equipment Recumbent Bicycle Duration (Minutes) 10 Resistance 7>>4 last min (good feedback muscle effort) Seat Position 6>5>4 last min Other full ROM, 1.87 miles, 44 RPM Gym Equipment Shuttle Recovery Unilateral Squats Details emphasis on neutral LE alignment see insole Resistance 37# Shuttle Recovery Platform Stable Reps/Time 10x2 Bilateral Squats Details cued knees with toes see insole of shoes- good self corrections Resistance 62 Shuttle Recovery Platform Stable Reps/Time 10x2 w/ Y TB loop around knees , painfree Shuttle Balance chains red Details bal and weight shift fwd and back Reps/Duration 5 min Therapeutic Exercises Standing Exercises calf stretch w/TOM Side bilateral Equipment Used contact rail Reps/Minutes 30 hold Comments good form and stretch Gait Training Gait Activity gait SPC Description 2pt gait Device Used single SPC Level of Assistance S Surface firm Distance/Duration 100 ft x2 Treatment Focus BLE equal stepping, quad fac, foot clearance and LE alignment Comments cued tall trunk alignment, 2 pt gait cued quad facilitation during heelstrike into midstance for knee stability on L, smaller stride for improved core and hip abd fac. Neuro Re-Education Treatment Balance Activities hurdles Details step to, step over step, sideways Equipment 6 hurdles Comments -step to x2 laps and step over step 1 lap before rest 2 laps -step over step:single hand support parallel bars, sideways 2 UE support PT-OP-R Modalities Start: 06/29/21 08:37 Freq: Status: Active Protocol: Document 07/25/21 15:18 [facility] (Rec: 07/25/21 16:16 [facility] [id number]) Electric Stimulation Electric Stimulation Interferential Current (IFC) Body Location right knee Duration (Minutes) 10 Intensity 12 Target/Sweep Sweep Patient Position Hooklying Combined With Heat/Cold Cold Pack Comments good response, cold always helps, no pain when leaving. PT-OP-T Assessment and Plan Start: 06/29/21 08:37 Freq: Status: Active Protocol: Document 08/11/21 14:32 [facility] (Rec: 08/11/21 15:11 [facility] [id number]) Physical Therapy Assessment Goals Three Impairment activity intolerance Impairment Lower extremity functional scale score 29% Short Term Goal (STG) Improve LEFS to at least 42% STG Duration 07/30/21 Systems Support Officer Goal (LTG) Improve LEFS to at least 60% as measure of improved function right LE LTG Duration 08/27/21 Two Impairment gait dysfunction Impairment patient uses 4WW for gait with antalgic pattern, step-to on stairs Systems Support Officer Goal (LTG) Patient will be able to ambulate with least restrictive device without limp and ascend and descend standar heigh stairs with alternating pattern without difficulty. 07/18/21: pt able to complete 340 ft (2laps around clinic w/ B trek poles), noted little forward posture antalgic gait last 50 ft. Pt able ascend/ descend 8 stairs heavy BUE on B HR receiprocal patterning, discomfort eccentric knee flexion on L>RLE. LTG Duration 08/27/21 One Impairment ROM and strength deficits right knee Impairment AROM 14-94 PROM 10-100 Short Term Goal (STG) Patient to perform full HEP program 2-3x/wk independently STG Duration 07/30/21 Custodial Goal (LTG) Patient to demonstrate AROM right knee 0-120, and strength right knee at least 4/5 07/15/21: progerssing 3-118 R knee AROM, PROM 124. LTG Duration 08/27/21 Assessment Summary Assessment Progressing with gait, balance , and functional strengthening . Progressing to use of 1 cane, no LOB or limping noted. Physical Therapy Plan Frequency and Duration Frequency of Treatment 2x/Week Duration of Treatment 8 weeks Plan of Care Start Date 06/29/21 Plan of Care End Date 08/27/21 Therapeutic Interventions Therapeutic Interventions Aquatic Therapy,Home Exercise Program,Manual Therapy, Neuromuscular Re-education, Patient/Caregiver Education, Self-Care/Home Management,Soft Tissue Mobilization, Therapeutic Activities, Therapeutic Exercises Modalities Cold Pack/Ice Massage,Electric Stimulation Next Visit Focus/Plan Next Note Type Treatment Note Next Visit Plan Next tx in PT: Continue progression of balance, gait, carlos manuel training, functional strengthening. POC: Continue TKA rehab, assure independence and safety with HEP.
--- NOTE | 2021-08-15 09:45 | PT.OTN ---
Current Diagnoses Unilateral primary osteoarthritis, right knee (08/15/21) Presence of right artificial knee joint (08/15/21) Physical Therapy Treatment Note PT-OP-A Visit Information Start: 06/29/21 08:37 Freq: Status: Active Protocol: Document 08/15/21 09:02 SP (Rec: 08/15/21 09:49 SP [id number]) Out-Patient Physical Therapy Visit Information Visit Information Visit Type Treatment Note Visit Note Update POC/PN on 08/25 appt. POC expires on 08/27. Visit Start Time 09:02 Visit Stop Time 09:45 Total Visit Minutes 43 Visit Number 13 Number of EPIC CADENCE ANALYST Visits 1 Evaluation Information Evaluation Date 06/29/21 PT-OP-B Current Condition Start: 06/29/21 08:37 Freq: Status: Active Protocol: Document 06/29/21 09:01 SAK (Rec: 06/29/21 09:44 SAK [id number]) Current Condition History of Current Condition Onset Date 05/02/21 Current Complaints Pain, limited ROM and strength right knee, History of Current Condition Right TKA 05/02/21, just finished Home Health PT can't remember max ROM. If doesn't get ROM where doctor wants it by 07/25/21 will do surgery to remove scar tissue. Using exercise bike 1-2x/day, does HEP 1-2x/day. Using 4WW, hasn 't tried cane yet. Was using trekking poles prior to surgery. Prior Treatments and Tests Injections in knees Treatment Goals Patient/Caregiver Goals return to more active and pain -free lifestyle Prior Functional Status Baseline Function- ADL's Modified Independent Baseline Function- Mobility Modified Independent Baseline Function- Gait used trekking poles outside, furniture surfed indoors primarily Current Functional Impairments (Reported) Functional Limitations- ADL's assist with donning and doffing socks Functional Limitations- Mobility/Gait uses 4WW for gait support PT-OP-C Subjective Start: 06/29/21 08:37 Freq: Status: Active Protocol: Document 08/15/21 09:02 SP (Rec: 08/15/21 09:49 SP [id number]) OP-PT Subjective Patient Comments Patient Comments Pt reported did 1 loop around [place] on Sunday. She used the 4WW but only used for contact balance. Pt states wants to walk to bathroom during the night but nervous doesn't have good balance and a fall risk so uses BSC without the canes though for the transfer, wants feedback on what can do to safely go to the bathroom and get away from using the BSC. Patient Reported Progress Improving PT-OP-D Balance Start: 06/29/21 08:37 Freq: Status: Active Protocol: Document 06/29/21 09:01 [facility] (Rec: 06/30/21 14:22 [facility] [id number]) OP-PT Balance Assessment Sitting Balance Static Sitting Balance Ability Normal Dynamic Sitting Balance Ability Normal Barragan Fall Scale Copyright Permission PT-OP-F Manual Assessment Start: 06/29/21 08:37 Freq: Status: Active Protocol: Document 06/29/21 09:01 [facility] (Rec: 06/30/21 14:22 [facility] [id number]) Manual Assessments Soft Tissue Assessment Soft Tissue Mobility Assessment good incisional healing evident, palpabe tightness left distal quads and scar PT-OP-G Mobility & Gait Start: 06/29/21 08:37 Freq: Status: Active Protocol: Document 06/29/21 09:01 [facility] (Rec: 06/30/21 14:22 [facility] [id number]) OP Gait Assessment Gait Gait Assistance Required: Independent Distance (Feet) 100 Assistive Devices Assistive Device 4 Wheeled Walker Gait Deviations General Gait Pattern Antalgic Factors Limiting Gait Function Factors Limiting Gait Function Limited Range of Motion Stair Climbing Evaluation Evaluation Level of Assist On Stairs Standby Assistance Devices Stair Climbing Assistive Devices Left Railing,Right Railing Technique/Endurance Stair Climbing Technique Step to Step PT-OP-H Neuro Start: 06/29/21 08:37 Freq: Status: Active Protocol: Document 06/29/21 09:01 [facility] (Rec: 06/30/21 14:22 [facility] [id number]) Sensation Evaluation Gross Sensation Gross Sensation Left LE Impaired PT-OP-J Posture/Palpation/Skin Start: 06/29/21 08:37 Freq: Status: Active Protocol: Document 06/29/21 09:01 [facility] (Rec: 06/30/21 14:22 [facility] [id number]) Posture Evaluation Position Standing Knee Posture (L) Excess Flexion Palpation Assessment Location left knee Palpation Findings Edema,Soft Tissue Tightness Palpation Details well-healed TKA incision, decreased mobility especially mid and distal scar left knee Skin Assessment Incisional Assessment Incision Appearance/Comments well-healed PT-OP-K Range of Motion Start: 06/29/21 08:37 Freq: Status: Active Protocol: Document 07/15/21 08:12 SP (Rec: 07/15/21 09:04 SP [id number]) Knee Goniometric Range of Motion Knee Right Knee ROM WFL No Flexion Active (degrees) 118 Flexion Passive (degrees) 124 Extension Active (degrees) 3 Comments relaxed 5 deg extension, 3 deg during quad set ankle over 1/ 2 roller, 124 deg AAROM PT-OP-M Strength Start: 06/29/21 08:37 Freq: Status: Active Protocol: Document 06/29/21 09:01 SAK (Rec: 06/30/21 14:22 SAK [id number]) Knee Strength Knee Manual Muscle Testing Left Flexion (S2) 3- Fair- Extension (L3) 3- Fair- Right Flexion (S2) 4+ Good+ Extension (L3) 4+ Good+ PT-OP-Q Treatments Start: 06/29/21 08:37 Freq: Status: Active Protocol: Document 08/15/21 09:02 SP (Rec: 08/15/21 09:49 SP [id number]) Cardio Equipment Recumbent Bicycle Duration (Minutes) 10 Resistance 4 Seat Position see 6>4 Other 43 RPMs, 2.25miles Gym Equipment Shuttle Balance chains red Details bal and weight shift fwd and back Reps/Duration 5 min Comments blue chains- head turns/EC up to 10 sec. Therapeutic Exercises Supine Exercises gravity assisted knee flex Supine Exercise Name on table today Side right Equipment Used strap Reps/Minutes 5 reps x10s hold Comments ed self use of strap 120deg quad set Supine Exercise Name reviewed HEP Side right Equipment Used heel on 1/2 roll Reps/Minutes 10x 5 sec hold Comments Extra time spent for isolated quad fac: 1 deg extension Sitting Exercises STS Sitting Exercise Name pre gait during nigh for assessment stability/ quad fac Equipment Used SPCs for safety Comments good form, stable LAQ Sitting Exercise Name pre gait during night Side bilateral Resistance AROM Equipment Used mat table Reps/Minutes 2 sec hold each rep x2-3 reps Comments good quad facilitation Standing Exercises stair lunge Standing Exercise Name knee ROM and calf stretch Side bilateral Reps/Minutes x20 each Comments pt stated doesn't have 2 HR to told onto at home so doesn't do at home. Gait Training Gait Activity gait SPC Description 2pt gait Device Used single SPC Level of Assistance S Surface firm Distance/Duration B SPC 170 ft, 120 ft 1 SPC Treatment Focus BLE equal stepping, quad fac, foot clearance and LE alignment Comments cued tall trunk alignment, 2 pt gait cued quad facilitation during heelstrike into midstance for knee stability on L, smaller stride for improved core and hip abd fac. PT-OP-R Modalities Start: 06/29/21 08:37 Freq: Status: Active Protocol: Document 07/25/21 15:18 SAK (Rec: 07/25/21 16:16 [facility] [id number]) Electric Stimulation Electric Stimulation Interferential Current (IFC) Body Location right knee Duration (Minutes) 10 Intensity 12 Target/Sweep Sweep Patient Position Hooklying Combined With Heat/Cold Cold Pack Comments good response, cold always helps, no pain when leaving. PT-OP-T Assessment and Plan Start: 06/29/21 08:37 Freq: Status: Active Protocol: Document 08/15/21 09:02 SP (Rec: 08/15/21 09:49 SP [id number]) Physical Therapy Assessment Goals Three Impairment activity intolerance Impairment Lower extremity functional scale score 29% Short Term Goal (STG) Improve LEFS to at least 42% STG Duration 07/30/21 Care Home Goal (LTG) Improve LEFS to at least 60% as measure of improved function right LE LTG Duration 08/27/21 Two Impairment gait dysfunction Impairment patient uses 4WW for gait with antalgic pattern, step-to on stairs Digital Marketer Goal (LTG) Patient will be able to ambulate with least restrictive device without limp and ascend and descend standar heigh stairs with alternating pattern without difficulty. 07/18/21: pt able to complete 340 ft (2laps around clinic w/ B trek poles), noted little forward posture antalgic gait last 50 ft. Pt able ascend/ descend 8 stairs heavy BUE on B HR receiprocal patterning, discomfort eccentric knee flexion on L>RLE. LTG Duration 08/27/21 One Impairment ROM and strength deficits right knee Impairment AROM 14-94 PROM 10-100 Short Term Goal (STG) Patient to perform full HEP program 2-3x/wk independently STG Duration 07/30/21 Care Home Goal (LTG) Patient to demonstrate AROM right knee 0-120, and strength right knee at least 4/5 07/15/21: progerssing 3-118 R knee AROM, PROM 124. LTG Duration 08/27/21 Assessment Summary Assessment Time spent instruction self AROM R knee with cues for proper quad fac into ext foot propped up and use of strap for increased AAROM knee flexion. Reviewed past AROM BLE before get out of bed, STS and stationary stand awareness with use of SPC/ walking sticks and if feel stable proceed to bathroom, if not use BSC for decreased risk for falls with good understanding. Pt improved gait with SPC 1 lap with very minimal trunk SB, improve with occasional cues for tall posture. EPIC CADENCE ANALYST encouraged to use 1 SPC in home vs furniture walkng 1 UE for self quality gait while progressing in strength with verbalized understanding. Physical Therapy Plan Frequency and Duration Frequency of Treatment 2x/Week Duration of Treatment 8 weeks Plan of Care Start Date 06/29/21 Plan of Care End Date 08/27/21 Therapeutic Interventions Therapeutic Interventions Aquatic Therapy,Home Exercise Program,Manual Therapy, Neuromuscular Re-education, Patient/Caregiver Education, Self-Care/Home Management,Soft Tissue Mobilization, Therapeutic Activities, Therapeutic Exercises Modalities Cold Pack/Ice Massage,Electric Stimulation Next Visit Focus/Plan Next Note Type Treatment Note Next Visit Plan Next tx in PT: Continue progression of balance, gait, carlos manuel training, functional strengthening. POC: Continue TKA rehab, assure independence and safety with HEP.
--- NOTE | 2021-08-18 15:17 | PT.OTN ---
Current Diagnoses Unilateral primary osteoarthritis, right knee (08/18/21) Presence of right artificial knee joint (08/18/21) Physical Therapy Treatment Note PT-OP-A Visit Information Start: 06/29/21 08:37 Freq: Status: Active Protocol: Document 08/18/21 14:30 SP (Rec: 08/18/21 15:38 SP [id number]) Out-Patient Physical Therapy Visit Information Visit Information Visit Type Treatment Note Visit Note Update POC/PN on 08/25 appt. POC expires on 08/27. Visit Start Time 14:30 Visit Stop Time 15:17 Total Visit Minutes 47 Visit Number 14 Number of UI ENGINEER Visits 2 Evaluation Information Evaluation Date 06/29/21 PT-OP-B Current Condition Start: 06/29/21 08:37 Freq: Status: Active Protocol: Document 06/29/21 09:01 SAK (Rec: 06/29/21 09:44 SAK [id number]) Current Condition History of Current Condition Onset Date 05/02/21 Current Complaints Pain, limited ROM and strength right knee, History of Current Condition Right TKA 05/02/21, just finished Home Health PT can't remember max ROM. If doesn't get ROM where doctor wants it by 07/25/21 will do surgery to remove scar tissue. Using exercise bike 1-2x/day, does HEP 1-2x/day. Using 4WW, hasn 't tried cane yet. Was using trekking poles prior to surgery. Prior Treatments and Tests Injections in knees Treatment Goals Patient/Caregiver Goals return to more active and pain -free lifestyle Prior Functional Status Baseline Function- ADL's Modified Independent Baseline Function- Mobility Modified Independent Baseline Function- Gait used trekking poles outside, furniture surfed indoors primarily Current Functional Impairments (Reported) Functional Limitations- ADL's assist with donning and doffing socks Functional Limitations- Mobility/Gait uses 4WW for gait support PT-OP-C Subjective Start: 06/29/21 08:37 Freq: Status: Active Protocol: Document 08/18/21 14:30 SP (Rec: 08/18/21 15:38 SP [id number]) OP-PT Subjective Patient Comments Patient Comments Pt stated walked in [place] with SPC trialing use in RUE vs LUE and didn't feel difference. States doesn't use SPC in house. Patient Reported Progress Improving PT-OP-D Balance Start: 06/29/21 08:37 Freq: Status: Active Protocol: Document 06/29/21 09:01 [facility] (Rec: 06/30/21 14:22 [facility] [id number]) OP-PT Balance Assessment Sitting Balance Static Sitting Balance Ability Normal Dynamic Sitting Balance Ability Normal Barragan Fall Scale Copyright Permission PT-OP-F Manual Assessment Start: 06/29/21 08:37 Freq: Status: Active Protocol: Document 06/29/21 09:01 [facility] (Rec: 06/30/21 14:22 [facility] [id number]) Manual Assessments Soft Tissue Assessment Soft Tissue Mobility Assessment good incisional healing evident, palpabe tightness left distal quads and scar PT-OP-G Mobility & Gait Start: 06/29/21 08:37 Freq: Status: Active Protocol: Document 06/29/21 09:01 [facility] (Rec: 06/30/21 14:22 [facility] [id number]) OP Gait Assessment Gait Gait Assistance Required: Independent Distance (Feet) 100 Assistive Devices Assistive Device 4 Wheeled Walker Gait Deviations General Gait Pattern Antalgic Factors Limiting Gait Function Factors Limiting Gait Function Limited Range of Motion Stair Climbing Evaluation Evaluation Level of Assist On Stairs Standby Assistance Devices Stair Climbing Assistive Devices Left Railing,Right Railing Technique/Endurance Stair Climbing Technique Step to Step PT-OP-H Neuro Start: 06/29/21 08:37 Freq: Status: Active Protocol: Document 06/29/21 09:01 [facility] (Rec: 06/30/21 14:22 [facility] [id number]) Sensation Evaluation Gross Sensation Gross Sensation Left LE Impaired PT-OP-J Posture/Palpation/Skin Start: 06/29/21 08:37 Freq: Status: Active Protocol: Document 06/29/21 09:01 SAK (Rec: 06/30/21 14:22 [facility] [id number]) Posture Evaluation Position Standing Knee Posture (L) Excess Flexion Palpation Assessment Location left knee Palpation Findings Edema,Soft Tissue Tightness Palpation Details well-healed TKA incision, decreased mobility especially mid and distal scar left knee Skin Assessment Incisional Assessment Incision Appearance/Comments well-healed PT-OP-K Range of Motion Start: 06/29/21 08:37 Freq: Status: Active Protocol: Document 07/15/21 08:12 SP (Rec: 07/15/21 09:04 SP [id number]) Knee Goniometric Range of Motion Knee Right Knee ROM WFL No Flexion Active (degrees) 118 Flexion Passive (degrees) 124 Extension Active (degrees) 3 Comments relaxed 5 deg extension, 3 deg during quad set ankle over 1/ 2 roller, 124 deg AAROM PT-OP-M Strength Start: 06/29/21 08:37 Freq: Status: Active Protocol: Document 06/29/21 09:01 SAK (Rec: 06/30/21 14:22 SAK [id number]) Knee Strength Knee Manual Muscle Testing Left Flexion (S2) 3- Fair- Extension (L3) 3- Fair- Right Flexion (S2) 4+ Good+ Extension (L3) 4+ Good+ PT-OP-Q Treatments Start: 06/29/21 08:37 Freq: Status: Active Protocol: Document 08/18/21 14:30 SP (Rec: 08/18/21 15:38 SP [id number]) Gym Equipment Shuttle Recovery Unilateral Squats Details emphasis on neutral LE alignment see insole Resistance 37# Shuttle Recovery Platform Stable Reps/Time 10x2 Bilateral Squats Details cued knees with toes see insole of shoes- good self corrections Resistance 62 Shuttle Recovery Platform Stable Reps/Time 10x2 w/ Y TB loop around knees , painfree Therapeutic Exercises Supine Exercises quad set Supine Exercise Name reviewed HEP Side right Equipment Used towel roll under knee 10 reps then removed supine weak cont, better longsit Reps/Minutes 10x 5 sec hold Comments Extra time spent for isolated quad fac: 1 deg extension Sitting Exercises STS Sitting Exercise Name A. pre gait during [facility] for assessment stability/ quad fac - best SPC in LUE Resistance B. able complete STS from 18 mat table 2 reps without UE support Equipment Used A. UE support and SPCs for safety Comments good form, stable Gait Training Gait Activity gait SPC Description 3pt gait Device Used single SPC best alignment in LUE Level of Assistance S Surface firm Distance/Duration Front mirror 20 ft x4 laps SPC better LUE vs RLUE, SPC 190 ft x2. Treatment Focus BLE equal stepping, quad fac, foot clearance and LE and trunk alignment Comments cued tall trunk alignment, 3pt gait cued L>R quad facilitation during heelstrike into midstance and soft knee stability, smaller stride for improved core and hip abd fac. ( work toward 2pt gait) Neuro Re-Education Treatment Balance Activities hurdles Details step to, step over step Equipment 5 hurdles Comments -step to x2 laps each lead each LE -step over step * with use of SPC inLUE, LLE foot caught x2 trailing LE, improved with cues taller posture and increase L knee flexion. More challenging step over step but improved with slow pacing wt shift over stance LE,cued L knee alignment more lateral. PT-OP-R Modalities Start: 06/29/21 08:37 Freq: Status: Active Protocol: Document 07/25/21 15:18 SAK (Rec: 07/25/21 16:16 SAK [id number]) Electric Stimulation Electric Stimulation Interferential Current (IFC) Body Location right knee Duration (Minutes) 10 Intensity 12 Target/Sweep Sweep Patient Position Hooklying Combined With Heat/Cold Cold Pack Comments good response, cold always helps, no pain when leaving. PT-OP-T Assessment and Plan Start: 06/29/21 08:37 Freq: Status: Active Protocol: Document 08/18/21 14:30 SP (Rec: 08/18/21 15:38 SP [id number]) Physical Therapy Assessment Goals Three Impairment activity intolerance Impairment Lower extremity functional scale score 29% Short Term Goal (STG) Improve LEFS to at least 42% STG Duration 07/30/21 [employer] Confinement System Manager Goal (LTG) Improve LEFS to at least 60% as measure of improved function right LE LTG Duration 08/27/21 Two Impairment gait dysfunction Impairment patient uses 4WW for gait with antalgic pattern, step-to on stairs Alf Goal (LTG) Patient will be able to ambulate with least restrictive device without limp and ascend and descend standar heigh stairs with alternating pattern without difficulty. 07/18/21: pt able to complete 340 ft (2laps around clinic w/ B trek poles), noted little forward posture antalgic gait last 50 ft. Pt able ascend/ descend 8 stairs heavy BUE on B HR receiprocal patterning, discomfort eccentric knee flexion on L>RLE. LTG Duration 08/27/21 One Impairment ROM and strength deficits right knee Impairment AROM 14-94 PROM 10-100 Short Term Goal (STG) Patient to perform full HEP program 2-3x/wk independently STG Duration 07/30/21 Alf Goal (LTG) Patient to demonstrate AROM right knee 0-120, and strength right knee at least 4/5 07/15/21: progerssing 3-118 R knee AROM, PROM 124. LTG Duration 08/27/21 Assessment Summary Assessment Pt improved R quad set quick flicks vs contract hold, initially towel roll under for feedback then removed, better sense contraction long sitting. Pt has improved trunk alignment, L knee soft knee heel strike into midstance during gait. Pt able to complete hurdles using SPC in LUE step over step better LLE foot clearance. Physical Therapy Plan Frequency and Duration Frequency of Treatment 2x/Week Duration of Treatment 8 weeks Plan of Care Start Date 06/29/21 Plan of Care End Date 08/27/21 Therapeutic Interventions Therapeutic Interventions Aquatic Therapy,Home Exercise Program,Manual Therapy, Neuromuscular Re-education, Patient/Caregiver Education, Self-Care/Home Management,Soft Tissue Mobilization, Therapeutic Activities, Therapeutic Exercises Modalities Cold Pack/Ice Massage,Electric Stimulation Next Visit Focus/Plan Next Note Type Treatment Note Next Visit Plan Next tx in PT: Continue progression of balance, gait SPC 3pt> 2pt, carlos manuel training , functional strengthening. POC: Continue TKA rehab, assure independence and safety with HEP.
--- NOTE | 2021-08-22 11:15 | PT.OTN ---
Current Diagnoses Unilateral primary osteoarthritis, right knee (08/22/21) Presence of right artificial knee joint (08/22/21) Physical Therapy Treatment Note PT-OP-A Visit Information Start: 06/29/21 08:37 Freq: Status: Active Protocol: Document 08/22/21 10:34 SP (Rec: 08/22/21 11:33 SP [id number]) Out-Patient Physical Therapy Visit Information Visit Information Visit Type Treatment Note Visit Note Update POC/PN on 08/25 appt. POC expires on 08/27. Visit Start Time 10:34 Visit Stop Time 11:15 Total Visit Minutes 41 Visit Number 15 Number of GRANITE SETTER Visits 3 Evaluation Information Evaluation Date 06/29/21 PT-OP-B Current Condition Start: 06/29/21 08:37 Freq: Status: Active Protocol: Document 06/29/21 09:01 SAK (Rec: 06/29/21 09:44 SAK [id number]) Current Condition History of Current Condition Onset Date 05/02/21 Current Complaints Pain, limited ROM and strength right knee, History of Current Condition Right TKA 05/02/21, just finished Home Health PT can't remember max ROM. If doesn't get ROM where doctor wants it by 07/25/21 will do surgery to remove scar tissue. Using exercise bike 1-2x/day, does HEP 1-2x/day. Using 4WW, hasn 't tried cane yet. Was using trekking poles prior to surgery. Prior Treatments and Tests Injections in knees Treatment Goals Patient/Caregiver Goals return to more active and pain -free lifestyle Prior Functional Status Baseline Function- ADL's Modified Independent Baseline Function- Mobility Modified Independent Baseline Function- Gait used trekking poles outside, furniture surfed indoors primarily Current Functional Impairments (Reported) Functional Limitations- ADL's assist with donning and doffing socks Functional Limitations- Mobility/Gait uses 4WW for gait support PT-OP-C Subjective Start: 06/29/21 08:37 Freq: Status: Active Protocol: Document 08/22/21 10:34 SP (Rec: 08/22/21 11:33 SP [id number]) OP-PT Subjective Patient Comments Patient Comments Pt reports was able to get up and get to bathroom without any AD, at 6 am had to use walking stick keeps at side bed for support. Pt asked when does R knee tightness muscle and skin get better and gone. Pt states wants to work on stairs, hasn't been using stacking washer/ dryer upstairs. Wants to be able to do stairs to get to basement to use regular washer/ dryer. Pt stated walked down sideways before surgery, gets nervous looking down going forward. Patient Reported Progress Improving PT-OP-D Balance Start: 06/29/21 08:37 Freq: Status: Active Protocol: Document 06/29/21 09:01 [facility] (Rec: 06/30/21 14:22 [facility] [id number]) OP-PT Balance Assessment Sitting Balance Static Sitting Balance Ability Normal Dynamic Sitting Balance Ability Normal Barragan Fall Scale Copyright Permission PT-OP-F Manual Assessment Start: 06/29/21 08:37 Freq: Status: Active Protocol: Document 06/29/21 09:01 [facility] (Rec: 06/30/21 14:22 [facility] [id number]) Manual Assessments Soft Tissue Assessment Soft Tissue Mobility Assessment good incisional healing evident, palpabe tightness left distal quads and scar PT-OP-G Mobility & Gait Start: 06/29/21 08:37 Freq: Status: Active Protocol: Document 06/29/21 09:01 [facility] (Rec: 06/30/21 14:22 [facility] [id number]) OP Gait Assessment Gait Gait Assistance Required: Independent Distance (Feet) 100 Assistive Devices Assistive Device 4 Wheeled Walker Gait Deviations General Gait Pattern Antalgic Factors Limiting Gait Function Factors Limiting Gait Function Limited Range of Motion Stair Climbing Evaluation Evaluation Level of Assist On Stairs Standby Assistance Devices Stair Climbing Assistive Devices Left Railing,Right Railing Technique/Endurance Stair Climbing Technique Step to Step PT-OP-H Neuro Start: 06/29/21 08:37 Freq: Status: Active Protocol: Document 06/29/21 09:01 [facility] (Rec: 06/30/21 14:22 [facility] [id number]) Sensation Evaluation Gross Sensation Gross Sensation Left LE Impaired PT-OP-J Posture/Palpation/Skin Start: 06/29/21 08:37 Freq: Status: Active Protocol: Document 06/29/21 09:01 [facility] (Rec: 06/30/21 14:22 [facility] [id number]) Posture Evaluation Position Standing Knee Posture (L) Excess Flexion Palpation Assessment Location left knee Palpation Findings Edema,Soft Tissue Tightness Palpation Details well-healed TKA incision, decreased mobility especially mid and distal scar left knee Skin Assessment Incisional Assessment Incision Appearance/Comments well-healed PT-OP-K Range of Motion Start: 06/29/21 08:37 Freq: Status: Active Protocol: Document 07/15/21 08:12 SP (Rec: 07/15/21 09:04 SP [id number]) Knee Goniometric Range of Motion Knee Right Knee ROM WFL No Flexion Active (degrees) 118 Flexion Passive (degrees) 124 Extension Active (degrees) 3 Comments relaxed 5 deg extension, 3 deg during quad set ankle over 1/ 2 roller, 124 deg AAROM PT-OP-M Strength Start: 06/29/21 08:37 Freq: Status: Active Protocol: Document 06/29/21 09:01 SAK (Rec: 06/30/21 14:22 SAK [id number]) Knee Strength Knee Manual Muscle Testing Left Flexion (S2) 3- Fair- Extension (L3) 3- Fair- Right Flexion (S2) 4+ Good+ Extension (L3) 4+ Good+ PT-OP-Q Treatments Start: 06/29/21 08:37 Freq: Status: Active Protocol: Document 08/22/21 10:34 SP (Rec: 08/22/21 11:33 SP [id number]) Gait Training Gait Activity 6MWT Device Used SPC in LUE Level of Assistance S-Mod I Surface firm Distance/Duration 622 ft in 6 min Treatment Focus even tamiko and LE stance time, progress gait no AD Comments pt antalgic gait with no AD with decrease stance time RLE, significantly improved with SPC in LUE, almost even tamiko does demonstrate LUE WB into SPC so takes time to transition advancement w/ RLE. stairs Description receiprocal LE patterning Device Used B HR Level of Assistance SBA Surface 6 stairs Distance/Duration 4 stairs x3 sets Treatment Focus concentric/ eccentric knee flexion Comments patient able to ascend/ descend receiprocal stepping, decrease stance time LLE during RLE descending: BHR step over step good demonstration, L HR no UE ascend receiprocal, able to do but not as stable, L HR and SPC in RUE (assimulate closed wooden laundry basket uses for basement stairs laundry transport)- receiprocal patterning advanced SPC each step. 1 Comments aised walker ~2 for proper height Manual Therapy Treatment Soft Tissue Mobilization STM Body Location L distal superior and inferior patella Mobilization Type Myofascial Release Intensity/Depth Moderate Body Position Sitting Comments 90 deg knee flexion- modified pressure for toerance. Myofacial inferior>superior emphasis with instruction on self application, hope assist fluid return and decrease tightness. No significant change in noted. scar mobilization Body Location surgical scar R anterior knee Mobilization Type Instrument Assisted,Myofascial Release Intensity/Depth Moderate Body Position Hooklying Comments good mobility PT-OP-R Modalities Start: 06/29/21 08:37 Freq: Status: Active Protocol: Document 07/25/21 15:18 SAK (Rec: 07/25/21 16:16 SAK [id number]) Electric Stimulation Electric Stimulation Interferential Current (IFC) Body Location right knee Duration (Minutes) 10 Intensity 12 Target/Sweep Sweep Patient Position Hooklying Combined With Heat/Cold Cold Pack Comments good response, cold always helps, no pain when leaving. PT-OP-T Assessment and Plan Start: 06/29/21 08:37 Freq: Status: Active Protocol: Document 08/22/21 10:34 SP (Rec: 08/22/21 11:33 SP [id number]) Physical Therapy Assessment Goals Three Impairment activity intolerance Impairment Lower extremity functional scale score 29% Short Term Goal (STG) Improve LEFS to at least 42% STG Duration 07/30/21 Senior Living Goal (LTG) Improve LEFS to at least 60% as measure of improved function right LE LTG Duration 08/27/21 Two Impairment gait dysfunction Impairment patient uses 4WW for gait with antalgic pattern, step-to on stairs Warehouse Operations Manager Goal (LTG) Patient will be able to ambulate with least restrictive device without limp and ascend and descend standar heigh stairs with alternating pattern without difficulty. 07/18/21: pt able to complete 340 ft (2laps around clinic w/ B trek poles), noted little forward posture antalgic gait last 50 ft. Pt able ascend/ descend 8 stairs heavy BUE on B HR receiprocal patterning, discomfort eccentric knee flexion on L>RLE. 08/22/21: pt using SPC in LUE for gait, little antagic wt shift when walks. See 08/22/21 feedback stairs: Ascend/ descend 4 consecutive stairs L HR and SPC in RUE to assimulate closer laundry basket respositioning each step, stable. 6MWT: 622 ft in 6 min SPC in LUE. LTG Duration 08/27/21 (08/22/21: progressing) One Impairment ROM and strength deficits right knee Impairment AROM 14-94 PROM 10-100 Short Term Goal (STG) Patient to perform full HEP program 2-3x/wk independently 08/22/21: GOAL MET: exercises 2 -3 days/wk, bike 1x/wk- suggested 3x/wk opp days HEP: not alot resistance for ROM and when meet normal ROM for her then proper seat distance work on work effort for strengthening, good understanding. STG Duration GOAL MET 08/22/21 Warehouse Operations Manager Goal (LTG) Patient to demonstrate AROM right knee 0-120, and strength right knee at least 4/5 07/15/21: progerssing 3-118 R knee AROM, PROM 124. 08/22/21: progressin-122 deg AROM R knee. Relaxed knee extension 3 deg. LTG Duration 08/27/21 (08/22/21: progressing) Progress Towards Goals Progress Towards Goals Progressing Toward Goals Progress Comments Pt progressin MWT 622 ft in w/ SPC in LUR, pt able to almost double distance gait since 1 month ago. MET STG #1: HEP 3x/wk. PRogressing LTG #1: lackin 1 deg extension AROM. Assessment Summary Assessment Pt making gains in R knee flexion AROM, lacking 1 deg extension. Continues to have swelling and tightness in R knee, better understanidng MFR to distal quad for body reabsorption and being active importance. Pt continues to be challenged with balance and confidence for stairs to basement for laundry. COntinue PT to help meet these personal goals ideally without AD. Physical Therapy Plan Frequency and Duration Frequency of Treatment 2x/Week Duration of Treatment 8 weeks Plan of Care Start Date 06/29/21 Plan of Care End Date 08/27/21 Therapeutic Interventions Therapeutic Interventions Aquatic Therapy,Home Exercise Program,Manual Therapy, Neuromuscular Re-education, Patient/Caregiver Education, Self-Care/Home Management,Soft Tissue Mobilization, Therapeutic Activities, Therapeutic Exercises Modalities Cold Pack/Ice Massage,Electric Stimulation Next Visit Focus/Plan Next Note Type Treatment Note Next Visit Plan Next tx in PT: PN update POC, assess strength and LEFS. POC: Continue progression of balance, gait SPC 3pt> 2pt, carlos manuel training, functional strengthening. POC: Continue TKA rehab, assure independence and safety with HEP.
--- NOTE | 2021-08-29 16:15 | PT.OPPOC ---
Physical, Occupational & Speech Therapy At [facility] Current Diagnoses Unilateral primary osteoarthritis, right knee (08/29/21) Presence of right artificial knee joint (08/29/21) Visit Care Team Role Provider Type Any Zazueta MD Family Provider Physician Primary Care Provider Specialty: Internal Medicine Address: [address] [place] [address], [address] Email: [email or web address] Isacc Figueroa MD Attending Provider Physician Referring Provider Specialty: Orthopedics Orthopedic Surgery Address: [address] [place] [address], [address] Email: [email or web address] Plan Of Care PT-OP-T Assessment and Plan Start: 06/29/21 08:37 Freq: Status: Active Protocol: Document 08/29/21 15:15 [facility] (Rec: 08/29/21 16:12 [facility] [id number]) Physical Therapy Assessment Goals Three Impairment activity intolerance Impairment Lower extremity functional scale score 29% Short Term Goal (STG) Improve LEFS to at least 42% STG Duration 07/30/21 Die Keeper Goal (LTG) Improve LEFS to at least 60% as measure of improved function right LE LTG Duration 08/27/21 Two Impairment gait dysfunction Impairment patient uses 4WW for gait with antalgic pattern, step-to on stairs Retirement Goal (LTG) Patient will be able to ambulate with least restrictive device without limp and ascend and descend standar heigh stairs with alternating pattern without difficulty. 07/18/21: pt able to complete 340 ft (2laps around clinic w/ B trek poles), noted little forward posture antalgic gait last 50 ft. Pt able ascend/ descend 8 stairs heavy BUE on B HR receiprocal patterning, discomfort eccentric knee flexion on L>RLE. 08/22/21: pt using SPC in LUE for gait, little antagic wt shift when walks. See 08/22/21 feedback stairs: Ascend/ descend 4 consecutive stairs L HR and SPC in RUE to assimulate closer laundry basket respositioning each step, stable. 6MWT: 622 ft in 6 min SPC in LUE. LTG Duration 09/05/21 (08/22/21: progressing) One Impairment ROM and strength deficits right knee Impairment AROM 14-94 PROM 10-100 Short Term Goal (STG) Patient to perform full HEP program 2-3x/wk independently 08/22/21: GOAL MET: exercises 2 -3 days/wk, bike 1x/wk- suggested 3x/wk opp days HEP: not alot resistance for ROM and when meet normal ROM for her then proper seat distance work on work effort for strengthening, good understanding. STG Duration GOAL MET 08/22/21 Die Keeper Goal (LTG) Patient to demonstrate AROM right knee 0-120, and strength right knee at least 4/5 07/15/21: progerssing 3-118 R knee AROM, PROM 124. 08/22/21: progressin-122 deg AROM R knee. Relaxed knee extension 3 deg. LTG Duration 09/05/21 (08/22/21: progressing) Progress Towards Goals Progress Towards Goals Progressing Toward Goals Assessment Summary Assessment right knee ROM 1-122. Continues to make steady progress with gait quality. Able to ascend stairs with alternating pattern, 75% of time can descend with alternating pattern. Good progress with all goals. Anticipate discharge after 1 further PT treatment. Physical Therapy Plan Frequency and Duration Frequency of Treatment 2x/Week Duration of Treatment 8 weeks Plan of Care Start Date 08/27/21 Plan of Care End Date 09/05/21 Therapeutic Interventions Therapeutic Interventions Home Exercise Program,Manual Therapy,Neuromuscular Re- education,Patient/Caregiver Education,Self-Care/Home Management,Soft Tissue Mobilization,Therapeutic Activities,Therapeutic Exercises Modalities Cold Pack/Ice Massage,Electric Stimulation Next Visit Focus/Plan Next Note Type Treatment Note Next Visit Plan Plan discharge after next treatment. Review HEP, further gait training on uneven ground. Plan of Care Dates Plan of Care Start Date 08/27/21 Plan of Care End Date 09/05/21 Electronically Signed by: Azalia Calles, PT 08/29/21 [id number] Please Sign and Return: I have reviewed this Plan of Care and certify that the skilled therapy services above are required to meet the patient?s needs. Physician Signature Date Printed Name and Credentials Clinical Instructor Signature Printed Name and Credentials
--- NOTE | 2021-08-29 16:15 | PT.OTRE ---
Current Diagnoses Unilateral primary osteoarthritis, right knee (08/29/21) Presence of right artificial knee joint (08/29/21) Past Medical History (Last Updated 04/25/21 @ 10:20 by Diandra Arias RN) Chicken pox (~1950) Hearing loss History of hip surgery History of surgery Left hip pain Mumps (~1950) BIA (obstructive sleep apnea) Osteopenia Popliteal artery embolism, right Rib pain on left side Stomach cancer Surgical History (Last Updated 04/25/21 @ 10:19 by Diandra Arias RN) Anesthesia History of hip surgery History of surgery Status post hysterectomy (1990) Visit Care Team Role Provider Type Any Zazueta MD Family Provider Physician Primary Care Provider Specialty: Internal Medicine Address: [address] [place] [address], [address] Email: [email or web address] Figueroa MD Attending Provider Physician Referring Provider Specialty: Orthopedics Orthopedic Surgery Address: [address] [place] [address], [address] Email: [email or web address] Physical Therapy Re-Evaluation PT-OP-A Visit Information Start: 06/29/21 08:37 Freq: Status: Active Protocol: Document 08/29/21 15:15 [facility] (Rec: 08/29/21 16:12 [facility] [id number]) Out-Patient Physical Therapy Visit Information Visit Information Visit Type Treatment Note Visit Start Time 15:15 Visit Stop Time 16:00 Total Visit Minutes 45 Visit Number 16 Number of CANCER PROGRAM CONSULTANT Visits 0 Evaluation Information Evaluation Date 06/29/21 PT-OP-B Current Condition Start: 06/29/21 08:37 Freq: Status: Active Protocol: Document 06/29/21 09:01 [facility] (Rec: 06/29/21 09:44 [facility] [id number]) Current Condition History of Current Condition Onset Date 05/02/21 Current Complaints Pain, limited ROM and strength right knee, History of Current Condition Right TKA 05/02/21, just finished Home Health PT can't remember max ROM. If doesn't get ROM where doctor wants it by 07/25/21 will do surgery to remove scar tissue. Using exercise bike 1-2x/day, does HEP 1-2x/day. Using 4WW, hasn 't tried cane yet. Was using trekking poles prior to surgery. Prior Treatments and Tests Injections in knees Treatment Goals Patient/Caregiver Goals return to more active and pain -free lifestyle Prior Functional Status Baseline Function- ADL's Modified Independent Baseline Function- Mobility Modified Independent Baseline Function- Gait used trekking poles outside, furniture surfed indoors primarily Current Functional Impairments (Reported) Functional Limitations- ADL's assist with donning and doffing socks Functional Limitations- Mobility/Gait uses 4WW for gait support PT-OP-C Subjective Start: 06/29/21 08:37 Freq: Status: Active Protocol: Document 08/29/21 15:15 [facility] (Rec: 08/29/21 16:12 [facility] [id number]) OP-PT Subjective Patient Comments Patient Comments No new c/o. Left knee hurting more than her right. PT-OP-D Balance Start: 06/29/21 08:37 Freq: Status: Active Protocol: Document 06/29/21 09:01 [facility] (Rec: 06/30/21 14:22 [facility] [id number]) OP-PT Balance Assessment Sitting Balance Static Sitting Balance Ability Normal Dynamic Sitting Balance Ability Normal Barragan Fall Scale Copyright Permission Yung BLUE, Yung RM, [place]. Development of a scale to identify the fall- prone patient. Can J Aging 1989;8;366-7. Jennifer Barragan (2009). Preventing patient falls. (2nd ed). [place]: Chance. PT-OP-F Manual Assessment Start: 06/29/21 08:37 Freq: Status: Active Protocol: Document 06/29/21 09:01 [facility] (Rec: 06/30/21 14:22 [facility] [id number]) Manual Assessments Soft Tissue Assessment Soft Tissue Mobility Assessment good incisional healing evident, palpabe tightness left distal quads and scar PT-OP-G Mobility & Gait Start: 06/29/21 08:37 Freq: Status: Active Protocol: Document 06/29/21 09:01 [facility] (Rec: 06/30/21 14:22 [facility] [id number]) OP Gait Assessment Gait Gait Assistance Required: Independent Distance (Feet) 100 Assistive Devices Assistive Device 4 Wheeled Walker Gait Deviations General Gait Pattern Antalgic Factors Limiting Gait Function Factors Limiting Gait Function Limited Range of Motion Stair Climbing Evaluation Evaluation Level of Assist On Stairs Standby Assistance Devices Stair Climbing Assistive Devices Left Railing,Right Railing Technique/Endurance Stair Climbing Technique Step to Step PT-OP-H Neuro Start: 06/29/21 08:37 Freq: Status: Active Protocol: Document 06/29/21 09:01 [facility] (Rec: 06/30/21 14:22 [facility] [id number]) Sensation Evaluation Gross Sensation Gross Sensation Left LE Impaired PT-OP-J Posture/Palpation/Skin Start: 06/29/21 08:37 Freq: Status: Active Protocol: Document 06/29/21 09:01 [facility] (Rec: 06/30/21 14:22 [facility] [id number]) Posture Evaluation Position Standing Knee Posture (L) Excess Flexion Palpation Assessment Location left knee Palpation Findings Edema,Soft Tissue Tightness Palpation Details well-healed TKA incision, decreased mobility especially mid and distal scar left knee Skin Assessment Incisional Assessment Incision Appearance/Comments well-healed PT-OP-K Range of Motion Start: 06/29/21 08:37 Freq: Status: Active Protocol: Document 07/15/21 08:12 [facility] (Rec: 07/15/21 09:04 [facility] [id number]) Knee Goniometric Range of Motion Knee Measured in Degrees Right Knee ROM WFL No Flexion Active (degrees) 118 Flexion Passive (degrees) 124 Extension Active (degrees) 3 Comments relaxed 5 deg extension, 3 deg during quad set ankle over 1/ 2 roller, 124 deg AAROM PT-OP-M Strength Start: 06/29/21 08:37 Freq: Status: Active Protocol: Document 06/29/21 09:01 [facility] (Rec: 06/30/21 14:22 [facility] [id number]) Knee Strength Knee Manual Muscle Testing Left Flexion (S2) 3- Fair- Extension (L3) 3- Fair- Right Flexion (S2) 4+ Good+ Extension (L3) 4+ Good+ PT-OP-Q Treatments Start: 06/29/21 08:37 Freq: Status: Active Protocol: Document 08/29/21 15:15 [facility] (Rec: 08/29/21 16:12 [facility] [id number]) Cardio Equipment Recumbent Bicycle Duration (Minutes) 10 Resistance 3 Seat Position 4 Other discontinued due to left knee pain Gym Equipment Shuttle Recovery Unilateral Squats Details emphasis on neutral LE alignment see insole Resistance 37# Shuttle Recovery Platform Stable Reps/Time 10x2 Bilateral Squats Details cued knees with toes see insole of shoes- good self corrections Resistance 62 Shuttle Recovery Platform Stable Reps/Time 10x2 w/ Y TB loop around knees , painfree Gait Training Gait Activity gait SPC Description 3pt gait Device Used single SPC best alignment in LUE Level of Assistance S Surface firm Distance/Duration Front mirror 20 ft x4 laps SPC better LUE vs RLUE, SPC 190 ft x2. Treatment Focus BLE equal stepping, quad fac, foot clearance and LE and trunk alignment Comments cued tall trunk alignment, 3pt gait cued L>R quad facilitation during heelstrike into midstance and soft knee stability, smaller stride for improved core and hip abd fac. ( work toward 2pt gait) Manual Therapy Treatment Soft Tissue Mobilization STM Body Location L distal superior and inferior patella Mobilization Type Myofascial Release Intensity/Depth Moderate Body Position Sitting Comments 90 deg knee flexion- modified pressure for toerance. Myofacial inferior>superior emphasis with instruction on self application, hope assist fluid return and decrease tightness. No significant change in noted. scar mobilization Body Location surgical scar R anterior knee Mobilization Type Instrument Assisted,Myofascial Release Intensity/Depth Moderate Body Position Hooklying Comments good mobility Neuro Re-Education Treatment Balance Activities hurdles Details step to, step over step Equipment 5 hurdles Comments -step to x2 laps each lead each LE -step over step * with use of SPC inLUE, LLE foot caught x2 trailing LE, improved with cues taller posture and increase L knee flexion. More challenging step over step but improved with slow pacing wt shift over stance LE,cued L knee alignment more lateral. PT-OP-R Modalities Start: 06/29/21 08:37 Freq: Status: Active Protocol: Document 08/29/21 15:15 [facility] (Rec: 08/29/21 16:13 [facility] [id number]) Hot Pack/Cold Pack Treatment Cold Pack Location mounika knees Patient Position Hooklying Treatment Duration (minutes) 10 Patient Tolerance Good PT-OP-T Assessment and Plan Start: 06/29/21 08:37 Freq: Status: Active Protocol: Document 08/29/21 15:15 [facility] (Rec: 08/29/21 16:12 [facility] [id number]) Physical Therapy Assessment Goals Three Impairment activity intolerance Impairment Lower extremity functional scale score 29% Short Term Goal (STG) Improve LEFS to at least 42% STG Duration 07/30/21 Senior Living Goal (LTG) Improve LEFS to at least 60% as measure of improved function right LE LTG Duration 08/27/21 Two Impairment gait dysfunction Impairment patient uses 4WW for gait with antalgic pattern, step-to on stairs Cigarette Tipper Goal (LTG) Patient will be able to ambulate with least restrictive device without limp and ascend and descend standar heigh stairs with alternating pattern without difficulty. 07/18/21: pt able to complete 340 ft (2laps around clinic w/ B trek poles), noted little forward posture antalgic gait last 50 ft. Pt able ascend/ descend 8 stairs heavy BUE on B HR receiprocal patterning, discomfort eccentric knee flexion on L>RLE. 08/22/21: pt using SPC in LUE for gait, little antagic wt shift when walks. See 08/22/21 feedback stairs: Ascend/ descend 4 consecutive stairs L HR and SPC in RUE to assimulate closer laundry basket respositioning each step, stable. 6MWT: 622 ft in 6 min SPC in LUE. LTG Duration 09/05/21 (08/22/21: progressing) One Impairment ROM and strength deficits right knee Impairment AROM 14-94 PROM 10-100 Short Term Goal (STG) Patient to perform full HEP program 2-3x/wk independently 08/22/21: GOAL MET: exercises 2 -3 days/wk, bike 1x/wk- suggested 3x/wk opp days HEP: not alot resistance for ROM and when meet normal ROM for her then proper seat distance work on work effort for strengthening, good understanding. STG Duration GOAL MET 08/22/21 Cigarette Tipper Goal (LTG) Patient to demonstrate AROM right knee 0-120, and strength right knee at least 4/5 07/15/21: progerssing 3-118 R knee AROM, PROM 124. 08/22/21: progressin-122 deg AROM R knee. Relaxed knee extension 3 deg. LTG Duration 09/05/21 (08/22/21: progressing) Progress Towards Goals Progress Towards Goals Progressing Toward Goals Assessment Summary Assessment right knee ROM 1-122. Continues to make steady progress with gait quality. Able to ascend stairs with alternating pattern, 75% of time can descend with alternating pattern. Good progress with all goals. Anticipate discharge after 1 further PT treatment. Physical Therapy Plan Frequency and Duration Frequency of Treatment 2x/Week Duration of Treatment 8 weeks Plan of Care Start Date 08/27/21 Plan of Care End Date 09/05/21 Therapeutic Interventions Therapeutic Interventions Home Exercise Program,Manual Therapy,Neuromuscular Re- education,Patient/Caregiver Education,Self-Care/Home Management,Soft Tissue Mobilization,Therapeutic Activities,Therapeutic Exercises Modalities Cold Pack/Ice Massage,Electric Stimulation Next Visit Focus/Plan Next Note Type Treatment Note Next Visit Plan Plan discharge after next treatment. Review HEP, further gait training on uneven ground.
--- NOTE | 2021-09-01 10:46 | PT.OTN ---
Current Diagnoses Unilateral primary osteoarthritis, right knee (09/01/21) Presence of right artificial knee joint (09/01/21) Physical Therapy Treatment Note PT-OP-A Visit Information Start: 06/29/21 08:37 Freq: Status: Active Protocol: Document 09/01/21 09:49 SAK (Rec: 09/01/21 10:26 SAK [id number]) Out-Patient Physical Therapy Visit Information Visit Information Visit Type Treatment Note Visit Start Time 09:45 Visit Stop Time 10:30 Total Visit Minutes 45 Visit Number 16 Number of SHIPPING WEIGHER Visits 0 Evaluation Information Evaluation Date 06/29/21 PT-OP-B Current Condition Start: 06/29/21 08:37 Freq: Status: Active Protocol: Document 06/29/21 09:01 SAK (Rec: 06/29/21 09:44 SAK [id number]) Current Condition History of Current Condition Onset Date 05/02/21 Current Complaints Pain, limited ROM and strength right knee, History of Current Condition Right TKA 05/02/21, just finished Home Health PT can't remember max ROM. If doesn't get ROM where doctor wants it by 07/25/21 will do surgery to remove scar tissue. Using exercise bike 1-2x/day, does HEP 1-2x/day. Using 4WW, hasn 't tried cane yet. Was using trekking poles prior to surgery. Prior Treatments and Tests Injections in knees Treatment Goals Patient/Caregiver Goals return to more active and pain -free lifestyle Prior Functional Status Baseline Function- ADL's Modified Independent Baseline Function- Mobility Modified Independent Baseline Function- Gait used trekking poles outside, furniture surfed indoors primarily Current Functional Impairments (Reported) Functional Limitations- ADL's assist with donning and doffing socks Functional Limitations- Mobility/Gait uses 4WW for gait support PT-OP-C Subjective Start: 06/29/21 08:37 Freq: Status: Active Protocol: Document 09/01/21 09:49 SAK (Rec: 09/01/21 10:26 SAK [id number]) OP-PT Subjective Patient Comments Patient Comments Feels ready for today to be last day of PT. Brought HEP and wants to know which exercises are the most important. Swelling decreasing. Using rolling pin on her thigh. Can walk in house without device, but not comfortable carrying something PT-OP-D Balance Start: 06/29/21 08:37 Freq: Status: Active Protocol: Document 06/29/21 09:01 [facility] (Rec: 06/30/21 14:22 [facility] [id number]) OP-PT Balance Assessment Sitting Balance Static Sitting Balance Ability Normal Dynamic Sitting Balance Ability Normal Barragan Fall Scale Copyright Permission PT-OP-F Manual Assessment Start: 06/29/21 08:37 Freq: Status: Active Protocol: Document 06/29/21 09:01 [facility] (Rec: 06/30/21 14:22 [facility] [id number]) Manual Assessments Soft Tissue Assessment Soft Tissue Mobility Assessment good incisional healing evident, palpabe tightness left distal quads and scar PT-OP-G Mobility & Gait Start: 06/29/21 08:37 Freq: Status: Active Protocol: Document 06/29/21 09:01 [facility] (Rec: 06/30/21 14:22 [facility] [id number]) OP Gait Assessment Gait Gait Assistance Required: Independent Distance (Feet) 100 Assistive Devices Assistive Device 4 Wheeled Walker Gait Deviations General Gait Pattern Antalgic Factors Limiting Gait Function Factors Limiting Gait Function Limited Range of Motion Stair Climbing Evaluation Evaluation Level of Assist On Stairs Standby Assistance Devices Stair Climbing Assistive Devices Left Railing,Right Railing Technique/Endurance Stair Climbing Technique Step to Step PT-OP-H Neuro Start: 06/29/21 08:37 Freq: Status: Active Protocol: Document 06/29/21 09:01 [facility] (Rec: 06/30/21 14:22 [facility] [id number]) Sensation Evaluation Gross Sensation Gross Sensation Left LE Impaired PT-OP-J Posture/Palpation/Skin Start: 06/29/21 08:37 Freq: Status: Active Protocol: Document 06/29/21 09:01 [facility] (Rec: 06/30/21 14:22 [facility] [id number]) Posture Evaluation Position Standing Knee Posture (L) Excess Flexion Palpation Assessment Location left knee Palpation Findings Edema,Soft Tissue Tightness Palpation Details well-healed TKA incision, decreased mobility especially mid and distal scar left knee Skin Assessment Incisional Assessment Incision Appearance/Comments well-healed PT-OP-K Range of Motion Start: 06/29/21 08:37 Freq: Status: Active Protocol: Document 07/15/21 08:12 SP (Rec: 07/15/21 09:04 SP [id number]) Knee Goniometric Range of Motion Knee Right Knee ROM WFL No Flexion Active (degrees) 118 Flexion Passive (degrees) 124 Extension Active (degrees) 3 Comments relaxed 5 deg extension, 3 deg during quad set ankle over 1/ 2 roller, 124 deg AAROM PT-OP-M Strength Start: 06/29/21 08:37 Freq: Status: Active Protocol: Document 06/29/21 09:01 [facility] (Rec: 06/30/21 14:22 [facility] [id number]) Knee Strength Knee Manual Muscle Testing Left Flexion (S2) 3- Fair- Extension (L3) 3- Fair- Right Flexion (S2) 4+ Good+ Extension (L3) 4+ Good+ PT-OP-Q Treatments Start: 06/29/21 08:37 Freq: Status: Active Protocol: Document 09/01/21 09:49 [facility] (Rec: 09/01/21 10:26 [facility] [id number]) Cardio Equipment Recumbent Bicycle Duration (Minutes) 10 Resistance 3 Seat Position 4 Other discontinued due to left knee pain Gym Equipment Shuttle Recovery Unilateral Squats Details emphasis on neutral LE alignment see insole Resistance 37# Shuttle Recovery Platform Stable Reps/Time 10x2 Bilateral Squats Details cued knees with toes see insole of shoes- good self corrections Resistance 62 Shuttle Recovery Platform Stable Reps/Time 10x2 w/ Y TB loop around knees , painfree Therapeutic Exercises Supine Exercises bridge Reps/Minutes 10x Sidelying Exercises hip abduction Reps/Minutes 10x Comments difficult on right, unable to do full ROM Gait Training Gait Activity gait without device Distance/Duration 400' Treatment Focus gluteal activation Comments verbal and tactile cues Neuro Re-Education Treatment Balance Activities hurdles Details step to, step over step Equipment 5 hurdles Comments -step to x2 laps each lead each LE -step over step * with use of SPC inLUE, LLE foot caught x2 trailing LE, improved with cues taller posture and increase L knee flexion. More challenging step over step but improved with slow pacing wt shift over stance LE,cued L knee alignment more lateral. PT-OP-R Modalities Start: 06/29/21 08:37 Freq: Status: Active Protocol: Document 09/01/21 09:49 [facility] (Rec: 09/01/21 10:26 [facility] [id number]) Hot Pack/Cold Pack Treatment Cold Pack Location mounika knees Patient Position Hooklying Treatment Duration (minutes) 10 Patient Tolerance Good PT-OP-T Assessment and Plan Start: 06/29/21 08:37 Freq: Status: Active Protocol: Document 09/01/21 09:49 YARELIS (Rec: 09/01/21 10:26 [facility] [id number]) Physical Therapy Assessment Goals Three Impairment activity intolerance Impairment Lower extremity functional scale score 29% Short Term Goal (STG) Improve LEFS to at least 42% STG Duration goal met Penitentiary Goal (LTG) Improve LEFS to at least 60% as measure of improved function right LE LTG Duration goal met Two Impairment gait dysfunction Impairment patient uses 4WW for gait with antalgic pattern, step-to on stairs Geological Manager Goal (LTG) Patient will be able to ambulate with least restrictive device without limp and ascend and descend standar heigh stairs with alternating pattern without difficulty. 07/18/21: pt able to complete 340 ft (2laps around clinic w/ B trek poles), noted little forward posture antalgic gait last 50 ft. Pt able ascend/ descend 8 stairs heavy BUE on B HR receiprocal patterning, discomfort eccentric knee flexion on L>RLE. 08/22/21: progressing 09/01/21: goal mostly met, still descends sideways at times 08/22/21: pt using SPC in LUE for gait, little antagic wt shift when walks. See 08/22/21 feedback stairs: Ascend/ descend 4 consecutive stairs L HR and SPC in RUE to assimulate closer laundry basket respositioning each step, stable. 6MWT: 622 ft in 6 min SPC in LUE. LTG Duration 09/05/21 One Impairment ROM and strength deficits right knee Impairment AROM 14-94 PROM 10-100 Short Term Goal (STG) Patient to perform full HEP program 2-3x/wk independently 08/22/21: GOAL MET: exercises 2 -3 days/wk, bike 1x/wk- suggested 3x/wk opp days HEP: not alot resistance for ROM and when meet normal ROM for her then proper seat distance work on work effort for strengthening, good understanding. STG Duration GOAL MET 08/22/21 [facility]iary Goal (LTG) Patient to demonstrate AROM right knee 0-120, and strength right knee at least 4/5 07/15/21: progerssing 3-118 R knee AROM, PROM 124. 08/22/21: progressin-122 deg AROM R knee. Relaxed knee extension 3 deg. 09/01/21: 1-125 LTG Duration 09/05/21 mostly met Assessment Summary Assessment Goals met as above. Ready for discharge from PT. Physical Therapy Plan Frequency and Duration Frequency of Treatment 2x/Week Duration of Treatment 8 weeks Plan of Care Start Date 08/27/21 Plan of Care End Date 09/05/21 Therapeutic Interventions Therapeutic Interventions Home Exercise Program,Manual Therapy,Neuromuscular Re- education,Patient/Caregiver Education,Self-Care/Home Management,Soft Tissue Mobilization,Therapeutic Activities,Therapeutic Exercises Modalities Cold Pack/Ice Massage,Electric Stimulation Discharge Physical Therapy Discharge Reasons Goals Met
== END 2021-09-02 13:20 ==
LOC: PHYS 09:45
PROVIDERS: Family Provider Internal Medicine; PCP Internal Medicine; Referring Provider Orthopaedic Surgery; Visit Provider Orthopaedic Surgery
DX: M17.11 Unilateral primary osteoarthritis, right knee (principal); Z96.651 Presence of right artificial knee joint
CPT/HCPCS: 97014; 97110; 97112; 97116; 97140; 97161; 97535; G0283

== ENCOUNTER → 2021-10-24 12:24 | Outpatient (CLI) | payer MEDICARE, OTHER, SELFPAY ==
[2021-05-02 16:17] VITALS: BMI 30.5
[2021-10-24 14:33] LABS: Hematocrit 39.9 % (36-46); Hemoglobin 13.3 g/dL (12.0-16.0); Mean Corpuscular HGB Conc 33.5 % (30-36); Mean Corpuscular Hemoglobin 30.3 PG (26-34); Mean Corpuscular Volume 90.5 fL (80-100); Platelet Count 266 X10^3/uL (150-400); Red Cell Distribution Width 15.4 % (11.6-14.8); White Blood Cell Count 7.5 X10^3/uL (4.5-11.0)
[2021-10-24 15:00] LABS: Alanine Aminotransferase 24 IU/L (<35); Albumin 4.2 g/dL (3.5-5.0); Albumin Globulin Ratio 1.8 (1.0-2.8); Alkaline Phosphatase 62 U/L (38-126); Aspartate Aminotransferase 26 IU/L (14-36); BUN Creatinine Ratio 22.5 (6-22); Bilirubin Total 0.3 mg/dL (0.2-1.3); Blood Urea Nitrogen 20 mg/dL (7-17); Calcium 9.1 mg/dL (8.4-10.2); Carbon Dioxide 28 mmol/L (22-32); Chloride 106 mmol/L (98-107); Cholesterol 150 mg/dL (140-199); Estimated Glomerular Filt Rate > 60 mL/min (>60); Globulin 2.4 g/dL (1.7-4.1); Glucose 108 mg/dL (80-110); HDL Cholesterol 55 mg/dL (40-60); HEMOLYSIS < 15 (0-50); LDL Cholesterol Calculated 54 mg/dL (<100); Sodium 139 mmol/L (137-145); Total Protein 6.6 g/dL (6.3-8.2); Triglycerides 207 mg/dL (35-150)
[2021-10-24 15:19] LABS: Vitamin D 25 Hydroxy (D3) 45.7 ng/mL (30.0-100.0)
[2021-10-24 15:22] LABS: TSH w/ Reflex to FT4 0.53 uIU/mL (0.47-4.68)
[2021-10-24 15:42] LABS: Vitamin B12 > 1000 pg/mL (239-931)
== END ==
PROVIDERS: Family Provider Internal Medicine; PCP Internal Medicine; Referring Provider Internal Medicine; Visit Provider Internal Medicine
DX: C49.A0 Gastrointestinal stromal tumor, unspecified site (principal); E78.2 Mixed hyperlipidemia; M81.0 Age-related osteoporosis without current pathological fracture
CPT/HCPCS: 36415; 80053; 80061; 82306; 82607; 84443; 85027

== ENCOUNTER → 2021-10-26 10:34 | Outpatient (CLI) | payer MEDICARE, OTHER, SELFPAY ==
[2021-05-02 16:17] VITALS: BMI 30.5
[2021-10-26 12:26] LABS: COVID19 -Nasal RAPID Negative (Negative)
== END ==
PROVIDERS: Family Provider Internal Medicine; PCP Internal Medicine; Visit Provider Surgery
DX: Z20.822 Contact with and (suspected) exposure to COVID-19 (principal); Z01.812 Encounter for preprocedural laboratory examination
CPT/HCPCS: 87635; C9803

== ENCOUNTER 2021-10-27 13:48 | Day surgery (SDC) | payer MEDICARE, OTHER, SELFPAY ==
[2021-05-02 16:17] VITALS: BMI 30.5
--- NOTE | 2021-10-27 | PATH_ITS ---
[facility] Accession Number: [id number] No. of containers..01 Tissue . 01 Material submitted: . esophagus, E-G Junction - GE JUNCTION . 01 Diagnosis: Gastroesophageal Junction, Biopsy: Ulcerated squamocolumnar junctional mucosa. Negative for fungal organisms by PAS stain. Negative for HSV1/2 antigens by immunohistochemistry. Negative for intestinal metaplasia. Negative for dysplasia and malignancy. [facility] 11/02/2021 1605 Local . 01 Electronically signed: . Viviane Talley MD, Pathologist NPI- [id number] . 01 Gross description: . GE JUNCTION: Received in formalin are 3 fragment(s) of meyers, soft tissue measuring 0.4 x 0.3 x 0.1 cm to 0.2 x 0.1 x 0.1 cm submitted entirely in 1 cassette(s) /CPE 10/28/2021 0531 Local . 01 Microscopic: . An AB/PAS stain was performed to evaluate for fungal organism and is negative. The control stain showed appropriate reactivity. . An HSV1/2 immunohistochemical stain was performed to evaluate for HSV antigen and is negative. The control stain showed appropriate reactivity. . * This test was developed and its performance characteristics determined by [facility]. It has not been cleared or approved by the U.S. Food and Drug Administration. The FDA has determined that such clearance or approval is not necessary. This test is used for clinical purposes. It should not be regarded as investigational or for research. . 01 Pathologist provided ICD-10: Z85.028 . 01 CPT . 722318, 236831, V57882 Specimen Comment: A courtesy copy of this report has been sent to [phone] Performed at: [address] [place] [address] Cytology [address], [place], [place] [id number] MD Rico Steve MD Phone: [phone]
[2021-10-27 14:06] VITALS: BP 120/74; PULSE 73; RESP 18; TEMP 36.4; O2SAT 95; BMI 29.9
[2021-10-27] MEDS: LACTATED RINGERS 1,000 ML 42 ML IV (14:21)
--- NOTE | 2021-10-27 16:47 | PM.HP.1 ---
History of Present Illness History of Present Illness Date Patient Seen: 10/27/21 Time Patient Seen: 16:47 Chief complaint: SDC Narrative: Minda is a 76-year-old woman who reports that she had surgery to treat a stomach tumor about [address] Templeton performed a laparoscopic resection of a gist tumor from the incisura. She has been having EGDs of a year since then Patient History Medical History (Updated 10/27/21 @ 16:50 by Benedict Bradley MD) Age-related osteoporosis without current pathological fracture B12 deficiency Chicken pox (~1949) Hearing loss History of Shelley's esophagus Mumps (~1949) BIA (obstructive sleep apnea) Osteopenia Popliteal artery embolism, right Stomach cancer Urinary incontinence Surgical History Anesthesia History of hip surgery History of surgery Status post hysterectomy (1990) Family & Social History Family History Brother Age: 76 Diabetes mellitus Father Heart disease Grandfather Cancer Grandmother Heart disease Mother Heart disease Grandmother Heart disease Sister Age: 71 Lung cancer Grandfather No problems noted. Social History: household members spouse Tobacco & Substance use: Smoking Status Never smoker alcohol intake never alcohol intake frequency holiday/special occasion Substance Use Type does not use Meds Home Medications and Allergies Home Medications Medication Instructions Recorded Confirmed Type Disabled Parking Permit dev #1 03/01/16 10/24/21 Rx acetaminophen 500 mg capsule 500 mg PO BID PRN cap 10/24/21 10/27/21 History oxybutynin chloride 5 mg 2.5 mg PO DAILY #90 tab 10/24/21 10/27/21 Rx tablet,extended release 24 hr Allergies Allergy/AdvReac Type Severity Reaction Status Date / Time carbamazepine AdvReac Mild Dizziness Verified 05/02/21 11:07 Exam Vital Signs (past 8 hours): - 10/27/21 14:06 Temperature 97.6 F Pulse Rate 73 Respiratory Rate 18 Blood Pressure 120/74 Pulse Oximetry 95 Oxygen Delivery Method Room Air Const General: No acute distress Resp Effort & Inspection: normal respiratory effort GI Palpation: soft Assessment & Plan Assessment and plan (1) History of gastrointestinal stromal tumor (GIST): Status: Acute Plan Plan for surveillance EGD today. She understands the risks and benefits and would like to proceed. COVID-19 COVID-19 status: Negative Result date/Date tested (Pos, Neg/Pending): 10/26/21 Time Spent With Patient Critical Care time: I spent a total of [] minutes of critical care time on this patient's care today; this time is exclusive of procedural time.
[2021-10-27] MEDS: LIDOCAINE 4% SOLN 50 ML 20 ML TOP (16:55)
[2021-10-27] MEDS: fentaNYL 250 MCG/5 ML INJ 75 MCG IV (17:00)
[2021-10-27] MEDS: MIDAZOLAM 5 MG/5 ML VIAL 4 MG IV (17:00)
--- NOTE | 2021-10-27 17:12 | PM.OP.EGD ---
Operative Date/Time/Diagnoses Date of procedure: 10/27/21 Time of procedure: 17:12 Pre-op diagnosis: History of gastrointestinal stromal tumor Post-op diagnosis: same Procedure & Clinicians Study performed: Esophagogastroduodenoscopy Same procedure as scheduled: Yes Surgeon: Benedict Bradley Procedure Notes Procedure in detail: A timeout was performed. A bite blocked was placed. The patient was positioned in the left lateral decubitus position. The endoscope was inserted through the bite block and passed through the esophagus and stomach and into the duodenum. The duodenal mucosa appeared normal. The scope was withdrawn into the duodenal bulb and no abnormalities were noted. The scope was withdrawn into the stomach. No abnormalities were noted. There were no signs of prior surgery or any sort of new malignancies. There were no polyps. There are no ulcers. The rest of the stomach was normal. The scope was retroflexed and small hiatal hernia was observed. The scope was withdrawn into the esophagus and biopsies were taken from the GE junction which was about 3 cm above the diaphragm. There is some mild inflammation and hypertrophied tissue around the gastric side of the GE junction. The remainder of the esophagus was normal. The scope was withdrawn. The patient was awakened and brought to recovery. Sedation minutes: 15 Post-procedure Disposition: PACU
[2021-10-27 17:15] VITALS: BP 127/72; PULSE 80; RESP 12; TEMP 36.5; O2SAT 92
[2021-10-27 17:20] VITALS: BP 118/75; PULSE 75; RESP 12; O2SAT 91
[2021-10-27 17:25] VITALS: BP 125/67; PULSE 79; RESP 14; O2SAT 92
[2021-10-27 17:30] VITALS: BP 136/75; PULSE 77; RESP 14; O2SAT 97
== END 2021-10-27 17:40 | disposition home or self-care (01) ==
PROVIDERS: Family Provider Internal Medicine; PCP Internal Medicine; Referring Provider Surgery; Visit Provider Surgery
PROC: 0DJ08ZZ Inspection of Upper Intestinal Tract, Via Natural or Artificial Opening Endoscopic (ICD-10-PCS; CPT 43235; principal; 2021-10-27 15:00)
DX: Z85.028 Personal history of other malignant neoplasm of stomach (principal); K44.9 Diaphragmatic hernia without obstruction or gangrene; K22.10 Ulcer of esophagus without bleeding
CPT/HCPCS: 43239; 99152; J2250; J3010

== ENCOUNTER → 2022-02-17 14:36 | Outpatient (CLI) | payer MEDICARE, OTHER, SELFPAY ==
[2021-05-02 16:17] VITALS: BMI 30.5
--- NOTE | 2022-02-17 14:37 | DI.MG.S_ITS ---
BILATERAL DIGITAL SCREENING MAMMOGRAM 3D/2D WITH CAD: 02/17/2022 CLINICAL: Routine screening. Personal history of right breast cancer. Comparison is made to exams dated: 02/16/2021 mammogram, 01/20/2020 mammogram, and 08/12/2018 mammogram - [facility]. There are scattered areas of fibroglandular density in both breasts (category b / 25%-50% glandular tissue). Current study was also evaluated with a Computer Aided Detection (CAD) system. No significant masses, calcifications, or other findings are seen in either breast. There has been no significant interval change. IMPRESSION: NEGATIVE There is no mammographic evidence of malignancy. A 1 year screening mammogram is recommended. This exam was interpreted at Station ID: [id number]. NOTE: For mammograms, a report in lay terms will be sent to the patient. Approximately 15% of breast malignancies will not be visualized mammographically. In the management of a palpable breast mass, a negative mammogram must not discourage biopsy of a clinically suspicious lesion. Electronically Signed By: Sabra donahue/kaitlyn:02/17/2022 16:40:48 letter sent: Normal Exam ACR BI-RADS Category 1: Negative [id number]
== END ==
PROVIDERS: PCP Internal Medicine; Referring Provider Internal Medicine; Visit Provider Internal Medicine
DX: Z12.31 Encounter for screening mammogram for malignant neoplasm of breast (principal); Z85.3 Personal history of malignant neoplasm of breast
CPT/HCPCS: 77063; 77067

== ENCOUNTER → 2022-06-14 15:24 | Outpatient (CLI) | payer MEDICARE, OTHER, SELFPAY ==
[2021-05-02 16:17] VITALS: BMI 30.5
[2022-06-14 16:36] LABS: Hematocrit 40.3 % (36-46); Hemoglobin 13.4 g/dL (12.0-16.0); Mean Corpuscular HGB Conc 33.2 % (30-36); Mean Corpuscular Hemoglobin 30.5 PG (26-34); Mean Corpuscular Volume 91.9 fL (80-100); Platelet Count 257 X10^3/uL (150-400); Red Blood Cell Count 4.38 X10^6/uL (4.0-5.2); White Blood Cell Count 9.4 X10^3/uL (4.5-11.0)
[2022-06-14 17:48] LABS: Alanine Aminotransferase 23 IU/L (<35); Albumin 4.2 g/dL (3.5-5.0); Albumin Globulin Ratio 1.6 (1.0-2.8); Alkaline Phosphatase 78 U/L (38-126); Aspartate Aminotransferase 27 IU/L (14-36); BUN Creatinine Ratio 33.7 (6-22); Bilirubin Total 0.3 mg/dL (0.2-1.3); Blood Urea Nitrogen 28 mg/dL (7-17); Calcium 9.6 mg/dL (8.4-10.2); Carbon Dioxide 23 mmol/L (22-32); Chloride 104 mmol/L (98-107); Cholesterol 167 mg/dL (140-199); Estimated Glomerular Filt Rate > 60 mL/min (>60); Globulin 2.7 g/dL (1.7-4.1); Glucose 99 mg/dL (80-110); HDL Cholesterol 63 mg/dL (40-60); HEMOLYSIS 21 (0-50); LDL Cholesterol Calculated 68 mg/dL (<100); Potassium 3.9 mmol/L (3.4-5.1); Sodium 140 mmol/L (137-145); Total Protein 6.9 g/dL (6.3-8.2); Triglycerides 181 mg/dL (35-150)
[2022-06-14 18:13] LABS: TSH w/ Reflex to FT4 0.46 uIU/mL (0.47-4.68)
== END ==
PROVIDERS: PCP Internal Medicine; Referring Provider Internal Medicine; Visit Provider Internal Medicine
DX: E78.2 Mixed hyperlipidemia (principal); M81.0 Age-related osteoporosis without current pathological fracture; Z85.09 Personal history of malignant neoplasm of other digestive organs
CPT/HCPCS: 36415; 80053; 80061; 84439; 84443; 85027

== ENCOUNTER 2022-08-02 18:09 | Emergency (ER) | payer MEDICARE, OTHER, SELFPAY ==
[2021-05-02 16:17] VITALS: BMI 30.5
[2022-08-02 18:20] VITALS: BP 149/71; PULSE 99; RESP 15; TEMP 36.3; O2SAT 99; BMI 30.5
--- NOTE | 2022-08-02 18:27 | DI.RAD.S_ITS ---
PROCEDURE: XR CHEST 1V INDICATIONS: chest pain TECHNIQUE: One view of the chest was acquired. COMPARISON: None. FINDINGS: Surgical changes and devices: None. Lungs and pleura: On this semiupright portable chest examination, no large pneumothorax or large pleural effusions are seen. No focal infiltrates are seen. Mediastinum: Mediastinal contours appear normal. Heart size is normal. Atherosclerotic calcification of the aortic arch is noted. A hiatal hernia is seen. Bones and chest wall: Age-appropriate bony degenerative changes are seen. No suspicious bony lesions. Overlying soft tissues appear unremarkable. IMPRESSION: No acute cardiopulmonary process is seen. Dictated by: oYandy Desai M.D. on 08/02/2022 at 18:20 Approved by: Yoandy Desai M.D. on 08/02/2022 at 18:21
[2022-08-02 19:08] LABS: Add Manual Diff / Slide Review NO; Basophils Absolute Auto 0 /uL (0-100); Basophils Percent Auto 0.1 % (0-2); Eosinophils Absolute Auto 200 /uL (0-450); Eosinophils Percent Auto 2.6 % (2-4); Hematocrit 40.9 % (36-46); Hemoglobin 13.4 g/dL (12.0-16.0); Lymphocytes Absolute Auto 1600 /uL (1100-4500); Lymphocytes Percent Auto 19.6 % (25-40); Mean Corpuscular HGB Conc 32.7 % (30-36); Mean Corpuscular Hemoglobin 29.8 PG (26-34); Mean Corpuscular Volume 91.1 fL (80-100); Monocytes Absolute Auto 600 /uL (0-900); Monocytes Percent Auto 7.5 % (3-14); Neutrophils Absolute Auto 5700 /uL (1500-7000); Neutrophils Percent Auto 70.2 % (50-75); Platelet Count 228 X10^3/uL (150-400); Red Blood Cell Count 4.49 X10^6/uL (4.0-5.2); Red Cell Distribution Width 14.1 % (11.6-14.8); White Blood Cell Count 8.1 X10^3/uL (4.5-11.0)
[2022-08-02 19:15] LABS: Alanine Aminotransferase 23 IU/L (<35); Albumin 4.2 g/dL (3.5-5.0); Albumin Globulin Ratio 1.4 (1.0-2.8); Alkaline Phosphatase 62 U/L (38-126); Aspartate Aminotransferase 26 IU/L (14-36); Bilirubin Total 0.4 mg/dL (0.2-1.3); Blood Urea Nitrogen 24 mg/dL (7-17); Carbon Dioxide 22 mmol/L (22-32); Chloride 107 mmol/L (98-107); Creatine Kinase 90 U/L (30-135); Estimated Glomerular Filt Rate > 60 mL/min (>60); Globulin 2.9 g/dL (1.7-4.1); Glucose 143 mg/dL (80-110); HEMOLYSIS 16 (0-50); Lipase 125 U/L (23-300); Magnesium 2.3 mg/dL (1.6-2.3); Potassium 3.7 mmol/L (3.4-5.1); Sodium 140 mmol/L (137-145); Total Protein 7.1 g/dL (6.3-8.2)
[2022-08-02 19:27] LABS: Troponin I < 0.012 ng/mL (0.01-0.034)
[2022-08-02 20:57] VITALS: BP 169/77; PULSE 93; O2SAT 98
--- NOTE | 2022-08-02 21:15 | ED_ITS ---
HPI - Chest Pain General Chief Complaint: Chest Pain Stated Complaint: Chest pains Time Seen by Provider: 08/02/22 21:07 Source: patient Mode of arrival: Ambulatory Limitations: no limitations History of Present Illness HPI narrative: Patient is a 77-year-old female who was sent in by her primary doctor for evaluation of chest pain. Patient states that last evening while she was asleep she was woken up at 2 separate episodes with left-sided chest discomfort. Somewhat hard for her to describe the exact sensation. States it lasted for a couple minutes and then completely resolved. She is currently asymptomatic and has been asymptomatic all day today. She contacted her primary doctor who is nurse told her to come to the emergency department for evaluation. He states the pain was in her left upper chest. Potentially worse with moving in a certain direction. No nausea or vomiting. No shortness of breath. She may no interventions at the time to make the symptoms go away. He is never had this in the past. Related Data Home Medications Medication Instructions Recorded Confirmed aspirin 81 mg tablet,delayed 81 mg PO DAILY 03/09/22 06/14/22 release calcium carbonate 1 tab PO DAILY 03/09/22 06/14/22 cholecalciferol (vitamin D3) 1 cap PO DAILY 03/09/22 06/14/22 vitamin B complex 1 tab PO DAILY 03/09/22 06/14/22 Previous Rx's Medication Instructions Recorded Disabled Parking Permit dev ##1 03/01/16 fluticasone propionate 50 2 spray intranasal DAILY #16 grams 04/04/22 mcg/actuation nasal spray,suspension (Flonase Allergy Relief) rosuvastatin 10 mg tablet 10 mg PO DAILY #90 tabs 06/14/22 Allergies Allergy/AdvReac Type Severity Reaction Status Date / Time carbamazepine AdvReac Mild Dizziness Verified 08/02/22 18:25 Review of Systems Constitutional Constitutional: Reports system reviewed and no additional complaints, except as documented Cardiovascular Cardiovascular: Reports system reviewed and no additional complaints, except as documented Respiratory Respiratory: Reports system reviewed and no additional complaints, except as documented Gastrointestinal Gastrointestinal: Reports system reviewed and no additional complaints, except as documented Integumentary/Breasts Skin/Breast: Reports system reviewed and no additional complaints, except as documented Neurologic Neurologic: Reports system reviewed and no additional complaints, except as documented Patient History Medical History Age-related osteoporosis without current pathological fracture B12 deficiency Cataracts, bilateral Chicken pox (~1949) Endometriosis Fractures Hearing loss History of Shelley's esophagus Measles (~1954) Medicare annual wellness visit, initial Mixed hyperlipidemia Mumps (~1949) BIA (obstructive sleep apnea) Osteopenia Popliteal artery embolism, right Stomach cancer (~2015) Urinary incontinence Surgical History Anesthesia History of hip surgery History of surgery Status post hysterectomy (1990) Family History Brother Age: 76 Diabetes mellitus Father Heart disease Grandfather Cancer Grandmother Heart disease Mother Heart disease Grandmother Heart disease Sister Age: 71 Lung cancer Grandfather No problems noted. Social History marital status: household members: spouse occupational status: previously employed Smoking Status: Never smoker alcohol intake: never substance use type: does not use Smoking Status: Never smoker alcohol intake frequency: holidays/special occasions only Substance Use Type: does not use Exam Initial Vital Signs Initial Vital Signs: Vital Signs Temperature 97.4 F L 08/02/22 18:20 Pulse Rate 99 H 08/02/22 18:20 Respiratory Rate 15 08/02/22 18:20 Blood Pressure 149/71 H 08/02/22 18:20 Pulse Oximetry 99 08/02/22 18:20 Oxygen Delivery Method 08/02/22 18:20 Const General: cooperative, comfortable and No ill appearing HENMT Head: normal to inspection Chest Other: Very mild tenderness to palpation left upper chest Resp Effort & Inspection: normal respiratory effort Auscultation: clear to auscultation bilaterally Cardio Rate: regular rate Rhythm: regular rhythm GI Inspection: normal to inspection Palpation: soft Skin General: no rashes or lesions noted Neuro General: patient alert, patient awake and moves all extremities Extrem General: normal to inspection and capillary refill normal Scores HEART Score Heart Score history: Slightly Suspicious Heart Score EKG: Normal Heart Score Age: > or = 65 years old Heart Score risk factors: 1-2 risk factors Heart Score troponin: < or = to normal limit Heart Score Total: 3 Course Orders Ordered: ED Orders 08/02/22 21:25 Troponin & CK Cardiac Panel Stat Vital Signs Vital signs: Vital Signs - 8 hr 08/02/22 22:07 Pulse Rate 77 Respiratory Rate 20 Blood Pressure 147/76 H Pulse Oximetry 99 Oxygen Delivery Method Room Air MDM - Chest Pain Lab Data Attestation: I reviewed the patient's lab results. 08/02/22 18:58 08/02/22 18:58 Labs: Lab Results 08/02/22 08/02/22 08/02/22 Range/Units 18:58 18:58 21:25 WBC 8.1 (4.5-11.0) X10^3/uL RBC 4.49 (4.0-5.2) X10^6/uL Hgb 13.4 (12.0-16.0) g/dL Hct 40.9 (36-46) % MCV 91.1 (80-100) fL MCH 29.8 (26-34) PG MCHC 32.7 (30-36) % RDW 14.1 (11.6-14.8) % Plt Count 228 (150-400) X10^3/uL Neut % (Auto) 70.2 (50-75) % Lymph % (Auto) 19.6 L (25-40) % [place] % (Auto) 7.5 (3-14) % Eos % (Auto) 2.6 (2-4) % Baso % (Auto) 0.1 (0-2) % Neut # (Auto) 5700 (8112-6521) /uL Lymph # (Auto) 1600 (5058-8587) /uL [place] # (Auto) 600 (0-900) /uL Eos # (Auto) 200 (0-450) /uL Baso # (Auto) 0 (0-100) /uL Sodium 140 (137-145) mmol/L Potassium 3.7 (3.4-5.1) mmol/L Chloride 107 (98-107) mmol/L Carbon Dioxide 22 (22-32) mmol/L BUN 24 H (7-17) mg/dL Creatinine 0.60 (0.52-1.04) mg/dL Estimated GFR > 60 (>60) mL/min BUN/Creatinine Ratio 40.0 H (6-22) Glucose 143 H (80-110) mg/dL Calcium 9.0 (8.4-10.2) mg/dL Magnesium 2.3 (1.6-2.3) mg/dL Total Bilirubin 0.4 (0.2-1.3) mg/dL AST 26 (14-36) IU/L ALT 23 (<35) IU/L Alkaline Phosphatase 62 (38-126) U/L Total Creatine Kinase 90 84 (30-135) U/L CK-MB (CK-2) TNP TNP CK-MB (CK-2) Rel Index TNP TNP Troponin I < 0.012 < 0.012 (0.01-0.034) ng/mL Total Protein 7.1 (6.3-8.2) g/dL Albumin 4.2 (3.5-5.0) g/dL Globulin 2.9 (1.7-4.1) g/dL Albumin/Globulin Ratio 1.4 (1.0-2.8) Lipase 125 (23-300) U/L Imaging Data Chest x-ray: Radiologist's Impression: PROCEDURE:? XR CHEST 1V ? INDICATIONS:? chest pain ? TECHNIQUE:? One view of the chest was acquired.? ? COMPARISON:? None. ? FINDINGS:? ? Surgical changes and devices:? None.? ? Lungs and pleura:? On this semiupright portable chest examination, no large pneumothorax or large pleural effusions are seen.? No focal infiltrates are seen.? ? Mediastinum:? Mediastinal contours appear normal.? Heart size is normal.? Atherosclerotic calcification of the aortic arch is noted.? A hiatal hernia is seen. ? Bones and chest wall:? Age-appropriate bony degenerative changes are seen.? No suspicious bony lesions.? Overlying soft tissues appear unremarkable.? ? IMPRESSION:? ? No acute cardiopulmonary process is seen.? ECG Data Attestation: I personally reviewed and interpreted this ECG as follows: Interpretation: Sinus rhythm Ventricular rate 90 Normal axis Normal QRS Normal QTC No ST T wave changes MDM Narrative Medical decision making narrative: Labs are unremarkable. Chest x-ray is unremarkable. EKGs unremarkable. Despite her age she does have a low risk heart score. She is currently asymptomatic. She does have some reproducible tenderness to palpation left upper chest but is difficult for her to say whether not this is exactly what woke her up last evening. She is a follow-up with her primary doctor tomorrow with her . Low suspicion for pulmonary embolism. Low suspicion for pneumonia. No skin changes over the area. No indication for antibiotics. We will hold on further workup for now and have her continue all of her medications and have her talk with her primary doctor. She was given return precautions. She expressed understanding and agreement. Discharge Plan Departure Patient Disposition: Home Clinical Impression: Atypical chest pain Instructions: DI for Atypical Chest Pain Activity Restrictions/Additional Instructions: I recommend that you keep all of your scheduled medical appointments. Continue to take all of your medications as directed. Return to the emergency department for any new symptoms. Prescriptions: No Action Disabled Parking Permit Qty: 1 0RF fluticasone propionate [Flonase Allergy Relief] 50 mcg/actuation spray,suspension 2 spray intranasal DAILY Qty: 16 11RF Rx Instructions: administer into each nostril vitamin B complex Tablet 1 tab PO DAILY cholecalciferol (vitamin D3) 1 cap PO DAILY aspirin 81 mg tablet,delayed release (DR/EC) 81 mg PO DAILY calcium carbonate 1 tab PO DAILY rosuvastatin 10 mg tablet 10 mg PO DAILY Qty: 90 3RF Referrals: Martín Pyle MD [Primary Care Provider] - Stand Alone Forms: Patient Portal/API
[2022-08-02 21:40] LABS: Creatine Kinase 84 U/L (30-135)
[2022-08-02 21:53] LABS: Troponin I < 0.012 ng/mL (0.01-0.034)
[2022-08-02 22:07] VITALS: BP 147/76; PULSE 77; RESP 20; O2SAT 99
== END 2022-08-02 22:08 | disposition home or self-care (01) ==
PROVIDERS: Emergency Provider Emergency Medicine; PCP Internal Medicine
DX: R07.89 Other chest pain (principal)
CPT/HCPCS: 36415; 71045; 80053; 82550; 83690; 83735; 84484; 85025; 93005; 99283; 99284

== ENCOUNTER 2023-01-08 14:15 | Outpatient (RCR) | payer MEDICARE, OTHER, SELFPAY ==
[2021-05-02 16:17] VITALS: BMI 30.5
--- NOTE | 2022-11-16 19:01 | PT.OIE ---
Current Diagnoses Polyosteoarthritis, unspecified (11/16/22) Pain in left knee (11/16/22) Stiffness of right knee, not elsewhere classified (11/16/22) Difficulty in walking, not elsewhere classified (11/16/22) Abnormal posture (11/16/22) Weakness (11/16/22) Past Medical History (Last Updated 10/05/22 @ 10:11 by Martín Pyle MD) Age-related osteoporosis without current pathological fracture B12 deficiency Cataracts, bilateral Chicken pox (~1950) Endometriosis Fractures Hearing loss History of Shelley's esophagus Measles (~1953) Mixed hyperlipidemia Mumps (~1949) BIA (obstructive sleep apnea) Osteopenia Popliteal artery embolism, right Primary osteoarthritis involving multiple joints Stomach cancer (~2015) Urinary incontinence Weakness Past Surgical History (Last Reviewed 06/14/22 @ 13:04 by Martín Pyle MD) Anesthesia History of hip surgery History of surgery Status post hysterectomy (1990) Visit Care Team Role Provider Type Martín Pyle MD Attending Provider Physician Family Provider Primary Care Provider Referring Provider Specialty: Internal Medicine Address: [address] [place] [address] Email: [email or web address] Physical Therapy Initial Evaluation PT-OP-A Visit Information Start: 11/16/22 07:40 Freq: Status: Active Protocol: Document 11/16/22 12:47 [facility] (Rec: 11/16/22 13:33 [facility] [id number]) Out-Patient Physical Therapy Visit Information Visit Information Visit Type Initial Evaluation Visit Note 06/20 Visit Start Time 12:48 Visit Stop Time 13:31 Total Visit Minutes 42 Visit Number 1 Number of ARMAMENT MECHANIC Visits 0 PT-OP-B Current Condition Start: 11/16/22 07:40 Freq: Status: Active Protocol: Document 11/16/22 12:47 [facility] (Rec: 11/16/22 13:33 [facility] [id number]) Current Condition History of Current Condition History of Current Condition Pt reports she wants to be able to get something off the floor. The R one feel like it is full of cotton. She feels like bending both of her knees is difficult. It is about impossible to get like the garden hose. She had R TKA was about 2 years ago and had cortizone in L one a couple months ago that helped w/pain. She doesn't feel ready to do TKA but L knee does hurt at night moving around. She feels like her range is dec on R. Pt reports she has to walk carefully d/t balance. Seh doesn't want to use a cane and would rather just be careful. Denies falls. She does the watering and weed spray in the garden. Pt reports she neesd both hands to get out of the chair. If she keeps her knees together in bed it makes it less painful on L knee. L knee will wake her up when trying to move. Xrays have been done and has shown arthritis. She used to feel like her knees were knocking her over because they bent in. R knee never felt lik it got all the way rehabed. Pt had a fall and fractured R hip about 4 years ago and has pinning of R hip. It as a high curb and she didn 't see it was that high and caught it and went flying. Pt walks 1 loop around [employer] [place] with her w/him w/ walker. Takes one seated rest break for . Has only tried one lap d/t . She walks up to sabianist for communion and she tends to grab onto things but is trying to stop herself. She feels like that the is max she can do at the time. She is typically able to do her tasks as needed. Prior Treatments and Tests PT after TKA but has always felt like stuffing inside despite some imrpvoement w/PT Treatment Goals Patient/Caregiver Goals get something off floor; be able to get out of chair easier (not require 2 hands) PT-OP-C Subjective Start: 11/16/22 07:40 Freq: Status: Active Protocol: Document 11/16/22 12:47 [facility] (Rec: 11/16/22 13:33 [facility] [id number]) Patient Questionnaires Lower Extremity Functional Scale LEFS Score 45/80 PT-OP-D Balance Start: 11/16/22 07:40 Freq: Status: Active Protocol: Document 11/16/22 12:47 [facility] (Rec: 11/16/22 13:33 [facility] [id number]) Balance Tests Single Limb Standing Single Limb- Right unable Single Limb- Left 2 sec w/a lot of deviation PT-OP-E Functional Tests Start: 11/16/22 07:40 Freq: Status: Active Protocol: Document 11/16/22 12:47 [facility] (Rec: 11/16/22 13:33 [facility] [id number]) Functional Tests 6 Minute Walk Test Distance 785ft Device Used none 30 Second Sit to Stand Test Score 6 w/UEs Comments silver chair; twinge w/L knee Five Times Sit to Stand Test Score 26 sec w/UEs Comments silver chair PT-OP-G Mobility & Gait Start: 11/16/22 07:40 Freq: Status: Active Protocol: Document 11/16/22 12:47 [facility] (Rec: 11/16/22 13:33 [facility] [id number]) OP Mobility Evaluation Transfers Sit to Stand uses B UEs to help herself out of chair Functional Movements Other Functional Movements Bends at back and hips to pick something off the ground and feels off balance OP Gait Assessment Comments Gait Comments lat leaning over R side . Dec push off B; at terminal stance she has quick hyperext and occ dec LLE clearance; dec L DF; fwd lean in gait PT-OP-J Posture/Palpation/Skin Start: 11/16/22 07:40 Freq: Status: Active Protocol: Document 11/16/22 12:47 [facility] (Rec: 11/16/22 13:33 [facility] [id number]) Posture Evaluation Comments Posture Comments L SB, R pelvis appears higher, inc kyphosis PT-OP-K Range of Motion Start: 11/16/22 07:40 Freq: Status: Active Protocol: Document 11/16/22 12:47 [facility] (Rec: 11/16/22 13:33 [facility] [id number]) Knee Goniometric Range of Motion Knee Left Flexion Active (degrees) 114 Extension Active (degrees) 8 Right Flexion Active (degrees) 113 Extension Active (degrees) 3 Comments pain getting out of flex; feels like cotton in knee w/ flexing; c/o stitch in back w /ext PT-OP-M Strength Start: 11/16/22 07:40 Freq: Status: Active Protocol: Document 11/16/22 12:47 [facility] (Rec: 11/16/22 13:33 [facility] [id number]) Hip Strength Hip Manual Muscle Testing Right Flexion (L2) 5 Normal Abduction 3 Fair External Rotation 4- Good- Internal Rotation 4- Good- Left Flexion (L2) 4- Good- Abduction 3 Fair External Rotation 3 Fair Internal Rotation 4- Good- Comments pain in knee w/ER and ppain in hip w/IR; pain in knee w/abd Knee Strength Knee Manual Muscle Testing Right Flexion (S2) 5 Normal Extension (L3) 5 Normal Left Flexion (S2) 5 Normal Extension (L3) 4- Good- Ankle/Foot Strength Ankle and Foot Manual Muscle Testing Right Dorsiflexion (L4) 5 Normal Plantarflexion (S1) 5 Normal Left Dorsiflexion (L4) 3 Fair Plantarflexion (S1) 5 Normal Comments seatd PF testing B; pain DF PT-OP-T Assessment and Plan Start: 11/16/22 07:40 Freq: Status: Active Protocol: Document 11/16/22 12:47 [facility] (Rec: 11/16/22 13:33 [facility] [id number]) Physical Therapy Assessment Rehab Potential Rehabilitation Potential Good Evaluation Complexity Number of Personal Factors/Comorbidities 3 or More Number of Body Systems Impaired 4 or More Clinical Presentation at Evaluation Evolving Impairments Impairments Activity Tolerance,Balance, Functional Activities, Functional Mobility,Gait,Pain, Posture,ROM,Soft Tissue Mobility,Strength,Transfers Goals balance [facility] Goal (LTG) Pt will be able tod o SLS for 5 sec B to show improved baalance and stabiltiy LTG Duration 02/07 Three Short Term Goal (STG) Pt will be able to do 9 sit to stands w/UE in 30 sec to show improved LE strength. STG Duration 12/25/22 [facility] Goal (LTG) Pt will be able to hold an object in one hand and stand w /use of only 1 UE to push from LTG Duration 02/07/23 Two Impairment walks 1 loop of [employer] w/1 rest on bench Impairment 785ft 6 min walk test Short Term Goal (STG) Pt be able to walk at least 2 loops at [employer] w/o inc pain or feeling of excessive fatigue STG Duration 12/16/22 [facility] Goal (LTG) Pt will be able to do 935ft safely for 6 min walk test. LTG Duration 02/07/23 One [employer] Goal (LTG) Pt will be able to pick objects off the ground w/o fear of falling and w/ease including on outdoor surfaces (picking up hose). LTG Duration 02/08/23 Assessment Summary Assessment Pt presents w/main c/o difficulty bending fwd to pickle cutter objects like hose from the ground. She has also noticed she has some L knee pain w/ longer walking, getting up from stairs and moving in bed. She has talked to re: TKA but does not feel ready.S he had RTKA and still feels like it is stuffed w/cotton which limits her moblity. She has overall dec balance, LE strength, dec core stabiltiy, impaired gait and posture and dec B knee ROM. She would benefit from skilled PT to work on these deficits to improve her functional capacity. Physical Therapy Plan Frequency and Duration Frequency of Treatment 2x/Week Duration of treatment (weeks) 12 Plan of Care Start Date 11/16/22 Plan of Care End Date 02/08/23 Therapeutic Interventions Therapeutic Interventions Balance Training,Gait Training ,Home Exercise Program,Joint Mobilizations,Manual Therapy, Neuromuscular Re-education, Orthotic/Prosthetic Management ,Patient/Caregiver Education, Self-Care/Home Management,Soft Tissue Mobilization,Taping, Therapeutic Activities, Therapeutic Exercises Modalities Cold Pack/Ice Massage,Electric Stimulation,Hot Packs Next Visit Focus/Plan Next Note Type Treatment Note
--- NOTE | 2022-11-16 19:01 | PT.OPPOC ---
Physical, Occupational & Speech Therapy At [facility] Current Diagnoses Polyosteoarthritis, unspecified (11/16/22) Pain in left knee (11/16/22) Stiffness of right knee, not elsewhere classified (11/16/22) Difficulty in walking, not elsewhere classified (11/16/22) Abnormal posture (11/16/22) Weakness (11/16/22) Visit Care Team Role Provider Type Martín Pyle MD Attending Provider Physician Family Provider Primary Care Provider Referring Provider Specialty: Internal Medicine Address: [address] [place] [address], [facility] Email: [email or web address] Plan Of Care PT-OP-T Assessment and Plan Start: 11/16/22 07:40 Freq: Status: Active Protocol: Document 11/16/22 12:47 [facility] (Rec: 11/16/22 13:33 [facility] [id number]) Physical Therapy Assessment Rehab Potential Rehabilitation Potential Good Evaluation Complexity Number of Personal Factors/Comorbidities 3 or More Number of Body Systems Impaired 4 or More Clinical Presentation at Evaluation Evolving Impairments Impairments Activity Tolerance,Balance, Functional Activities, Functional Mobility,Gait,Pain, Posture,ROM,Soft Tissue Mobility,Strength,Transfers Goals balance [employer] Goal (LTG) Pt will be able tod o SLS for 5 sec B to show improved baalance and stabiltiy LTG Duration 02/07 Three Short Term Goal (STG) Pt will be able to do 9 sit to stands w/UE in 30 sec to show improved LE strength. STG Duration 12/25/22 [employer] Goal (LTG) Pt will be able to hold an object in one hand and stand w /use of only 1 UE to push from LTG Duration 02/07/23 Two Impairment walks [place] w/1 rest on bench Impairment 785ft 6 min walk test Short Term Goal (STG) Pt be able to walk at least 2 loops [place] [employer] [place] w/o inc pain or feeling of excessive fatigue STG Duration 12/16/22 Nursing Home Goal (LTG) Pt will be able to do 935ft safely for 6 min walk test. LTG Duration 02/07/23 One Nursing Home Goal (LTG) Pt will be able to pick objects off the ground w/o fear of falling and w/ease including on outdoor surfaces (picking up hose). LTG Duration 02/08/23 Assessment Summary Assessment Pt presents w/main c/o difficulty bending fwd to excelsior picker objects like hose from the ground. She has also noticed she has some L knee pain w/ longer walking, getting up from stairs and moving in bed. She has talked to re: TKA but does not feel ready.S he had RTKA and still feels like it is stuffed w/cotton which limits her moblity. She has overall dec balance, LE strength, dec core stabiltiy, impaired gait and posture and dec B knee ROM. She would benefit from skilled PT to work on these deficits to improve her functional capacity. Physical Therapy Plan Frequency and Duration Frequency of Treatment 2x/Week Duration of treatment (weeks) 12 Plan of Care Start Date 11/16/22 Plan of Care End Date 02/08/23 Therapeutic Interventions Therapeutic Interventions Balance Training,Gait Training ,Home Exercise Program,Joint Mobilizations,Manual Therapy, Neuromuscular Re-education, Orthotic/Prosthetic Management ,Patient/Caregiver Education, Self-Care/Home Management,Soft Tissue Mobilization,Taping, Therapeutic Activities, Therapeutic Exercises Modalities Cold Pack/Ice Massage,Electric Stimulation,Hot Packs Next Visit Focus/Plan Next Note Type Treatment Note Plan of Care Dates Plan of Care Start Date 11/16/22 Plan of Care End Date 02/08/23 Electronically Signed by: Lena Pennington, PT 11/16/22 [id number] If you are in agreement with this Plan of Care, please return a signed and dated copy. I have reviewed this Plan of Care and certify that the skilled therapy services above are required to meet the patient?s needs. Physician Signature Date Printed Name and Credentials Clinical Instructor Signature Printed Name and Credentials
--- NOTE | 2022-11-20 13:01 | PT.OTN ---
Current Diagnoses Polyosteoarthritis, unspecified (11/20/22) Pain in left knee (11/20/22) Stiffness of right knee, not elsewhere classified (11/20/22) Difficulty in walking, not elsewhere classified (11/20/22) Abnormal posture (11/20/22) Weakness (11/20/22) Physical Therapy Treatment Note PT-OP-A Visit Information Start: 11/16/22 07:40 Freq: Status: Active Protocol: Document 11/20/22 11:35 [facility] (Rec: 11/20/22 13:01 [facility] [id number]) Out-Patient Physical Therapy Visit Information Visit Information Visit Type Treatment Note Visit Note 07/21 Visit Start Time 11:36 Visit Stop Time 12:15 Total Visit Minutes 39 Visit Number 2 Number of [facility] HOME Visits 0 PT-OP-B Current Condition Start: 11/16/22 07:40 Freq: Status: Active Protocol: Document 11/16/22 12:47 [facility] (Rec: 11/16/22 13:33 [facility] [id number]) Current Condition History of Current Condition History of Current Condition Pt reports she wants to be able to get something off the floor. The R one feel like it is full of cotton. She feels like bending both of her knees is difficult. It is about impossible to get like the garden hose. She had R TKA was about 2 years ago and had cortizone in L one a couple months ago that helped w/pain. She doesn't feel ready to do TKA but L knee does hurt at night moving around. She feels like her range is dec on R. Pt reports she has to walk carefully d/t balance. Seh doesn't want to use a cane and would rather just be careful. Denies falls. She does the watering and weed spray in the garden. Pt reports she neesd both hands to get out of the chair. If she keeps her knees together in bed it makes it less painful on L knee. L knee will wake her up when trying to move. Xrays have been done and has shown arthritis. She used to feel like her knees were knocking her over because they bent in. R knee never felt lik it got all the way rehabed. Pt had a fall and fractured R hip about 4 years ago and has pinning of R hip. It as a high curb and she didn 't see it was that high and caught it and went flying. Pt walks 1 [place] her w/him w/ walker. Takes one seated rest break for . Has only tried one lap d/t . She walks up to [employer] [place] and she tends to grab onto things but is trying to stop herself. She feels like that the is max she can do at the time. She is typically able to do her tasks as needed. Prior Treatments and Tests PT after TKA but has always felt like stuffing inside despite some imrpvoement w/PT Treatment Goals Patient/Caregiver Goals get something off floor; be able to get out of chair easier (not require 2 hands) PT-OP-C Subjective Start: 11/16/22 07:40 Freq: Status: Active Protocol: Document 11/20/22 11:35 [facility]20[facility]22 [id number] Subjective Patient Comments Patient Comments Pt notes she has been going to water aerobics 2x/wk PT-OP-D Balance Start: 11/16/22 07:40 Freq: Status: Active Protocol: Document 11/16/22 12:47 [facility] (Rec: 11/16/22 13:33 [facility] [id number]) Balance Tests Single Limb Standing Single Limb- Right unable Single Limb- Left 2 sec w/a lot of deviation PT-OP-E Functional Tests Start: 11/16/22 07:40 Freq: Status: Active Protocol: Document 11/16/22 12:47 [facility] (Rec: 11/16/22 13:33 [facility] [id number]) Functional Tests 6 Minute Walk Test Distance 785ft Device Used none 30 Second Sit to Stand Test Score 6 w/UEs Comments silver chair; twinge w/L knee Five Times Sit to Stand Test Score 26 sec w/UEs Comments silver chair PT-OP-G Mobility & Gait Start: 11/16/22 07:40 Freq: Status: Active Protocol: Document 11/16/22 12:47 [facility] (Rec: 11/16/22 13:33 [facility] [id number]) OP Mobility Evaluation Transfers Sit to Stand uses B UEs to help herself out of chair Functional Movements Other Functional Movements Bends at back and hips to pick something off the ground and feels off balance OP Gait Assessment Comments Gait Comments lat leaning over R side . Dec push off B; at terminal stance she has quick hyperext and occ dec LLE clearance; dec L DF; fwd lean in gait PT-OP-J Posture/Palpation/Skin Start: 11/16/22 07:40 Freq: Status: Active Protocol: Document 11/16/22 12:47 [facility] (Rec: 11/16/22 13:33 [facility] [id number]) Posture Evaluation Comments Posture Comments L SB, R pelvis appears higher, inc kyphosis PT-OP-K Range of Motion Start: 11/16/22 07:40 Freq: Status: Active Protocol: Document 11/16/22 12:47 [facility] (Rec: 11/16/22 13:33 [facility] [id number]) Knee Goniometric Range of Motion Knee Left Flexion Active (degrees) 114 Extension Active (degrees) 8 Right Flexion Active (degrees) 113 Extension Active (degrees) 3 Comments pain getting out of flex; feels like cotton in knee w/ flexing; c/o stitch in back w /ext PT-OP-M Strength Start: 11/16/22 07:40 Freq: Status: Active Protocol: Document 11/16/22 12:47 [facility] (Rec: 11/16/22 13:33 [facility] [id number]) Hip Strength Hip Manual Muscle Testing Right Flexion (L2) 5 Normal Abduction 3 Fair External Rotation 4- Good- Internal Rotation 4- Good- Left Flexion (L2) 4- Good- Abduction 3 Fair External Rotation 3 Fair Internal Rotation 4- Good- Comments pain in knee w/ER and ppain in hip w/IR; pain in knee w/abd Knee Strength Knee Manual Muscle Testing Right Flexion (S2) 5 Normal Extension (L3) 5 Normal Left Flexion (S2) 5 Normal Extension (L3) 4- Good- Ankle/Foot Strength Ankle and Foot Manual Muscle Testing Right Dorsiflexion (L4) 5 Normal Plantarflexion (S1) 5 Normal Left Dorsiflexion (L4) 3 Fair Plantarflexion (S1) 5 Normal Comments seatd PF testing B; pain DF PT-OP-Q Treatments Start: 11/16/22 07:40 Freq: Status: Active Protocol: Document 11/20/22 11:35 [facility] (Rec: 11/20/22 13:01 [facility] [id number]) Cardio Equipment Recumbent Elliptical (Biodex) Duration (Minutes) 5 Resistance 3 Seat Position 8 Other cues for L knee tracking Therapeutic Exercises Supine Exercises clamshell Supine Exercise Name SL at a time Side bilateral Equipment Used green tband Reps/Minutes 12 ea Comments cues for core and no rot bridge Side bilateral Equipment Used orange progressed to green band Reps/Minutes 5 sec x10 Standing Exercises sit to stand Standing Exercise Name B UEs Side bilateral Reps/Minutes 10 Comments cues for hip hinge mini squat Standing Exercise Name hands at counter Side bilateral Reps/Minutes 15 Comments comfortable range-max cues for form and knees but pt had a lot of difficult ext Side bilateral Reps/Minutes 10 Comments cues for posture abd Side bilateral Reps/Minutes 10 Comments cues for posture Manual Therapy Treatment Soft Tissue Mobilization thigh Body Location L ITB & lat quad Mobilization Type Rolling,Sustained Pressure Intensity/Depth Moderate Body Position Hooklying Comments W/ER and c/r Joint Mobilizations hip Joint L ER on axis FM Body Position Hooklying Comments manual facilitation at end range PT-OP-T Assessment and Plan Start: 11/16/22 07:40 Freq: Status: Active Protocol: Document 11/20/22 11:35 [facility] (Rec: 11/20/22 13:01 [facility] [id number]) Physical Therapy Assessment Goals balance Picture Booker Goal (LTG) Pt will be able tod o SLS for 5 sec B to show improved baalance and stabiltiy LTG Duration 02/07 Three Impairment Lower extremity functional scale score 29% Short Term Goal (STG) Pt will be able to do 9 sit to stands w/UE in 30 sec to show improved LE strength. STG Duration 12/25/22 [facility] Goal (LTG) Pt will be able to hold an object in one hand and stand w /use of only 1 UE to push from LTG Duration 02/07/23 Two Impairment walks [place]/1 rest on bench Impairment 785ft 6 min walk test Short Term Goal (STG) Pt be able to walk at least 2 loops [place] w/o inc pain or feeling of excessive fatigue STG Duration 12/16/22 [facility] Goal (LTG) Pt will be able to do 935ft safely for 6 min walk test. LTG Duration 02/07/23 One Impairment AROM 14-94 PROM 10-100 Picture Booker Goal (LTG) Pt will be able to pick objects off the ground w/o fear of falling and w/ease including on outdoor surfaces (picking up hose). LTG Duration 02/08/23 Assessment Summary Assessment Pt did well with exercises w/c /o pain only w/mini squats but pt had difficulty w/form. Some pain noted w/stepper but improved w/monitoring knee position and not allowing IR. She had difficulty w/ coordinating squats so not given for HEP Physical Therapy Plan Frequency and Duration Frequency of Treatment 2x/Week Duration of treatment (weeks) 12 Plan of Care Start Date 11/16/22 Plan of Care End Date 02/08/23 Next Visit Focus/Plan Next Note Type Treatment Note Next Visit Plan review exercises, manual to BLE to wokr on knee tracking and dec pain.
--- NOTE | 2022-11-22 18:09 | PT.OTN ---
Addendum entered and electronically signed by Lena Pennington, PT 11/22/22 18:24: PT direct supervision to PT student. Addendum entered and electronically signed by Lena Pennington PT 11/22/22 18:24: PT direct supervision to PT student. Original Note: Current Diagnoses Polyosteoarthritis, unspecified (11/22/22) Pain in left knee (11/22/22) Stiffness of right knee, not elsewhere classified (11/22/22) Difficulty in walking, not elsewhere classified (11/22/22) Abnormal posture (11/22/22) Weakness (11/22/22) Physical Therapy Treatment Note PT-OP-A Visit Information Start: 11/16/22 07:40 Freq: Status: Active Protocol: Document 11/22/22 17:37 (Rec: 11/22/22 17:48 [id number]) Out-Patient Physical Therapy Visit Information Visit Information Visit Type Treatment Note Visit Note 08/18 Visit Start Time 10:47 Visit Stop Time 11:30 Total Visit Minutes 43 Visit Number 3 Number of WILLOW ANALYST Visits 0 PT-OP-B Current Condition Start: 11/16/22 07:40 Freq: Status: Active Protocol: Document 11/16/22 12:47 [facility] (Rec: 11/16/22 13:33 [facility] [id number]) Current Condition History of Current Condition History of Current Condition Pt reports she wants to be able to get something off the floor. The R one feel like it is full of cotton. She feels like bending both of her knees is difficult. It is about impossible to get like the garden hose. She had R TKA was about 2 years ago and had cortizone in L one a couple months ago that helped w/pain. She doesn't feel ready to do TKA but L knee does hurt at night moving around. She feels like her range is dec on R. Pt reports she has to walk carefully d/t balance. Seh doesn't want to use a cane and would rather just be careful. Denies falls. She does the watering and weed spray in the garden. Pt reports she neesd both hands to get out of the chair. If she keeps her knees together in bed it makes it less painful on L knee. L knee will wake her up when trying to move. Xrays have been done and has shown arthritis. She used to feel like her knees were knocking her over because they bent in. R knee never felt lik it got all the way rehabed. Pt had a fall and fractured R hip about 4 years ago and has pinning of R hip. It as a high curb and she didn 't see it was that high and caught it and went flying. Pt walks 1 loop [place] her w/him w/ walker. Takes one seated rest break for . Has only tried one lap d/t . She walks up to [employer] for communion and she tends to grab onto things but is trying to stop herself. She feels like that the is max she can do at the time. She is typically able to do her tasks as needed. Prior Treatments and Tests PT after TKA but has always felt like stuffing inside despite some imrpvoement w/PT Treatment Goals Patient/Caregiver Goals get something off floor; be able to get out of chair easier (not require 2 hands) PT-OP-C Subjective Start: 11/16/22 07:40 Freq: Status: Active Protocol: Document 11/22/22 17:37 (Rec: 11/22/22 17:48 [id number]) OP-PT Subjective Patient Comments Patient Comments Pt did standing exercises in the pool before her water aerobics. did not do them on land since last visit. PT-OP-D Balance Start: 11/16/22 07:40 Freq: Status: Active Protocol: Document 11/16/22 12:47 [facility] (Rec: 11/16/22 13:33 [facility] [id number]) Balance Tests Single Limb Standing Single Limb- Right unable Single Limb- Left 2 sec w/a lot of deviation PT-OP-E Functional Tests Start: 11/16/22 07:40 Freq: Status: Active Protocol: Document 11/16/22 12:47 [facility] (Rec: 11/16/22 13:33 [facility] [id number]) Functional Tests 6 Minute Walk Test Distance 785ft Device Used none 30 Second Sit to Stand Test Score 6 w/UEs Comments silver chair; twinge w/L knee Five Times Sit to Stand Test Score 26 sec w/UEs Comments silver chair PT-OP-G Mobility & Gait Start: 11/16/22 07:40 Freq: Status: Active Protocol: Document 11/16/22 12:47 [facility] (Rec: 11/16/22 13:33 [facility] [id number]) OP Mobility Evaluation Transfers Sit to Stand uses B UEs to help herself out of chair Functional Movements Other Functional Movements Bends at back and hips to pick something off the ground and feels off balance OP Gait Assessment Comments Gait Comments lat leaning over R side . Dec push off B; at terminal stance she has quick hyperext and occ dec LLE clearance; dec L DF; fwd lean in gait PT-OP-J Posture/Palpation/Skin Start: 11/16/22 07:40 Freq: Status: Active Protocol: Document 11/16/22 12:47 [facility] (Rec: 11/16/22 13:33 [facility] [id number]) Posture Evaluation Comments Posture Comments L SB, R pelvis appears higher, inc kyphosis PT-OP-K Range of Motion Start: 11/16/22 07:40 Freq: Status: Active Protocol: Document 11/16/22 12:47 [facility] (Rec: 11/16/22 13:33 [facility] [id number]) Knee Goniometric Range of Motion Knee Left Flexion Active (degrees) 114 Extension Active (degrees) 8 Right Flexion Active (degrees) 113 Extension Active (degrees) 3 Comments pain getting out of flex; feels like cotton in knee w/ flexing; c/o stitch in back w /ext PT-OP-M Strength Start: 11/16/22 07:40 Freq: Status: Active Protocol: Document 11/16/22 12:47 [facility] (Rec: 11/16/22 13:33 [facility] [id number]) Hip Strength Hip Manual Muscle Testing Right Flexion (L2) 5 Normal Abduction 3 Fair External Rotation 4- Good- Internal Rotation 4- Good- Left Flexion (L2) 4- Good- Abduction 3 Fair External Rotation 3 Fair Internal Rotation 4- Good- Comments pain in knee w/ER and ppain in hip w/IR; pain in knee w/abd Knee Strength Knee Manual Muscle Testing Right Flexion (S2) 5 Normal Extension (L3) 5 Normal Left Flexion (S2) 5 Normal Extension (L3) 4- Good- Ankle/Foot Strength Ankle and Foot Manual Muscle Testing Right Dorsiflexion (L4) 5 Normal Plantarflexion (S1) 5 Normal Left Dorsiflexion (L4) 3 Fair Plantarflexion (S1) 5 Normal Comments seatd PF testing B; pain DF PT-OP-Q Treatments Start: 11/16/22 07:40 Freq: Status: Active Protocol: Document 11/22/22 17:37 (Rec: 11/22/22 17:48 [id number]) Gym Equipment Shuttle Recovery Unilateral Squats Details emphasis on neutral LE alignment Resistance 25# Reps/Time 15x ea Bilateral Squats Details cued knees with toes Resistance 50# Reps/Time 20 Therapeutic Exercises Supine Exercises clamshell Supine Exercise Name SL at a time Side bilateral Equipment Used green tband Reps/Minutes 15 ea Comments cues for stablize one leg and control bridge Side bilateral Equipment Used orange progressed to green band Reps/Minutes 5 sec x10 Standing Exercises sit to stand Standing Exercise Name No hands on elevated table Side bilateral Reps/Minutes 12 Comments cues for hip hinge and knee control ext Side bilateral Reps/Minutes 12 Comments cues for posture abd Side bilateral Reps/Minutes 10 Comments cues for posture Manual Therapy Treatment Soft Tissue Mobilization thigh Body Location L HS and ADD Mobilization Type Sustained Pressure Intensity/Depth Moderate Body Position Hooklying Comments W/ER and flex Joint Mobilizations hip Joint L ER on axis FM Body Position Hooklying Comments manual facilitation at end range PT-OP-T Assessment and Plan Start: 11/16/22 07:40 Freq: Status: Active Protocol: Document 11/22/22 17:37 (Rec: 11/22/22 17:48 [id number]) Physical Therapy Assessment Goals balance Care Home Goal (LTG) Pt will be able tod o SLS for 5 sec B to show improved baalance and stabiltiy LTG Duration 02/07 Three Impairment Lower extremity functional scale score 29% Short Term Goal (STG) Pt will be able to do 9 sit to stands w/UE in 30 sec to show improved LE strength. STG Duration 12/25/22 [employer] Goal (LTG) Pt will be able to hold an object in one hand and stand w /use of only 1 UE to push from LTG Duration 02/07/23 Two Impairment walks [place]1 rest on bench Impairment 785ft 6 min walk test Short Term Goal (STG) Pt be able to walk at least 2 loops [place] w/o inc pain or feeling of excessive fatigue STG Duration 12/16/22 [facility] Home Goal (LTG) Pt will be able to do 935ft safely for 6 min walk test. LTG Duration 02/07/23 One Impairment AROM 14-94 PROM 10-100 [facility] Goal (LTG) Pt will be able to pick objects off the ground w/o fear of falling and w/ease including on outdoor surfaces (picking up hose). LTG Duration 02/08/23 Assessment Summary Assessment Pt tolerated exercises. Needed cueing for posture during standing exercises. Pain was noted with L lateral knee during flexion movements both passive and active. Pt flexion did improve ROM after manual treatment and had dec pain with PROM. Pt had difficulty coordinating movements for squats without external cues from PT. Physical Therapy Plan Frequency and Duration Frequency of Treatment 2x/Week Duration of treatment (weeks) 12 Plan of Care Start Date 11/16/22 Plan of Care End Date 02/08/23 Next Visit Focus/Plan Next Note Type Treatment Note Next Visit Plan review exercises; manual to BLE to work on IT band and ADD
--- NOTE | 2022-12-01 11:30 | PT.OTN ---
Current Diagnoses Polyosteoarthritis, unspecified (12/01/22) Pain in left knee (12/01/22) Stiffness of right knee, not elsewhere classified (12/01/22) Difficulty in walking, not elsewhere classified (12/01/22) Abnormal posture (12/01/22) Weakness (12/01/22) Physical Therapy Treatment Note PT-OP-A Visit Information Start: 11/16/22 07:40 Freq: Status: Active Protocol: Document 12/01/22 10:54 SP (Rec: 12/01/22 11:39 SP [id number]) Out-Patient Physical Therapy Visit Information Visit Information Visit Type Treatment Note Visit Note 09/18 Pt 9 min late for appt. Visit Start Time 10:54 Visit Stop Time 11:30 Total Visit Minutes 36 Visit Number 4 Number of FREIGHT SERVICE INSPECTOR Visits 1 PT-OP-B Current Condition Start: 11/16/22 07:40 Freq: Status: Active Protocol: Document 11/16/22 12:47 [facility] (Rec: 11/16/22 13:33 [facility] [id number]) Current Condition History of Current Condition History of Current Condition Pt reports she wants to be able to get something off the floor. The R one feel like it is full of cotton. She feels like bending both of her knees is difficult. It is about impossible to get like the garden hose. She had R TKA was about 2 years ago and had cortizone in L one a couple months ago that helped w/pain. She doesn't feel ready to do TKA but L knee does hurt at night moving around. She feels like her range is dec on R. Pt reports she has to walk carefully d/t balance. Seh doesn't want to use a cane and would rather just be careful. Denies falls. She does the watering and weed spray in the garden. Pt reports she neesd both hands to get out of the chair. If she keeps her knees together in bed it makes it less painful on L knee. L knee will wake her up when trying to move. Xrays have been done and has shown arthritis. She used to feel like her knees were knocking her over because they bent in. R knee never felt lik it got all the way rehabed. Pt had a fall and fractured R hip about 4 years ago and has pinning of R hip. It as a high curb and she didn 't see it was that high and caught it and went flying. Pt walks [place] w/him w/ walker. Takes one seated rest break for . Has only tried one lap d/t . She walks up to jainism for communion and she tends to grab onto things but is trying to stop herself. She feels like that the is max she can do at the time. She is typically able to do her tasks as needed. Prior Treatments and Tests PT after TKA but has always felt like stuffing inside despite some imrpvoement w/PT Treatment Goals Patient/Caregiver Goals get something off floor; be able to get out of chair easier (not require 2 hands) PT-OP-C Subjective Start: 11/16/22 07:40 Freq: Status: Active Protocol: Document 12/01/22 10:54 SP (Rec: 12/01/22 11:39 SP [id number]) OP-PT Subjective Patient Comments Patient Comments Pt reports felt ok after last tx. She is compliant with HEP, she states the sit stands most challenge only able do 5 reps at time so does other sets later in day. She is suprised ther ex in pool not as hard work but does notice tiring later so knows is helping activity level strengthening. Pt reports donned L knee brace for stable support. Pt states gets thigh cramps at times at night, has to sit up and stretch. PT-OP-D Balance Start: 11/16/22 07:40 Freq: Status: Active Protocol: Document 11/16/22 12:47 [facility] (Rec: 11/16/22 13:33 [facility] [id number]) Balance Tests Single Limb Standing Single Limb- Right unable Single Limb- Left 2 sec w/a lot of deviation PT-OP-E Functional Tests Start: 11/16/22 07:40 Freq: Status: Active Protocol: Document 11/16/22 12:47 [facility] (Rec: 11/16/22 13:33 [facility] [id number]) Functional Tests 6 Minute Walk Test Distance 785ft Device Used none 30 Second Sit to Stand Test Score 6 w/UEs Comments silver chair; twinge w/L knee Five Times Sit to Stand Test Score 26 sec w/UEs Comments silver chair PT-OP-G Mobility & Gait Start: 11/16/22 07:40 Freq: Status: Active Protocol: Document 11/16/22 12:47 [facility] (Rec: 11/16/22 13:33 [facility] [id number]) OP Mobility Evaluation Transfers Sit to Stand uses B UEs to help herself out of chair Functional Movements Other Functional Movements Bends at back and hips to pick something off the ground and feels off balance OP Gait Assessment Comments Gait Comments lat leaning over R side . Dec push off B; at terminal stance she has quick hyperext and occ dec LLE clearance; dec L DF; fwd lean in gait PT-OP-J Posture/Palpation/Skin Start: 11/16/22 07:40 Freq: Status: Active Protocol: Document 11/16/22 12:47 [facility] (Rec: 11/16/22 13:33 [id number] Posture Evaluation Comments Posture Comments L SB, R pelvis appears higher, inc kyphosis PT-OP-K Range of Motion Start: 11/16/22 07:40 Freq: Status: Active Protocol: Document 11/16/22 12:47 [facility] (Rec: 11/16/22 13:33 [facility] [id number]) Knee Goniometric Range of Motion Knee Left Flexion Active (degrees) 114 Extension Active (degrees) 8 Right Flexion Active (degrees) 113 Extension Active (degrees) 3 Comments pain getting out of flex; feels like cotton in knee w/ flexing; c/o stitch in back w /ext PT-OP-M Strength Start: 11/16/22 07:40 Freq: Status: Active Protocol: Document 11/16/22 12:47 [facility] (Rec: 11/16/22 13:33 [facility] [id number]) Hip Strength Hip Manual Muscle Testing Right Flexion (L2) 5 Normal Abduction 3 Fair External Rotation 4- Good- Internal Rotation 4- Good- Left Flexion (L2) 4- Good- Abduction 3 Fair External Rotation 3 Fair Internal Rotation 4- Good- Comments pain in knee w/ER and ppain in hip w/IR; pain in knee w/abd Knee Strength Knee Manual Muscle Testing Right Flexion (S2) 5 Normal Extension (L3) 5 Normal Left Flexion (S2) 5 Normal Extension (L3) 4- Good- Ankle/Foot Strength Ankle and Foot Manual Muscle Testing Right Dorsiflexion (L4) 5 Normal Plantarflexion (S1) 5 Normal Left Dorsiflexion (L4) 3 Fair Plantarflexion (S1) 5 Normal Comments seatd PF testing B; pain DF PT-OP-Q Treatments Start: 11/16/22 07:40 Freq: Status: Active Protocol: Document 12/01/22 10:54 SP (Rec: 12/01/22 11:39 SP [id number]) Gym Equipment Shuttle Recovery Unilateral Squats Details emphasis on neutral LE alignment Resistance 25# Reps/Time 15x ea Bilateral Squats Details cued knees with toes Resistance 50# (2 new bands) Reps/Time 20 Therapeutic Exercises Supine Exercises clamshell Supine Exercise Name SL at a time Side bilateral Equipment Used green tband around knees Reps/Minutes 15 ea Comments improved stablize one leg, cued slow ecc control w/ TA ( no LB) bridge Side bilateral Equipment Used green band around knees Reps/Minutes 5 sec x10 Comments cued TA, painfree range and maintain hip abd asc/desc Sitting Exercises Self STMs Sitting Exercise Name added/ ed: quad, HS, calf, tib anterior Side bilateral Equipment Used rolling pin Reps/Minutes 2 min Comments ed self massage but no over bony areas- good response Standing Exercises sit to stand Side bilateral Resistance AROM, arms front Equipment Used 22 x3 reps, 21 x3 reps, 20 hands on lap, Reps/Minutes 12 (3-4/10 L knee pain w/ brace donned for support) Comments cues for hip hinge and knee control mini squat Standing Exercise Name hands at counter Side bilateral Reps/Minutes 15 Comments comfortable range-max cues for hip hinge buttocks back sit & see forft ext Side bilateral Resistance AROM (1# leg wt next) Reps/Minutes 12 Comments cues for posture- glad has brace on L knee for support abd Side bilateral Resistance AROM (1# leg wt next) Reps/Minutes 12 Comments cues for posture Self-Care/Home Management Treatment Education Patient Education Home Exercise Program,Pain Management Other Education -Added use rolling pin for self massage with good feedback response. -Discussed inquiring with pool staff if have small pool leg wts to use for added resistance with LE exercises but to show and see how you respond for safety use stable in pool to use while contact side pool. PT-OP-T Assessment and Plan Start: 11/16/22 07:40 Freq: Status: Active Protocol: Document 12/01/22 10:54 SP (Rec: 12/01/22 11:39 SP [id number]) Physical Therapy Assessment Goals balance Shelter Goal (LTG) Pt will be able tod o SLS for 5 sec B to show improved baalance and stabiltiy LTG Duration 02/07 Three Impairment Lower extremity functional scale score 29% Short Term Goal (STG) Pt will be able to do 9 sit to stands w/UE in 30 sec to show improved LE strength. STG Duration 12/25/22 Weed Thinner Goal (LTG) Pt will be able to hold an object in one hand and stand w /use of only 1 UE to push from LTG Duration 02/07/23 Two Impairment walks [place]/1 rest on bench Impairment 785ft 6 min walk test Short Term Goal (STG) Pt be able to walk at least 2 loops [place] w/o inc pain or feeling of excessive fatigue STG Duration 12/16/22 Weed Thinner Goal (LTG) Pt will be able to do 935ft safely for 6 min walk test. LTG Duration 02/07/23 One Impairment AROM 14-94 PROM 10-100 Shelter Goal (LTG) Pt will be able to pick objects off the ground w/o fear of falling and w/ease including on outdoor surfaces (picking up hose). LTG Duration 02/08/23 Assessment Summary Assessment Pt improved understanding TA fac enough give back support with ability complete bridge/ clamshell, that works, no stitch. Cues give for elongated posturing while gait in clinic with noted decrease SB and for functional mobility. Good response use rolling pin to decrease tightness and cramp gets at times at night. Physical Therapy Plan Frequency and Duration Frequency of Treatment 2x/Week Duration of treatment (weeks) 12 Plan of Care Start Date 11/16/22 Plan of Care End Date 02/08/23 Therapeutic Interventions Therapeutic Interventions Balance Training,Gait Training ,Home Exercise Program,Joint Mobilizations,Manual Therapy, Neuromuscular Re-education, Orthotic/Prosthetic Management ,Patient/Caregiver Education, Self-Care/Home Management,Soft Tissue Mobilization,Taping, Therapeutic Activities, Therapeutic Exercises Modalities Cold Pack/Ice Massage,Electric Stimulation,Hot Packs Next Visit Focus/Plan Next Note Type Treatment Note Next Visit Plan Recheck use response of rolling pin at home and review exercises POC: manual to BLE to work on IT band and ADD
--- NOTE | 2022-12-06 09:00 | PT.OTN ---
Current Diagnoses Polyosteoarthritis, unspecified (12/06/22) Pain in left knee (12/06/22) Stiffness of right knee, not elsewhere classified (12/06/22) Difficulty in walking, not elsewhere classified (12/06/22) Abnormal posture (12/06/22) Weakness (12/06/22) Physical Therapy Treatment Note PT-OP-A Visit Information Start: 11/16/22 07:40 Freq: Status: Active Protocol: Document 12/06/22 08:14 SP (Rec: 12/06/22 09:01 SP [id number]) Out-Patient Physical Therapy Visit Information Visit Information Visit Type Treatment Note Visit Note 10/18 Visit Start Time 08:14 Visit Stop Time 09:00 Total Visit Minutes 46 Visit Number 5 Number of MACHINE LEARNING INTERN Visits 2 PT-OP-B Current Condition Start: 11/16/22 07:40 Freq: Status: Active Protocol: Document 11/16/22 12:47 [facility] (Rec: 11/16/22 13:33 [facility] [id number]) Current Condition History of Current Condition History of Current Condition Pt reports she wants to be able to get something off the floor. The R one feel like it is full of cotton. She feels like bending both of her knees is difficult. It is about impossible to get like the garden hose. She had R TKA was about 2 years ago and had cortizone in L one a couple months ago that helped w/pain. She doesn't feel ready to do TKA but L knee does hurt at night moving around. She feels like her range is dec on R. Pt reports she has to walk carefully d/t balance. Seh doesn't want to use a cane and would rather just be careful. Denies falls. She does the watering and weed spray in the garden. Pt reports she neesd both hands to get out of the chair. If she keeps her knees together in bed it makes it less painful on L knee. L knee will wake her up when trying to move. Xrays have been done and has shown arthritis. She used to feel like her knees were knocking her over because they bent in. R knee never felt lik it got all the way rehabed. Pt had a fall and fractured R hip about 4 years ago and has pinning of R hip. It as a high curb and she didn 't see it was that high and caught it and went flying. Pt walks 1 loop [place] her w/him w/ walker. Takes one seated rest break for . Has only tried one lap d/t . She walks up to s[employer] for communion and she tends to grab onto things but is trying to stop herself. She feels like that the is max she can do at the time. She is typically able to do her tasks as needed. Prior Treatments and Tests PT after TKA but has always felt like stuffing inside despite some imrpvoement w/PT Treatment Goals Patient/Caregiver Goals get something off floor; be able to get out of chair easier (not require 2 hands) PT-OP-C Subjective Start: 11/16/22 07:40 Freq: Status: Active Protocol: Document 12/06/22 08:14 SP (Rec: 12/06/22 09:01 SP [id number]) OP-PT Subjective Patient Comments Patient Comments She reports has been doing exercises, STS from bed is 24 so easier. Arrives L knee brace donned. She did some warm ups STS in waiting room. PT-OP-D Balance Start: 11/16/22 07:40 Freq: Status: Active Protocol: Document 11/16/22 12:47 [facility] (Rec: 11/16/22 13:33 [facility] [id number]) Balance Tests Single Limb Standing Single Limb- Right unable Single Limb- Left 2 sec w/a lot of deviation PT-OP-E Functional Tests Start: 11/16/22 07:40 Freq: Status: Active Protocol: Document 11/16/22 12:47 [facility] (Rec: 11/16/22 13:33 [facility] [id number]) Functional Tests 6 Minute Walk Test Distance 785ft Device Used none 30 Second Sit to Stand Test Score 6 w/UEs Comments silver chair; twinge w/L knee Five Times Sit to Stand Test Score 26 sec w/UEs Comments silver chair PT-OP-G Mobility & Gait Start: 11/16/22 07:40 Freq: Status: Active Protocol: Document 11/16/22 12:47 [facility] (Rec: 11/16/22 13:33 [facility] [id number]) OP Mobility Evaluation Transfers Sit to Stand uses B UEs to help herself out of chair Functional Movements Other Functional Movements Bends at back and hips to pick something off the ground and feels off balance OP Gait Assessment Comments Gait Comments lat leaning over R side . Dec push off B; at terminal stance she has quick hyperext and occ dec LLE clearance; dec L DF; fwd lean in gait PT-OP-J Posture/Palpation/Skin Start: 11/16/22 07:40 Freq: Status: Active Protocol: Document 11/16/22 12:47 [facility] (Rec: 11/16/22 13:33 [facility] [id number]) Posture Evaluation Comments Posture Comments L SB, R pelvis appears higher, inc kyphosis PT-OP-K Range of Motion Start: 11/16/22 07:40 Freq: Status: Active Protocol: Document 11/16/22 12:47 [facility] (Rec: 11/16/22 13:33 [id number] Knee Goniometric Range of Motion Knee Left Flexion Active (degrees) 114 Extension Active (degrees) 8 Right Flexion Active (degrees) 113 Extension Active (degrees) 3 Comments pain getting out of flex; feels like cotton in knee w/ flexing; c/o stitch in back w /ext PT-OP-M Strength Start: 11/16/22 07:40 Freq: Status: Active Protocol: Document 11/16/22 12:47 [facility] (Rec: 11/16/22 13:33 [facility] [id number]) Hip Strength Hip Manual Muscle Testing Right Flexion (L2) 5 Normal Abduction 3 Fair External Rotation 4- Good- Internal Rotation 4- Good- Left Flexion (L2) 4- Good- Abduction 3 Fair External Rotation 3 Fair Internal Rotation 4- Good- Comments pain in knee w/ER and ppain in hip w/IR; pain in knee w/abd Knee Strength Knee Manual Muscle Testing Right Flexion (S2) 5 Normal Extension (L3) 5 Normal Left Flexion (S2) 5 Normal Extension (L3) 4- Good- Ankle/Foot Strength Ankle and Foot Manual Muscle Testing Right Dorsiflexion (L4) 5 Normal Plantarflexion (S1) 5 Normal Left Dorsiflexion (L4) 3 Fair Plantarflexion (S1) 5 Normal Comments seatd PF testing B; pain DF PT-OP-Q Treatments Start: 11/16/22 07:40 Freq: Status: Active Protocol: Document 12/06/22 08:14 SP (Rec: 12/06/22 09:01 SP [id number]) Gym Equipment Shuttle Recovery Unilateral Squats Details emphasis on neutral LE alignment Resistance 25# Reps/Time x20 Bilateral Squats Details cued knees with toes Resistance 50# (2 new bands) Reps/Time 20 Therapeutic Exercises Standing Exercises sit to stand Side bilateral Resistance AROM, arms front Equipment Used 21 x10 reps, initial 3 reps hands on lap/rest hands front Reps/Minutes 10 (3-4/10 L knee pain w/ brace donned for support) Comments cues scoot fwd, feet back underneath, knees apart, good hip hinge ext Side bilateral Resistance AROM> 2# leg wt Reps/Minutes 2x12 Comments cues for posture- glad has brace on L knee for support abd Side bilateral Resistance AROM> 2# leg wt Reps/Minutes 2x12 Comments cues for posture Manual Therapy Treatment Soft Tissue Mobilization thigh Body Location L ITB, vastus lateralis Mobilization Type Myofascial Release Intensity/Depth Moderate Body Position Sitting Comments manual w/ ed review use of rolling pin Neuro Re-Education Treatment Balance Activities hurdles Details fwd, lateral Equipment 6 hurdles, near rail PRN contact but CHIEF SALES OFFICER on L Mod to left, Min to Right Reps/Duration x 2 laps Comments cued elongated posture, TKE over stance LE, tends to PT-OP-T Assessment and Plan Start: 11/16/22 07:40 Freq: Status: Active Protocol: Document 12/06/22 08:14 SP (Rec: 12/06/22 09:01 SP [id number]) Physical Therapy Assessment Goals balance Group Home Goal (LTG) Pt will be able tod o SLS for 5 sec B to show improved baalance and stabiltiy LTG Duration 02/07 Three Impairment Lower extremity functional scale score 29% Short Term Goal (STG) Pt will be able to do 9 sit to stands w/UE in 30 sec to show improved LE strength. STG Duration 12/25/22 Group Home Goal (LTG) Pt will be able to hold an object in one hand and stand w /use of only 1 UE to push from LTG Duration 02/07/23 Two Impairment walks 1 loop of [place] w/1 rest on bench Impairment 785ft 6 min walk test Short Term Goal (STG) Pt be able to walk at least 2 [place] w/o inc pain or feeling of excessive fatigue STG Duration 12/16/22 [employer] Center Professional Goal (LTG) Pt will be able to do 935ft safely for 6 min walk test. LTG Duration 02/07/23 One Impairment AROM 14-94 PROM 10-100 [facility] Professional Goal (LTG) Pt will be able to pick objects off the ground w/o fear of falling and w/ease including on outdoor surfaces (picking up hose). LTG Duration 02/08/23 Assessment Summary Assessment Pt tolerated increase resistance with ther ex today, improve mechanics hip hinge STS from 21 elevated table today. Suggested do STS from lower surface at home for progression strength when ready. Pt able to perform hurdles CHIEF SALES OFFICER 15% A RLE leading, 30% CHIEF SALES OFFICER during LLE leading. Physical Therapy Plan Frequency and Duration Frequency of Treatment 2x/Week Duration of treatment (weeks) 12 Plan of Care Start Date 11/16/22 Plan of Care End Date 02/08/23 Therapeutic Interventions Therapeutic Interventions Balance Training,Gait Training ,Home Exercise Program,Joint Mobilizations,Manual Therapy, Neuromuscular Re-education, Orthotic/Prosthetic Management ,Patient/Caregiver Education, Self-Care/Home Management,Soft Tissue Mobilization,Taping, Therapeutic Activities, Therapeutic Exercises Modalities Cold Pack/Ice Massage,Electric Stimulation,Hot Packs Next Visit Focus/Plan Next Note Type Treatment Note Next Visit Plan Remind self use rolling pin at home and review exercises. POC: manual to BLE to work on IT band and ADD
--- NOTE | 2022-12-08 12:45 | PT.OTN ---
Current Diagnoses Polyosteoarthritis, unspecified (12/08/22) Pain in left knee (12/08/22) Stiffness of right knee, not elsewhere classified (12/08/22) Difficulty in walking, not elsewhere classified (12/08/22) Abnormal posture (12/08/22) Weakness (12/08/22) Physical Therapy Treatment Note PT-OP-A Visit Information Start: 11/16/22 07:40 Freq: Status: Active Protocol: Document 12/08/22 12:00 SP (Rec: 12/08/22 12:46 SP [id number]) Out-Patient Physical Therapy Visit Information Visit Information Visit Type Treatment Note Visit Note 11/18 Visit Start Time 12:00 Visit Stop Time 12:45 Total Visit Minutes 45 Visit Number 6 Number of INSTALLMENT LOAN COLLECTOR Visits 3 PT-OP-B Current Condition Start: 11/16/22 07:40 Freq: Status: Active Protocol: Document 11/16/22 12:47 [facility] (Rec: 11/16/22 13:33 [facility] [id number]) Current Condition History of Current Condition History of Current Condition Pt reports she wants to be able to get something off the floor. The R one feel like it is full of cotton. She feels like bending both of her knees is difficult. It is about impossible to get like the garden hose. She had R TKA was about 2 years ago and had cortizone in L one a couple months ago that helped w/pain. She doesn't feel ready to do TKA but L knee does hurt at night moving around. She feels like her range is dec on R. Pt reports she has to walk carefully d/t balance. Seh doesn't want to use a cane and would rather just be careful. Denies falls. She does the watering and weed spray in the garden. Pt reports she neesd both hands to get out of the chair. If she keeps her knees together in bed it makes it less painful on L knee. L knee will wake her up when trying to move. Xrays have been done and has shown arthritis. She used to feel like her knees were knocking her over because they bent in. R knee never felt lik it got all the way rehabed. Pt had a fall and fractured R hip about 4 years ago and has pinning of R hip. It as a high curb and she didn 't see it was that high and caught it and went flying. Pt walks [place] her w/him w/ walker. Takes one seated rest break for . Has only tried one lap d/t . She walks up to [employer] for communion and she tends to grab onto things but is trying to stop herself. She feels like that the is max she can do at the time. She is typically able to do her tasks as needed. Prior Treatments and Tests PT after TKA but has always felt like stuffing inside despite some imrpvoement w/PT Treatment Goals Patient/Caregiver Goals get something off floor; be able to get out of chair easier (not require 2 hands) PT-OP-C Subjective Start: 11/16/22 07:40 Freq: Status: Active Protocol: Document 12/08/22 12:00 SP (Rec: 12/08/22 12:46 SP [id number]) OP-PT Subjective Patient Comments Patient Comments Pt reports compliant with HEP. She reports lateral L knee still hurts, forgot to don her L knee sleeve today states does help stability. PT-OP-D Balance Start: 11/16/22 07:40 Freq: Status: Active Protocol: Document 11/16/22 12:47 [facility] (Rec: 11/16/22 13:33 [facility] [id number]) Balance Tests Single Limb Standing Single Limb- Right unable Single Limb- Left 2 sec w/a lot of deviation PT-OP-E Functional Tests Start: 11/16/22 07:40 Freq: Status: Active Protocol: Document 11/16/22 12:47 [facility] (Rec: 11/16/22 13:33 [facility] [id number]) Functional Tests 6 Minute Walk Test Distance 785ft Device Used none 30 Second Sit to Stand Test Score 6 w/UEs Comments silver chair; twinge w/L knee Five Times Sit to Stand Test Score 26 sec w/UEs Comments silver chair PT-OP-G Mobility & Gait Start: 11/16/22 07:40 Freq: Status: Active Protocol: Document 11/16/22 12:47 [facility] (Rec: 11/16/22 13:33 [facility] [id number]) OP Mobility Evaluation Transfers Sit to Stand uses B UEs to help herself out of chair Functional Movements Other Functional Movements Bends at back and hips to pick something off the ground and feels off balance OP Gait Assessment Comments Gait Comments lat leaning over R side . Dec push off B; at terminal stance she has quick hyperext and occ dec LLE clearance; dec L DF; fwd lean in gait PT-OP-J Posture/Palpation/Skin Start: 11/16/22 07:40 Freq: Status: Active Protocol: Document 11/16/22 12:47 [facility] (Rec: 11/16/22 13:33 [facility] [id number]) Posture Evaluation Comments Posture Comments L SB, R pelvis appears higher, inc kyphosis PT-OP-K Range of Motion Start: 11/16/22 07:40 Freq: Status: Active Protocol: Document 11/16/22 12:47 [facility] (Rec: 11/16/22 13:33 [facility] [id number]) Knee Goniometric Range of Motion Knee Left Flexion Active (degrees) 114 Extension Active (degrees) 8 Right Flexion Active (degrees) 113 Extension Active (degrees) 3 Comments pain getting out of flex; feels like cotton in knee w/ flexing; c/o stitch in back w /ext PT-OP-M Strength Start: 11/16/22 07:40 Freq: Status: Active Protocol: Document 11/16/22 12:47 [facility] (Rec: 11/16/22 13:33 [facility] [id number]) Hip Strength Hip Manual Muscle Testing Right Flexion (L2) 5 Normal Abduction 3 Fair External Rotation 4- Good- Internal Rotation 4- Good- Left Flexion (L2) 4- Good- Abduction 3 Fair External Rotation 3 Fair Internal Rotation 4- Good- Comments pain in knee w/ER and ppain in hip w/IR; pain in knee w/abd Knee Strength Knee Manual Muscle Testing Right Flexion (S2) 5 Normal Extension (L3) 5 Normal Left Flexion (S2) 5 Normal Extension (L3) 4- Good- Ankle/Foot Strength Ankle and Foot Manual Muscle Testing Right Dorsiflexion (L4) 5 Normal Plantarflexion (S1) 5 Normal Left Dorsiflexion (L4) 3 Fair Plantarflexion (S1) 5 Normal Comments seatd PF testing B; pain DF PT-OP-Q Treatments Start: 11/16/22 07:40 Freq: Status: Active Protocol: Document 12/08/22 12:00 SP (Rec: 12/08/22 12:46 SP [id number]) Gym Equipment Shuttle Recovery Unilateral Squats Details emphasis on neutral LE alignment (more lateral R) Resistance 25# Reps/Time x20 Bilateral Squats Details cued knees with toes, added YTB around thighs Resistance 50# (2 new bands) Reps/Time 20 Shuttle Balance chains red Details bal, weight shift fwd and back , HTs Reps/Duration 5 min Comments blue chains: WBOS: wt shift, head turns/EC up to 13 sec. NBOS: wt shift, HTs, EC 5 sec Stride stance: wt shift, HTs more challenge R, contact recovery CG- 5%A Therapeutic Exercises Standing Exercises band walk Side bilateral Resistance YTB below knees> above knees ( better) Reps/Minutes 15 ft x2 laps Comments Cued elongated posture, core fac, knee flex/DF on L impr clr L Manual Therapy Treatment Soft Tissue Mobilization thigh Body Location L ITB, vastus lateralis Mobilization Type Myofascial Release Intensity/Depth Moderate Body Position Sitting Comments manual w/ ed review use of rolling pin Taping ktaping Body Location DIstal ITB Treatment Focus lateral stability support Type of Tape Kinesio Tape Skin Inspection intact normal color Comments 2 I strips: Lateral tibial plateau superior mid ITB, other mid Vastus Lateralis. Neuro Re-Education Treatment Balance Activities step ups Details 4# leg wt Equipment 4 step, rail PRN Reps/Duration x10 reps each lead Comments pt decreased L knee eccentric flexion during RLE decline. Pt able to asc/desc without UE support, good quad/glut drive with upright posturing on top step. PT-OP-T Assessment and Plan Start: 11/16/22 07:40 Freq: Status: Active Protocol: Document 12/08/22 12:00 SP (Rec: 12/08/22 12:46 SP [id number]) Physical Therapy Assessment Goals balance Intermediate Goal (LTG) Pt will be able tod o SLS for 5 sec B to show improved baalance and stabiltiy LTG Duration 02/07 Three Impairment Lower extremity functional scale score 29% Short Term Goal (STG) Pt will be able to do 9 sit to stands w/UE in 30 sec to show improved LE strength. STG Duration 12/25/22 Orthotic Fitter Goal (LTG) Pt will be able to hold an object in one hand and stand w /use of only 1 UE to push from LTG Duration 02/07/23 Two Impairment walks [place] w/1 rest on bench Impairment 785ft 6 min walk test Short Term Goal (STG) Pt be able to walk at least 2 [place] w/o inc pain or feeling of excessive fatigue STG Duration 12/16/22 Intermediate Goal (LTG) Pt will be able to do 935ft safely for 6 min walk test. LTG Duration 02/07/23 One Impairment AROM 14-94 PROM 10-100 Intermediate Goal (LTG) Pt will be able to pick objects off the ground w/o fear of falling and w/ease including on outdoor surfaces (picking up hose). LTG Duration 02/08/23 Assessment Summary Assessment Pt improved decrease wt shift SB trunk during resisted side stepping at thighs and weighted asc/desc 4 step today. She reports STMs helped distal lateral L knee pain decline. Discussed adverse affects to Ktaping lateral L knee and remove if experiences: redness/tingling/ itching and wash skin otherwise can remove on Sunday to support lateral knee stabililty with good response. Physical Therapy Plan Frequency and Duration Frequency of Treatment 2x/Week Duration of treatment (weeks) 12 Plan of Care Start Date 11/16/22 Plan of Care End Date 02/08/23 Therapeutic Interventions Therapeutic Interventions Balance Training,Gait Training ,Home Exercise Program,Joint Mobilizations,Manual Therapy, Neuromuscular Re-education, Orthotic/Prosthetic Management ,Patient/Caregiver Education, Self-Care/Home Management,Soft Tissue Mobilization,Taping, Therapeutic Activities, Therapeutic Exercises Modalities Cold Pack/Ice Massage,Electric Stimulation,Hot Packs Next Visit Focus/Plan Next Note Type Treatment Note Next Visit Plan Check response manual and Ktaping, check if self STMs and response. REview HEP, progress ther ex. POC: manual to BLE to work on IT band and ADD
--- NOTE | 2022-12-13 18:06 | PT.OTN ---
Addendum entered and electronically signed by Lena Pennington, PT 12/13/22 18:15: PT direct supervision and direction to PT student. Original Note: Current Diagnoses Polyosteoarthritis, unspecified (12/13/22) Pain in left knee (12/13/22) Stiffness of right knee, not elsewhere classified (12/13/22) Difficulty in walking, not elsewhere classified (12/13/22) Abnormal posture (12/13/22) Weakness (12/13/22) Physical Therapy Treatment Note PT-OP-A Visit Information Start: 11/16/22 07:40 Freq: Status: Active Protocol: Document 12/13/22 17:04 (Rec: 12/13/22 17:23 [id number]) Out-Patient Physical Therapy Visit Information Visit Information Visit Type Treatment Note Visit Note 12/18 Visit Start Time 16:07 Visit Stop Time 16:57 Total Visit Minutes 50 Visit Number 7 Number of ELECTRONIC RESOURCES LIBRARIAN Visits 0 PT-OP-B Current Condition Start: 11/16/22 07:40 Freq: Status: Active Protocol: Document 11/16/22 12:47 [facility] (Rec: 11/16/22 13:33 [facility] [id number]) Current Condition History of Current Condition History of Current Condition Pt reports she wants to be able to get something off the floor. The R one feel like it is full of cotton. She feels like bending both of her knees is difficult. It is about impossible to get like the garden hose. She had R TKA was about 2 years ago and had cortizone in L one a couple months ago that helped w/pain. She doesn't feel ready to do TKA but L knee does hurt at night moving around. She feels like her range is dec on R. Pt reports she has to walk carefully d/t balance. Seh doesn't want to use a cane and would rather just be careful. Denies falls. She does the watering and weed spray in the garden. Pt reports she neesd both hands to get out of the chair. If she keeps her knees together in bed it makes it less painful on L knee. L knee will wake her up when trying to move. Xrays have been done and has shown arthritis. She used to feel like her knees were knocking her over because they bent in. R knee never felt lik it got all the way rehabed. Pt had a fall and fractured R hip about 4 years ago and has pinning of R hip. It as a high curb and she didn 't see it was that high and caught it and went flying. Pt walks 1 loop [place] [employer] [place] with her w/him w/ walker. Takes one seated rest break for . Has only tried one lap d/t . She walks up to [employer] for communion and she tends to grab onto things but is trying to stop herself. She feels like that the is max she can do at the time. She is typically able to do her tasks as needed. Prior Treatments and Tests PT after TKA but has always felt like stuffing inside despite some imrpvoement w/PT Treatment Goals Patient/Caregiver Goals get something off floor; be able to get out of chair easier (not require 2 hands) PT-OP-C Subjective Start: 11/16/22 07:40 Freq: Status: Active Protocol: Document 12/13/22 17:04 (Rec: 12/13/22 17:23 [id number]) OP-PT Subjective Patient Comments Patient Comments Pt did a lot of moving today due to errands. She went up and down the stairs several times throughout the day to get ready for company and garage sale. PT-OP-D Balance Start: 11/16/22 07:40 Freq: Status: Active Protocol: Document 11/16/22 12:47 [facility] (Rec: 11/16/22 13:33 [facility] [id number]) Balance Tests Single Limb Standing Single Limb- Right unable Single Limb- Left 2 sec w/a lot of deviation PT-OP-E Functional Tests Start: 11/16/22 07:40 Freq: Status: Active Protocol: Document 11/16/22 12:47 [facility] (Rec: 11/16/22 13:33 [facility] [id number]) Functional Tests 6 Minute Walk Test Distance 785ft Device Used none 30 Second Sit to Stand Test Score 6 w/UEs Comments silver chair; twinge w/L knee Five Times Sit to Stand Test Score 26 sec w/UEs Comments silver chair PT-OP-G Mobility & Gait Start: 11/16/22 07:40 Freq: Status: Active Protocol: Document 11/16/22 12:47 [facility] (Rec: 11/16/22 13:33 [facility] [id number]) OP Mobility Evaluation Transfers Sit to Stand uses B UEs to help herself out of chair Functional Movements Other Functional Movements Bends at back and hips to pick something off the ground and feels off balance OP Gait Assessment Comments Gait Comments lat leaning over R side . Dec push off B; at terminal stance she has quick hyperext and occ dec LLE clearance; dec L DF; fwd lean in gait PT-OP-J Posture/Palpation/Skin Start: 11/16/22 07:40 Freq: Status: Active Protocol: Document 11/16/22 12:47 [facility] (Rec: 11/16/22 13:33 [facility] [id number]) Posture Evaluation Comments Posture Comments L SB, R pelvis appears higher, inc kyphosis PT-OP-K Range of Motion Start: 11/16/22 07:40 Freq: Status: Active Protocol: Document 11/16/22 12:47 [facility] (Rec: 11/16/22 13:33 [facility] [id number]) Knee Goniometric Range of Motion Knee Left Flexion Active (degrees) 114 Extension Active (degrees) 8 Right Flexion Active (degrees) 113 Extension Active (degrees) 3 Comments pain getting out of flex; feels like cotton in knee w/ flexing; c/o stitch in back w /ext PT-OP-M Strength Start: 11/16/22 07:40 Freq: Status: Active Protocol: Document 11/16/22 12:47 [facility] (Rec: 11/16/22 13:33 [facility] [id number]) Hip Strength Hip Manual Muscle Testing Right Flexion (L2) 5 Normal Abduction 3 Fair External Rotation 4- Good- Internal Rotation 4- Good- Left Flexion (L2) 4- Good- Abduction 3 Fair External Rotation 3 Fair Internal Rotation 4- Good- Comments pain in knee w/ER and ppain in hip w/IR; pain in knee w/abd Knee Strength Knee Manual Muscle Testing Right Flexion (S2) 5 Normal Extension (L3) 5 Normal Left Flexion (S2) 5 Normal Extension (L3) 4- Good- Ankle/Foot Strength Ankle and Foot Manual Muscle Testing Right Dorsiflexion (L4) 5 Normal Plantarflexion (S1) 5 Normal Left Dorsiflexion (L4) 3 Fair Plantarflexion (S1) 5 Normal Comments seatd PF testing B; pain DF PT-OP-Q Treatments Start: 11/16/22 07:40 Freq: Status: Active Protocol: Document 12/13/22 17:04 (Rec: 12/13/22 17:23 [id number]) Cardio Equipment Recumbent Elliptical (Biodex) Duration (Minutes) 3 Resistance 3 Seat Position 8 Other caused discomfort in lateral L knee Gym Equipment Shuttle Recovery Unilateral Squats Details emphasis on neutral LE alignment (more lateral R) Resistance 25# Reps/Time 15x Bilateral Squats Details cued knees with toes, Resistance 50# (2 new bands) Reps/Time 30x Therapeutic Exercises Supine Exercises bridge Side bilateral Equipment Used ball squeeze b/w knees Reps/Minutes 3 sec x10 Comments cued TA, painfree range Standing Exercises sit to stand Side bilateral Resistance AROM, arms front Equipment Used 21 x10 reps, initial 3 reps hands on lap/rest hands front Reps/Minutes 5x Comments Discomfort in Lateral L knee ext Side bilateral Resistance AROM Reps/Minutes 10x Comments cues for posture abd Side bilateral Resistance AROM Reps/Minutes 10x Comments cues for posture Manual Therapy Treatment Soft Tissue Mobilization thigh Body Location L ITB inferior, L piriformis Mobilization Type Myofascial Release Intensity/Depth Moderate Body Position Supine Comments 1. inf ITB w/ knee flexed 2. piriformis in supine with ER of hip Neuro Re-Education Treatment Balance Activities Tandem Equipment tpads blue Comments Pt stood in tandem one foot on each tpad (blue) in modified tandem-- discomfort in L hip after 30 sec step ups Details w/ high knee Equipment 2 step, rail PRN Reps/Duration x10 reps each lead Comments cues for quad/glute drive with upright posturing on top step . PT-OP-R Modalities Start: 11/16/22 07:40 Freq: Status: Active Protocol: Document 12/13/22 17:04 (Rec: 12/13/22 18:04 [id number]) Hot Pack/Cold Pack Treatment Cold Pack Patient Position Supine Treatment Duration (minutes) 10 PT-OP-T Assessment and Plan Start: 11/16/22 07:40 Freq: Status: Active Protocol: Document 12/13/22 17:04 (Rec: 12/13/22 17:23 [id number]) Physical Therapy Assessment Goals balance Half-Way Goal (LTG) Pt will be able tod o SLS for 5 sec B to show improved baalance and stabiltiy LTG Duration 02/07 Three Impairment Lower extremity functional scale score 29% Short Term Goal (STG) Pt will be able to do 9 sit to stands w/UE in 30 sec to show improved LE strength. STG Duration 12/25/22 Civil Engineer Goal (LTG) Pt will be able to hold an object in one hand and stand w /use of only 1 UE to push from LTG Duration 02/07/23 Two Impairment walks [place]/1 rest on bench Impairment 785ft 6 min walk test Short Term Goal (STG) Pt be able to walk at least 2 [place] w/o inc pain or feeling of excessive fatigue STG Duration 12/16/22 Half-Way Goal (LTG) Pt will be able to do 935ft safely for 6 min walk test. LTG Duration 02/07/23 One Impairment AROM 14-94 PROM 10-100 Half-Way Goal (LTG) Pt will be able to pick objects off the ground w/o fear of falling and w/ease including on outdoor surfaces (picking up hose). LTG Duration 02/08/23 Assessment Summary Assessment Pt did a lot of movment today throughout her day that she does not normally. She did not tolerate exercises during tratement as well as she normally does. She had discomfort on her lateral L knee and L hip that was making exercises difficult. Following manual she noted that it did feel better. Physical Therapy Plan Frequency and Duration Frequency of Treatment 2x/Week Duration of treatment (weeks) 12 Plan of Care Start Date 11/16/22 Plan of Care End Date 02/08/23 Next Visit Focus/Plan Next Note Type Treatment Note Next Visit Plan Check response manual and Ktaping, check if self STMs and response. REview HEP, progress ther ex. POC: manual to BLE to work on IT band, ADD, and hip flexors
--- NOTE | 2022-12-19 15:24 | PT.OTN ---
Addendum entered and electronically signed by Lena Pennington, PT 12/20/22 07:44: PT direct supervision and direction to PT student. Original Note: Current Diagnoses Polyosteoarthritis, unspecified (12/19/22) Pain in left knee (12/19/22) Stiffness of right knee, not elsewhere classified (12/19/22) Difficulty in walking, not elsewhere classified (12/19/22) Abnormal posture (12/19/22) Weakness (12/19/22) Physical Therapy Treatment Note PT-OP-A Visit Information Start: 11/16/22 07:40 Freq: Status: Active Protocol: Document 12/19/22 12:45 (Rec: 12/19/22 13:48 [id number]) Out-Patient Physical Therapy Visit Information Visit Information Visit Type Treatment Note Visit Note 01/18 Visit Start Time 12:47 Visit Stop Time 13:31 Total Visit Minutes 44 Visit Number 8 Number of SIEVE MAKER Visits 0 PT-OP-B Current Condition Start: 11/16/22 07:40 Freq: Status: Active Protocol: Document 11/16/22 12:47 [facility] (Rec: 11/16/22 13:33 [facility] [id number]) Current Condition History of Current Condition History of Current Condition Pt reports she wants to be able to get something off the floor. The R one feel like it is full of cotton. She feels like bending both of her knees is difficult. It is about impossible to get like the garden hose. She had R TKA was about 2 years ago and had cortizone in L one a couple months ago that helped w/pain. She doesn't feel ready to do TKA but L knee does hurt at night moving around. She feels like her range is dec on R. Pt reports she has to walk carefully d/t balance. Seh doesn't want to use a cane and would rather just be careful. Denies falls. She does the watering and weed spray in the garden. Pt reports she neesd both hands to get out of the chair. If she keeps her knees together in bed it makes it less painful on L knee. L knee will wake her up when trying to move. Xrays have been done and has shown arthritis. She used to feel like her knees were knocking her over because they bent in. R knee never felt lik it got all the way rehabed. Pt had a fall and fractured R hip about 4 years ago and has pinning of R hip. It as a high curb and she didn 't see it was that high and caught it and went flying. Pt walks [place] w/him w/ walker. Takes one seated rest break for . Has only tried one lap d/t . She walks up to [place] for communion and she tends to grab onto things but is trying to stop herself. She feels like that the is max she can do at the time. She is typically able to do her tasks as needed. Prior Treatments and Tests PT after TKA but has always felt like stuffing inside despite some imrpvoement w/PT Treatment Goals Patient/Caregiver Goals get something off floor; be able to get out of chair easier (not require 2 hands) PT-OP-C Subjective Start: 11/16/22 07:40 Freq: Status: Active Protocol: Document 12/19/22 12:45 (Rec: 12/19/22 13:48 [id number]) OP-PT Subjective Patient Comments Patient Comments Pt did a yard sale over the weekend and her knee held up well. pt reports no issues. L knee does not tolerate flexion well. PT-OP-D Balance Start: 11/16/22 07:40 Freq: Status: Active Protocol: Document 11/16/22 12:47 [facility] (Rec: 11/16/22 13:33 [facility] [id number]) Balance Tests Single Limb Standing Single Limb- Right unable Single Limb- Left 2 sec w/a lot of deviation PT-OP-E Functional Tests Start: 11/16/22 07:40 Freq: Status: Active Protocol: Document 11/16/22 12:47 [facility] (Rec: 11/16/22 13:33 [facility] [id number]) Functional Tests 6 Minute Walk Test Distance 785ft Device Used none 30 Second Sit to Stand Test Score 6 w/UEs Comments silver chair; twinge w/L knee Five Times Sit to Stand Test Score 26 sec w/UEs Comments silver chair PT-OP-G Mobility & Gait Start: 11/16/22 07:40 Freq: Status: Active Protocol: Document 11/16/22 12:47 [facility] (Rec: 11/16/22 13:33 [facility] [id number]) OP Mobility Evaluation Transfers Sit to Stand uses B UEs to help herself out of chair Functional Movements Other Functional Movements Bends at back and hips to pick something off the ground and feels off balance OP Gait Assessment Comments Gait Comments lat leaning over R side . Dec push off B; at terminal stance she has quick hyperext and occ dec LLE clearance; dec L DF; fwd lean in gait PT-OP-J Posture/Palpation/Skin Start: 11/16/22 07:40 Freq: Status: Active Protocol: Document 11/16/22 12:47 [facility] (Rec: 11/16/22 13:33 [facility] [id number]) Posture Evaluation Comments Posture Comments L SB, R pelvis appears higher, inc kyphosis PT-OP-K Range of Motion Start: 11/16/22 07:40 Freq: Status: Active Protocol: Document 11/16/22 12:47 [facility] (Rec: 11/16/22 13:33 [facility] [id number]) Knee Goniometric Range of Motion Knee Left Flexion Active (degrees) 114 Extension Active (degrees) 8 Right Flexion Active (degrees) 113 Extension Active (degrees) 3 Comments pain getting out of flex; feels like cotton in knee w/ flexing; c/o stitch in back w /ext PT-OP-M Strength Start: 11/16/22 07:40 Freq: Status: Active Protocol: Document 11/16/22 12:47 [facility] (Rec: 11/16/22 13:33 [facility] [id number]) Hip Strength Hip Manual Muscle Testing Right Flexion (L2) 5 Normal Abduction 3 Fair External Rotation 4- Good- Internal Rotation 4- Good- Left Flexion (L2) 4- Good- Abduction 3 Fair External Rotation 3 Fair Internal Rotation 4- Good- Comments pain in knee w/ER and ppain in hip w/IR; pain in knee w/abd Knee Strength Knee Manual Muscle Testing Right Flexion (S2) 5 Normal Extension (L3) 5 Normal Left Flexion (S2) 5 Normal Extension (L3) 4- Good- Ankle/Foot Strength Ankle and Foot Manual Muscle Testing Right Dorsiflexion (L4) 5 Normal Plantarflexion (S1) 5 Normal Left Dorsiflexion (L4) 3 Fair Plantarflexion (S1) 5 Normal Comments seatd PF testing B; pain DF PT-OP-Q Treatments Start: 11/16/22 07:40 Freq: Status: Active Protocol: Document 12/19/22 12:45 (Rec: 12/19/22 13:48 [id number]) Gym Equipment Shuttle Recovery Unilateral Squats Details emphasis on neutral LE alignment (more lateral R) Resistance #37 Reps/Time 15x Bilateral Squats Details cued knees with toes, Resistance 62# (2 new bands) Reps/Time 30x Therapeutic Exercises Supine Exercises bridge Side bilateral Reps/Minutes 3 sec x3 Comments cued TA, painfree range Standing Exercises sit to stand Side bilateral Resistance AROM, arms front Equipment Used 21 x10 reps, initial 3 reps hands on lap/rest hands front Reps/Minutes 7x Comments Discomfort in Lateral L knee ext Side bilateral Resistance AROM Reps/Minutes 10x Comments cues for posture abd Side bilateral Resistance AROM Reps/Minutes 10x Comments cues for posture Manual Therapy Treatment Soft Tissue Mobilization thigh Body Location LITB, ADD Mobilization Type Myofascial Release,Sustained Pressure Intensity/Depth Moderate Body Position Hooklying Comments 1. Adductors, hooklying ER 2. Inf ITB w/knee flexed -Active knee flexio causes discomfort Neuro Re-Education Treatment Balance Activities Tandem Equipment tpads blue Comments 1. feet side/side 2. modiefied tandem step ups Details w/ high knee Equipment 2& 6step, rail PRN Comments cues for quad/glute drive with upright posturing on top step . 1. 2 step x10 step with high knee 2. 6 step x12 toe tap w/ cue to lift knee high PT-OP-R Modalities Start: 11/16/22 07:40 Freq: Status: Active Protocol: Document 12/13/22 17:04 (Rec: 12/13/22 18:04 [id number]) Hot Pack/Cold Pack Treatment Cold Pack Patient Position Supine Treatment Duration (minutes) 10 PT-OP-T Assessment and Plan Start: 11/16/22 07:40 Freq: Status: Active Protocol: Document 12/19/22 12:45 (Rec: 12/19/22 13:48 [id number]) Physical Therapy Assessment Goals balance Real Estate Appraiser Supervisor Goal (LTG) Pt will be able tod o SLS for 5 sec B to show improved baalance and stabiltiy LTG Duration 02/07 Three Impairment Lower extremity functional scale score 29% Short Term Goal (STG) Pt will be able to do 9 sit to stands w/UE in 30 sec to show improved LE strength. STG Duration 12/25/22 [facility] Goal (LTG) Pt will be able to hold an object in one hand and stand w /use of only 1 UE to push from LTG Duration 02/07/23 Two Impairment walks 1 loop of [place] Actual Experience w/1 rest on bench Impairment 785ft 6 min walk test Short Term Goal (STG) Pt be able to walk at least 2 loops at [employer] Actual Experience w/o inc pain or feeling of excessive fatigue STG Duration 12/16/22 [facility] Goal (LTG) Pt will be able to do 935ft safely for 6 min walk test. LTG Duration 02/07/23 One Impairment AROM 14-94 PROM 10-100 [facility] Goal (LTG) Pt will be able to pick objects off the ground w/o fear of falling and w/ease including on outdoor surfaces (picking up hose). LTG Duration 02/08/23 Assessment Summary Assessment Pt tolerated exercises in general better today than she did last session. Her L knee did not tolerate flexion well today with active movement. She was able to do Step ups with a high knee bilaterally w / the 2 step. 6 toe taps were more tolerable, cues for high knee were used to ensure toe clearance. There was tightness ain her ADD and ITB of LLE, soft tissue improved after manual. Physical Therapy Plan Frequency and Duration Frequency of Treatment 2x/Week Duration of treatment (weeks) 12 Plan of Care Start Date 11/16/22 Plan of Care End Date 02/08/23 Next Visit Focus/Plan Next Note Type Treatment Note Next Visit Plan Check if self STMs and response to manual. REview HEP : posture cues, progress ther ex. POC: manual to BLE to work on IT band, ADD, and hip flexors. Assess RLE.
--- NOTE | 2022-12-21 18:02 | PT.OTN ---
Addendum entered and electronically signed by Lena Pennington, PT 12/21/22 18:05: PT direct supervision and direction to PT student. Original Note: Current Diagnoses Polyosteoarthritis, unspecified (12/21/22) Pain in left knee (12/21/22) Stiffness of right knee, not elsewhere classified (12/21/22) Difficulty in walking, not elsewhere classified (12/21/22) Abnormal posture (12/21/22) Weakness (12/21/22) Physical Therapy Treatment Note PT-OP-A Visit Information Start: 11/16/22 07:40 Freq: Status: Active Protocol: Document 12/21/22 17:42 (Rec: 12/21/22 17:53 [id number]) Out-Patient Physical Therapy Visit Information Visit Information Visit Type Treatment Note Visit Note 02/18 Visit Start Time 16:13 Visit Stop Time 16:45 Total Visit Minutes 32 Visit Number 9 PT-OP-B Current Condition Start: 11/16/22 07:40 Freq: Status: Active Protocol: Document 11/16/22 12:47 [facility] (Rec: 11/16/22 13:33 [facility] [id number]) Current Condition History of Current Condition History of Current Condition Pt reports she wants to be able to get something off the floor. The R one feel like it is full of cotton. She feels like bending both of her knees is difficult. It is about impossible to get like the garden hose. She had R TKA was about 2 years ago and had cortizone in L one a couple months ago that helped w/pain. She doesn't feel ready to do TKA but L knee does hurt at night moving around. She feels like her range is dec on R. Pt reports she has to walk carefully d/t balance. Seh doesn't want to use a cane and would rather just be careful. Denies falls. She does the watering and weed spray in the garden. Pt reports she neesd both hands to get out of the chair. If she keeps her knees together in bed it makes it less painful on L knee. L knee will wake her up when trying to move. Xrays have been done and has shown arthritis. She used to feel like her knees were knocking her over because they bent in. R knee never felt lik it got all the way rehabed. Pt had a fall and fractured R hip about 4 years ago and has pinning of R hip. It as a high curb and she didn 't see it was that high and caught it and went flying. Pt [place] w/him w/ walker. Takes one seated rest break for . Has only tried one lap d/t . She walks up to religious for communion and she tends to grab onto things but is trying to stop herself. She feels like that the is max she can do at the time. She is typically able to do her tasks as needed. Prior Treatments and Tests PT after TKA but has always felt like stuffing inside despite some imrpvoement w/PT Treatment Goals Patient/Caregiver Goals get something off floor; be able to get out of chair easier (not require 2 hands) PT-OP-C Subjective Start: 11/16/22 07:40 Freq: Status: Active Protocol: Document 12/21/22 17:42 (Rec: 12/21/22 17:53 [id number]) OP-PT Subjective Patient Comments Patient Comments pt has nothing new to report regarding her knee. She was a little late today. Her son is in town and is assisting w/ driving. PT-OP-D Balance Start: 11/16/22 07:40 Freq: Status: Active Protocol: Document 11/16/22 12:47 [facility] (Rec: 11/16/22 13:33 [facility] [id number]) Balance Tests Single Limb Standing Single Limb- Right unable Single Limb- Left 2 sec w/a lot of deviation PT-OP-E Functional Tests Start: 11/16/22 07:40 Freq: Status: Active Protocol: Document 11/16/22 12:47 [facility] (Rec: 11/16/22 13:33 [facility] [id number]) Functional Tests 6 Minute Walk Test Distance 785ft Device Used none 30 Second Sit to Stand Test Score 6 w/UEs Comments silver chair; twinge w/L knee Five Times Sit to Stand Test Score 26 sec w/UEs Comments silver chair PT-OP-G Mobility & Gait Start: 11/16/22 07:40 Freq: Status: Active Protocol: Document 11/16/22 12:47 [facility] (Rec: 11/16/22 13:33 [facility] [id number]) OP Mobility Evaluation Transfers Sit to Stand uses B UEs to help herself out of chair Functional Movements Other Functional Movements Bends at back and hips to pick something off the ground and feels off balance OP Gait Assessment Comments Gait Comments lat leaning over R side . Dec push off B; at terminal stance she has quick hyperext and occ dec LLE clearance; dec L DF; fwd lean in gait PT-OP-J Posture/Palpation/Skin Start: 11/16/22 07:40 Freq: Status: Active Protocol: Document 11/16/22 12:47 [facility] (Rec: 11/16/22 13:33 [facility] [id number]) Posture Evaluation Comments Posture Comments L SB, R pelvis appears higher, inc kyphosis PT-OP-K Range of Motion Start: 11/16/22 07:40 Freq: Status: Active Protocol: Document 11/16/22 12:47 [facility] (Rec: 11/16/22 13:33 [facility] [id number]) Knee Goniometric Range of Motion Knee Left Flexion Active (degrees) 114 Extension Active (degrees) 8 Right Flexion Active (degrees) 113 Extension Active (degrees) 3 Comments pain getting out of flex; feels like cotton in knee w/ flexing; c/o stitch in back w /ext PT-OP-M Strength Start: 11/16/22 07:40 Freq: Status: Active Protocol: Document 11/16/22 12:47 [facility] (Rec: 11/16/22 13:33 [facility] [id number]) Hip Strength Hip Manual Muscle Testing Right Flexion (L2) 5 Normal Abduction 3 Fair External Rotation 4- Good- Internal Rotation 4- Good- Left Flexion (L2) 4- Good- Abduction 3 Fair External Rotation 3 Fair Internal Rotation 4- Good- Comments pain in knee w/ER and ppain in hip w/IR; pain in knee w/abd Knee Strength Knee Manual Muscle Testing Right Flexion (S2) 5 Normal Extension (L3) 5 Normal Left Flexion (S2) 5 Normal Extension (L3) 4- Good- Ankle/Foot Strength Ankle and Foot Manual Muscle Testing Right Dorsiflexion (L4) 5 Normal Plantarflexion (S1) 5 Normal Left Dorsiflexion (L4) 3 Fair Plantarflexion (S1) 5 Normal Comments seatd PF testing B; pain DF PT-OP-Q Treatments Start: 11/16/22 07:40 Freq: Status: Active Protocol: Document 12/21/22 17:42 (Rec: 12/21/22 17:53 [id number]) Gym Equipment Shuttle Recovery Unilateral Squats Details emphasis on neutral LE alignment (more lateral R) Resistance #37 Reps/Time 15x. discomfort w/ L knee today Bilateral Squats Details cued knees with toes, Resistance 75# (2 new bands) Reps/Time 25x Therapeutic Exercises Supine Exercises clamshell Supine Exercise Name progressed to sidelying Side bilateral Equipment Used orange tband around knees Reps/Minutes 12 ea Comments cues for body positioning and moving slow bridge Side bilateral Reps/Minutes 3 sec x3 Comments cued TA, painfree range Standing Exercises band walk Side bilateral Resistance orange at ankles Reps/Minutes 15 ft x2 laps Comments cues for posture and not dragging feet Manual Therapy Treatment Soft Tissue Mobilization scar Body Location R knee Mobilization Type Myofascial Release Intensity/Depth Superficial Body Position Supine Neuro Re-Education Treatment Balance Activities step ups Details w/ high knee Equipment 4 step, rail PRN Comments pt had discomfort w/ L knee today when doing this. 10x LLE 4xLLE PT-OP-R Modalities Start: 11/16/22 07:40 Freq: Status: Active Protocol: Document 12/13/22 17:04 (Rec: 12/13/22 18:04 [id number]) Hot Pack/Cold Pack Treatment Cold Pack Patient Position Supine Treatment Duration (minutes) 10 PT-OP-T Assessment and Plan Start: 11/16/22 07:40 Freq: Status: Active Protocol: Document 12/21/22 17:42 (Rec: 12/21/22 17:53 [id number]) Physical Therapy Assessment Goals balance Community Health Worker Goal (LTG) Pt will be able tod o SLS for 5 sec B to show improved baalance and stabiltiy LTG Duration 02/07 Three Impairment Lower extremity functional scale score 29% Short Term Goal (STG) Pt will be able to do 9 sit to stands w/UE in 30 sec to show improved LE strength. STG Duration 12/25/22 [facility] Goal (LTG) Pt will be able to hold an object in one hand and stand w /use of only 1 UE to push from LTG Duration 02/07/23 Two Impairment walks [place] w/1 rest on bench Impairment 785ft 6 min walk test Short Term Goal (STG) Pt be able to walk at least 2 [place] w/o inc pain or feeling of excessive fatigue STG Duration 12/16/22 [facility] Goal (LTG) Pt will be able to do 935ft safely for 6 min walk test. LTG Duration 02/07/23 One Impairment AROM 14-94 PROM 10-100 Community Health Worker Goal (LTG) Pt will be able to pick objects off the ground w/o fear of falling and w/ease including on outdoor surfaces (picking up hose). LTG Duration 02/08/23 Assessment Summary Assessment Pt was running late today. SL on the shuttle really bothered her L knee today. Banded side steps got more glute enagement. Cues were needed so that she would not drag her foot. tband was at ankles, next time try band at knees for more tactile cueing. Clamshells were progressed to sidelying for more glute engagement. Physical Therapy Plan Frequency and Duration Frequency of Treatment 2x/Week Duration of treatment (weeks) 12 Plan of Care Start Date 11/16/22 Plan of Care End Date 02/08/23 Next Visit Focus/Plan Next Note Type Treatment Note Next Visit Plan Check if self STMs and response to manual. REview HEP : posture cues, progress ther ex. POC: manual to BLE to work on IT band, ADD, and hip flexors. Assess RLE.
--- NOTE | 2022-12-26 18:30 | PT.OTN ---
Addendum entered and electronically signed by Lena Pennington, PT 12/27/22 09:02: PT direct supervision and direction to PT student. Original Note: Current Diagnoses Polyosteoarthritis, unspecified (12/26/22) Pain in left knee (12/26/22) Stiffness of right knee, not elsewhere classified (12/26/22) Difficulty in walking, not elsewhere classified (12/26/22) Abnormal posture (12/26/22) Weakness (12/26/22) Physical Therapy Treatment Note PT-OP-A Visit Information Start: 11/16/22 07:40 Freq: Status: Active Protocol: Document 12/26/22 17:02 (Rec: 12/26/22 17:21 [id number]) Out-Patient Physical Therapy Visit Information Visit Information Visit Type Progress Note Visit Note 03/20 Visit Start Time 14:18 Visit Stop Time 15:02 Total Visit Minutes 44 Visit Number 10 Number of SKI PATROLLER Visits 0 PT-OP-B Current Condition Start: 11/16/22 07:40 Freq: Status: Active Protocol: Document 11/16/22 12:47 [facility] (Rec: 11/16/22 13:33 [facility] [id number]) Current Condition History of Current Condition History of Current Condition Pt reports she wants to be able to get something off the floor. The R one feel like it is full of cotton. She feels like bending both of her knees is difficult. It is about impossible to get like the garden hose. She had R TKA was about 2 years ago and had cortizone in L one a couple months ago that helped w/pain. She doesn't feel ready to do TKA but L knee does hurt at night moving around. She feels like her range is dec on R. Pt reports she has to walk carefully d/t balance. Seh doesn't want to use a cane and would rather just be careful. Denies falls. She does the watering and weed spray in the garden. Pt reports she neesd both hands to get out of the chair. If she keeps her knees together in bed it makes it less painful on L knee. L knee will wake her up when trying to move. Xrays have been done and has shown arthritis. She used to feel like her knees were knocking her over because they bent in. R knee never felt lik it got all the way rehabed. Pt had a fall and fractured R hip about 4 years ago and has pinning of R hip. It as a high curb and she didn 't see it was that high and caught it and went flying. Pt walks [place] loop [place] her w/him w/ walker. Takes one seated rest break for . Has only tried one lap d/t . She walks up to adventist for communion and she tends to grab onto things but is trying to stop herself. She feels like that the is max she can do at the time. She is typically able to do her tasks as needed. Prior Treatments and Tests PT after TKA but has always felt like stuffing inside despite some imrpvoement w/PT Treatment Goals Patient/Caregiver Goals get something off floor; be able to get out of chair easier (not require 2 hands) PT-OP-C Subjective Start: 11/16/22 07:40 Freq: Status: Active Protocol: Document 12/26/22 17:02 (Rec: 12/26/22 17:21 [id number]) OP-PT Subjective Patient Comments Patient Comments pt notes that she feels less wobbly when going about her day. She went to a graduation in [place] over the weekend and had no trouble. Patient Questionnaires Lower Extremity Functional Scale LEFS Score 50/80 PT-OP-D Balance Start: 11/16/22 07:40 Freq: Status: Active Protocol: Document 12/26/22 17:02 (Rec: 12/26/22 17:47 [id number]) Balance Tests Single Limb Standing Single Limb- Right 4sec w/a lot of deviation Single Limb- Left 4sec w/a lot of deviation PT-OP-E Functional Tests Start: 11/16/22 07:40 Freq: Status: Active Protocol: Document 12/26/22 17:02 (Rec: 12/26/22 17:45 [id number]) Functional Tests 30 Second Sit to Stand Test Score 8 w/UEs PT-OP-G Mobility & Gait Start: 11/16/22 07:40 Freq: Status: Active Protocol: Document 11/16/22 12:47 [facility] (Rec: 11/16/22 13:33 [facility] [id number]) OP Mobility Evaluation Transfers Sit to Stand uses B UEs to help herself out of chair Functional Movements Other Functional Movements Bends at back and hips to pick something off the ground and feels off balance OP Gait Assessment Comments Gait Comments lat leaning over R side . Dec push off B; at terminal stance she has quick hyperext and occ dec LLE clearance; dec L DF; fwd lean in gait PT-OP-J Posture/Palpation/Skin Start: 11/16/22 07:40 Freq: Status: Active Protocol: Document 11/16/22 12:47 [facility] (Rec: 11/16/22 13:33 [facility] [id number]) Posture Evaluation Comments Posture Comments L SB, R pelvis appears higher, inc kyphosis PT-OP-K Range of Motion Start: 11/16/22 07:40 Freq: Status: Active Protocol: Document 11/16/22 12:47 [facility] (Rec: 11/16/22 13:33 [facility] [id number]) Knee Goniometric Range of Motion Knee Left Flexion Active (degrees) 114 Extension Active (degrees) 8 Right Flexion Active (degrees) 113 Extension Active (degrees) 3 Comments pain getting out of flex; feels like cotton in knee w/ flexing; c/o stitch in back w /ext PT-OP-M Strength Start: 11/16/22 07:40 Freq: Status: Active Protocol: Document 11/16/22 12:47 [facility] (Rec: 11/16/22 13:33 [facility] [id number]) Hip Strength Hip Manual Muscle Testing Right Flexion (L2) 5 Normal Abduction 3 Fair External Rotation 4- Good- Internal Rotation 4- Good- Left Flexion (L2) 4- Good- Abduction 3 Fair External Rotation 3 Fair Internal Rotation 4- Good- Comments pain in knee w/ER and ppain in hip w/IR; pain in knee w/abd Knee Strength Knee Manual Muscle Testing Right Flexion (S2) 5 Normal Extension (L3) 5 Normal Left Flexion (S2) 5 Normal Extension (L3) 4- Good- Ankle/Foot Strength Ankle and Foot Manual Muscle Testing Right Dorsiflexion (L4) 5 Normal Plantarflexion (S1) 5 Normal Left Dorsiflexion (L4) 3 Fair Plantarflexion (S1) 5 Normal Comments seatd PF testing B; pain DF PT-OP-Q Treatments Start: 11/16/22 07:40 Freq: Status: Active Protocol: Document 12/26/22 17:02 (Rec: 12/26/22 17:21 [id number]) Gym Equipment Shuttle Recovery Unilateral Squats Details emphasis on neutral LE alignment (more lateral R) Resistance #37 Reps/Time 15x Bilateral Squats Details cued knees with toes, Resistance 62# (2 new bands) Reps/Time 30x Therapeutic Exercises Supine Exercises SLR Supine Exercise Name straight leg raise Side bilateral Reps/Minutes 2x10 Comments cues to raise leg above the other for quad enagement Standing Exercises mini squat Standing Exercise Name @elevated table w/ ball b/w knees Side bilateral Reps/Minutes 15 Comments comfortable range-max cues for hip hinge buttocks back sit & see forft Manual Therapy Treatment Soft Tissue Mobilization Patella Body Location L patellar tendon Mobilization Type Rolling,Strumming,Sustained Pressure Intensity/Depth Moderate Body Position Supine thigh Body Location ADD Mobilization Type Myofascial Release,Sustained Pressure Intensity/Depth Moderate Body Position Hooklying Comments Adductors, hooklying ER Taping ktaping Body Location DIstal ITB Treatment Focus lateral stability support Type of Tape Kinesio Tape Skin Inspection intact normal color Comments 2 I strips: Lateral tibial plateau superior mid ITB, other mid Vastus Lateralis. Neuro Re-Education Treatment Balance Activities SLS Details Slow august w/ 10 sec hold Reps/Duration 10x ea Comments max cues for posture Tandem Details @bar Equipment tpads blue Reps/Duration 2min x ea Comments modiefied tandem- looking straight, w/head turns PT-OP-R Modalities Start: 11/16/22 07:40 Freq: Status: Active Protocol: Document 12/13/22 17:04 (Rec: 12/13/22 18:04 [id number]) Hot Pack/Cold Pack Treatment Cold Pack Patient Position Supine Treatment Duration (minutes) 10 PT-OP-T Assessment and Plan Start: 11/16/22 07:40 Freq: Status: Active Protocol: Document 12/26/22 17:02 (Rec: 12/26/22 17:21 [id number]) Physical Therapy Assessment Goals balance Custodial Goal (LTG) Pt will be able tod o SLS for 5 sec B to show improved baalance and stabiltiy LTG Duration 02/07 Three Impairment Lower extremity functional scale score 29% Short Term Goal (STG) Pt will be able to do 9 sit to stands w/UE in 30 sec to show improved LE strength. 12/26/22- pt did 8 in 30 sec w/ UE STG Duration 12/25/22 Custodial Goal (LTG) Pt will be able to hold an object in one hand and stand w /use of only 1 UE to push from LTG Duration 02/07/23 Assessment Summary Assessment pt had pain in B knees when doing sit to stand from a lower surface. performing them from an elevated surface dec pain. supine SLR to get quad engagement w/out pain and she felt like it was challenging in a good way. Her LEFS score improved from 45 to 50 showing an improvement towards meeting her funcational goals . Pts 30sec sit to stand also improved from 6 to 8 indicating an improvement in her LE strength. She was also able to stand on her RLE in SLS for 3 sec w/a lot of deviations which she was unable to do in her first appointment. Pt should continue w/ PT so that she can continue to improve on her strength, balance and stability so that she can continue to meet her functional goals. Physical Therapy Plan Frequency and Duration Frequency of Treatment 2x/Week Duration of treatment (weeks) 12 Plan of Care Start Date 11/16/22 Plan of Care End Date 02/08/23 Next Visit Focus/Plan Next Note Type Treatment Note Next Visit Plan Check if self STMs and response to manual. REview HEP : posture cues, progress ther ex. POC: manual to BLE to work on IT band, ADD, and hip flexors.
--- NOTE | 2023-01-03 13:16 | PT.OTN ---
Addendum entered and electronically signed by Lena Pennington, PT 01/03/23 17:06: PT direct supervision and direction to PT student. Original Note: Current Diagnoses Polyosteoarthritis, unspecified (01/03/23) Pain in left knee (01/03/23) Stiffness of right knee, not elsewhere classified (01/03/23) Difficulty in walking, not elsewhere classified (01/03/23) Abnormal posture (01/03/23) Weakness (01/03/23) Physical Therapy Treatment Note PT-OP-A Visit Information Start: 11/16/22 07:40 Freq: Status: Active Protocol: Document 01/03/23 11:37 (Rec: 01/03/23 11:52 [id number]) Out-Patient Physical Therapy Visit Information Visit Information Visit Type Treatment Note Visit Note 06/20 Visit Start Time 10:01 Visit Stop Time 10:45 Total Visit Minutes 44 Visit Number 11 Number of INSTRUCTIONAL TECHNOLOGIST Visits 0 PT-OP-B Current Condition Start: 11/16/22 07:40 Freq: Status: Active Protocol: Document 11/16/22 12:47 [facility] (Rec: 11/16/22 13:33 [facility] [id number]) Current Condition History of Current Condition History of Current Condition Pt reports she wants to be able to get something off the floor. The R one feel like it is full of cotton. She feels like bending both of her knees is difficult. It is about impossible to get like the garden hose. She had R TKA was about 2 years ago and had cortizone in L one a couple months ago that helped w/pain. She doesn't feel ready to do TKA but L knee does hurt at night moving around. She feels like her range is dec on R. Pt reports she has to walk carefully d/t balance. Seh doesn't want to use a cane and would rather just be careful. Denies falls. She does the watering and weed spray in the garden. Pt reports she neesd both hands to get out of the chair. If she keeps her knees together in bed it makes it less painful on L knee. L knee will wake her up when trying to move. Xrays have been done and has shown arthritis. She used to feel like her knees were knocking her over because they bent in. R knee never felt lik it got all the way rehabed. Pt had a fall and fractured R hip about 4 years ago and has pinning of R hip. It as a high curb and she didn 't see it was that high and caught it and went flying. Pt walks 1 loop around [employer] [place] with her w/him w/ walker. Takes one seated rest break for . Has only tried one lap d/t . She walks up to [employer] for communion and she tends to grab onto things but is trying to stop herself. She feels like that the is max she can do at the time. She is typically able to do her tasks as needed. Prior Treatments and Tests PT after TKA but has always felt like stuffing inside despite some imrpvoement w/PT Treatment Goals Patient/Caregiver Goals get something off floor; be able to get out of chair easier (not require 2 hands) PT-OP-C Subjective Start: 11/16/22 07:40 Freq: Status: Active Protocol: Document 01/03/23 11:37 (Rec: 01/03/23 11:52 [id number]) OP-PT Subjective Patient Comments Patient Comments Pt notes that she has been doing nothing after her busy week last week. She is going to a wedding this weekend. She has nothing new to report about her LE. PT-OP-D Balance Start: 11/16/22 07:40 Freq: Status: Active Protocol: Document 12/26/22 17:02 (Rec: 12/26/22 17:47 [id number]) Balance Tests Single Limb Standing Single Limb- Right 4sec w/a lot of deviation Single Limb- Left 4sec w/a lot of deviation PT-OP-E Functional Tests Start: 11/16/22 07:40 Freq: Status: Active Protocol: Document 12/26/22 17:02 (Rec: 12/26/22 17:45 [id number]) Functional Tests 30 Second Sit to Stand Test Score 8 w/UEs PT-OP-G Mobility & Gait Start: 11/16/22 07:40 Freq: Status: Active Protocol: Document 11/16/22 12:47 [facility] (Rec: 11/16/22 13:33 [facility] [id number]) OP Mobility Evaluation Transfers Sit to Stand uses B UEs to help herself out of chair Functional Movements Other Functional Movements Bends at back and hips to pick something off the ground and feels off balance OP Gait Assessment Comments Gait Comments lat leaning over R side . Dec push off B; at terminal stance she has quick hyperext and occ dec LLE clearance; dec L DF; fwd lean in gait PT-OP-J Posture/Palpation/Skin Start: 11/16/22 07:40 Freq: Status: Active Protocol: Document 11/16/22 12:47 [facility] (Rec: 11/16/22 13:33 [facility] [id number]) Posture Evaluation Comments Posture Comments L SB, R pelvis appears higher, inc kyphosis PT-OP-K Range of Motion Start: 11/16/22 07:40 Freq: Status: Active Protocol: Document 11/16/22 12:47 [facility] (Rec: 11/16/22 13:33 [facility] [id number]) Knee Goniometric Range of Motion Knee Left Flexion Active (degrees) 114 Extension Active (degrees) 8 Right Flexion Active (degrees) 113 Extension Active (degrees) 3 Comments pain getting out of flex; feels like cotton in knee w/ flexing; c/o stitch in back w /ext PT-OP-M Strength Start: 11/16/22 07:40 Freq: Status: Active Protocol: Document 11/16/22 12:47 [facility] (Rec: 11/16/22 13:33 [facility] [id number]) Hip Strength Hip Manual Muscle Testing Right Flexion (L2) 5 Normal Abduction 3 Fair External Rotation 4- Good- Internal Rotation 4- Good- Left Flexion (L2) 4- Good- Abduction 3 Fair External Rotation 3 Fair Internal Rotation 4- Good- Comments pain in knee w/ER and ppain in hip w/IR; pain in knee w/abd Knee Strength Knee Manual Muscle Testing Right Flexion (S2) 5 Normal Extension (L3) 5 Normal Left Flexion (S2) 5 Normal Extension (L3) 4- Good- Ankle/Foot Strength Ankle and Foot Manual Muscle Testing Right Dorsiflexion (L4) 5 Normal Plantarflexion (S1) 5 Normal Left Dorsiflexion (L4) 3 Fair Plantarflexion (S1) 5 Normal Comments seatd PF testing B; pain DF PT-OP-Q Treatments Start: 11/16/22 07:40 Freq: Status: Active Protocol: Document 01/03/23 11:37 [facility] (Rec: 01/03/23 11:52 [id number]) Gym Equipment Shuttle Recovery Unilateral Squats Details emphasis on neutral LE alignment (more lateral R) Resistance #37 Reps/Time 15x. smaller range for L knee to avoid discomfort Bilateral Squats Details cued knees with toes, Resistance 62# (2 new bands) Reps/Time 30x Therapeutic Exercises Supine Exercises SLR Supine Exercise Name straight leg raise Side bilateral Reps/Minutes 2x10 Comments cues for TA Sitting Exercises HS stretch Sitting Exercise Name 1.Supine 2.seated Side bilateral Reps/Minutes 1.15xR, 4xL 2.0w58rfr Comments L knee did not like bend in supine. Seated tolerated for both Standing Exercises band walk Side bilateral Resistance green at knees Reps/Minutes 15ft 4 laps Comments cues for posture and not dragging feet mini squat Standing Exercise Name 1.@rail mini squats 2. @ elevated table w/ball b/w knee Side bilateral Reps/Minutes 15 Comments max cues for sitting back w/ butt Manual Therapy Treatment Taping ktaping Body Location DIstal ITB Treatment Focus lateral stability support Type of Tape Kinesio Tape Skin Inspection intact normal color Comments 2 I strips: Lateral tibial plateau superior mid ITB, other mid Vastus Lateralis. Neuro Re-Education Treatment Balance Activities SLS Details Slow august w/ 10 sec hold Reps/Duration 10xea Comments 1. max cues for posture moving slow 2. max cues for raising knee in front for foot clearance when walking Tandem Details @bar Equipment tpads blue Reps/Duration 2min x ea Comments modiefied tandem- looking straight PT-OP-R Modalities Start: 11/16/22 07:40 Freq: Status: Active Protocol: Document 12/13/22 17:04 (Rec: 12/13/22 18:04 [id number]) Hot Pack/Cold Pack Treatment Cold Pack Patient Position Supine Treatment Duration (minutes) 10 PT-OP-T Assessment and Plan Start: 11/16/22 07:40 Freq: Status: Active Protocol: Document 01/03/23 11:37 (Rec: 01/03/23 11:52 [id number]) Physical Therapy Assessment Goals balance Rubber Goods Inspector Tester Goal (LTG) Pt will be able tod o SLS for 5 sec B to show improved baalance and stabiltiy LTG Duration 02/07 Three Impairment Lower extremity functional scale score 29% Short Term Goal (STG) Pt will be able to do 9 sit to stands w/UE in 30 sec to show improved LE strength. 12/26/22- pt did 8 in 30 sec w/ UE STG Duration 12/25/22 Care Home Goal (LTG) Pt will be able to hold an object in one hand and stand w /use of only 1 UE to push from LTG Duration 02/07/23 Two Impairment walks [place] w/1 rest on bench Impairment 785ft 6 min walk test Short Term Goal (STG) Pt be able to walk at least 2 loops at Lat49 w/o inc pain or feeling of excessive fatigue STG Duration 12/16/22 Rubber Goods Inspector Tester Goal (LTG) Pt will be able to do 935ft safely for 6 min walk test. LTG Duration 02/07/23 One Impairment AROM 14-94 PROM 10-100 Care Home Goal (LTG) Pt will be able to pick objects off the ground w/o fear of falling and w/ease including on outdoor surfaces (picking up hose). LTG Duration 02/08/23 Assessment Summary Assessment Pt tolerated exercises today w / small ranges of knee bending . progress is limited by pain in L knee w/movement, especially w/flexion. Time was spent on cueing for mini squat posture. Hip ABD, Ext, and mini squats were encouraged for pt to do in pool to continue to build strength for land activities. Physical Therapy Plan Frequency and Duration Frequency of Treatment 2x/Week Duration of treatment (weeks) 12 Plan of Care Start Date 11/16/22 Plan of Care End Date 02/08/23 Next Visit Focus/Plan Next Note Type Treatment Note Next Visit Plan Check if self STMs and response to manual. add some gait training for foot clearance. REview HEP: posture cues, progress ther ex. POC: manual to BLE to work on IT band, ADD, and hip flexors.
--- NOTE | 2023-01-08 15:15 | PT.OTN ---
Current Diagnoses Polyosteoarthritis, unspecified (01/08/23) Pain in left knee (01/08/23) Stiffness of right knee, not elsewhere classified (01/08/23) Difficulty in walking, not elsewhere classified (01/08/23) Abnormal posture (01/08/23) Weakness (01/08/23) Physical Therapy Treatment Note PT-OP-A Visit Information Start: 11/16/22 07:40 Freq: Status: Active Protocol: Document 01/08/23 14:27 [facility] (Rec: 01/08/23 15:15 [facility] [id number]) Out-Patient Physical Therapy Visit Information Visit Information Visit Type Treatment Note Visit Note 07/21 Visit Start Time 14:25 Visit Stop Time 15:03 Total Visit Minutes 38 Visit Number 12 Number of [employer] Visits 0 PT-OP-B Current Condition Start: 11/16/22 07:40 Freq: Status: Active Protocol: Document 11/16/22 12:47 [facility] (Rec: 11/16/22 13:33 [facility] [id number]) Current Condition History of Current Condition History of Current Condition Pt reports she wants to be able to get something off the floor. The R one feel like it is full of cotton. She feels like bending both of her knees is difficult. It is about impossible to get like the garden hose. She had R TKA was about 2 years ago and had cortizone in L one a couple months ago that helped w/pain. She doesn't feel ready to do TKA but L knee does hurt at night moving around. She feels like her range is dec on R. Pt reports she has to walk carefully d/t balance. Seh doesn't want to use a cane and would rather just be careful. Denies falls. She does the watering and weed spray in the garden. Pt reports she neesd both hands to get out of the chair. If she keeps her knees together in bed it makes it less painful on L knee. L knee will wake her up when trying to move. Xrays have been done and has shown arthritis. She used to feel like her knees were knocking her over because they bent in. R knee never felt lik it got all the way rehabed. Pt had a fall and fractured R hip about 4 years ago and has pinning of R hip. It as a high curb and she didn 't see it was that high and caught it and went flying. Pt walks 1 loop [place] her w/him w/ walker. Takes one seated rest break for . Has only tried one lap d/t . She walks up to [employer] for communion and she tends to grab onto things but is trying to stop herself. She feels like that the is max she can do at the time. She is typically able to do her tasks as needed. Prior Treatments and Tests PT after TKA but has always felt like stuffing inside despite some imrpvoement w/PT Treatment Goals Patient/Caregiver Goals get something off floor; be able to get out of chair easier (not require 2 hands) PT-OP-C Subjective Start: 11/16/22 07:40 Freq: Status: Active Protocol: Document 01/08/23 14:27 [facility] (Rec: 01/08/23 15:15 [facility] [id number]) OP-PT Subjective Patient Comments Patient Comments Pt reports 2x/week is tough because it is hard to recover from the soreness. Feels ready to DC in a couple weeks to indep HEP PT-OP-D Balance Start: 11/16/22 07:40 Freq: Status: Active Protocol: Document 12/26/22 17:02 (Rec: 12/26/22 17:47 [id number]) Balance Tests Single Limb Standing Single Limb- Right 4sec w/a lot of deviation Single Limb- Left 4sec w/a lot of deviation PT-OP-E Functional Tests Start: 11/16/22 07:40 Freq: Status: Active Protocol: Document 12/26/22 17:02 (Rec: 12/26/22 17:45 [id number]) Functional Tests 30 Second Sit to Stand Test Score 8 w/UEs PT-OP-G Mobility & Gait Start: 11/16/22 07:40 Freq: Status: Active Protocol: Document 11/16/22 12:47 [facility] (Rec: 11/16/22 13:33 [facility] [id number]) OP Mobility Evaluation Transfers Sit to Stand uses B UEs to help herself out of chair Functional Movements Other Functional Movements Bends at back and hips to pick something off the ground and feels off balance OP Gait Assessment Comments Gait Comments lat leaning over R side . Dec push off B; at terminal stance she has quick hyperext and occ dec LLE clearance; dec L DF; fwd lean in gait PT-OP-J Posture/Palpation/Skin Start: 11/16/22 07:40 Freq: Status: Active Protocol: Document 11/16/22 12:47 [facility] (Rec: 11/16/22 13:33 [facility] [id number]) Posture Evaluation Comments Posture Comments L SB, R pelvis appears higher, inc kyphosis PT-OP-K Range of Motion Start: 11/16/22 07:40 Freq: Status: Active Protocol: Document 11/16/22 12:47 [facility] (Rec: 11/16/22 13:33 [facility] [id number]) Knee Goniometric Range of Motion Knee Left Flexion Active (degrees) 114 Extension Active (degrees) 8 Right Flexion Active (degrees) 113 Extension Active (degrees) 3 Comments pain getting out of flex; feels like cotton in knee w/ flexing; c/o stitch in back w /ext PT-OP-M Strength Start: 11/16/22 07:40 Freq: Status: Active Protocol: Document 11/16/22 12:47 [facility] (Rec: 11/16/22 13:33 [facility] [id number]) Hip Strength Hip Manual Muscle Testing Right Flexion (L2) 5 Normal Abduction 3 Fair External Rotation 4- Good- Internal Rotation 4- Good- Left Flexion (L2) 4- Good- Abduction 3 Fair External Rotation 3 Fair Internal Rotation 4- Good- Comments pain in knee w/ER and ppain in hip w/IR; pain in knee w/abd Knee Strength Knee Manual Muscle Testing Right Flexion (S2) 5 Normal Extension (L3) 5 Normal Left Flexion (S2) 5 Normal Extension (L3) 4- Good- Ankle/Foot Strength Ankle and Foot Manual Muscle Testing Right Dorsiflexion (L4) 5 Normal Plantarflexion (S1) 5 Normal Left Dorsiflexion (L4) 3 Fair Plantarflexion (S1) 5 Normal Comments seatd PF testing B; pain DF PT-OP-Q Treatments Start: 11/16/22 07:40 Freq: Status: Active Protocol: Document 01/08/23 14:27 [facility] (Rec: 01/08/23 15:15 [facility] [id number]) Gym Equipment Cable Column (Body Solid) Leg Curl Resistance 2 Reps/Time 20 Hip Adduction Resistance 2 Reps/Time 30 Hip Abduction Resistance 2 Reps/Time 20 Shuttle Recovery Unilateral Squats Details emphasis on neutral LE alignment (more lateral R) Resistance #37 Reps/Time 15x. smaller range for L knee to avoid discomfort Bilateral Squats Details cued knees with toes, Resistance 62# (2 new bands) Reps/Time 30x Manual Therapy Treatment Soft Tissue Mobilization thigh Body Location ITB Mobilization Type Myofascial Release,Sustained Pressure Intensity/Depth Moderate Body Position Hooklying Comments hooklying ER Taping ktaping Body Location DIstal ITB Treatment Focus lateral stability support Type of Tape Kinesio Tape Skin Inspection intact normal color Comments 2 I strips: Lateral tibial plateau superior mid ITB, other mid Vastus Lateralis. Neuro Re-Education Treatment Balance Activities foam Equipment blue foam Comments 1. WBOS w/EC trials 2. NBOS w/head turn trials 3. staggered stance B w/head turns prn PT-OP-R Modalities Start: 11/16/22 07:40 Freq: Status: Active Protocol: Document 12/13/22 17:04 (Rec: 12/13/22 18:04 [id number]) Hot Pack/Cold Pack Treatment Cold Pack Patient Position Supine Treatment Duration (minutes) 10 PT-OP-T Assessment and Plan Start: 11/16/22 07:40 Freq: Status: Active Protocol: Document 01/08/23 14:27 [facility] (Rec: 01/08/23 15:15 [facility] [id number]) Physical Therapy Assessment Goals balance Patient Registration Specialist Goal (LTG) Pt will be able tod o SLS for 5 sec B to show improved baalance and stabiltiy LTG Duration 02/07 Three Impairment Lower extremity functional scale score 29% Short Term Goal (STG) Pt will be able to do 9 sit to stands w/UE in 30 sec to show improved LE strength. 12/26/22- pt did 8 in 30 sec w/ UE STG Duration 12/25/22 Patient Registration Specialist Goal (LTG) Pt will be able to hold an object in one hand and stand w /use of only 1 UE to push from LTG Duration 02/07/23 Two Impairment walks 1 loop of [place] w/1 rest on bench Impairment 785ft 6 min walk test Short Term Goal (STG) Pt be able to walk at least 2 [place] w/o inc pain or feeling of excessive fatigue STG Duration 12/16/22 Patient Registration Specialist Goal (LTG) Pt will be able to do 935ft safely for 6 min walk test. LTG Duration 02/07/23 One Impairment AROM 14-94 PROM 10-100 Patient Registration Specialist Goal (LTG) Pt will be able to pick objects off the ground w/o fear of falling and w/ease including on outdoor surfaces (picking up hose). LTG Duration 02/08/23 Assessment Summary Assessment Pt shown gym exercsies as she is considering going to the gym to work on these types of activities. She did well with set up w/cues. She was challneged by balance activities Physical Therapy Plan Next Visit Focus/Plan Next Note Type Treatment Note Next Visit Plan progress towards DC (pt would like to do 2 more visits )
--- NOTE | 2023-01-09 16:20 | PT.OPDS ---
Current Diagnoses Polyosteoarthritis, unspecified (01/08/23) Pain in left knee (01/08/23) Stiffness of right knee, not elsewhere classified (01/08/23) Difficulty in walking, not elsewhere classified (01/08/23) Abnormal posture (01/08/23) Weakness (01/08/23) Visit Care Team Role Provider Type Martín Pyle MD Attending Provider Physician Family Provider Primary Care Provider Referring Provider Specialty: Internal Medicine Address: [address] [place] [address], [facility] Email: [email or web address] Visit Number Visit Number 12 Discharge Summary PT-OP-B Current Condition Start: 11/16/22 07:40 Freq: Status: Active Protocol: Document 11/16/22 12:47 [facility] (Rec: 11/16/22 13:33 [facility] [id number]) Current Condition History of Current Condition History of Current Condition Pt reports she wants to be able to get something off the floor. The R one feel like it is full of cotton. She feels like bending both of her knees is difficult. It is about impossible to get like the garden hose. She had R TKA was about 2 years ago and had cortizone in L one a couple months ago that helped w/pain. She doesn't feel ready to do TKA but L knee does hurt at night moving around. She feels like her range is dec on R. Pt reports she has to walk carefully d/t balance. Seh doesn't want to use a cane and would rather just be careful. Denies falls. She does the watering and weed spray in the garden. Pt reports she neesd both hands to get out of the chair. If she keeps her knees together in bed it makes it less painful on L knee. L knee will wake her up when trying to move. Xrays have been done and has shown arthritis. She used to feel like her knees were knocking her over because they bent in. R knee never felt lik it got all the way rehabed. Pt had a fall and fractured R hip about 4 years ago and has pinning of R hip. It as a high curb and she didn 't see it was that high and caught it and went flying. Pt walks [place] loop [place] with her w/him w/ walker. Takes one seated rest break for . Has only tried one lap d/t . She walks up to [employer] for communion and she tends to grab onto things but is trying to stop herself. She feels like that the is max she can do at the time. She is typically able to do her tasks as needed. Prior Treatments and Tests PT after TKA but has always felt like stuffing inside despite some imrpvoement w/PT Treatment Goals Patient/Caregiver Goals get something off floor; be able to get out of chair easier (not require 2 hands) PT-OP-C Subjective Start: 11/16/22 07:40 Freq: Status: Active Protocol: Document 01/08/23 14:27 [facility] (Rec: 01/08/23 15:15 [facility] [id number]) OP-PT Subjective Patient Comments Patient Comments Pt reports 2x/week is tough because it is hard to recover from the soreness. Feels ready to DC in a couple weeks to indep HEP PT-OP-D Balance Start: 11/16/22 07:40 Freq: Status: Active Protocol: Document 12/26/22 17:02 (Rec: 12/26/22 17:47 [id number]) Balance Tests Single Limb Standing Single Limb- Right 4sec w/a lot of deviation Single Limb- Left 4sec w/a lot of deviation PT-OP-E Functional Tests Start: 11/16/22 07:40 Freq: Status: Active Protocol: Document 12/26/22 17:02 (Rec: 12/26/22 17:45 [id number]) Functional Tests 30 Second Sit to Stand Test Score 8 w/UEs PT-OP-G Mobility & Gait Start: 11/16/22 07:40 Freq: Status: Active Protocol: Document 11/16/22 12:47 [facility] (Rec: 11/16/22 13:33 [facility] [id number]) OP Mobility Evaluation Transfers Sit to Stand uses B UEs to help herself out of chair Functional Movements Other Functional Movements Bends at back and hips to pick something off the ground and feels off balance OP Gait Assessment Comments Gait Comments lat leaning over R side . Dec push off B; at terminal stance she has quick hyperext and occ dec LLE clearance; dec L DF; fwd lean in gait PT-OP-J Posture/Palpation/Skin Start: 11/16/22 07:40 Freq: Status: Active Protocol: Document 11/16/22 12:47 [facility] (Rec: 11/16/22 13:33 [facility] [id number]) Posture Evaluation Comments Posture Comments L SB, R pelvis appears higher, inc kyphosis PT-OP-K Range of Motion Start: 11/16/22 07:40 Freq: Status: Active Protocol: Document 11/16/22 12:47 [facility] (Rec: 11/16/22 13:33 [facility] [id number]) Knee Goniometric Range of Motion Knee Left Flexion Active (degrees) 114 Extension Active (degrees) 8 Right Flexion Active (degrees) 113 Extension Active (degrees) 3 Comments pain getting out of flex; feels like cotton in knee w/ flexing; c/o stitch in back w /ext PT-OP-M Strength Start: 11/16/22 07:40 Freq: Status: Active Protocol: Document 11/16/22 12:47 [facility] (Rec: 11/16/22 13:33 [facility] [id number]) Hip Strength Hip Manual Muscle Testing Right Flexion (L2) 5 Normal Abduction 3 Fair External Rotation 4- Good- Internal Rotation 4- Good- Left Flexion (L2) 4- Good- Abduction 3 Fair External Rotation 3 Fair Internal Rotation 4- Good- Comments pain in knee w/ER and ppain in hip w/IR; pain in knee w/abd Knee Strength Knee Manual Muscle Testing Right Flexion (S2) 5 Normal Extension (L3) 5 Normal Left Flexion (S2) 5 Normal Extension (L3) 4- Good- Ankle/Foot Strength Ankle and Foot Manual Muscle Testing Right Dorsiflexion (L4) 5 Normal Plantarflexion (S1) 5 Normal Left Dorsiflexion (L4) 3 Fair Plantarflexion (S1) 5 Normal Comments seatd PF testing B; pain DF PT-OP-T Assessment and Plan Start: 11/16/22 07:40 Freq: Status: Active Protocol: Document 01/09/23 16:17 [facility] (Rec: 01/09/23 16:19 [facility] [id number]) Physical Therapy Assessment Goals balance Asphalt Spreader Operator Goal (LTG) Pt will be able tod o SLS for 5 sec B to show improved baalance and stabiltiy LTG Duration 02/07 Three Impairment Lower extremity functional scale score 29% Short Term Goal (STG) Pt will be able to do 9 sit to stands w/UE in 30 sec to show improved LE strength. 12/26/22- pt did 8 in 30 sec w/ UE STG Duration 12/25/22 Asphalt Spreader Operator Goal (LTG) Pt will be able to hold an object in one hand and stand w /use of only 1 UE to push from LTG Duration 02/07/23 Two Impairment walks [place]/1 rest on bench Impairment 785ft 6 min walk test Short Term Goal (STG) Pt be able to walk at least 2 [place] w/o inc pain or feeling of excessive fatigue STG Duration 12/16/22 Intermediate Goal (LTG) Pt will be able to do 935ft safely for 6 min walk test. LTG Duration 02/07/23 One Impairment AROM 14-94 PROM 10-100 Intermediate Goal (LTG) Pt will be able to pick objects off the ground w/o fear of falling and w/ease including on outdoor surfaces (picking up hose). LTG Duration 02/08/23 Assessment Summary Assessment Patient called on 01/09/23 at 0835 to cancel remaining visits and has asked to be discharged. She has opted to do her routines at home. Pt had made some slow progress w/ PT as noted at PN 2 visits ago . She has L>R knee pain w/ prospect of potentially getting TKA that limited her ability to perform all activities in PT. Pt is doing well w/HEP and was shown gym equipment as she was interested in potentially going to the gym. She is DC today d/t request. Physical Therapy Plan Discharge Physical Therapy Discharge Reasons Patient Request
== END 2023-01-26 10:30 | disposition home or self-care (01) ==
LOC: PHYS 14:15
PROVIDERS: Absent Provider Internal Medicine; Family Provider Internal Medicine; PCP Internal Medicine; Referring Provider Internal Medicine; Visit Provider Internal Medicine
DX: R53.1 Weakness (principal); M15.9 Polyosteoarthritis, unspecified; R29.3 Abnormal posture; M25.562 Pain in left knee; M25.661 Stiffness of right knee, not elsewhere classified; R26.2 Difficulty in walking, not elsewhere classified
CPT/HCPCS: 97110; 97112; 97140; 97162

== ENCOUNTER → 2023-02-06 18:01 | Outpatient (CLI) | payer MEDICARE, OTHER, SELFPAY ==
[2021-05-02 16:17] VITALS: BMI 30.5
--- NOTE | 2023-02-06 18:03 | DI.RAD.S_ITS ---
PROCEDURE: XR KNEE RT 3V INDICATIONS: right knee pain TECHNIQUE: 3 views of the knee were acquired. COMPARISON: [facility] [place], [place], XR KNEE 4+ VIEWS RIGHT, 07/25/2021, 10:45. [facility], CR, XR KNEE RT 1TO2V, 05/02/2021, 15:11. FINDINGS: Bones: No fractures or dislocations. Right TKA is present with prosthetic components in expected unchanged positions. No periprosthetic fractures or evidence of loosening/infection. No suspicious bony lesions. Soft tissues: Small joint effusion. joint effusion. No suspicious soft tissue calcifications. IMPRESSION: Stable appearance of right TKA. Dictated by: Vel Christiansen [facility] Interpreted: Spencer Cedeño MD on 02/06/2023 at 20:28 Approved by: Spencer Cedeño M.D. on 02/07/2023 at 10:30
== END ==
PROVIDERS: Family Provider Internal Medicine; PCP Internal Medicine; Referring Provider Physician Assistant; Visit Provider Physician Assistant
DX: M25.561 Pain in right knee (principal); M25.461 Effusion, right knee; Z96.651 Presence of right artificial knee joint
CPT/HCPCS: 73562

== ENCOUNTER → 2023-02-20 14:42 | Outpatient (CLI) | payer MEDICARE, OTHER, SELFPAY ==
[2021-05-02 16:17] VITALS: BMI 30.5
--- NOTE | 2023-02-20 | DI.MG.S_ITS ---
BILATERAL DIGITAL SCREENING MAMMOGRAM 3D/2D WITH CAD: 02/20/2023 CLINICAL: Routine screening. Comparison is made to exams dated: 02/17/2022 mammogram, 02/16/2021 mammogram, and 01/20/2020 mammogram - [facility]. There are scattered areas of fibroglandular density in both breasts (category b / 25%-50% glandular tissue). Current study was also evaluated with a Computer Aided Detection (CAD) system. No significant masses, calcifications, or other findings are seen in either breast. There has been no significant interval change. IMPRESSION: NEGATIVE There is no mammographic evidence of malignancy. A 1 year screening mammogram is recommended. This exam was interpreted at Station ID: [id number]. NOTE: For mammograms, a report in lay terms will be sent to the patient. Approximately 15% of breast malignancies will not be visualized mammographically. In the management of a palpable breast mass, a negative mammogram must not discourage biopsy of a clinically suspicious lesion. Electronically Signed By: Hamilton olivares/kaitlyn:02/21/2023 16:35:32 letter sent: Normal Exam ACR BI-RADS Category 1: Negative [id number]
== END ==
PROVIDERS: Family Provider Internal Medicine; PCP Internal Medicine; Referring Provider Internal Medicine; Visit Provider Internal Medicine
DX: Z12.31 Encounter for screening mammogram for malignant neoplasm of breast (principal)
CPT/HCPCS: 77063; 77067

== ENCOUNTER → 2023-03-13 10:08 | Outpatient (CLI) | payer MEDICARE, OTHER, SELFPAY ==
[2021-05-02 16:17] VITALS: BMI 30.5
[2023-03-13 11:10] LABS: C-Reactive Protein Quant < 0.5 mg/dL (<1.0)
[2023-03-13 11:15] LABS: Erythrocyte Sedimentation Rate 7 MM/HR (0-20)
== END ==
PROVIDERS: Family Provider Internal Medicine; PCP Internal Medicine; Referring Provider Orthopaedic Surgery Adult Reconstructive Orthopaedic Surgery; Visit Provider Orthopaedic Surgery Adult Reconstructive Orthopaedic Surgery
DX: Z01.812 Encounter for preprocedural laboratory examination (principal); R79.82 Elevated C-reactive protein (CRP)
CPT/HCPCS: 36415; 85651; 86140

== ENCOUNTER → 2023-04-25 16:19 | Outpatient (CLI) | payer MEDICARE, OTHER, SELFPAY ==
[2021-05-02 16:17] VITALS: BMI 30.5
[2023-04-25 17:50] LABS: Hemoglobin A1C% w Est Avg Glu 6.3 % (4.0-6.0)
[2023-04-25 17:52] LABS: Glucose 93 mg/dL (80-110)
== END ==
PROVIDERS: Family Provider Internal Medicine; PCP Internal Medicine; Referring Provider Internal Medicine; Visit Provider Internal Medicine
DX: R73.01 Impaired fasting glucose (principal)
CPT/HCPCS: 82947; 83036

== ENCOUNTER → 2023-05-24 10:33 | Outpatient (CLI) | payer MEDICARE, OTHER, SELFPAY ==
[2021-05-02 16:17] VITALS: BMI 30.5
[2023-05-24 14:50] LABS: Occult Blood 1 Negative (Negative); Occult Blood 2 Negative (Negative); Occult Blood 3 Negative (Negative)
== END ==
PROVIDERS: Family Provider Internal Medicine; PCP Internal Medicine; Referring Provider Internal Medicine; Visit Provider Internal Medicine
DX: D64.9 Anemia, unspecified (principal)
CPT/HCPCS: 82270

== ENCOUNTER → 2023-06-21 16:15 | Outpatient (CLI) | payer MEDICARE, OTHER, SELFPAY ==
[2021-05-02 16:17] VITALS: BMI 30.5
[2023-06-21 17:10] LABS: Hematocrit 39.9 % (36-46); Mean Corpuscular HGB Conc 32.6 % (30-36); Platelet Count 275 X10^3/uL (150-400); Red Blood Cell Count 4.34 X10^6/uL (4.0-5.2); Red Cell Distribution Width 14.1 % (11.6-14.8); White Blood Cell Count 8.7 X10^3/uL (4.5-11.0)
[2023-06-21 17:27] LABS: Aspartate Aminotransferase 30 IU/L (14-36); BUN Creatinine Ratio 29.3 (6-22); Blood Urea Nitrogen 29 mg/dL (7-17); Calcium 9.4 mg/dL (8.4-10.2); Carbon Dioxide 26 mmol/L (22-32); Chloride 107 mmol/L (98-107); Cholesterol 105 mg/dL (140-199); Estimated Glomerular Filt Rate 58 mL/min (>60); Glucose 103 mg/dL (80-110); HDL Cholesterol 54 mg/dL (40-60); HEMOLYSIS < 15 (0-50); LDL Cholesterol Calculated 25 mg/dL (<100); Potassium 4.3 mmol/L (3.4-5.1); Sodium 141 mmol/L (137-145); Triglycerides 129 mg/dL (35-150)
== END ==
LOC: LAB 16:17
PROVIDERS: Family Provider Internal Medicine; PCP Internal Medicine; Referring Provider Internal Medicine; Visit Provider Internal Medicine
DX: E78.2 Mixed hyperlipidemia (principal); Z85.09 Personal history of malignant neoplasm of other digestive organs; E53.8 Deficiency of other specified B group vitamins
CPT/HCPCS: 36415; 80048; 80061; 84450; 85027

== ENCOUNTER 2023-08-26 15:01 | Emergency (ER) | payer MEDICARE, OTHER, SELFPAY ==
[2021-05-02 16:17] VITALS: BMI 30.5
[2023-08-26] VITALS (8 sets, daily range): BP systolic 150–166; BP diastolic 69–76; PULSE 66–68; RESP 14–16; TEMP 36.6–36.7; O2SAT 96–99
--- NOTE | 2023-08-26 15:11 | DI.RAD.S_ITS ---
PROCEDURE: XR WRIST LT MIN 3V INDICATIONS: GLF/WRIST DEFORMITY TECHNIQUE: 3 views of the wrist were acquired. COMPARISON: [facility], , WRIST MINIMUM 3 VIEWS LEFT, 05/18/2017, 12:12. FINDINGS: Bones: There is a slight cortical offset appearance of the distal radius seen on lateral view. In addition, faint area horizontal lucency is noted the metaphysis. Soft tissues: No suspicious soft tissue calcifications. IMPRESSION: Nondisplaced distal radial fracture without definitive articular extension. Dictated by: Amy Benítez M.D. on 08/26/2023 at 15:59 Approved by: Amy Benítez M.D. on 08/26/2023 at 16:00
--- NOTE | 2023-08-26 15:12 | DI.RAD.S_ITS ---
PROCEDURE: XR HIP W PEL IF DONE LT 2V INDICATIONS: GLF/L HIP PAIN TECHNIQUE: AP pelvis with lateral view(s) of the left hip(s). COMPARISON: [facility], , XR HIP W PEL IF DONE LT 2V, 02/05/2020, 15:37. FINDINGS: Bones: No fractures or dislocations. Pelvic ring appears intact. No suspicious bony lesions. Right femoral pin fixation. Heart moderate degenerative changes are present in the left hip as well as lower lumbar spine. Soft tissues: The visualized bowel gas pattern is normal. No suspicious soft tissue calcifications. IMPRESSION: No visualized acute fracture or dislocation. However, if clinical concern and/or pain persist, short interval imaging followup in 7-10 days is recommended, as occult injury cannot be definitively excluded. Dictated by: Amy Benítez M.D. on 08/26/2023 at 16:01 Approved by: Amy Benítez M.D. on 08/26/2023 at 16:01
--- NOTE | 2023-08-26 15:26 | ED_ITS ---
HPI - Fall General Chief Complaint: Fall Stated Complaint: GLF Time Seen by Provider: 08/26/23 15:05 Source: patient and EMS Mode of arrival: EMS History of Present Illness HPI Narrative: 78-year-old female presents for left wrist and left hip pain after a ground level fall. Patient was walking in the garage when she tripped and fell on her outstretched hand and then landed on her left hip. She denies hitting her head, denies loss of consciousness, denies use of blood thinners. EMS administered 100 mcg of fentanyl EN route and transported her for further evaluation. Related Data Home Medications Medication Instructions Recorded Confirmed calcium carbonate 1 tab PO DAILY 03/09/22 08/30/23 cholecalciferol (vitamin D3) 1 cap PO DAILY 03/09/22 08/30/23 coenzyme Q10 100 mg capsule (Co 100 mg PO DAILY 12/13/22 08/30/23 Q-10) cyanocobalamin (vitamin B-12) 1,000 mcg PO DAILY 12/13/22 08/30/23 1,000 mcg capsule fluticasone propionate 50 2 spray intranasal DAILY PRN 12/13/22 08/30/23 mcg/actuation nasal allergy symptoms spray,suspension (Flonase Allergy Relief) multivitamin 1 tab PO DAILY 12/13/22 08/30/23 Previous Rx's Medication Instructions Recorded Disabled Parking Permit dev ##1 03/01/16 rosuvastatin 10 mg tablet 10 mg PO DAILY #90 tabs 05/02/23 sertraline 100 mg tablet 50 mg (1/2 x 100 mg) PO DAILY #45 07/03/23 tabs oxybutynin chloride 5 mg 5 mg PO DAILY #90 tabs 08/20/23 tablet,extended release 24 hr tramadol 50 mg tablet 50 mg PO Q8H PRN pain #14 tabs 08/26/23 Allergies Allergy/AdvReac Type Severity Reaction Status Date / Time carbamazepine AdvReac Mild Dizziness Verified 08/30/23 10:01 Review of Systems Review of Systems Narrative: Negative except as noted above Patient History Medical History (Updated 08/30/23 @ 12:49 by Kely Yu PA-C) Sleep apnea, unspecified Obesity Impaired fasting glucose Depression, major, recurrent Reactive depression Primary osteoarthritis involving multiple joints Mixed hyperlipidemia Fractures Measles (~1954) Cataracts, bilateral Endometriosis B12 deficiency Age-related osteoporosis without current pathological fracture Urinary incontinence History of Shelley's esophagus BIA (obstructive sleep apnea) Stomach cancer (~2015) Popliteal artery embolism, right Hearing loss Chicken pox (~1950) Mumps (~1950) Osteopenia Surgical History History of surgery History of hip surgery Anesthesia Status post hysterectomy (1990) Family History Brother Age: 77 Diabetes mellitus Father Heart disease Grandfather Cancer Grandmother Heart disease Mother Heart disease Grandmother Heart disease Sister Age: 72 Lung cancer Grandfather No problems noted. Social History marital status: household members: spouse occupational status: previously employed Smoking Status: Never smoker alcohol intake: never substance use type: does not use Smoking Status: Never smoker alcohol intake frequency: holidays/special occasions only Substance Use Type: does not use Exam Initial Vital Signs Initial Vital Signs: Vital Signs Temperature 97.8 F 08/26/23 15:05 Pulse Rate 68 08/26/23 15:05 Respiratory Rate 14 08/26/23 15:05 Blood Pressure 153/71 H 08/26/23 15:05 Pulse Oximetry 99 08/26/23 15:05 Oxygen Delivery Method Room Air 08/26/23 15:05 Const: Awake, alert, nontoxic appearing Cardiac: regular rate, regular rhythm RESP: unlabored, clear bilaterally, no wheezing GI: Soft, nontender, nondistended, no rebound, no guarding MSK: Swelling left wrist, 2+ radial pulses, movement and sensation intact bilaterally, generalized pain to palpation over left hip without deformity or shortening Skin: Warm, Dry, intact, no rashes Neuro: AO x3, CN II-XII grossly intact, moves all extremities Course Orders Ordered: Discontinued Medications Acetaminophen (Acetaminophen 325 Mg Tablet) 975 mg PO NOW ONE Stop: 08/26/23 15:12 Last Admin: 08/26/23 15:39 Dose: 975 mg Documented By: TC Oxycodone HCl (Oxycodone Ir 5 Mg Tablet) 5 mg PO NOW ONE Stop: 08/26/23 15:12 Last Admin: 08/26/23 15:39 Dose: 5 mg Documented By: TC Vital Signs Vital signs: Vital Signs - 8 hr 08/26/23 15:05 08/26/23 15:39 08/26/23 15:41 Temperature 97.8 F Pulse Rate 68 68 67 Respiratory Rate 14 Blood Pressure 153/71 H Pulse Oximetry 99 96 98 Oxygen Delivery Method Room Air 08/26/23 15:41 08/26/23 16:00 08/26/23 16:31 Temperature Pulse Rate 68 66 Respiratory Rate Blood Pressure 150/69 H Pulse Oximetry 97 96 Oxygen Delivery Method 08/26/23 16:32 08/26/23 16:32 08/26/23 17:00 Temperature Pulse Rate 66 67 Respiratory Rate Blood Pressure 166/76 H Pulse Oximetry 96 97 Oxygen Delivery Method 08/26/23 17:22 Temperature 98.0 F Pulse Rate 68 Respiratory Rate 16 Blood Pressure 166/76 H Pulse Oximetry 97 Oxygen Delivery Method Room Air MDM - Fall Imaging Data Extremity x-ray #1: Radiologist's Impression: PROCEDURE: XR WRIST LT MIN 3V INDICATIONS: GLF/WRIST DEFORMITY TECHNIQUE: 3 views of the wrist were acquired. COMPARISON: [facility], WRIST MINIMUM 3 VIEWS LEFT, 05/18/2017, 12:12. FINDINGS: Bones: There is a slight cortical offset appearance of the distal radius seen on lateral view. In addition, faint area horizontal lucency is noted the metaphysis. Soft tissues: No suspicious soft tissue calcifications. IMPRESSION: Nondisplaced distal radial fracture without definitive articular extension. Dictated by: Amy Benítez M.D. on 08/26/2023 at 15:59 Approved by: Amy Benítez M.D. on 08/26/2023 at 16:00 Extremity x-ray #2: Radiologist's Impression: PROCEDURE: XR HIP W PEL IF DONE LT 2V INDICATIONS: GLF/L HIP PAIN TECHNIQUE: AP pelvis with lateral view(s) of the left hip(s). COMPARISON: [facility], XR HIP W PEL IF DONE LT 2V, 02/05/2020, 15:37. FINDINGS: Bones: No fractures or dislocations. Pelvic ring appears intact. No suspicious bony lesions. Right femoral pin fixation. Heart moderate degenerative changes are present in the left hip as well as lower lumbar spine. Soft tissues: The visualized bowel gas pattern is normal. No suspicious soft tissue calcifications. IMPRESSION: No visualized acute fracture or dislocation. However, if clinical concern and/or pain persist, short interval imaging followup in 7-10 days is recommended, as occult injury cannot be definitively excluded. Dictated by: Amy Benítez M.D. on 08/26/2023 at 16:01 Approved by: Amy Benítez M.D. on 08/26/2023 at 16:01 [facility] Narrative Medical decision making narrative: Ground level fall with wrist and hip pain. Patient was adamant that she did not hit her or lose consciousness. Medications for pain ordered. X-rays ordered. X-ray shows distal radius fracture. No significant displacement. Paste in sugar-tong splint and given a sling for comfort. Hip x-ray shows no acute fracture. Patient ambulatory without assistance, very low suspicion for fracture at this time. Patient counseled on all lab and imaging findings, recommended orthopedic follow up. Short course of pain medication sent to pharmacy of choice. Discharge Plan Departure Patient Disposition: Home Clinical Impression: Distal radius fracture, left Qualifiers: Encounter type: initial encounter Fracture type: closed Fracture morphology: other fracture Qualified Code(s): S52.592A - Other fractures of lower end of left radius, initial encounter for closed fracture Instructions: DI for Wrist Fracture Prescriptions: New tramadol 50 mg tablet 50 mg PO Q8H PRN (Reason: pain) Qty: 14 0RF No Action Disabled Parking Permit Qty: 1 0RF rosuvastatin 10 mg tablet 10 mg PO DAILY Qty: 90 3RF sertraline 100 mg tablet 50 mg PO DAILY Qty: 45 3RF oxybutynin chloride 5 mg tablet extended release 24hr 5 mg PO DAILY Qty: 90 3RF Rx Instructions: This script replaces the previous script. Thanks! cholecalciferol (vitamin D3) 1 cap PO DAILY calcium carbonate 1 tab PO DAILY fluticasone propionate [Flonase Allergy Relief] 50 mcg/actuation spray,suspension 2 spray intranasal DAILY PRN (Reason: allergy symptoms) Rx Instructions: administer into each nostril cyanocobalamin (vitamin B-12) 1,000 mcg capsule 1,000 mcg PO DAILY multivitamin Tablet 1 tab PO DAILY coenzyme Q10 [Co Q-10] 100 mg capsule 100 mg PO DAILY Referrals: Martín Pyle MD [Primary Care Provider] - Juwan Barcenas MD [Physician] - Stand Alone Forms: Patient Portal/API
[2023-08-26] MEDS: OXYCODONE IR 5 MG TABLET PO (15:39)
[2023-08-26] MEDS: ACETAMINOPHEN 325 MG TABLET 975 MG PO (15:39)
--- NOTE | 2023-08-26 16:23 | CM.SWNOTE ---
ED DROP WIRE OPERATOR Note Pt is a 78 y/o female who lives in [facility] w/ her . Pt is the main caregiver for him due to his dementia. Pt presents to the ED for a GLF and L wrist and L hip pain. DROP WIRE OPERATOR met w/ pt to discuss potential resources for her and her . Pt reports that she is the main caregiver and has a friend who she pays to help out throughout the week. Any is great she is 79 something and can really get him to talk. Pt expressed interest in additional help but shared that she did not like when agencies would send different caregivers each day. DROP WIRE OPERATOR provided pt w/ list of private caregivers. Pt shared that she is a member of an Alzheimer's support group that she attends at the local [facility]. Pt also expressed a desire to put her on a waiting list for memory care. W/ pt consent DROP WIRE OPERATOR to call Neighbor Christopher who is currently w/ her to give an update on possible d/c time. CONNIE Vu, [facility].
== END 2023-08-26 17:32 | disposition home or self-care (01) ==
PROVIDERS: Emergency Provider Emergency Medicine; Family Provider Internal Medicine; PCP Internal Medicine
DX: S52.592A Other fractures of lower end of left radius, initial encounter for closed fracture (principal); M25.552 Pain in left hip; W18.30XA Fall on same level, unspecified, initial encounter
CPT/HCPCS: 29125; 73110; 73502; 99283; 99284

== ENCOUNTER → 2023-08-30 11:06 | Outpatient (CLI) | payer MEDICARE, OTHER, SELFPAY ==
[2021-05-02 16:17] VITALS: BMI 30.5
[2023-08-30 12:20] LABS: Add Manual Diff / Slide Review NO; Basophils Absolute Auto 0 /uL (0-100); Basophils Percent Auto 0.6 % (0-2); Eosinophils Absolute Auto 200 /uL (0-450); Eosinophils Percent Auto 2.4 % (2-4); Hematocrit 34.9 % (36-46); Hemoglobin 11.6 g/dL (12.0-16.0); Lymphocytes Absolute Auto 1100 /uL (1100-4500); Lymphocytes Percent Auto 15.1 % (25-40); Mean Corpuscular HGB Conc 33.1 % (30-36); Mean Corpuscular Volume 90.7 fL (80-100); Monocytes Absolute Auto 500 /uL (0-900); Monocytes Percent Auto 7.4 % (3-14); Neutrophils Absolute Auto 5400 /uL (1500-7000); Neutrophils Percent Auto 74.5 % (50-75); Platelet Count 254 X10^3/uL (150-400); Red Blood Cell Count 3.85 X10^6/uL (4.0-5.2); Red Cell Distribution Width 14.5 % (11.6-14.8); White Blood Cell Count 7.2 X10^3/uL (4.5-11.0)
[2023-08-30 12:41] LABS: Alanine Aminotransferase 27 IU/L (<35); Albumin 4.1 g/dL (3.5-5.0); Albumin Globulin Ratio 1.5 (1.0-2.8); Alkaline Phosphatase 66 U/L (38-126); Aspartate Aminotransferase 35 IU/L (14-36); BUN Creatinine Ratio 30.9 (6-22); Bilirubin Total 0.6 mg/dL (0.2-1.3); Blood Urea Nitrogen 21 mg/dL (7-17); Calcium 8.7 mg/dL (8.4-10.2); Carbon Dioxide 28 mmol/L (22-32); Chloride 110 mmol/L (98-107); Estimated Glomerular Filt Rate > 60 mL/min (>60); Globulin 2.7 g/dL (1.7-4.1); Glucose 87 mg/dL (80-110); HEMOLYSIS < 15 (0-50); Sodium 141 mmol/L (137-145); Total Protein 6.8 g/dL (6.3-8.2)
[2023-08-30 13:11] LABS: TSH w/ Reflex to FT4 0.46 uIU/mL (0.47-4.68)
[2023-08-30 13:57] LABS: Free T4, Direct Thyroxine 1.01 ng/dL (0.78-2.19)
== END ==
PROVIDERS: Family Provider Internal Medicine; PCP Internal Medicine; Referring Provider Physician Assistant; Visit Provider Physician Assistant
DX: R55 Syncope and collapse (principal)
CPT/HCPCS: 36415; 80053; 84439; 84443; 85025

== ENCOUNTER → 2023-10-02 15:57 | Outpatient (CLI) | payer MEDICARE, OTHER, SELFPAY ==
[2021-05-02 16:17] VITALS: BMI 30.5
[2023-10-04 18:36] LABS: Fecal Immunochemical Test Negative (Negative)
== END ==
PROVIDERS: Family Provider Internal Medicine; PCP Internal Medicine; Referring Provider Internal Medicine; Visit Provider Internal Medicine
DX: Z12.11 Encounter for screening for malignant neoplasm of colon (principal)
CPT/HCPCS: 82274

== ENCOUNTER 2023-12-11 16:00 | Outpatient (RCR) | payer MEDICARE, OTHER, SELFPAY ==
[2021-05-02 16:17] VITALS: BMI 30.5
--- NOTE | 2023-10-19 12:41 | PT.OIE ---
Current Diagnoses Muscle weakness (generalized) (10/19/23) Unsteadiness on feet (10/19/23) Other abnormalities of gait and mobility (10/19/23) Repeated falls (10/19/23) Past Medical History (Last Updated 09/05/23 @ 15:24 by Martín Pyle MD) Age-related osteoporosis without current pathological fracture B12 deficiency Cataracts, bilateral Chicken pox (~1950) Depression, major, recurrent Endometriosis Fractures Gait instability Hearing loss History of Shelley's esophagus Impaired fasting glucose Measles (~1954) Mixed hyperlipidemia Mumps (~1949) Obesity BIA (obstructive sleep apnea) Osteopenia Popliteal artery embolism, right Primary osteoarthritis involving multiple joints Reactive depression Sleep apnea, unspecified Stomach cancer (~2015) Urinary incontinence Past Surgical History (Last Reviewed 09/05/23 @ 13:14 by Martín Pyle MD) Anesthesia History of hip surgery History of surgery Status post hysterectomy (1990) Visit Care Team Role Provider Type Martín Pyle MD Attending Provider Physician Family Provider Primary Care Provider Referring Provider Specialty: Internal Medicine Address: [address] [place] [address] Email: [email or web address] Physical Therapy Initial Evaluation PT-OP-A Visit Information Start: 10/19/23 12:05 Freq: Status: Active Protocol: Document 10/19/23 10:30 DCW (Rec: 10/19/23 12:41 [facility] [id number]) Out-Patient Physical Therapy Visit Information Visit Information Visit Type Initial Evaluation Visit Start Time 10:30 Visit Stop Time 11:10 Visit Number 1 Number of CHARGER TESTER Visits 0 Evaluation Information Evaluation Date 10/19/23 PT-OP-B Current Condition Start: 10/19/23 12:05 Freq: Status: Active Protocol: Document 10/19/23 10:30 DCW (Rec: 10/19/23 12:41 [facility] [id number]) Current Condition History of Current Condition Current Complaints Repeated falls, weakness, gait difficulty, sit<->stand difficulty History of Current Condition Pt is a 78 year old female presenting with a long history of falls and instability, which per pt, seems to be worsening. Notes her most recent fall (last week, she was able to get herself off the floor, but it is difficulty because six weeks ago, she had a fall which resulted in a left forearm fracture, and she is currently not supposed to bear any weight through her left arm. Following her fall six weeks ago, she began using a SPC. Admits her knees feel very weak, which is limiting her stability and transfer ability . 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 Has stairs at home, bilateral rails. Admits if she has to take anything up the stairs, she will lift it up three steps, set it down, walk up three steps, and then pick it back up, and repeat until she gets to the top. PT-OP-C Subjective Start: 10/19/23 12:05 Freq: Status: Active Protocol: Document 10/19/23 10:30 DCW (Rec: 10/19/23 12:41 DCW [id number]) OP-PT Subjective Patient Comments Patient Comments I tried to do my bike at home , and the knee that they haven 't fixed yet (left) just won't let me do it. Which really tells me that I should have that one replaced now. Patient Questionnaires ABC- Activity Specific Balance Confidence Scale ABC Score 51.25% ABC Functional Impairment 40 to <60% Impaired (Score 41- 60) Dizziness Handicap Inventory DHI Score 48% DHI Functional Impairment 40 to 59% Impaired (Score 40- 59) PT-OP-E Functional Tests Start: 10/19/23 12:05 Freq: Status: Active Protocol: Document 10/19/23 10:30 DCW (Rec: 10/19/23 12:41 DCW [id number]) Functional Tests Dynamic Gait Index (DGI) Score 7 Five Times Sit to Stand Test Score 41.00 Comments Heavy use of R UE Timed Up and Go (TUG) Score 19.96 Comments Three-trial Average (30.26, 15 .41, 14.21) PT-OP-G Mobility & Gait Start: 10/19/23 12:05 Freq: Status: Active Protocol: Document 10/19/23 10:30 DCW (Rec: 10/19/23 12:41 DCW [id number]) OP Mobility Evaluation Transfers Sit to Stand Severe difficulty from standard height chair, unable to perform without UE. Required multiple reminders to not use left UE due to recent fracture/weight-bearing restriction. OP Gait Assessment Assistive Devices Assistive Device Gait Belt,Straight Cane Gait Deviations General Gait Pattern Antalgic,Decreased Stride Length,Decreased Feet Clearance,Flexed Trunk Factors Limiting Gait Function Factors Limiting Gait Function Decreased Strength,Pain,Poor Balance,Poor Safety Awareness Stair Climbing Evaluation Evaluation Level of Assist On Stairs Standby Assistance Devices Stair Climbing Assistive Devices Right Railing Technique/Endurance Stair Climbing Direction Ascend and Descend Stair Climbing Technique Step to Step PT-OP-M Strength Start: 10/19/23 12:05 Freq: Status: Active Protocol: Document 10/19/23 10:30 DCW (Rec: 10/19/23 12:41 [facility] [id number]) Hip Strength Hip Manual Muscle Testing Right Flexion (L2) 4 Good Extension (S1) 4+ Good+ Abduction 4 Good Adduction 4 Good External Rotation 4+ Good+ Internal Rotation 4+ Good+ Left Flexion (L2) 3+ Fair+ Extension (S1) 4+ Good+ Abduction 4 Good Adduction 4 Good External Rotation 4- Good- Internal Rotation 4+ Good+ Knee Strength Knee Manual Muscle Testing Right Flexion (S2) 4 Good Extension (L3) 4 Good Left Flexion (S2) 4- Good- Extension (L3) 4- Good- PT-OP-Q Treatments Start: 10/19/23 12:05 Freq: Status: Active Protocol: Document 10/19/23 10:30 DCW (Rec: 10/19/23 12:41 [facility] [id number]) Therapeutic Exercises Standing Exercises Hip Extension Standing Exercise Name Hip Extension Side bilateral Comments HEP Hip Abduction Standing Exercise Name Hip Abduction Side bilateral Comments HEP Other Exercises StS Other Exercise Name Sit to Stand Resistance Instructetd to start from higher seat Comments HEP PT-OP-T Assessment and Plan Start: 10/19/23 12:05 Freq: Status: Active Protocol: Document 10/19/23 10:30 DCW (Rec: 10/19/23 12:41 [facility] [id number]) Physical Therapy Assessment Rehab Potential Rehabilitation Potential Fair Evaluation Complexity Number of Personal Factors/Comorbidities 3 or More Number of Body Systems Impaired 4 or More Clinical Presentation at Evaluation Unstable Impairments Impairments Activity Tolerance,Balance, Functional Activities, Functional Mobility,Gait,Soft Tissue Mobility,Strength,Tone, Transfers Other Concerns Fall Risk Severely high falls risk, per DGI (01/01) and extensive falls history Goals Three Impairment Pt completes 5x Sit to Stand test in 41.00 Automotive Alignment Specialist Goal (LTG) Pt to completes 5xStS test in <30 seconds, demonstrating improvement in functional mobility, leg strength, and activity tolerance Two Impairment Pt DGI score (01/01) suggests pt is a very high falls risk Mcc Goal (LTG) Pt to increased DGI score by at least six points to in order to demonstrate a decreased risk of falls. LTG Duration 01/17/24 One Impairment Pt does not have an appropriate home exercise program Short Term Goal (STG) Pt to be independent and compliant with an appropriate HEP STG Duration 11/19/23 Assessment Summary Assessment Pt presents with signs and symptoms consistent with multifactoral imbalance. Testing indicates LE weakness, decreased activity tolerance, very poor dynamic balance, and declining functional mobility, and degenerative changes in her left knee. Pt may benefit from skilled therapeutic intervention focusing on improving strength and balance in an effort to decrease risk of falls and improve pt's ability to perform caregiving activities for . Pt currently healing from recent fall, which resulted in a radial fracture, and despite verbalizing that she was not allowed to put weight through her left wrist, therapist was required to verbally remind her multiple times. Physical Therapy Plan Frequency and Duration Frequency of Treatment 2x/Week Plan of Care Start Date 10/19/23 Plan of Care End Date 01/17/24 Therapeutic Interventions Therapeutic Interventions Balance Training,Gait Training ,Home Exercise Program,Joint Mobilizations,Manual Therapy, Neuromuscular Re-education, Patient/Caregiver Education, Self-Care/Home Management,Soft Tissue Mobilization,Taping, Therapeutic Activities, Therapeutic Exercises Modalities Cold Pack/Ice Massage,Hot Packs Next Visit Focus/Plan Next Note Type Treatment Note Next Visit Plan LE strengthening, balance challenges, transfer and gait training
--- NOTE | 2023-10-19 12:42 | PT.OPPOC ---
Physical, Occupational & Speech Therapy At [facility] Current Diagnoses Muscle weakness (generalized) (10/19/23) Unsteadiness on feet (10/19/23) Other abnormalities of gait and mobility (10/19/23) Repeated falls (10/19/23) Visit Care Team Role Provider Type Martín Pyle MD Attending Provider Physician Family Provider Primary Care Provider Referring Provider Specialty: Internal Medicine Address: [address] [place] [address], [facility] Email: [email or web address] Plan Of Care PT-OP-T Assessment and Plan Start: 10/19/23 12:05 Freq: Status: Active Protocol: Document 10/19/23 10:30 DCW (Rec: 10/19/23 12:41 DCW [id number]) Physical Therapy Assessment Rehab Potential Rehabilitation Potential Fair Evaluation Complexity Number of Personal Factors/Comorbidities 3 or More Number of Body Systems Impaired 4 or More Clinical Presentation at Evaluation Unstable Impairments Impairments Activity Tolerance,Balance, Functional Activities, Functional Mobility,Gait,Soft Tissue Mobility,Strength,Tone, Transfers Other Concerns Fall Risk Severely high falls risk, per DGI (01/01) and extensive falls history Goals Three Impairment Pt completes 5x Sit to Stand test in 41.00 Auto Crane Driver Goal (LTG) Pt to completes 5xStS test in <30 seconds, demonstrating improvement in functional mobility, leg strength, and activity tolerance Two Impairment Pt DGI score (01/01) suggests pt is a very high falls risk Auto Crane Driver Goal (LTG) Pt to increased DGI score by at least six points to in order to demonstrate a decreased risk of falls. LTG Duration 01/17/24 One Impairment Pt does not have an appropriate home exercise program Short Term Goal (STG) Pt to be independent and compliant with an appropriate HEP STG Duration 11/19/23 Assessment Summary Assessment Pt presents with signs and symptoms consistent with multifactoral imbalance. Testing indicates LE weakness, decreased activity tolerance, very poor dynamic balance, and declining functional mobility, and degenerative changes in her left knee. Pt may benefit from skilled therapeutic intervention focusing on improving strength and balance in an effort to decrease risk of falls and improve pt's ability to perform caregiving activities for . Pt currently healing from recent fall, which resulted in a radial fracture, and despite verbalizing that she was not allowed to put weight through her left wrist, therapist was required to verbally remind her multiple times. Physical Therapy Plan Frequency and Duration Frequency of Treatment 2x/Week Plan of Care Start Date 10/19/23 Plan of Care End Date 01/17/24 Therapeutic Interventions Therapeutic Interventions Balance Training,Gait Training ,Home Exercise Program,Joint Mobilizations,Manual Therapy, Neuromuscular Re-education, Patient/Caregiver Education, Self-Care/Home Management,Soft Tissue Mobilization,Taping, Therapeutic Activities, Therapeutic Exercises Modalities Cold Pack/Ice Massage,Hot Packs Next Visit Focus/Plan Next Note Type Treatment Note Next Visit Plan LE strengthening, balance challenges, transfer and gait training Plan of Care Dates Plan of Care Start Date 10/19/23 Plan of Care End Date 01/17/24 Electronically Signed by: Hua Hargrove, PT 10/19/23 [id number] If you are in agreement with this Plan of Care, please return a signed and dated copy. I have reviewed this Plan of Care and certify that the skilled therapy services above are required to meet the patient?s needs. Physician Signature Date Printed Name and Credentials Clinical Instructor Signature Printed Name and Credentials
--- NOTE | 2023-11-01 16:42 | PT.OTN ---
Current Diagnoses Muscle weakness (generalized) (11/01/23) Unsteadiness on feet (11/01/23) Other abnormalities of gait and mobility (11/01/23) Repeated falls (11/01/23) Physical Therapy Treatment Note PT-OP-A Visit Information Start: 10/19/23 12:05 Freq: Status: Active Protocol: Document 11/01/23 16:00 DCW (Rec: 11/01/23 16:42 DCW [id number]) Out-Patient Physical Therapy Visit Information Visit Information Visit Type Treatment Note Visit Start Time 16:00 Visit Stop Time 16:45 Visit Number 2 Number of CHAINSTITCH ZIPPER SETTER Visits 0 Evaluation Information Evaluation Date 10/19/23 Precautions Precautions [place] PT-OP-B Current Condition Start: 10/19/23 12:05 Freq: Status: Active Protocol: Document 10/19/23 10:30 DCW (Rec: 10/19/23 12:41 DCW [id number]) Current Condition History of Current Condition Current Complaints Repeated falls, weakness, gait difficulty, sit<->stand difficulty History of Current Condition Pt is a 78 year old female presenting with a long history of falls and instability, which per pt, seems to be worsening. Notes her most recent fall (last week, she was able to get herself off the floor, but it is difficulty because six weeks ago, she had a fall which resulted in a left forearm fracture, and she is currently not supposed to bear any weight through her left arm. Following her fall six weeks ago, she began using a SPC. Admits her knees feel very weak, which is limiting her stability and transfer ability . 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 Has stairs at home, bilateral rails. Admits if she has to take anything up the stairs, she will lift it up three steps, set it down, walk up three steps, and then pick it back up, and repeat until she gets to the top. PT-OP-C Subjective Start: 10/19/23 12:05 Freq: Status: Active Protocol: Document 11/01/23 16:00 DCW (Rec: 11/01/23 16:42 DCW [id number]) OP-PT Subjective Patient Comments Patient Comments I finally called to see about getting my knee done. PT-OP-E Functional Tests Start: 10/19/23 12:05 Freq: Status: Active Protocol: Document 10/19/23 10:30 DCW (Rec: 10/19/23 12:41 DCW [id number]) Functional Tests Dynamic Gait Index (DGI) Score 7 Five Times Sit to Stand Test Score 41.00 Comments Heavy use of R UE Timed Up and Go (TUG) Score 19.96 Comments Three-trial Average (30.26, 15 .41, 14.21) PT-OP-G Mobility & Gait Start: 10/19/23 12:05 Freq: Status: Active Protocol: Document 10/19/23 10:30 DCW (Rec: 10/19/23 12:41 DCW [id number]) OP Mobility Evaluation Transfers Sit to Stand Severe difficulty from standard height chair, unable to perform without UE. Required multiple reminders to not use left UE due to recent fracture/weight-bearing restriction. OP Gait Assessment Assistive Devices Assistive Device Gait Belt,Straight Cane Gait Deviations General Gait Pattern Antalgic,Decreased Stride Length,Decreased Feet Clearance,Flexed Trunk Factors Limiting Gait Function Factors Limiting Gait Function Decreased Strength,Pain,Poor Balance,Poor Safety Awareness Stair Climbing Evaluation Evaluation Level of Assist On Stairs Standby Assistance Devices Stair Climbing Assistive Devices Right Railing Technique/Endurance Stair Climbing Direction Ascend and Descend Stair Climbing Technique Step to Step PT-OP-M Strength Start: 10/19/23 12:05 Freq: Status: Active Protocol: Document 10/19/23 10:30 DCW (Rec: 10/19/23 12:41 DCW [id number]) Hip Strength Hip Manual Muscle Testing Right Flexion (L2) 4 Good Extension (S1) 4+ Good+ Abduction 4 Good Adduction 4 Good External Rotation 4+ Good+ Internal Rotation 4+ Good+ Left Flexion (L2) 3+ Fair+ Extension (S1) 4+ Good+ Abduction 4 Good Adduction 4 Good External Rotation 4- Good- Internal Rotation 4+ Good+ Knee Strength Knee Manual Muscle Testing Right Flexion (S2) 4 Good Extension (L3) 4 Good Left Flexion (S2) 4- Good- Extension (L3) 4- Good- PT-OP-Q Treatments Start: 10/19/23 12:05 Freq: Status: Active Protocol: Document 11/01/23 16:00 DCW (Rec: 11/01/23 16:42 DCW [id number]) Cardio Equipment Recumbent Elliptical (Biodex) Duration (Minutes) 1 Resistance 4 Seat Position 11 Other Stopped d/t knee pain Therapeutic Exercises Supine Exercises SLR Supine Exercise Name SLR Side bilateral Comments AAROM L Sidelying Exercises Reverse Clamshell Sidelying Exercise Name Reversel Clamshell Side bilateral Clamshell Sidelying Exercise Name Clamshell Side bilateral Sitting Exercises LAQ Sitting Exercise Name LAQ Side bilateral Resistance 5# Hamstring Curls Sitting Exercise Name HS curls Side bilateral Resistance Lv 3 Other Exercises Side-stepping Other Exercise Name Side-stepping /s UE support Neuro Re-Education Treatment Balance Activities Tilt Board Details DF/PF, Lateral Equipment Wooden tilt board Tandem Details Tandem Stance Equipment // bars Foam Stance Details NBOS Surface AirEx Comments Head turns PT-OP-T Assessment and Plan Start: 10/19/23 12:05 Freq: Status: Active Protocol: Document 11/01/23 16:00 DCW (Rec: 11/01/23 16:42 [facility] [id number]) Physical Therapy Assessment Impairments Impairments Activity Tolerance,Balance, Functional Activities, Functional Mobility,Gait,Soft Tissue Mobility,Strength,Tone, Transfers Other Concerns Fall Risk Severely high falls risk, per DGI (01/01) and extensive falls history Goals Three Impairment Pt completes 5x Sit to Stand test in 41.00 Half-Way Goal (LTG) Pt to completes 5xStS test in <30 seconds, demonstrating improvement in functional mobility, leg strength, and activity tolerance Two Impairment Pt DGI score (01/01) suggests pt is a very high falls risk Logging Supervisor Goal (LTG) Pt to increased DGI score by at least six points to in order to demonstrate a decreased risk of falls. LTG Duration 01/17/24 One Impairment Pt does not have an appropriate home exercise program Short Term Goal (STG) Pt to be independent and compliant with an appropriate HEP STG Duration 11/19/23 Assessment Summary Assessment Left knee pain limiting pt's participation in some activities, but was able to find some exercises pt could tolerate. Continue to focus on LE strengthening and balance challenges within tolerable level of knee discomfort. Physical Therapy Plan Frequency and Duration Frequency of Treatment 2x/Week Plan of Care Start Date 10/19/23 Plan of Care End Date 01/17/24 Therapeutic Interventions Therapeutic Interventions Balance Training,Gait Training ,Home Exercise Program,Joint Mobilizations,Manual Therapy, Neuromuscular Re-education, Patient/Caregiver Education, Self-Care/Home Management,Soft Tissue Mobilization,Taping, Therapeutic Activities, Therapeutic Exercises Modalities Cold Pack/Ice Massage,Hot Packs Next Visit Focus/Plan Next Note Type Treatment Note Next Visit Plan LE strengthening, balance challenges, transfer and gait training
--- NOTE | 2023-11-07 10:28 | PT.OTN ---
Current Diagnoses Muscle weakness (generalized) (11/07/23) Unsteadiness on feet (11/07/23) Other abnormalities of gait and mobility (11/07/23) Repeated falls (11/07/23) Physical Therapy Treatment Note PT-OP-A Visit Information Start: 10/19/23 12:05 Freq: Status: Active Protocol: Document 11/07/23 10:06 SP (Rec: 11/07/23 10:33 SP [id number]) Out-Patient Physical Therapy Visit Information Visit Information Visit Type Treatment Note Visit Start Time 09:48 Visit Stop Time 10:28 Visit Number 3 Number of REAL ESTATE SERVICES ADMINISTRATOR Visits 1 Evaluation Information Evaluation Date 10/19/23 Precautions Precautions [place] PT-OP-B Current Condition Start: 10/19/23 12:05 Freq: Status: Active Protocol: Document 10/19/23 10:30 DCW (Rec: 10/19/23 12:41 DCW [id number]) Current Condition History of Current Condition Current Complaints Repeated falls, weakness, gait difficulty, sit<->stand difficulty History of Current Condition Pt is a 78 year old female presenting with a long history of falls and instability, which per pt, seems to be worsening. Notes her most recent fall (last week, she was able to get herself off the floor, but it is difficulty because six weeks ago, she had a fall which resulted in a left forearm fracture, and she is currently not supposed to bear any weight through her left arm. Following her fall six weeks ago, she began using a SPC. Admits her knees feel very weak, which is limiting her stability and transfer ability . 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 Has stairs at home, bilateral rails. Admits if she has to take anything up the stairs, she will lift it up three steps, set it down, walk up three steps, and then pick it back up, and repeat until she gets to the top. PT-OP-C Subjective Start: 10/19/23 12:05 Freq: Status: Active Protocol: Document 11/07/23 10:06 SP (Rec: 11/07/23 10:33 SP [id number]) OP-PT Subjective Patient Comments Patient Comments Pt reports doing HEP 1/day. Pt reports wants to review HEP and make sure doing right, standing goes fast, not sure if thats ok. PT-OP-E Functional Tests Start: 10/19/23 12:05 Freq: Status: Active Protocol: Document 10/19/23 10:30 DCW (Rec: 10/19/23 12:41 DCW [id number]) Functional Tests Dynamic Gait Index (DGI) Score 01/01 Five Times Sit to Stand Test Score 41.00 Comments Heavy use of R UE Timed Up and Go (TUG) Score 19.96 Comments Three-trial Average (30.26, 15 .41, 14.21) PT-OP-G Mobility & Gait Start: 10/19/23 12:05 Freq: Status: Active Protocol: Document 10/19/23 10:30 DCW (Rec: 10/19/23 12:41 DCW [id number]) OP Mobility Evaluation Transfers Sit to Stand Severe difficulty from standard height chair, unable to perform without UE. Required multiple reminders to not use left UE due to recent fracture/weight-bearing restriction. OP Gait Assessment Assistive Devices Assistive Device Gait Belt,Straight Cane Gait Deviations General Gait Pattern Antalgic,Decreased Stride Length,Decreased Feet Clearance,Flexed Trunk Factors Limiting Gait Function Factors Limiting Gait Function Decreased Strength,Pain,Poor Balance,Poor Safety Awareness Stair Climbing Evaluation Evaluation Level of Assist On Stairs Standby Assistance Devices Stair Climbing Assistive Devices Right Railing Technique/Endurance Stair Climbing Direction Ascend and Descend Stair Climbing Technique Step to Step PT-OP-M Strength Start: 10/19/23 12:05 Freq: Status: Active Protocol: Document 10/19/23 10:30 DCW (Rec: 10/19/23 12:41 DCW [id number]) Hip Strength Hip Manual Muscle Testing Right Flexion (L2) 4 Good Extension (S1) 4+ Good+ Abduction 4 Good Adduction 4 Good External Rotation 4+ Good+ Internal Rotation 4+ Good+ Left Flexion (L2) 3+ Fair+ Extension (S1) 4+ Good+ Abduction 4 Good Adduction 4 Good External Rotation 4- Good- Internal Rotation 4+ Good+ Knee Strength Knee Manual Muscle Testing Right Flexion (S2) 4 Good Extension (L3) 4 Good Left Flexion (S2) 4- Good- Extension (L3) 4- Good- PT-OP-Q Treatments Start: 10/19/23 12:05 Freq: Status: Active Protocol: Document 11/07/23 10:06 SP (Rec: 11/07/23 10:33 SP [id number]) Therapeutic Exercises Supine Exercises heel slide Side left Reps/Minutes 2x10 Comments 3/4 range into ext- better control excc SAQ Supine Exercise Name 10 o/clock Side left Resistance AROM Reps/Minutes 5 SH 2x10 Comments cued keep knee on roller Sidelying Exercises Reverse Clamshell Sidelying Exercise Name Reverse Clamshell Side bilateral Reps/Minutes 2x10 Comments cues knees together, lift/ lower Clamshell Sidelying Exercise Name Clamshell Side bilateral Reps/Minutes 2x10 Comments tactile cues maintain on side/ no roll back /c TA fac, improves range /c rep Sitting Exercises LAQ Sitting Exercise Name LAQ Side bilateral Resistance 5#> AROM Reps/Minutes 8 pain- removed wt add holds 10 x5 SH Comments pain reduction, cued quad engagement ext- not end range locking Hamstring Curls Sitting Exercise Name HS curls- HEP Side bilateral Resistance Lv 3- therapist anchored (has long at home to tie chair/ sit in past Reps/Minutes 2x10 Comments cued slower ecc ext Standing Exercises Hip Extension Standing Exercise Name Hip Extension- HEP reviewed Side bilateral Resistance AROM Reps/Minutes 2x20 Comments cued tall posture and slower con/ecc control, soft stance LE Hip Abduction Standing Exercise Name Hip Abduction- HEP reviewed Side bilateral Resistance AROM Reps/Minutes 2x20 Comments cued tall posture and slower con/ecc control, soft stance LE Manual Therapy Treatment Soft Tissue Mobilization L quad Mobilization Type Rolling,Strumming,Other Intensity/Depth Superficial Body Position Sitting Comments manual and ed self use rolling pin. Noted knee pain reduction able to do holds. PT-OP-T Assessment and Plan Start: 10/19/23 12:05 Freq: Status: Active Protocol: Document 11/07/23 10:06 SP (Rec: 11/07/23 10:33 SP [id number]) Physical Therapy Assessment Goals Three Impairment Pt completes 5x Sit to Stand test in 41.00 Impairment Lower extremity functional scale score 29% Manager Housekeeping Goal (LTG) Pt to completes 5xStS test in <30 seconds, demonstrating improvement in functional mobility, leg strength, and activity tolerance Two Impairment Pt DGI score (01/01) suggests pt is a very high falls risk Impairment 785ft 6 min walk test Detention Goal (LTG) Pt to increased DGI score by at least six points to 13/24 in order to demonstrate a decreased risk of falls. LTG Duration 01/17/24 One Impairment Pt does not have an appropriate home exercise program Impairment AROM 14-94 PROM 10-100 Short Term Goal (STG) Pt to be independent and compliant with an appropriate HEP STG Duration 11/19/23 Assessment Summary Assessment Pt required Mod cues and tactile feedback for maintaining sidelying to focus hip strengthening exercises. Improved quad engagement during added heel slide and SAQ today, needed support to initiate HS then able to perform rest. Pt reported L knee pain during LAQ, no pain when removed weights and hold contraction with slower return decreased HS recruitment. Cues for slower pacing and improved posturing no LB arch during standing hip ext and abduction during review past HEP per pt request. Physical Therapy Plan Frequency and Duration Frequency of Treatment 2x/Week Plan of Care Start Date 10/19/23 Plan of Care End Date 01/17/24 Therapeutic Interventions Therapeutic Interventions Balance Training,Gait Training ,Home Exercise Program,Joint Mobilizations,Manual Therapy, Neuromuscular Re-education, Patient/Caregiver Education, Self-Care/Home Management,Soft Tissue Mobilization,Taping, Therapeutic Activities, Therapeutic Exercises Modalities Cold Pack/Ice Massage,Hot Packs Next Visit Focus/Plan Next Note Type Treatment Note Next Visit Plan *Hold BIke per pt, causes knee pain. HEP review as needed. LE strengthening, balance challenges, transfer and gait training
--- NOTE | 2023-11-13 14:32 | PT.OTN ---
Current Diagnoses Muscle weakness (generalized) (11/13/23) Unsteadiness on feet (11/13/23) Other abnormalities of gait and mobility (11/13/23) Repeated falls (11/13/23) Physical Therapy Treatment Note PT-OP-A Visit Information Start: 10/19/23 12:05 Freq: Status: Active Protocol: Document 11/13/23 13:54 SP (Rec: 11/13/23 14:36 SP [id number]) Out-Patient Physical Therapy Visit Information Visit Information Visit Type Treatment Note Visit Start Time 13:54 Visit Stop Time 14:32 Visit Number 4 Number of SNOW FENCE ERECTOR Visits 2 Evaluation Information Evaluation Date 10/19/23 Precautions Precautions [place] PT-OP-B Current Condition Start: 10/19/23 12:05 Freq: Status: Active Protocol: Document 10/19/23 10:30 DCW (Rec: 10/19/23 12:41 DCW [id number]) Current Condition History of Current Condition Current Complaints Repeated falls, weakness, gait difficulty, sit<->stand difficulty History of Current Condition Pt is a 78 year old female presenting with a long history of falls and instability, which per pt, seems to be worsening. Notes her most recent fall (last week, she was able to get herself off the floor, but it is difficulty because six weeks ago, she had a fall which resulted in a left forearm fracture, and she is currently not supposed to bear any weight through her left arm. Following her fall six weeks ago, she began using a SPC. Admits her knees feel very weak, which is limiting her stability and transfer ability . 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 Has stairs at home, bilateral rails. Admits if she has to take anything up the stairs, she will lift it up three steps, set it down, walk up three steps, and then pick it back up, and repeat until she gets to the top. PT-OP-C Subjective Start: 10/19/23 12:05 Freq: Status: Active Protocol: Document 11/13/23 13:54 SP (Rec: 11/13/23 14:36 SP [id number]) OP-PT Subjective Patient Comments Patient Comments Pt reports felt good after last tx. Did get to doing HS curls with band. She states her L knee does ok stair mgt but the 1 thing hard to do is getting out chair and is painful. WIll set up L knee surgical appt for . PT-OP-E Functional Tests Start: 10/19/23 12:05 Freq: Status: Active Protocol: Document 10/19/23 10:30 DCW (Rec: 10/19/23 12:41 DCW [id number]) Functional Tests Dynamic Gait Index (DGI) Score 01/01 Five Times Sit to Stand Test Score 41.00 Comments Heavy use of R UE Timed Up and Go (TUG) Score 19.96 Comments Three-trial Average (30.26, 15 .41, 14.21) PT-OP-G Mobility & Gait Start: 10/19/23 12:05 Freq: Status: Active Protocol: Document 10/19/23 10:30 DCW (Rec: 10/19/23 12:41 DCW [id number]) OP Mobility Evaluation Transfers Sit to Stand Severe difficulty from standard height chair, unable to perform without UE. Required multiple reminders to not use left UE due to recent fracture/weight-bearing restriction. OP Gait Assessment Assistive Devices Assistive Device Gait Belt,Straight Cane Gait Deviations General Gait Pattern Antalgic,Decreased Stride Length,Decreased Feet Clearance,Flexed Trunk Factors Limiting Gait Function Factors Limiting Gait Function Decreased Strength,Pain,Poor Balance,Poor Safety Awareness Stair Climbing Evaluation Evaluation Level of Assist On Stairs Standby Assistance Devices Stair Climbing Assistive Devices Right Railing Technique/Endurance Stair Climbing Direction Ascend and Descend Stair Climbing Technique Step to Step PT-OP-M Strength Start: 10/19/23 12:05 Freq: Status: Active Protocol: Document 10/19/23 10:30 DCW (Rec: 10/19/23 12:41 DCW [id number]) Hip Strength Hip Manual Muscle Testing Right Flexion (L2) 4 Good Extension (S1) 4+ Good+ Abduction 4 Good Adduction 4 Good External Rotation 4+ Good+ Internal Rotation 4+ Good+ Left Flexion (L2) 3+ Fair+ Extension (S1) 4+ Good+ Abduction 4 Good Adduction 4 Good External Rotation 4- Good- Internal Rotation 4+ Good+ Knee Strength Knee Manual Muscle Testing Right Flexion (S2) 4 Good Extension (L3) 4 Good Left Flexion (S2) 4- Good- Extension (L3) 4- Good- PT-OP-Q Treatments Start: 10/19/23 12:05 Freq: Status: Active Protocol: Document 11/13/23 13:54 SP (Rec: 11/13/23 14:36 SP [id number]) Therapeutic Exercises Sitting Exercises LAQ Sitting Exercise Name LAQ Side bilateral Resistance Tb #2 around ankle and under opp foot Reps/Minutes 2x15 pnfree range Comments cued not end range locking, pnfree Hamstring Curls Sitting Exercise Name HS curls- HEP Side bilateral Resistance Lv 3- anchored under chair (pt set up/ sat on chair) Reps/Minutes 2x20 Comments cued slower ecc ext Other Exercises Side-stepping Other Exercise Name Side-stepping /s UE support Resistance TB #2 at thighs Reps/Minutes 15 ft x2 laps Comments cued LLE DF foot clerance trailing > leading StS Other Exercise Name Sit to Stand- HEP Resistance Instructed to start from higher seat Equipment Used mesh chair + foam pad= 20 ( hands on lap) Reps/Minutes [id number] Comments cued hip hinge Gait Training Gait Activity stair mgt Description step to Device Used B HR Level of Assistance I Distance/Duration 4 x3 sets Comments stable asc RLE/ desc LLE, stable patterning. Stair to basement but won't need to do after surgery, level surface outside to inside front, slight rise ramp garage. PT-OP-T Assessment and Plan Start: 10/19/23 12:05 Freq: Status: Active Protocol: Document 11/13/23 13:54 SP (Rec: 11/13/23 14:36 SP [id number]) Physical Therapy Assessment Goals Three Impairment Pt completes 5x Sit to Stand test in 41.00 Impairment Lower extremity functional scale score 29% Shelter Goal (LTG) Pt to completes 5xStS test in <30 seconds, demonstrating improvement in functional mobility, leg strength, and activity tolerance Two Impairment Pt DGI score (01/01) suggests pt is a very high falls risk Impairment 785ft 6 min walk test Batch Maker Goal (LTG) Pt to increased DGI score by at least six points to in order to demonstrate a decreased risk of falls. LTG Duration 01/17/24 One Impairment Pt does not have an appropriate home exercise program Impairment AROM 14-94 PROM 10-100 Short Term Goal (STG) Pt to be independent and compliant with an appropriate HEP STG Duration 11/19/23 Assessment Summary Assessment Pt continues pre rehab L knee, good effort with resisted exercise today, good demonstration HS curl band anchoring set up with opp seat with in PT for I carry over home. Tactile cue for midrange pnfree height during LAQ use TB today at ankles. Pt tolerated added resistance to side stepping no UE support stable, but challenged maintain for LLE DF foot clearance. Utilized stair mgt for LE strengthening and assess for mgt home post upcoming surgery, safe stable but not need to after surgery stairs only to basement office . Pt report will make surgical appt this week for , L knee. Physical Therapy Plan Frequency and Duration Frequency of Treatment 2x/Week Plan of Care Start Date 10/19/23 Plan of Care End Date 01/17/24 Therapeutic Interventions Therapeutic Interventions Balance Training,Gait Training ,Home Exercise Program,Joint Mobilizations,Manual Therapy, Neuromuscular Re-education, Patient/Caregiver Education, Self-Care/Home Management,Soft Tissue Mobilization,Taping, Therapeutic Activities, Therapeutic Exercises Modalities Cold Pack/Ice Massage,Hot Packs Next Visit Focus/Plan Next Note Type Treatment Note Next Visit Plan *Hold BIke and leg press per pt, causes L knee pain. HEP review as needed. PT POC: LE strengthening, balance challenges, transfer and gait training
--- NOTE | 2023-11-15 12:52 | PT.OTN ---
Current Diagnoses Muscle weakness (generalized) (11/15/23) Unsteadiness on feet (11/15/23) Other abnormalities of gait and mobility (11/15/23) Repeated falls (11/15/23) Physical Therapy Treatment Note PT-OP-A Visit Information Start: 10/19/23 12:05 Freq: Status: Active Protocol: Document 11/15/23 12:07 DCW (Rec: 11/15/23 12:52 DCW [id number]) Out-Patient Physical Therapy Visit Information Visit Information Visit Type Treatment Note Visit Start Time 12:07 Visit Stop Time 12:45 Visit Number 5 Number of WOUND/OSTOMY NURSE Visits 0 Evaluation Information Evaluation Date 10/19/23 Precautions Precautions [place] PT-OP-B Current Condition Start: 10/19/23 12:05 Freq: Status: Active Protocol: Document 10/19/23 10:30 DCW (Rec: 10/19/23 12:41 DCW [id number]) Current Condition History of Current Condition Current Complaints Repeated falls, weakness, gait difficulty, sit<->stand difficulty History of Current Condition Pt is a 78 year old female presenting with a long history of falls and instability, which per pt, seems to be worsening. Notes her most recent fall (last week, she was able to get herself off the floor, but it is difficulty because six weeks ago, she had a fall which resulted in a left forearm fracture, and she is currently not supposed to bear any weight through her left arm. Following her fall six weeks ago, she began using a SPC. Admits her knees feel very weak, which is limiting her stability and transfer ability . 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 Has stairs at home, bilateral rails. Admits if she has to take anything up the stairs, she will lift it up three steps, set it down, walk up three steps, and then pick it back up, and repeat until she gets to the top. PT-OP-C Subjective Start: 10/19/23 12:05 Freq: Status: Active Protocol: Document 11/15/23 12:07 DCW (Rec: 11/15/23 12:52 DCW [id number]) OP-PT Subjective Patient Comments Patient Comments Feeling pretty good, but I had a bust morning, so I'm pretty tired. PT-OP-E Functional Tests Start: 10/19/23 12:05 Freq: Status: Active Protocol: Document 10/19/23 10:30 DCW (Rec: 10/19/23 12:41 DCW [id number]) Functional Tests Dynamic Gait Index (DGI) Score 7 Five Times Sit to Stand Test Score 41.00 Comments Heavy use of R UE Timed Up and Go (TUG) Score 19.96 Comments Three-trial Average (30.26, 15 .41, 14.21) PT-OP-G Mobility & Gait Start: 10/19/23 12:05 Freq: Status: Active Protocol: Document 10/19/23 10:30 DCW (Rec: 10/19/23 12:41 DCW [id number]) OP Mobility Evaluation Transfers Sit to Stand Severe difficulty from standard height chair, unable to perform without UE. Required multiple reminders to not use left UE due to recent fracture/weight-bearing restriction. OP Gait Assessment Assistive Devices Assistive Device Gait Belt,Straight Cane Gait Deviations General Gait Pattern Antalgic,Decreased Stride Length,Decreased Feet Clearance,Flexed Trunk Factors Limiting Gait Function Factors Limiting Gait Function Decreased Strength,Pain,Poor Balance,Poor Safety Awareness Stair Climbing Evaluation Evaluation Level of Assist On Stairs Standby Assistance Devices Stair Climbing Assistive Devices Right Railing Technique/Endurance Stair Climbing Direction Ascend and Descend Stair Climbing Technique Step to Step PT-OP-M Strength Start: 10/19/23 12:05 Freq: Status: Active Protocol: Document 10/19/23 10:30 DCW (Rec: 10/19/23 12:41 DCW [id number]) Hip Strength Hip Manual Muscle Testing Right Flexion (L2) 4 Good Extension (S1) 4+ Good+ Abduction 4 Good Adduction 4 Good External Rotation 4+ Good+ Internal Rotation 4+ Good+ Left Flexion (L2) 3+ Fair+ Extension (S1) 4+ Good+ Abduction 4 Good Adduction 4 Good External Rotation 4- Good- Internal Rotation 4+ Good+ Knee Strength Knee Manual Muscle Testing Right Flexion (S2) 4 Good Extension (L3) 4 Good Left Flexion (S2) 4- Good- Extension (L3) 4- Good- PT-OP-Q Treatments Start: 10/19/23 12:05 Freq: Status: Active Protocol: Document 11/15/23 12:07 DCW (Rec: 11/15/23 12:52 DCW [id number]) Therapeutic Exercises Sitting Exercises LAQ Sitting Exercise Name LAQ Side bilateral Resistance 2# Reps/Minutes x10 Hamstring Curls Sitting Exercise Name HS curls Side bilateral Resistance Lv 2 Reps/Minutes x25 Other Exercises Side-stepping Other Exercise Name Side-stepping /s UE support Resistance TB #2 at thighs Reps/Minutes 15 ft x2 laps Comments cued LLE DF foot clerance trailing > leading Neuro Re-Education Treatment Balance Activities Hurdles Details Hurdles Equipment // bars Comments Step-to, occasional UE use Tilt Board Details DF/PF, Lateral Equipment Wooden tilt board Tandem Details Tandem Stance Equipment // bars Foam Stance Details NBOS Surface AirEx Comments Head turns, EO/EC PT-OP-T Assessment and Plan Start: 10/19/23 12:05 Freq: Status: Active Protocol: Document 11/15/23 12:07 DCW (Rec: 11/15/23 12:52 DC [id number]) Physical Therapy Assessment Goals Three Impairment Pt completes 5x Sit to Stand test in 41.00 Impairment Lower extremity functional scale score 29% Curing Oven Tender Goal (LTG) Pt to completes 5xStS test in <30 seconds, demonstrating improvement in functional mobility, leg strength, and activity tolerance Two Impairment Pt DGI score (01/01) suggests pt is a very high falls risk Impairment 785ft 6 min walk test Halfway Goal (LTG) Pt to increased DGI score by at least six points to 13/24 in order to demonstrate a decreased risk of falls. LTG Duration 01/17/24 One Impairment Pt does not have an appropriate home exercise program Impairment AROM 14-94 PROM 10-100 Short Term Goal (STG) Pt to be independent and compliant with an appropriate HEP STG Duration 11/19/23 Assessment Summary Assessment Pt showing some good overall improvement with balance challenges, still somewhat limited with activity participation secondary to knee pain. Physical Therapy Plan Frequency and Duration Frequency of Treatment 2x/Week Plan of Care Start Date 10/19/23 Plan of Care End Date 01/17/24 Therapeutic Interventions Therapeutic Interventions Balance Training,Gait Training ,Home Exercise Program,Joint Mobilizations,Manual Therapy, Neuromuscular Re-education, Patient/Caregiver Education, Self-Care/Home Management,Soft Tissue Mobilization,Taping, Therapeutic Activities, Therapeutic Exercises Modalities Cold Pack/Ice Massage,Hot Packs Next Visit Focus/Plan Next Note Type Treatment Note Next Visit Plan *Hold BIke and leg press per pt, causes L knee pain. HEP review as needed. PT POC: LE strengthening, balance challenges, transfer and gait training
--- NOTE | 2023-11-20 13:53 | PT.OTN ---
Current Diagnoses Muscle weakness (generalized) (11/20/23) Unsteadiness on feet (11/20/23) Other abnormalities of gait and mobility (11/20/23) Repeated falls (11/20/23) Physical Therapy Treatment Note PT-OP-A Visit Information Start: 10/19/23 12:05 Freq: Status: Active Protocol: Document 11/20/23 13:12 NBM (Rec: 11/20/23 13:52 [facility] [id number]) Out-Patient Physical Therapy Visit Information Visit Information Visit Type Treatment Note Visit Start Time 13:07 Visit Stop Time 13:47 Visit Number 6 Number of MEDICAL CLAIMS ANALYST Visits 1 PT-OP-B Current Condition Start: 10/19/23 12:05 Freq: Status: Active Protocol: Document 10/19/23 10:30 DCW (Rec: 10/19/23 12:41 DCW [id number]) Current Condition History of Current Condition Current Complaints Repeated falls, weakness, gait difficulty, sit<->stand difficulty History of Current Condition Pt is a 78 year old female presenting with a long history of falls and instability, which per pt, seems to be worsening. Notes her most recent fall (last week, she was able to get herself off the floor, but it is difficulty because six weeks ago, she had a fall which resulted in a left forearm fracture, and she is currently not supposed to bear any weight through her left arm. Following her fall six weeks ago, she began using a SPC. Admits her knees feel very weak, which is limiting her stability and transfer ability . 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 Has stairs at home, bilateral rails. Admits if she has to take anything up the stairs, she will lift it up three steps, set it down, walk up three steps, and then pick it back up, and repeat until she gets to the top. PT-OP-C Subjective Start: 10/19/23 12:05 Freq: Status: Active Protocol: Document 11/20/23 13:12 NBM (Rec: 11/20/23 13:52 [facility] [id number]) OP-PT Subjective Patient Comments Patient Comments [place] good after last treatment . She sat a lot today to do paperwork and L knee is hurting. PT-OP-E Functional Tests Start: 10/19/23 12:05 Freq: Status: Active Protocol: Document 10/19/23 10:30 DCW (Rec: 10/19/23 12:41 DCW [id number]) Functional Tests Dynamic Gait Index (DGI) Score 01/01 Five Times Sit to Stand Test Score 41.00 Comments Heavy use of R UE Timed Up and Go (TUG) Score 19.96 Comments Three-trial Average (30.26, 15 .41, 14.21) PT-OP-G Mobility & Gait Start: 10/19/23 12:05 Freq: Status: Active Protocol: Document 10/19/23 10:30 DCW (Rec: 10/19/23 12:41 DCW [id number]) OP Mobility Evaluation Transfers Sit to Stand Severe difficulty from standard height chair, unable to perform without UE. Required multiple reminders to not use left UE due to recent fracture/weight-bearing restriction. OP Gait Assessment Assistive Devices Assistive Device Gait Belt,Straight Cane Gait Deviations General Gait Pattern Antalgic,Decreased Stride Length,Decreased Feet Clearance,Flexed Trunk Factors Limiting Gait Function Factors Limiting Gait Function Decreased Strength,Pain,Poor Balance,Poor Safety Awareness Stair Climbing Evaluation Evaluation Level of Assist On Stairs Standby Assistance Devices Stair Climbing Assistive Devices Right Railing Technique/Endurance Stair Climbing Direction Ascend and Descend Stair Climbing Technique Step to Step PT-OP-M Strength Start: 10/19/23 12:05 Freq: Status: Active Protocol: Document 10/19/23 10:30 DCW (Rec: 10/19/23 12:41 DCW [id number]) Hip Strength Hip Manual Muscle Testing Right Flexion (L2) 4 Good Extension (S1) 4+ Good+ Abduction 4 Good Adduction 4 Good External Rotation 4+ Good+ Internal Rotation 4+ Good+ Left Flexion (L2) 3+ Fair+ Extension (S1) 4+ Good+ Abduction 4 Good Adduction 4 Good External Rotation 4- Good- Internal Rotation 4+ Good+ Knee Strength Knee Manual Muscle Testing Right Flexion (S2) 4 Good Extension (L3) 4 Good Left Flexion (S2) 4- Good- Extension (L3) 4- Good- PT-OP-Q Treatments Start: 10/19/23 12:05 Freq: Status: Active Protocol: Document 11/20/23 13:12 NBM (Rec: 11/20/23 13:52 NBM [id number]) Therapeutic Exercises Sitting Exercises LAQ Sitting Exercise Name LAQ Side bilateral Resistance 2# Reps/Minutes R x10, Lx5 Comments R cued eccentric control; L dc 'd d/t knee pain. Hamstring Curls Sitting Exercise Name HS curls Side bilateral Resistance Lv 2 Reps/Minutes 2x10 Comments cued R DF Other Exercises Side-stepping Other Exercise Name Side-stepping /s UE support Resistance TB #2 at thighs Reps/Minutes 15 ft x2 laps Comments cued LLE DF foot clerance trailing > leading StS Other Exercise Name Sit to Stand- HEP Resistance Instructed to start from higher seat Equipment Used mesh chair + foam pad= 20 ( hands on lap or thigh support) Reps/Minutes [id number] Comments cued hip hinge, eccentric control Neuro Re-Education Treatment Balance Activities Hurdles Details Hurdles 5 6 hurdles Surface firm Equipment // bars Reps/Duration 2 x10 ft Comments Step-to, occasional UE use, cues for march to increase hip /knee/ankle flexion. 3rd carlos manuel clipped 1st set, all cleared second. Heavy use of RUE to clear LLE. Tilt Board Details DF/PF, Lateral Equipment Wooden tilt board Comments cues for weightshifting using toes instead of hips; improves self-awareness Tandem Details Tandem Stance Surface firm Equipment // bars Reps/Duration 30s trials [email or web address] Comments LLE back more challenged. Foam Stance Details WBOS Surface 2 black foam Equipment // bars Reps/Duration 30s ea Comments EO/EC, head turns, head nods Self-Care/Home Management Treatment Education Patient Education Home Exercise Program Other Education - Edu to pt for incorporating STS HEP into daily activities with mindfulness for eccentric control. - Edu to pt re; use of ice for pain management. PT-OP-T Assessment and Plan Start: 10/19/23 12:05 Freq: Status: Active Protocol: Document 11/20/23 13:12 [facility] (Rec: 11/20/23 13:52 [facility] [id number]) Physical Therapy Assessment Goals Three Impairment Pt completes 5x Sit to Stand test in 41.00 Impairment Lower extremity functional scale score 29% [place] Goal (LTG) Pt to completes 5xStS test in <30 seconds, demonstrating improvement in functional mobility, leg strength, and activity tolerance Two Impairment Pt DGI score (01/01) suggests pt is a very high falls risk Impairment 785ft 6 min walk test Printed Circuit Photographer Goal (LTG) Pt to increased DGI score by at least six points to in order to demonstrate a decreased risk of falls. LTG Duration 01/17/24 One Impairment Pt does not have an appropriate home exercise program Impairment AROM 14-94 PROM 10-100 Short Term Goal (STG) Pt to be independent and compliant with an appropriate HEP STG Duration 11/19/23 Assessment Summary Assessment Treatment focus on LE srengthening and balance. Minda clips 3rd carlos manuel on 1st set, all cleared on second after cueing for august. Heavy use of RUE to clear LLE. Edu to pt for incorporating STS HEP into daily activities with mindfulness for eccentric control. Edu to pt re; use of ice for pain management. Physical Therapy Plan Frequency and Duration Frequency of Treatment 2x/Week Plan of Care Start Date 10/19/23 Plan of Care End Date 01/17/24 Therapeutic Interventions Therapeutic Interventions Balance Training,Gait Training ,Home Exercise Program,Joint Mobilizations,Manual Therapy, Neuromuscular Re-education, Patient/Caregiver Education, Self-Care/Home Management,Soft Tissue Mobilization,Taping, Therapeutic Activities, Therapeutic Exercises Modalities Cold Pack/Ice Massage,Hot Packs Next Visit Focus/Plan Next Note Type Treatment Note Next Visit Plan *Hold Bike and leg press per pt, causes L knee pain. HEP review as needed. PT POC: LE strengthening, balance challenges, transfer and gait training
--- NOTE | 2023-11-22 13:01 | PT.OTN ---
Current Diagnoses Muscle weakness (generalized) (11/22/23) Unsteadiness on feet (11/22/23) Other abnormalities of gait and mobility (11/22/23) Repeated falls (11/22/23) Physical Therapy Treatment Note PT-OP-A Visit Information Start: 10/19/23 12:05 Freq: Status: Active Protocol: Document 11/22/23 08:08 AB (Rec: 11/22/23 13:00 AB [id number]) Out-Patient Physical Therapy Visit Information Visit Information Visit Type Treatment Note Visit Note Access Code [email or web address] Visit Start Time 09:48 Visit Stop Time 10:30 Visit Number 7 Number of GLASS MOULD CLEANER Visits 2 Evaluation Information Evaluation Date 10/19/23 Precautions Precautions [place] PT-OP-B Current Condition Start: 10/19/23 12:05 Freq: Status: Active Protocol: Document 10/19/23 10:30 DCW (Rec: 10/19/23 12:41 DCW [id number]) Current Condition History of Current Condition Current Complaints Repeated falls, weakness, gait difficulty, sit<->stand difficulty History of Current Condition Pt is a 78 year old female presenting with a long history of falls and instability, which per pt, seems to be worsening. Notes her most recent fall (last week, she was able to get herself off the floor, but it is difficulty because six weeks ago, she had a fall which resulted in a left forearm fracture, and she is currently not supposed to bear any weight through her left arm. Following her fall six weeks ago, she began using a SPC. Admits her knees feel very weak, which is limiting her stability and transfer ability . 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 Has stairs at home, bilateral rails. Admits if she has to take anything up the stairs, she will lift it up three steps, set it down, walk up three steps, and then pick it back up, and repeat until she gets to the top. PT-OP-C Subjective Start: 10/19/23 12:05 Freq: Status: Active Protocol: Document 11/22/23 08:08 AB (Rec: 11/22/23 13:00 AB [id number]) OP-PT Subjective Patient Comments Patient Comments Patient reports she is the same, reports the knee pain is the same. PT-OP-E Functional Tests Start: 10/19/23 12:05 Freq: Status: Active Protocol: Document 10/19/23 10:30 DCW (Rec: 10/19/23 12:41 DCW [id number]) Functional Tests Dynamic Gait Index (DGI) Score 7/24 Five Times Sit to Stand Test Score 41.00 Comments Heavy use of R UE Timed Up and Go (TUG) Score 19.96 Comments Three-trial Average (30.26, 15 .41, 14.21) PT-OP-G Mobility & Gait Start: 10/19/23 12:05 Freq: Status: Active Protocol: Document 10/19/23 10:30 DCW (Rec: 10/19/23 12:41 DCW [id number]) OP Mobility Evaluation Transfers Sit to Stand Severe difficulty from standard height chair, unable to perform without UE. Required multiple reminders to not use left UE due to recent fracture/weight-bearing restriction. OP Gait Assessment Assistive Devices Assistive Device Gait Belt,Straight Cane Gait Deviations General Gait Pattern Antalgic,Decreased Stride Length,Decreased Feet Clearance,Flexed Trunk Factors Limiting Gait Function Factors Limiting Gait Function Decreased Strength,Pain,Poor Balance,Poor Safety Awareness Stair Climbing Evaluation Evaluation Level of Assist On Stairs Standby Assistance Devices Stair Climbing Assistive Devices Right Railing Technique/Endurance Stair Climbing Direction Ascend and Descend Stair Climbing Technique Step to Step PT-OP-M Strength Start: 10/19/23 12:05 Freq: Status: Active Protocol: Document 10/19/23 10:30 DCW (Rec: 10/19/23 12:41 DCW [id number]) Hip Strength Hip Manual Muscle Testing Right Flexion (L2) 4 Good Extension (S1) 4+ Good+ Abduction 4 Good Adduction 4 Good External Rotation 4+ Good+ Internal Rotation 4+ Good+ Left Flexion (L2) 3+ Fair+ Extension (S1) 4+ Good+ Abduction 4 Good Adduction 4 Good External Rotation 4- Good- Internal Rotation 4+ Good+ Knee Strength Knee Manual Muscle Testing Right Flexion (S2) 4 Good Extension (L3) 4 Good Left Flexion (S2) 4- Good- Extension (L3) 4- Good- PT-OP-Q Treatments Start: 10/19/23 12:05 Freq: Status: Active Protocol: Document 11/22/23 08:08 AB (Rec: 11/22/23 13:00 AB [id number]) Therapeutic Exercises Sitting Exercises bilateral heel raise Reps/Minutes x15 X2 Comments verbal cues to lower heels to floor seated hip abduction with band Reps/Minutes 12X2 w/o hold one one minute hold LAQ Sitting Exercise Name long arc quad Resistance level 2 band Reps/Minutes X10 right Other Exercises Side-stepping Other Exercise Name Side-stepping /s UE support Resistance TB #2 at thighs Reps/Minutes 10 ft x6 laps Comments cued LLE DF foot clerance trailing > leading Therapeutic Activity Therapeutic Activity sit to stand Reps/Minutes X5 and throughout session Comments Pt ed mechanics of sit to stand, verbal and visual cues, knees to just past 90 deg, increased trunk flexion at hips, CGA on initial trials to distant supervision, one UE use. Neuro Re-Education Treatment Balance Activities Tandem stepping Details Increased right UE use initiated with hands above barsl Reps/Duration 10 feet X 2 Comments CGA Hurdles Details Hurdles 6 6 hurdles CGA Surface firm Equipment // bars Reps/Duration 10 ft X 2 Comments initiates step to right 10 ft X 2, then step to left 10 feet X 2, with alternating one set X 10 increased UE use, ignored vc for alternating final set of 10 feet, commenting left knee bone on bone. CGA Tandem Details Tandem Stance Surface firm Equipment // bars Reps/Duration one min each LE fwd Comments with and without visual scanning and head turns cga Foam Stance Details WBOS Surface 2 black foam Equipment // bars Reps/Duration 30s ea Comments EO/EC, head turns, head nods CGA PT-OP-T Assessment and Plan Start: 10/19/23 12:05 Freq: Status: Active Protocol: Document 11/22/23 08:08 (Rec: 11/22/23 13:00 AB [id number]) Physical Therapy Assessment Goals Three Impairment Pt completes 5x Sit to Stand test in 41.00 Impairment Lower extremity functional scale score 29% [place] Goal (LTG) Pt to completes 5xStS test in <30 seconds, demonstrating improvement in functional mobility, leg strength, and activity tolerance Two Impairment Pt DGI score (01/01) suggests pt is a very high falls risk Impairment 785ft 6 min walk test Assisted Goal (LTG) Pt to increased DGI score by at least six points to in order to demonstrate a decreased risk of falls. LTG Duration 01/17/24 One Impairment Pt does not have an appropriate home exercise program Impairment AROM 14-94 PROM 10-100 Short Term Goal (STG) Pt to be independent and compliant with an appropriate HEP STG Duration 11/19/23 Assessment Summary Assessment Patient able to transfer sit to stand with one UE use with improved hip hinge, knees just past 90 deg flexion, with increased effort to perform task, but reaches upright without assist or balance reactions. Verbal and tactile cues to avoid left UE use. Physical Therapy Plan Frequency and Duration Frequency of Treatment 2x/Week Plan of Care Start Date 10/19/23 Plan of Care End Date 01/17/24 Next Visit Focus/Plan Next Note Type Treatment Note Next Visit Plan *Hold Bike and leg press per pt, causes L knee pain. HEP review as needed. PT POC: LE strengthening, balance challenges, transfer and gait training
--- NOTE | 2023-12-05 14:33 | PT.OTN ---
Current Diagnoses Muscle weakness (generalized) (12/05/23) Unsteadiness on feet (12/05/23) Other abnormalities of gait and mobility (12/05/23) Repeated falls (12/05/23) Physical Therapy Treatment Note PT-OP-A Visit Information Start: 10/19/23 12:05 Freq: Status: Active Protocol: Document 12/05/23 13:02 AB (Rec: 12/05/23 14:33 AB [id number]) Out-Patient Physical Therapy Visit Information Visit Information Visit Type Treatment Note Visit Note Access Code [email or web address] Visit Start Time 13:49 Visit Stop Time 14:28 Visit Number 9 Number of DIRECT SELLING COUNSELOR Visits 4 Evaluation Information Evaluation Date 10/19/23 Precautions Precautions [place] PT-OP-B Current Condition Start: 10/19/23 12:05 Freq: Status: Active Protocol: Document 10/19/23 10:30 DCW (Rec: 10/19/23 12:41 DCW [id number]) Current Condition History of Current Condition Current Complaints Repeated falls, weakness, gait difficulty, sit<->stand difficulty History of Current Condition Pt is a 78 year old female presenting with a long history of falls and instability, which per pt, seems to be worsening. Notes her most recent fall (last week, she was able to get herself off the floor, but it is difficulty because six weeks ago, she had a fall which resulted in a left forearm fracture, and she is currently not supposed to bear any weight through her left arm. Following her fall six weeks ago, she began using a SPC. Admits her knees feel very weak, which is limiting her stability and transfer ability . 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 Has stairs at home, bilateral rails. Admits if she has to take anything up the stairs, she will lift it up three steps, set it down, walk up three steps, and then pick it back up, and repeat until she gets to the top. PT-OP-C Subjective Start: 10/19/23 12:05 Freq: Status: Active Protocol: Document 12/05/23 13:02 AB (Rec: 12/05/23 14:33 AB [id number]) OP-PT Subjective Patient Comments Patient Comments Patient reports she has stopped using her cane. Patient reports she has no kneep pain. Patient reports the bathroom sink works better for her hip exercise. Patient also took herself out of the brace for left UE. SLS left LE 2 seconds without UE use 10+ with fingertips of right UE on bars. Patient made aware she should use SPC at all times PT-OP-E Functional Tests Start: 10/19/23 12:05 Freq: Status: Active Protocol: Document 10/19/23 10:30 DCW (Rec: 10/19/23 12:41 DCW [id number]) Functional Tests Dynamic Gait Index (DGI) Score 01/01 Five Times Sit to Stand Test Score 41.00 Comments Heavy use of R UE Timed Up and Go (TUG) Score 19.96 Comments Three-trial Average (30.26, 15 .41, 14.21) PT-OP-G Mobility & Gait Start: 10/19/23 12:05 Freq: Status: Active Protocol: Document 10/19/23 10:30 DCW (Rec: 10/19/23 12:41 DCW [id number]) OP Mobility Evaluation Transfers Sit to Stand Severe difficulty from standard height chair, unable to perform without UE. Required multiple reminders to not use left UE due to recent fracture/weight-bearing restriction. OP Gait Assessment Assistive Devices Assistive Device Gait Belt,Straight Cane Gait Deviations General Gait Pattern Antalgic,Decreased Stride Length,Decreased Feet Clearance,Flexed Trunk Factors Limiting Gait Function Factors Limiting Gait Function Decreased Strength,Pain,Poor Balance,Poor Safety Awareness Stair Climbing Evaluation Evaluation Level of Assist On Stairs Standby Assistance Devices Stair Climbing Assistive Devices Right Railing Technique/Endurance Stair Climbing Direction Ascend and Descend Stair Climbing Technique Step to Step PT-OP-M Strength Start: 10/19/23 12:05 Freq: Status: Active Protocol: Document 10/19/23 10:30 DCW (Rec: 10/19/23 12:41 DCW [id number]) Hip Strength Hip Manual Muscle Testing Right Flexion (L2) 4 Good Extension (S1) 4+ Good+ Abduction 4 Good Adduction 4 Good External Rotation 4+ Good+ Internal Rotation 4+ Good+ Left Flexion (L2) 3+ Fair+ Extension (S1) 4+ Good+ Abduction 4 Good Adduction 4 Good External Rotation 4- Good- Internal Rotation 4+ Good+ Knee Strength Knee Manual Muscle Testing Right Flexion (S2) 4 Good Extension (L3) 4 Good Left Flexion (S2) 4- Good- Extension (L3) 4- Good- PT-OP-Q Treatments Start: 10/19/23 12:05 Freq: Status: Active Protocol: Document 12/05/23 13:02 AB (Rec: 12/05/23 14:33 AB [id number]) Gym Equipment Shuttle Balance chains red Details bal, weight shift fwd and back , HTs Reps/Duration 5 min Comments red WBOS and stagger, increased difficulty with left stagger back ie no head turns or scanning trialed. Visual scanning and head turns with stagger right LE back and WBOS , CGA to minimal assist Therapeutic Exercises Sitting Exercises bilateral heel raise Side bilateral Reps/Minutes x15 X2 Comments verbal cues to lower heels to floor seated hip abduction with band Resistance level one band Reps/Minutes 12without hold and Standing Exercises mini squat Standing Exercise Name right UE support Side bilateral Reps/Minutes 7 X2 bilateral heel raise Side bilateral Reps/Minutes 2X15 30 sec X 1 and one minute X 1 Comments VC to lower heels slowly Neuro Re-Education Treatment Balance Activities mat Details without and with balls and therapods under Reps/Duration 10ft X 2 [id number] X 4balls and pods under, the lateral left and right X 10 Comments CGA hands above bars Tandem stepping Reps/Duration 10 feet X 6 Comments CGA right hand above bar Hurdles Details Hurdles 6 6 hurdles CGA Surface firm Equipment // bars Reps/Duration 10 ft X 4 PT-OP-T Assessment and Plan Start: 10/19/23 12:05 Freq: Status: Active Protocol: Document 12/05/23 13:02 AB (Rec: 12/05/23 14:33 AB [id number]) Physical Therapy Assessment Goals Three Impairment Pt completes 5x Sit to Stand test in 41.00 Impairment Lower extremity functional scale score 29% Hearing Screen Coordinator Goal (LTG) Pt to completes 5xStS test in <30 seconds, demonstrating improvement in functional mobility, leg strength, and activity tolerance Two Impairment Pt DGI score (01/01) suggests pt is a very high falls risk Impairment 785ft 6 min walk test Retirement Goal (LTG) Pt to increased DGI score by at least six points to in order to demonstrate a decreased risk of falls. LTG Duration 01/17/24 One Impairment Pt does not have an appropriate home exercise program Impairment AROM 14-94 PROM 10-100 Short Term Goal (STG) Pt to be independent and compliant with an appropriate HEP STG Duration 11/19/23 Assessment Summary Assessment Minda into session without SPC and has been advised to use SPC until cleared by PT Rafael to ambulate without SPC. Minda able to perform mini squat with reports of no pain, but can feel it. Physical Therapy Plan Next Visit Focus/Plan Next Note Type Treatment Note Next Visit Plan *Hold Bike and leg press per pt, causes L knee pain. HEP review as needed. PT POC: LE strengthening, balance challenges, transfer and gait training
--- NOTE | 2023-12-11 16:32 | PT.OTN ---
Current Diagnoses Muscle weakness (generalized) (12/11/23) Unsteadiness on feet (12/11/23) Other abnormalities of gait and mobility (12/11/23) Repeated falls (12/11/23) Physical Therapy Treatment Note PT-OP-A Visit Information Start: 10/19/23 12:05 Freq: Status: Active Protocol: Document 12/11/23 16:02 DCW (Rec: 12/11/23 16:32 DCW [id number]) Out-Patient Physical Therapy Visit Information Visit Information Visit Type Discharge Summary Visit Start Time 16:02 Visit Stop Time 16:26 Visit Number 10 Number of HYDRAMATIC MECHANIC Visits 0 Evaluation Information Evaluation Date 10/19/23 Precautions Precautions [place] PT-OP-B Current Condition Start: 10/19/23 12:05 Freq: Status: Active Protocol: Document 10/19/23 10:30 DCW (Rec: 10/19/23 12:41 DCW [id number]) Current Condition History of Current Condition Current Complaints Repeated falls, weakness, gait difficulty, sit<->stand difficulty History of Current Condition Pt is a 78 year old female presenting with a long history of falls and instability, which per pt, seems to be worsening. Notes her most recent fall (last week, she was able to get herself off the floor, but it is difficulty because six weeks ago, she had a fall which resulted in a left forearm fracture, and she is currently not supposed to bear any weight through her left arm. Following her fall six weeks ago, she began using a SPC. Admits her knees feel very weak, which is limiting her stability and transfer ability . 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 Has stairs at home, bilateral rails. Admits if she has to take anything up the stairs, she will lift it up three steps, set it down, walk up three steps, and then pick it back up, and repeat until she gets to the top. PT-OP-C Subjective Start: 10/19/23 12:05 Freq: Status: Active Protocol: Document 12/11/23 16:02 DCW (Rec: 12/11/23 16:05 DCW [id number]) OP-PT Subjective Patient Comments Patient Comments I'm glad it's my last one and I'll just work on it at home. PT-OP-E Functional Tests Start: 10/19/23 12:05 Freq: Status: Active Protocol: Document 12/11/23 16:02 DCW (Rec: 12/11/23 16:21 DCW [id number]) Functional Tests Dynamic Gait Index (DGI) Score 14/24 Five Times Sit to Stand Test Score 16.32 Comments Minimal UE use Timed Up and Go (TUG) Score 12.67 Comments Three-trial Average (14.69, 11 .62, 11.69) PT-OP-G Mobility & Gait Start: 10/19/23 12:05 Freq: Status: Active Protocol: Document 12/11/23 16:02 DCW (Rec: 12/11/23 16:21 DCW [id number]) OP Gait Assessment Assistive Devices Assistive Device Gait Belt,Straight Cane Gait Deviations General Gait Pattern Antalgic,Decreased Stride Length,Decreased Feet Clearance,Flexed Trunk Factors Limiting Gait Function Factors Limiting Gait Function Decreased Strength,Pain,Poor Balance,Poor Safety Awareness Stair Climbing Evaluation Evaluation Level of Assist On Stairs Standby Assistance Devices Stair Climbing Assistive Devices Right Railing Technique/Endurance Stair Climbing Direction Ascend and Descend Stair Climbing Technique Step to Step PT-OP-M Strength Start: 10/19/23 12:05 Freq: Status: Active Protocol: Document 12/11/23 16:02 DCW (Rec: 12/11/23 16:21 DCW [id number]) Hip Strength Hip Manual Muscle Testing Right Flexion (L2) 4 Good Extension (S1) 4+ Good+ Abduction 4 Good Adduction 4 Good External Rotation 4+ Good+ Internal Rotation 4+ Good+ Left Flexion (L2) 4- Good- Extension (S1) 4+ Good+ Abduction 4 Good Adduction 4 Good External Rotation 4- Good- Internal Rotation 4+ Good+ PT-OP-Q Treatments Start: 10/19/23 12:05 Freq: Status: Active Protocol: Document 12/11/23 16:02 DCW (Rec: 12/11/23 16:32 DCW [id number]) Neuro Re-Education Treatment Other Activities Testing Comments DGI, TUG, 5xStS PT-OP-T Assessment and Plan Start: 10/19/23 12:05 Freq: Status: Active Protocol: Document 12/11/23 16:02 DCW (Rec: 12/11/23 16:32 DCW [id number]) Physical Therapy Assessment Goals Three Impairment Pt completes 5x Sit to Stand test in 41.00 Prison Goal (LTG) Pt to completes 5xStS test in <30 seconds, demonstrating improvement in functional mobility, leg strength, and activity tolerance LTG Duration Met Two Impairment Pt DGI score (01/01) suggests pt is a very high falls risk Prison Goal (LTG) Pt to increased DGI score by at least six points to in order to demonstrate a decreased risk of falls. LTG Duration Met One Impairment Pt does not have an appropriate home exercise program Short Term Goal (STG) Pt to be independent and compliant with an appropriate HEP STG Duration Met Progress Towards Goals Progress Towards Goals Goals Met Assessment Summary Assessment Pt has met all goals, feels knowledgeable with current home program. Much better with testing, TUG decreased from 19 .96 to 12.67, 5xStS substantially improved from 41 to 16.32. Pt very enthusiastically agreeable with discharge at this time. Physical Therapy Plan Frequency and Duration Frequency of Treatment 2x/Week Plan of Care Start Date 10/19/23 Plan of Care End Date 01/17/24 Therapeutic Interventions Therapeutic Interventions Balance Training,Gait Training ,Home Exercise Program,Joint Mobilizations,Manual Therapy, Neuromuscular Re-education, Patient/Caregiver Education, Self-Care/Home Management,Soft Tissue Mobilization,Taping, Therapeutic Activities, Therapeutic Exercises Modalities Cold Pack/Ice Massage,Hot Packs Discharge Physical Therapy Discharge Reasons Goals Met Next Visit Focus/Plan Next Note Type Discharge Summary
== END 2023-12-17 09:54 | disposition home or self-care (01) ==
LOC: PHYS 16:00
PROVIDERS: Family Provider Internal Medicine; PCP Internal Medicine; Referring Provider Internal Medicine; Visit Provider Internal Medicine
DX: R29.6 Repeated falls (principal); R26.81 Unsteadiness on feet; R26.89 Other abnormalities of gait and mobility; M62.81 Muscle weakness (generalized)
CPT/HCPCS: 97110; 97112; 97163; 97530

== ENCOUNTER → 2024-02-25 11:13 | Outpatient (CLI) | payer MEDICARE, OTHER, SELFPAY ==
[2021-05-02 16:17] VITALS: BMI 30.5
--- NOTE | 2024-02-25 | DI.MG.S_ITS ---
BILATERAL DIGITAL SCREENING MAMMOGRAM 3D/2D WITH CAD POST LUMPECTOMY: 02/25/2024 CLINICAL: Routine screening. Personal history of right breast cancer. Comparison is made to exams dated: 02/20/2023 mammogram, 02/17/2022 mammogram, and 02/16/2021 mammogram - [facility]. There are scattered areas of fibroglandular density (category b / 25%-50% glandular tissue). Current study was also evaluated with a Computer Aided Detection (CAD) system. There are benign post operative findings in the right breast. No significant masses, calcifications, or other findings are seen in either breast. There has been no significant interval change. IMPRESSION: BENIGN There is no mammographic evidence of malignancy. A 1 year screening mammogram is recommended. This exam was interpreted at Station ID: [id number]. NOTE: For mammograms, a report in lay terms will be sent to the patient. Approximately 15% of breast malignancies will not be visualized mammographically. In the management of a palpable breast mass, a negative mammogram must not discourage biopsy of a clinically suspicious lesion. Electronically Signed By: Jennifer Kinney M.D., Ph.D. /penrad:02/26/2024 12:42:36 letter sent: Normal Exam ACR BI-RADS Category 2: Benign [id number]
== END ==
PROVIDERS: Family Provider Internal Medicine; PCP Internal Medicine; Referring Provider Internal Medicine; Visit Provider Internal Medicine
DX: Z12.31 Encounter for screening mammogram for malignant neoplasm of breast (principal); Z85.3 Personal history of malignant neoplasm of breast
CPT/HCPCS: 77063; 77067

== ENCOUNTER → 2024-06-26 10:29 | Outpatient (CLI) | payer MEDICARE, OTHER, SELFPAY ==
[2021-05-02 16:17] VITALS: BMI 30.5
[2024-06-26 11:31] LABS: Hematocrit 34.9 % (36-46); Hemoglobin 11.2 g/dL (12.0-16.0); Mean Corpuscular HGB Conc 32.1 % (30-36); Mean Corpuscular Hemoglobin 28.2 PG (26-34); Mean Corpuscular Volume 87.9 fL (80-100); Platelet Count 284 X10^3/uL (150-400); Red Blood Cell Count 3.98 X10^6/uL (4.0-5.2); Red Cell Distribution Width 14.5 % (11.6-14.8); White Blood Cell Count 7.3 X10^3/uL (4.5-11.0)
[2024-06-26 12:09] LABS: Hemoglobin A1C% w Est Avg Glu 6.1 % (4.0-6.0)
[2024-06-26 12:18] LABS: Alanine Aminotransferase 23 IU/L (<35); Albumin 4.6 g/dL (3.5-5.0); Albumin Globulin Ratio 1.9 (1.0-2.8); Alkaline Phosphatase 56 U/L (38-126); Aspartate Aminotransferase 32 IU/L (14-36); BUN Creatinine Ratio 33.3 (6-22); Bilirubin Total 0.5 mg/dL (0.2-1.3); Blood Urea Nitrogen 26 mg/dL (7-17); Calcium 9.5 mg/dL (8.4-10.2); Carbon Dioxide 26 mmol/L (22-32); Chloride 108 mmol/L (98-107); Cholesterol 110 mg/dL (140-199); Estimated Glomerular Filt Rate > 60 mL/min (>60); Globulin 2.4 g/dL (1.7-4.1); Glucose 164 mg/dL (80-110); HDL Cholesterol 65 mg/dL (40-60); HEMOLYSIS < 15 (0-50); LDL Cholesterol Calculated 18 mg/dL (<100); Potassium 4.5 mmol/L (3.4-5.1); Sodium 140 mmol/L (137-145); Triglycerides 134 mg/dL (35-150)
[2024-06-26 12:53] LABS: TSH w/ Reflex to FT4 0.31 uIU/mL (0.47-4.68)
[2024-06-26 13:11] LABS: Vitamin B12 858 pg/mL (239-931)
[2024-06-26 13:47] LABS: Free T4, Direct Thyroxine 0.98 ng/dL (0.78-2.19)
== END ==
PROVIDERS: Family Provider Internal Medicine; PCP Internal Medicine; Referring Provider Internal Medicine; Visit Provider Internal Medicine
DX: R73.01 Impaired fasting glucose (principal); E78.2 Mixed hyperlipidemia; E53.8 Deficiency of other specified B group vitamins; Z85.09 Personal history of malignant neoplasm of other digestive organs
CPT/HCPCS: 36415; 80053; 80061; 82607; 83036; 84439; 84443; 85027

== ENCOUNTER 2024-07-14 00:32 | Emergency (ER) | payer MEDICARE, OTHER, SELFPAY ==
[2021-05-02 16:17] VITALS: BMI 30.5
[2024-07-14] VITALS (7 sets, daily range): BP systolic 136–153; BP diastolic 71–76; PULSE 63–85; RESP 17–18; TEMP 36.2; O2SAT 97–98; BMI 30.4
--- NOTE | 2024-07-14 00:55 | ED.BACK ---
HPI - Back Pain/Injury General Chief Complaint: Back Pain/Injury Stated Complaint: left arm/shoulder pain Time Seen by Provider: 07/14/24 00:38 Source: patient History of Present Illness HPI Narrative: 79-year-old female presents for pain behind her left shoulder blade. Patient states that last week when she saw her primary care doctor she was complaining of pain in her left elbow. Her doctor at that time diagnosed her with a rotator cuff strain and told her to come back if it gets worse. Patient states that tonight she went to bed and woke up because no position she could take was comfortable for her left shoulder. She did not take any medications because she did not know what she could take for this pain. Patient initially tried to go to the walk-in clinic, but did not realize it was already closed. She says that when she had knee problems she was given a cortisone shot which helped her symptoms. She was wondering if a cortisone shot is an option for pain control here. Related Data Home Medications Medication Instructions Recorded Confirmed calcium carbonate 1 tab PO DAILY 03/09/22 06/23/24 cholecalciferol (vitamin D3) 1 cap PO DAILY 03/09/22 06/23/24 coenzyme Q10 100 mg capsule (Co 100 mg PO DAILY 12/13/22 06/23/24 Q-10) cyanocobalamin (vitamin B-12) 1,000 mcg PO DAILY 12/13/22 06/23/24 1,000 mcg capsule fluticasone propionate 50 2 spray intranasal DAILY PRN 12/13/22 06/23/24 mcg/actuation nasal allergy symptoms spray,suspension (Flonase Allergy Relief) multivitamin 1 tab PO DAILY 12/13/22 06/23/24 Previous Rx's Medication Instructions Recorded Disabled Parking Permit #1 ea 06/23/24 nystatin 100,000 unit/gram topical 1 applic topical BID #30 grams 06/23/24 cream rosuvastatin 10 mg tablet 10 mg PO DAILY #90 tabs 06/23/24 solifenacin 10 mg tablet 10 mg PO DAILY #90 tabs 06/23/24 methocarbamol 500 mg tablet 500 mg PO BEDTIME PRN muscle spasm 07/14/24 #14 tabs Allergies Allergy/AdvReac Type Severity Reaction Status Date / Time carbamazepine AdvReac Mild Dizziness Verified 06/23/24 13:20 Patient History Medical History Gait instability Obesity Impaired fasting glucose Depression, major, recurrent Reactive depression Primary osteoarthritis involving multiple joints Mixed hyperlipidemia Fractures Measles (~1954) Cataracts, bilateral Endometriosis B12 deficiency Age-related osteoporosis without current pathological fracture Urinary incontinence History of Shelley's esophagus BIA (obstructive sleep apnea) Stomach cancer (~2016) Hearing loss Chicken pox (~1949) Mumps (~1949) Osteopenia Surgical History History of surgery History of hip surgery Anesthesia Status post hysterectomy (1990) Family History Brother Age: 78 Diabetes mellitus Father Heart disease Grandfather Cancer Grandmother Heart disease Mother Heart disease Grandmother Heart disease Sister Age: 73 Lung cancer Grandfather No problems noted. Social History marital status: household members: spouse occupational status: previously employed Smoking Status: Never smoker alcohol intake: never substance use type: does not use Smoking Status: Never smoker alcohol intake frequency: holidays/special occasions only Exam Initial Vital Signs Initial Vital Signs: Vital Signs Temperature 97.1 F L 07/14/24 00:47 Pulse Rate 85 07/14/24 00:47 Respiratory Rate 17 07/14/24 00:47 Blood Pressure 153/76 H 07/14/24 00:47 Pulse Oximetry 97 07/14/24 00:47 Oxygen Delivery Method Room Air 07/14/24 00:47 Const: Awake, alert, no acute distress, nontoxic appearing Cardiac: regular rate, regular rhythm RESP: unlabored, clear bilaterally, no wheezing MSK back: no midline tenderness, full ROM of L shoulder, muscle spasm L scapular region Skin: Warm, Dry, intact, no rashes Neuro: AO x3, CN II-XII grossly intact, moves all extremities Course Orders Ordered: Discontinued Medications Acetaminophen (Acetaminophen 325 Mg Tablet) 975 mg PO NOW ONE Stop: 07/14/24 00:55 Last Admin: 07/14/24 01:01 Dose: 975 mg Documented By: SHERRILL Ketorolac Tromethamine (Ketorolac 30 Mg/Ml Vial) 30 mg IM NOW ONE Stop: 07/14/24 00:55 Last Admin: 07/14/24 01:00 Dose: 30 mg Documented By: SHERRILL Lidocaine (Lidocaine 5% Patch) 1 each TOP NOW ONE Stop: 07/14/24 00:55 Last Admin: 07/14/24 01:01 Dose: 1 each Documented By: SHERRILL Vital Signs Vital signs: Vital Signs - 8 hr 07/14/24 00:47 07/14/24 00:51 07/14/24 01:00 Temperature 97.1 F L Pulse Rate 85 82 70 Respiratory Rate 17 Blood Pressure 153/76 H Pulse Oximetry 97 98 97 Oxygen Delivery Method Room Air 07/14/24 01:30 07/14/24 02:00 07/14/24 02:11 Temperature Pulse Rate 68 63 Respiratory Rate 18 Blood Pressure 136/71 Pulse Oximetry 98 97 Oxygen Delivery Method MDM - Back Pain/Injury MDM Narrative Medical decision making narrative: Patient with isolated pain between her left scapula and spine. Pain is distinctly reproducible to palpation, with palpable muscle spasm present. No trauma. Patient given nonnarcotic medications for pain in the emergency department, which she states worked ?beautifully? for her shoulder pain. She was advised that she can take Tylenol and ibuprofen at home for symptoms and use gentle stretching exercises as needed. A very small amount of muscle relaxers sent to pharmacy of choice for nighttime if she continues to have muscle spasms. PCP follow up advised. Discharge Plan Departure Patient Disposition: Home Clinical Impression: Pain in scapula Activity Restrictions/Additional Instructions: You may take ibuprofen and Tylenol per label instructions for pain in your shoulder. Gentle stretching exercises can also help relieve pain. A very small amount of muscle relaxers has been sent to your pharmacy. Be careful with the medications as they can cause drowsiness and put you at increased risk of falling. Follow up with your primary care doctor. Prescriptions: New methocarbamol 500 mg tablet 500 mg PO BEDTIME PRN (Reason: muscle spasm) Qty: 14 0RF No Action cholecalciferol (vitamin D3) 1 cap PO DAILY calcium carbonate 1 tab PO DAILY fluticasone propionate [Flonase Allergy Relief] 50 mcg/actuation spray,suspension 2 spray intranasal DAILY PRN (Reason: allergy symptoms) Rx Instructions: administer into each nostril cyanocobalamin (vitamin B-12) 1,000 mcg capsule 1,000 mcg PO DAILY multivitamin Tablet 1 tab PO DAILY coenzyme Q10 [Co Q-10] 100 mg capsule 100 mg PO DAILY (DME) Disabled Parking Permit See Rx Instructions .Route .MEDSUPPLY Qty: 1 0RF Rx Instructions: Pt cannot walk 200 feet without stopping to rest or must use assistive device. nystatin 100,000 unit/gram cream 1 applic topical BID Qty: 30 1RF Rx Instructions: 1 gram twice daily as needed for rash rosuvastatin 10 mg tablet 10 mg PO DAILY Qty: 90 3RF solifenacin 10 mg tablet 10 mg PO DAILY Qty: 90 3RF Referrals: Martín Pyle MD [Primary Care Provider] - Stand Alone Forms: Patient Portal/API/Survey
[2024-07-14] MEDS: KETOROLAC 30 MG/ML VIAL IM (01:00)
[2024-07-14] MEDS: ACETAMINOPHEN 325 MG TABLET 975 MG PO (01:01)
[2024-07-14] MEDS: LIDOCAINE 5% PATCH 1 EACH TOP (01:01)
== END 2024-07-14 02:22 | disposition home or self-care (01) ==
PROVIDERS: Emergency Provider Emergency Medicine; Family Provider Internal Medicine; PCP Internal Medicine
DX: M25.512 Pain in left shoulder (principal)
CPT/HCPCS: 96372; 99283; 99284; J1885

== ENCOUNTER → 2024-08-30 12:28 | Outpatient (CLI) | payer MEDICARE, OTHER, SELFPAY ==
[2021-05-02 16:17] VITALS: BMI 30.5
[2024-09-01 11:10] LABS: Fecal Immunochemical Test Negative (Negative)
== END ==
PROVIDERS: Family Provider Internal Medicine; PCP Internal Medicine; Referring Provider Internal Medicine; Visit Provider Internal Medicine
DX: Z12.11 Encounter for screening for malignant neoplasm of colon (principal)
CPT/HCPCS: 82274

== ENCOUNTER → 2024-09-10 13:30 | Outpatient (CLI) | payer MEDICARE, OTHER, SELFPAY ==
[2021-05-02 16:17] VITALS: BMI 30.5
[2024-09-10 14:30] LABS: Add Manual Diff / Slide Review NO; Basophils Absolute Auto 0 /uL (0-100); Basophils Percent Auto 0.6 % (0-2); Eosinophils Absolute Auto 200 /uL (0-450); Eosinophils Percent Auto 2.5 % (2-4); Hematocrit 31.6 % (36-46); Hemoglobin 10.2 g/dL (12.0-16.0); Lymphocytes Absolute Auto 1600 /uL (1100-4500); Lymphocytes Percent Auto 21.2 % (25-40); Mean Corpuscular HGB Conc 32.3 % (30-36); Mean Corpuscular Hemoglobin 26.9 PG (26-34); Mean Corpuscular Volume 83.2 fL (80-100); Monocytes Absolute Auto 600 /uL (0-900); Monocytes Percent Auto 7.9 % (3-14); Neutrophils Absolute Auto 5100 /uL (1500-7000); Neutrophils Percent Auto 67.8 % (50-75); Platelet Count 322 X10^3/uL (150-400); Red Blood Cell Count 3.79 X10^6/uL (4.0-5.2); Red Cell Distribution Width 16.1 % (11.6-14.8); White Blood Cell Count 7.6 X10^3/uL (4.5-11.0)
[2024-09-10 15:10] LABS: HEMOLYSIS < 15 (0-50); Iron 32 ug/dL (37-170)
[2024-09-10 15:21] LABS: Percent Iron Saturation 7 % (15-50); Total Iron Binding Capacity 461 ug/dL (265-497); Transferrin 400 mg/dL (206-381)
[2024-09-10 15:48] LABS: Ferritin 6 ng/mL (11-264)
== END ==
PROVIDERS: Physician Assistant; Family Provider Internal Medicine; PCP Internal Medicine; Referring Provider Internal Medicine; Visit Provider Internal Medicine
DX: R55 Syncope and collapse (principal); R26.81 Unsteadiness on feet; R29.6 Repeated falls
CPT/HCPCS: 36415; 82728; 83540; 83550; 85025

== ENCOUNTER → 2024-09-16 08:23 | Outpatient (CLI) | payer MEDICARE, OTHER, SELFPAY ==
[2021-05-02 16:17] VITALS: BMI 30.5
--- NOTE | 2024-09-16 08:24 | DI.ECHO.S_ITS ---
[place] [facility] : : [address] : : [place] : : [id number] : : Phone: [phone] Echocardiogram Report + + :Name: JUAN SOLANO Study Date: 09/16/2024 Height: 67 in : :[facility] ReadingLocation: Weight: 200 lb : : Gender: Female BSA: 2.0 m2 : :: 1945 Age: 79 yrs BP: 152/86 mmHg: :Reason For Study: SYNCOPE : :Ordering Physician: OBDULIA, : :YURY Performed By: Petr Rich : :Referring: AMBER STEINER : + + Interpretation Summary The ejection fraction is estimated to be 55-60%. There is no significant valvular heart disease. Procedure: A two-dimensional transthoracic echocardiogram with color flow and Doppler was performed. The study quality was technically good. Comparison is made with the echocardiogram of 11/12/2019. The patient was in normal sinus rhythm during the exam. Left Ventricle: The left ventricle is normal in size. Left ventricular wall thickness is mildly increased. There is no ventricular septal defect visualized. The ejection fraction is estimated to be 55-60%. There are no focal wall motion abnormalities. Diastolic parameters suggest a relaxation abnormality of the left ventricle, consistent with probable normal filling pressures. Right Ventricle: The right ventricle is normal in size and function. Atria: The left atrial size is normal. Right atrial size is normal. There is no Doppler evidence for an atrial septal defect. Mitral Valve: The mitral valve leaflets appear normal. There is no evidence of stenosis, fluttering, or prolapse. There is trace mitral regurgitation. Aortic Valve: The aortic valve is trileaflet. The aortic valve opens well. No aortic regurgitation is present. Tricuspid Valve: The tricuspid valve leaflets are thin and pliable. No tricuspid regurgitation. Pulmonic Valve: The pulmonic valve is not well seen, but is grossly normal. There is trace pulmonic regurgitation. Great Vessels: The aortic root is normal size. The dimensions of the ascending aorta are normal. The pulmonary artery is normal size. The IVC is of normal diameter and collapses greater than 50% with a sniff. This suggests a low right atrial pressure of 3 mm Hg. Pericardium/ Pleura There is no pericardial effusion. There is no pleural effusion. MMode/2D Measurements & Calculations LVIDd: 3.8 cm LVOT diam: 2.1 cm LVIDs: 2.5 cm Ao root diam: 3.2 cm FS: 34.5 % asc Aorta Diam: 3.6 cm EPSS: 0.84 cm Ao Arch Diam (Prox Trans): 1.9 cm IVSd: 1.3 cm LVPWd: 1.2 cm LV de jesus. diameter/BSA (cm/m^2): 1.9 LV sys. diameter/BSA (cm/m^2): 1.2 LA A2 area: 22.2 cm2 RA long axis: 4.2 cm LA A4 area: 18.1 cm2 RA area: 13.2 cm2 LA length (vol): 5.4 cm RA vol: 35.2 ml LA vol: 63.4 ml RA : 17.4 ml/m2 LA vol index: 31.4 ml/m2 IVC diam: 1.3 cm RVD1 (basal): 3.1 cm RVD2 (mid): 2.8 cm TAPSE: 3.3 cm Doppler Measurements & Calculations Ao V2 max: 128.2 cm/sec LVOT Max Joshua: 107.5 cm/sec Ao V2 mean: 91.0 cm/sec LV V1 max P.6 mmHg Ao max P.6 mmHg LV V1 VTI: 26.1 cm Ao mean P.6 mmHg XENIA(I,D): 3.3 cm2 Ao V2 VTI: 27.4 cm XENIA(V,D): 2.9 cm2 sev ratio: 0.95 XENIA indexed to BSA (cm^2/m^2): 1.6 MV E max joshua: 65.3 cm/sec PA V2 max: 86.7 cm/sec MV A max joshua: 94.2 cm/sec PA V2 mean: 53.6 cm/sec MV E/A: 0.69 PA mean P.4 mmHg Med Peak E' Joshua: 5.3 cm/sec PA pr(Accel): 10.5 mmHg E/E' med: 12.4 Lat Peak E' Joshua: 5.8 cm/sec E/E' lat: 11.3 E/e' average: 11.8 MV dec time: 0.15 sec SV(LVOT): 90.4 ml Reading Physician:01:03 PM
== END ==
PROVIDERS: Family Provider Internal Medicine; PCP Internal Medicine; Referring Provider Physician Assistant; Visit Provider Physician Assistant
DX: R55 Syncope and collapse (principal)
CPT/HCPCS: 93306

== ENCOUNTER → 2024-09-22 08:13 | Outpatient (CLI) | payer MEDICARE, OTHER, SELFPAY ==
[2021-05-02 16:17] VITALS: BMI 30.5
--- NOTE | 2024-09-22 08:14 | DI.NM.S_ITS ---
PROCEDURE: NM EXERCISE TREADMILL NON NUC COMPARISON: None. INDICATIONS: syncope and collapse FINDINGS: Patient exercised per the standard protocol. Total exercise time was 3 minutes and 0 seconds. Test was terminated secondary to shortness of breath and inability to maintain walking speed on treadmill. Maximum heart rate obtained is 150 bpm which is 107% of maximal predicted heart rate. Maximum blood pressure is 152/78[place] [address]. WHITNEY +35%. 4.6 METS. No ischemic changes noted. No arrhythmias present. No chest pains voiced. Normal heart rate and blood pressure response to exercise. IMPRESSION: 1. Negative exercise treadmill stress test for ischemia. 2. Below average exercise tolerance which diminishes accuracy of stress test in evaluation for ischemia. Dictated by: Rick Ogden M.D. on 09/22/2024 at 16:44 Approved by: Rick Ogden M.D. on 09/22/2024 at 16:48
== END ==
LOC: NUCM 08:14
PROVIDERS: Family Provider Internal Medicine; PCP Internal Medicine; Referring Provider Physician Assistant; Visit Provider Physician Assistant
DX: R55 Syncope and collapse (principal)
CPT/HCPCS: 93017

== ENCOUNTER → 2024-12-25 15:10 | Outpatient (CLI) | payer MEDICARE, OTHER, SELFPAY ==
[2021-05-02 16:17] VITALS: BMI 30.5
[2024-12-25 17:45] LABS: Hematocrit 39.4 % (36-46); Hemoglobin 13.0 g/dL (12.0-16.0); Mean Corpuscular HGB Conc 33.0 % (30-36); Mean Corpuscular Hemoglobin 29.3 PG (26-34); Mean Corpuscular Volume 88.8 fL (80-100); Platelet Count 249 X10^3/uL (150-400)
[2024-12-25 18:17] LABS: HEMOLYSIS < 15 (0-50); Iron 139 ug/dL (37-170)
[2024-12-25 18:27] LABS: Percent Iron Saturation 34 % (15-50); Total Iron Binding Capacity 407 ug/dL (265-497)
[2024-12-25 18:29] LABS: Transferrin 341 mg/dL (206-381)
[2024-12-25 18:50] LABS: Ferritin 12 ng/mL (11-264)
== END ==
PROVIDERS: Family Provider Internal Medicine; PCP Internal Medicine; Referring Provider Internal Medicine; Visit Provider Internal Medicine
DX: D64.9 Anemia, unspecified (principal)
CPT/HCPCS: 36415; 82728; 83540; 83550; 85027

== ENCOUNTER → 2025-01-07 16:43 | Outpatient (CLI) | payer MEDICARE, OTHER, SELFPAY ==
[2025-01-07 16:35] VITALS: BMI 30.5
[2025-01-07 17:07] LABS: Hematocrit 39.3 % (36-46); Hemoglobin 12.9 g/dL (12.0-16.0); Mean Corpuscular HGB Conc 32.9 % (30-36); Mean Corpuscular Hemoglobin 29.1 PG (26-34); Mean Corpuscular Volume 88.6 fL (80-100); Platelet Count 248 X10^3/uL (150-400)
[2025-01-07 17:22] LABS: Alanine Aminotransferase 25 IU/L (<35); Albumin 4.3 g/dL (3.5-5.0); Albumin Globulin Ratio 2.0 (1.0-2.8); Alkaline Phosphatase 56 U/L (38-126); Blood Urea Nitrogen 26 mg/dL (7-17); Calcium 9.7 mg/dL (8.4-10.2); Carbon Dioxide 27 mmol/L (22-32); Chloride 106 mmol/L (98-107); Estimated Glomerular Filt Rate > 60 mL/min (>60); Globulin 2.2 g/dL (1.7-4.1); Glucose 115 mg/dL (70-99); HEMOLYSIS < 15 (0-50); Potassium 4.2 mmol/L (3.4-5.1); Sodium 140 mmol/L (137-145); Total Protein 6.5 g/dL (6.3-8.2)
[2025-01-07 17:53] LABS: TSH w/ Reflex to FT4 0.50 uIU/mL (0.47-4.68)
[2025-01-07 18:12] LABS: Vitamin B12 > 1000 pg/mL (239-931)
== END ==
PROVIDERS: Family Provider Internal Medicine; PCP Internal Medicine; Referring Provider Internal Medicine; Visit Provider Internal Medicine
DX: E53.8 Deficiency of other specified B group vitamins (principal); D50.9 Iron deficiency anemia, unspecified; Z85.09 Personal history of malignant neoplasm of other digestive organs
CPT/HCPCS: 36415; 80053; 82607; 84443; 85027

== ENCOUNTER → 2025-04-08 12:35 | Outpatient (CLI) | payer MEDICARE, OTHER, SELFPAY ==
[2025-01-07 16:35] VITALS: BMI 30.5
--- NOTE | 2025-04-08 12:36 | DI.MG.S_ITS ---
MM screening mammo BI: 04/08/2025. BI-RADS: 1 CLINICAL: 79-year old female for bilateral screening mammogram. Tyrer-Cuzick lifetime risk of 1.9%. No personal or first-degree family history of breast cancer. The patient had a prior right breast biopsy. PRIOR EXAMS 02/25/2024, 02/20/2023, 02/17/2022, 02/16/2021. MAMMOGRAPHY TECHNIQUE: 2D and 3D (tomosynthesis) digital mammographic views obtained, with additional images as needed for full coverage. Current study was also evaluated with a Computer Aided Detection (CAD) system. DENSITY B. There are scattered areas of fibroglandular density. MAMMOGRAPHY FINDINGS Bilateral: No suspicious mass, asymmetry, microcalcification, or other abnormality seen. IMPRESSION: * No evidence of malignancy. RECOMMENDATIONS Bilateral * Annual screening mammography. OVERALL ASSESSMENT CATEGORY BI-RADS-1: Negative. [employer] recommends annual screening mammography beginning at age 40 for women with average risk of breast cancer. ELECTRONICALLY SIGNED: Jayde Storm M.D. on 04/08/2025 at 05:32:14 PM PT Interpreting Station ID: [id number]
== END ==
LOC: MAMMO 12:35
PROVIDERS: Family Provider Internal Medicine; PCP Internal Medicine; Referring Provider Internal Medicine; Visit Provider Internal Medicine
DX: Z12.31 Encounter for screening mammogram for malignant neoplasm of breast (principal)
CPT/HCPCS: 77063; 77067